=== PATIENT | male | born 1980 | race Hispanic/Latino ===

== ENCOUNTER 2019-07-04 13:36 | Emergency (ER) | payer BC ==
[2019-07-04] MEDS ORDERED: IBUPROFEN 400 MG TAB ONE ×2 (15:18→15:20)
[2019-07-04] MEDS ORDERED: NA CHLORIDE 0.9% 1,000 ML ONE ×2 (15:18→18:07)
[2019-07-04 15:50] LABS: Absolute Lymphocytes (CBC) 1.2 K/uL (0.7-4.9); Basophils % 0.1 % (0-1.3); Hematocrit 41.3 % (39.6-49.0); Lymphocytes % 7.9 % (15.3-44.8); MPV 10.7 fL (7.6-11.3); RBC Red Blood Cell Count 4.49 M/uL (4.33-5.43)
--- NOTE | 2019-07-04 15:51 | RAD REPORT ---
EXAM DESCRIPTION: CT - Head Brain Wo Cont - 07/04/2019 3:27 pm CLINICAL HISTORY: Headache COMPARISON: None. TECHNIQUE: Computed axial tomography of the head was obtained. IV contrast was not requested. All CT scans are performed using dose optimization technique as appropriate and may include automated exposure control or mA/KV adjustment according to patient size. FINDINGS: An intracranial bleed is not seen . The ventricles are normal in caliber. No extra-axial fluid collection is noted. Fluid within the sinuses/ mastoids is not seen. IMPRESSION: No acute intracranial abnormality is seen. If patient's symptoms persist MRI of the bra in would be recommended.
[2019-07-04 15:58] LABS: Albumin 3.8 g/dL (3.4-5.0); Bilirubin Total 0.9 mg/dL (0.2-1.0); Protein, Total 7.8 g/dL (6.4-8.2)
[2019-07-04] MEDS ORDERED: LIDOCAINE 1% MPF 30 ML VIAL ONE (16:54)
[2019-07-04 18:11] LABS: CSF Glucose 58 mg/dL (40-70)
[2019-07-04 18:34] LABS: Appearance CLEAR (CLEAR); Body Fluid Source CSF; Color of fluid Colorless (COLORLESS)
[2019-07-04 18:36] LABS: Body Fluid WBC 1 /mm^3
[2019-07-04 18:37] LABS: Appearance CLEAR (CLEAR); Body Fluid Source CSF; Body Fluid WBC 1 /mm^3; Color of fluid Colorless (COLORLESS); Fluid Total Volume 8.25 ml
--- NOTE | 2019-07-04 20:05 | EDPHYS ---
Physician Documentation [facility] Name: Uzair Sullivan Age: 39 yrs Sex: Male : 1980 Arrival Date: 07/04/2019 Time: 13:38 Bed 23 Private MD: ED Physician Ethan Bhatia HPI: 07/04 14:48 This 39 yrs old Male presents to ER via Ambulatory with complaints of Fever, jmm Headache. 14:48 The patient reports fever, that was measured at 102 degrees Fahrenheit. Onset: The jmm symptoms/episode began/occurred gradually, 2 day(s) ago. Modifying factors: there are no obvious modifying factors. Associated signs and symptoms: Pertinent positives: headache, Pertinent negatives: abdominal pain, cough, diarrhea, sinus congestion, sinus drainage, vomiting. The patient has not experienced similar symptoms in the past. Historical: - Allergies: 14:15 No Known Allergies; aj1 - PMHx: 14:15 None; aj1 - Immunization history:: Adult Immunizations up to date. - Ebola Screening: : Patient denies travel to an Ebola-affected area in the 21 days before illness onset. - Social history:: Smoking status: Patient/guardian denies using tobacco. ROS: 14:48 Cardiovascular: Negative for chest pain, palpitations, and edema, Respiratory: Negative jmm for shortness of breath, cough, wheezing, and pleuritic chest pain. 14:48 Constitutional: Positive for body aches, fever. 14:48 Neuro: Positive for headache. 14:48 All other systems are negative. Exam: 14:48 Constitutional: This is a well developed, well nourished patient who is awake, alert, jmm and in no acute distress. Head/Face: atraumatic. Eyes: EOMI, no conjunctival erythema appreciated ENT: Moist Mucus Membranes Neck: Trachea midline, Supple Chest/axilla: Normal chest wall appearance and motion. Cardiovascular: Regular rate and rhythm. No edema appreciated Respiratory: Normal respirations, no respiratory distress appreciated 14:48 Skin: General appearance color normal MS/ Extremity: Moves all extremities, no obvious deformities appreciated, no edema noted to the lower extremities Neuro: Awake and alert, normal gait Psych: Behavior is normal, Mood is normal, Patient is cooperative and pleasant 14:48 Abdomen/GI: Inspection: abdomen appears normal, Bowel sounds: normal, Palpation: abdomen is soft and non-tender. Vital Signs: 14:15 BP 123 / 83; Pulse 77; Resp 16; Temp 98.5; Pulse Ox 99% on R/A; Weight 90.72 kg (R); aj1 Height 5 ft. 7 in. (170.18 cm) (R); Pain 9/10; 16:48 BP 116 / 84; Pulse 70; Resp 16; Temp 98.6; Pulse Ox 99% ; lt1 17:54 BP 116 / 85; Pulse 68; Resp 17 S; Pulse Ox 99% on R/A; ca1 18:53 BP 128 / 89; Pulse 87; Resp 17 S; Temp 98.1(O); Pulse Ox 98% on R/A; ca1 19:55 BP 114 / 89; Pulse 67; Resp 17 S; Pulse Ox 100% on R/A; ca1 14:15 Body Mass Index 31.32 (90.72 kg, 170.18 cm) [facility] Procedures: 20:00 Lumbar Puncture: Patient placed in left lateral decubitus position. Prepped with tammi Betadine. Draped using sterile technique. clear fluid. Puncture site dressed with band aid, Patient tolerated well. MDM: 14:48 Patient medically screened. celeste 20:01 Data reviewed: vital signs, nurses notes. Counseling: I had a detailed discussion with tammi the patient and/or guardian regarding: the historical points, exam findings, and any diagnostic results supporting the discharge/admit diagnosis, lab results, radiology results, the need for outpatient follow up, to return to the emergency department if symptoms worsen or persist or if there are any questions or concerns that arise at home. ED course: Patient is alert and non toxic in the ED. CSF negative. Most likely due to a viral infection. Patient otherwise given strict return precautions. Patient understood and agrees with the plan of care. . 07/04 15:11 Order name: CBC with Diff; Complete Time: 15:58 [facility] 07/04 15:11 Order name: CMP; Complete Time: 15:59 [facility] 07/04 15:11 Order name: Mccormick Screen Profile; Complete Time: 16:14 [facility] 07/04 15:11 Order name: Strep; Complete Time: 15:58 [facility] 07/04 15:58 Order name: Throat Culture [facility] 07/04 16:44 Order name: CSF Bacterial Antigens (tube 1) [facility] 07/04 15:11 Order name: CT Head Brain wo Cont; Complete Time: 16:14 [facility] 07/04 16:44 Order name: Csf Culture [facility] 07/04 16:44 Order name: Fluid Cell Count,Body; Complete Time: 18:51 [facility] 07/04 16:44 Order name: Spinal Fluid Profile; Complete Time: 18:51 [facility] 07/04 19:52 Order name: Urine Dipstick--Ancillary (enter results) [facility] 07/04 15:11 Order name: Saline Lock; Complete Time: 15:24 [facility] 07/04 16:44 Order name: Lumbar Puncture Setup; Complete Time: 17:00 [facility] 07/04 16:44 Order name: LP Consents; Complete Time: 17:00 [facility] 07/04 19:35 Order name: Misc. Order: run urine please; Complete Time: 19:45 jm Administered Medications: 15:15 Drug: Motrin 800 mg Route: PO; ca1 16:00 Follow up: Response: No adverse reaction; Pain is decreased ca1 16:15 Follow up: Response: No adverse reaction; Pain is decreased ca1 15:20 Drug: NS 0.9% 1000 ml Route: IV; Rate: 1 bolus; Site: right antecubital; ca1 16:30 Follow up: Urine output 230 ml; Response: No adverse reaction; IV Status: Completed ca1 infusion 17:37 Drug: Lidocaine (1 %) 20 ml {Note: Infiltrated by PA. Elisabeth} Volume: 20 ml; ca1 Route: Infiltration; 18:00 Follow up: Response: No adverse reaction ca1 18:18 Drug: NS 0.9% 1000 ml Route: IV; Rate: 1 bolus; Site: right antecubital; ca1 19:30 Follow up: Response: No adverse reaction; IV Status: Completed infusion ca1 Disposition: 07/04/19 20:04 Discharged to Home. Impression: Fever, unspecified, Headache. - Condition is Stable. - Discharge Instructions: Fever, Adult, General Headache Without Cause. - Prescriptions for Fiorinal 50- 325-40 mg Oral Capsule - take 1 capsule by ORAL route every 4 hours As needed - not to exceed 6 capsules per day; 20 capsule. - Medication Reconciliation Form, Thank You Letter, Antibiotic Education, Prescription Opioid Use form. - Follow up: Private Physician; When: 2 - 3 days; Reason: Recheck today's complaints, Continuance of care, Re-evaluation by your physician. Addendum: 07/06/2019 08:13 Co-signature as Attending Physician, Ethan Bhatia MD I agree with the assessment and c mckinney plan of care. Signatures: Dispatcher [employer] EDWhit Friedman RN RN aj1 Ethan Bhatia MD MD cha Mickail, Joel, PA PA Ayana Finney RN RN ca1 Corrections: (The following items were deleted from the chart) 07/04 20:17 20:04 07/04/2019 20:04 Discharged to Home. Impression: Fever, unspecified; Headache. ca1 Condition is Stable. Forms are Medication Reconciliation Form, Thank You Letter, Antibiotic Education, Prescription Opioid Use. Follow up: Private Physician; When: 2 - 3 days; Reason: Recheck today's complaints, Continuance of care, Re-evaluation by your physician. tammi
--- NOTE | 2019-07-04 20:05 | ER ---
Nurse's Notes [facility] Name: Uzair Sullivan Age: 39 yrs Sex: Male : 1980 Arrival Date: 07/04/2019 Time: 13:38 Bed 23 Private MD: Diagnosis: Fever, unspecified;Headache Presentation: 07/04 14:14 Presenting complaint: Patient states: "I've been running a fever for 2 days" Reports aj1 TMax of 102. Reports headache, nausea and sinus pressure. Denies cough, congestion. Denies V/D. Transition of care: patient was not received from another setting of care. Onset of symptoms was July 02, 2019. Risk Assessment: Do you want to hurt yourself or someone else? Patient reports no desire to harm self or others. Initial Sepsis Screen: Does the patient meet any 2 criteria? No. Patient's initial sepsis screen is negative. Does the patient have a suspected source of infection? Yes: Other: fever. Care prior to arrival: None. 14:14 Method Of Arrival: Ambulatory aj1 14:14 Acuity: GLORIA 4 aj1 Triage Assessment: 14:15 Headache History: Denies prior headaches. General: Appears in no apparent distress. aj1 uncomfortable, Behavior is calm, cooperative, appropriate for age. Pain: Complains of pain in face Pain currently is 9 out of 10 on a pain scale. Pain began 1 day ago. Also complains of nausea. Neuro: Level of Consciousness is awake, alert, obeys commands, Oriented to person, place, time, situation, Moves all extremities. Full function Gait is steady, Speech is normal, Reports headache. Cardiovascular: Patient's skin is warm and dry. Respiratory: Airway is patent Respiratory effort is even, unlabored, Respiratory pattern is regular, symmetrical. Historical: - Allergies: 14:15 No Known Allergies; aj1 - PMHx: 14:15 None; aj1 - Immunization history:: Adult Immunizations up to date. - Ebola Screening: : Patient denies travel to an Ebola-affected area in the 21 days before illness onset. - Social history:: Smoking status: Patient/guardian denies using tobacco. Screenin:50 Abuse screen: Denies threats or abuse. Denies injuries from another. Nutritional ca1 screening: No deficits noted. Tuberculosis screening: No symptoms or risk factors identified. Fall Risk IV access (20 points). Assessment: 14:50 General: Appears in no apparent distress. comfortable, Behavior is calm, cooperative, ca1 appropriate for age. Pain: Complains of pain in face and scalp Pain currently is 9 out of 10 on a pain scale. Pain began 1 day ago. Is continuous. Neuro: Level of Consciousness is awake, alert, obeys commands, Oriented to person, place, time, situation, Reports headache. Cardiovascular: Heart tones S1 S2 present Capillary refill < 3 seconds Patient's skin is warm and dry. Respiratory: Airway is patent Respiratory effort is even, unlabored, Respiratory pattern is regular, symmetrical, Breath sounds are clear bilaterally. GI: Abdomen is flat, non-distended, Bowel sounds present X 4 quads. Abd is soft and non tender X 4 quads. : No deficits noted. No signs and/or symptoms were reported regarding the genitourinary system. EENT: No deficits noted. No signs and/or symptoms were reported regarding the EENT system. Derm: Skin is intact, is healthy with good turgor, Skin is pink, warm \\T\\ dry. Musculoskeletal: Circulation, motion, and sensation intact. Capillary refill < 3 seconds, Range of motion: intact in all extremities. 15:50 Reassessment: Patient appears in no apparent distress at this time. Patient and/or ca1 family updated on plan of care and expected duration. Pain level reassessed. Patient is alert, oriented x 3, equal unlabored respirations, skin warm/dry/pink. 16:45 Reassessment: Patient appears in no apparent distress at this time. Patient and/or ca1 family updated on plan of care and expected duration. Pain level reassessed. Patient is alert, oriented x 3, equal unlabored respirations, skin warm/dry/pink. 17:30 Reassessment: Patient appears in no apparent distress at this time. Patient and/or ca1 family updated on plan of care and expected duration. Pain level reassessed. Patient is alert, oriented x 3, equal unlabored respirations, skin warm/dry/pink. 18:50 Reassessment: Patient appears in no apparent distress at this time. Patient and/or ca1 family updated on plan of care and expected duration. Pain level reassessed. Patient is alert, oriented x 3, equal unlabored respirations, skin warm/dry/pink. 19:55 Reassessment: Patient appears in no apparent distress at this time. Patient and/or ca1 family updated on plan of care and expected duration. Pain level reassessed. Patient is alert, oriented x 3, equal unlabored respirations, skin warm/dry/pink. Vital Signs: 14:15 BP 123 / 83; Pulse 77; Resp 16; Temp 98.5; Pulse Ox 99% on R/A; Weight 90.72 kg (R); aj1 Height 5 ft. 7 in. (170.18 cm) (R); Pain 9/10; 16:48 BP 116 / 84; Pulse 70; Resp 16; Temp 98.6; Pulse Ox 99% ; lt1 17:54 BP 116 / 85; Pulse 68; Resp 17 S; Pulse Ox 99% on R/A; ca1 18:53 BP 128 / 89; Pulse 87; Resp 17 S; Temp 98.1(O); Pulse Ox 98% on R/A; ca1 19:55 BP 114 / 89; Pulse 67; Resp 17 S; Pulse Ox 100% on R/A; ca1 14:15 Body Mass Index 31.32 (90.72 kg, 170.18 cm) [facility] ED Course: 13:38 Patient arrived in ED. as 14:[address] [facility] 14:15 Arm band placed on Patient placed in waiting room, Patient notified of wait time. [facility] 14:23 Fly Jules PA is PHCP. [facility] 14:23 Ethan Bhatia MD is Attending Physician. [facility] 14:47 Ayana Borges, AVANI is Primary Nurse. ca1 14:50 Patient has correct armband on for positive identification. Placed in gown. Bed in low ca1 position. Call light in reach. Side rails up X 1. Pulse ox on. NIBP on. Door closed. Noise minimized. Lights dimmed. Warm blanket given. 15:20 Inserted saline lock: 20 gauge in right antecubital area, using aseptic technique. ca1 Blood collected. 15:28 CT Head Brain wo Cont In Process Unspecified. EDMS 17:37 Assist provider with lumbar puncture: Set up LP tray. Performed by Fly SHAVER CSF ca1 is clear. Sample collected. Sample sent to lab. Puncture site dressed with 4X4s, Procedure was successful. Patient tolerated well. 20:16 IV discontinued, intact, bleeding controlled, No redness/swelling at site. Pressure ca1 dressing applied. Administered Medications: 15:15 Drug: Motrin 800 mg Route: PO; ca1 16:00 Follow up: Response: No adverse reaction; Pain is decreased ca1 16:15 Follow up: Response: No adverse reaction; Pain is decreased ca1 15:20 Drug: NS 0.9% 1000 ml Route: IV; Rate: 1 bolus; Site: right antecubital; ca1 16:30 Follow up: Urine output 230 ml; Response: No adverse reaction; IV Status: Completed ca1 infusion 17:37 Drug: Lidocaine (1 %) 20 ml {Note: Infiltrated by CHHAYA Barber.} Volume: 20 ml; ca1 Route: Infiltration; 18:00 Follow up: Response: No adverse reaction ca1 18:18 Drug: NS 0.9% 1000 ml Route: IV; Rate: 1 bolus; Site: right antecubital; ca1 19:30 Follow up: Response: No adverse reaction; IV Status: Completed infusion ca1 Output: 16:30 Urine: 230ml; Total: 230ml. ca1 Outcome: 20:04 Discharge ordered by MD. cadena 20:16 Discharged to home ambulatory, with significant other. ca1 20:16 Condition: stable 20:16 Discharge instructions given to patient, Instructed on discharge instructions, follow up and referral plans. medication usage, Demonstrated understanding of instructions, follow-up care, medications, Prescriptions given X 1. 20:17 Patient left the ED. ca1 Signatures: Dispatcher [employer] EDMS Whit Calvillo RN RN aj1 Fly Jules PA PA jmm Martinez, Amelia as Acob, Cheryl, RN RN ca1 Melida Sherman 1
[2019-07-04 20:42] LABS: Urine Blood TRACE (NEG); Urine Glucose NEGATIVE (NEG); Urine Protein 1+ (NEG)
[2019-07-04 22:22] VITALS: TEMP 98.1
[2019-07-04 22:23] VITALS: BP 114/89; O2SAT 100
== END 2019-07-04 20:17 | disposition home or self-care (01) ==
LOC: ER 13:36
DX: R50.9 Fever, unspecified (principal); R51 Headache
CPT/HCPCS: 96361; 87070 ×2; 85025; 36415; 89050 ×2; 86308; 84157; 82945; 87081; 81003; 80053; 70450; 62270; 96360; 99285; J7030 ×2

== ENCOUNTER 2019-07-25 19:49 | Emergency (ER) | payer BC ==
[2019-07-25] MEDS ORDERED: IBUPROFEN 400 MG TAB ONE (20:25)
[2019-07-25] MEDS ORDERED: NA CHLORIDE 0.9% 1,000 ML ONE (20:26)
[2019-07-25] MEDS ORDERED: IBUPROFEN 200 MG TAB PO ONE (20:26)
--- NOTE | 2019-07-25 20:55 | RAD REPORT ---
EXAM DESCRIPTION: CT - Abdomen Pelvis W Contrast - 07/25/2019 8:36 pm CLINICAL HISTORY: ABD PAIN, fever, history of diverticulitis COMPARISON: June 13 TECHNIQUE: Biphasic, helical CT imaging of the abdomen and pelvis was performed following 100 ml non -ionic IV contrast. No oral contrast. All CT scans are performed using dose optimization technique as appropriate and may include automated exposure control or mA/KV adjustment according to patient size. FINDINGS: No suspicious findings in the lung bases. Fatty infiltration of the liver is present. No focal liver lesion. Spleen and pancreas show no acute findings. Gallbladder and biliary tree are also without suspicious finding. Symmetric renal function is seen with no hydronephrosis or suspicious renal mass. No pyelonephritis o r acute parenchymal process. No bladder abnormalities. No adrenal abnormalities. No gastric dilatation or wall thickening. No small bowel abnormality. No appendicitis. From cecum thr ough the descending colon no acute finding is seen. Patient has sigmoid diverticulosis. No congestion or edema in the fat adjacent to the sigmoid colon. No rectum acute findings. No free air, free fluid or inflammatory stranding. No hernia, mass or bulky lymphadenopathy. No suspicious bony findings. IMPRESSION: No diverticulitis findings confirmed. Mild or early mucosal level inflammatory changes c an be present an occult on CT imaging. Fatty infiltration of the liver.
--- NOTE | 2019-07-25 21:55 | ER ---
Nurse's Notes [facility] Name: Uzair Sullivan Age: 39 yrs Sex: Male : 1980 Arrival Date: 07/25/2019 Time: 19:56 Bed 8 Private MD: Diagnosis: Headache;Fever, unspecified Presentation: 07/25 20:10 Presenting complaint: Patient states: He was seen by his doctor today for a fever, so aj1 he was sent to have blood work, he talked to his doctor this afternoon who recommended that he come to the hospital for evaluation. Patient last took Motrin at 1700, patient has not taken any Tylenol today. Transition of care: patient was not received from another setting of care. Onset of symptoms was July 25, 2019. Risk Assessment: Do you want to hurt yourself or someone else? Patient reports no desire to harm self or others. Initial Sepsis Screen: Does the patient meet any 2 criteria? HR > 90 bpm. No. Patient's initial sepsis screen is negative. Does the patient have a suspected source of infection? Yes: Acute abdominal pain. Care prior to arrival: None. 20:10 Method Of Arrival: Ambulatory aj1 20:10 Acuity: GLORIA 3 aj1 Triage Assessment: 20:13 General: Appears in no apparent distress. uncomfortable, Behavior is calm, cooperative, aj1 appropriate for age. Pain: Pain currently is 8 out of 10 on a pain scale. Neuro: Level of Consciousness is awake, alert, obeys commands. Cardiovascular: Patient's skin is warm and dry. Respiratory: Airway is patent Respiratory effort is even, unlabored, Respiratory pattern is regular, symmetrical. Historical: - Allergies: 20:13 No Known Allergies; aj1 - Home Meds: 20:13 None [Active]; aj1 - PMHx: 20:13 Diverticulitis; aj1 - PSHx: 20:13 None; aj1 - Immunization history:: Flu vaccine is not up to date. - Social history:: Smoking status: Patient/guardian denies using tobacco. - Ebola Screening: : Patient denies travel to an Ebola-affected area in the 21 days before illness onset. Screenin:31 Abuse screen: Denies threats or abuse. Denies injuries from another. Nutritional lp1 screening: No deficits noted. Tuberculosis screening: No symptoms or risk factors identified. Fall Risk None identified. Assessment: 20:30 General: Appears in no apparent distress. Behavior is calm, cooperative, appropriate lp1 for age. Pain: Denies pain. Neuro: Level of Consciousness is awake, alert, obeys commands, Oriented to person, place, time, situation. Cardiovascular: Patient's skin is warm and dry. Respiratory: Respiratory effort is even, unlabored. GI: Patient currently denies abdominal pain, nausea, vomiting. : No signs and/or symptoms were reported regarding the genitourinary system. EENT: No signs and/or symptoms were reported regarding the EENT system. Derm: Skin is pink, warm \T\ dry. Musculoskeletal: No deficits noted. 21:30 Reassessment: Patient appears in no apparent distress at this time. No changes from lp1 previously documented assessment. 22:22 Reassessment: Report given to Sowmya Ortega RN at [facility] for lp1 patient transfer to [address] [place] [address]. 23:00 Reassessment: Patient appears in no apparent distress at this time. Patient is alert, lp1 oriented x 3, equal unlabored respirations, skin warm/dry/pink. aware of pending transfer. 23:23 Reassessment: [facility] at bedside for transfer. lp1 Vital Signs: 20:13 BP 136 / 91; Pulse 125; Resp 20; Temp 100.7; Pulse Ox 96% on R/A; Weight 88.45 kg (R); aj1 Height 5 ft. 9 in. (175.26 cm) (R); 21:15 BP 122 / 80; Pulse 104; Resp 18; Temp 98.5; Pulse Ox 98% on R/A; ea 21:43 BP 116 / 77; Pulse 104; Resp 18; Pulse Ox 99% on R/A; lp1 23:00 BP 122 / 63; Pulse 84; Resp 16; Pulse Ox 98% on R/A; Pain 0/10; lp1 20:13 Body Mass Index 28.80 (88.45 kg, 175.26 cm) aj1 ED Course: 19:56 Patient arrived in ED. ag3 20:05 [facility] kb 20:05 Brooks Portillo MD is Attending Physician. kb 20:12 Triage completed. aj1 20:13 Arm band placed on Patient placed in an exam room. aj1 20:21 Grace Benz, RN is Primary Nurse. lp1 20:29 Inserted saline lock: 20 gauge in right antecubital area, using aseptic technique. mw2 Blood collected. 20:30 Flu and/or RSV swab sent to lab. Strep swab sent to lab. lp1 20:31 Patient has correct armband on for positive identification. lp1 20:39 CT Abd/Pelvis - IV Contrast Only In Process Unspecified. EDMS 22:17 X-ray completed. Patient tolerated procedure well. Patient moved back from radiology. mh1 22:17 No provider procedures requiring assistance completed. lp1 22:19 Chest Pa And Lat (2 Views) XRAY In Process Unspecified. EDMS 23:23 Patient transferred, IV remains in place. lp1 Administered Medications: 20:30 Drug: Ibuprofen 600 mg Route: PO; lp1 22:23 Follow up: Response: Temperature is decreased lp1 20:43 Drug: NS 0.9% 1000 ml Route: IV; Rate: 1000 ml; Site: right antecubital; lp1 22:23 Follow up: IV Status: Completed infusion; IV Intake: 1000ml lp1 Intake: 22:23 IV: 1000ml; Total: 1000ml. lp1 Outcome: 21:54 ER care complete, transfer ordered by . kb 22:23 Condition: stable lp1 22:23 Instructed on the need for transfer. 23:24 Transferred by ground EMS to [facility], Transfer form completed. lp1 X-rays sent w/ patient. 23:24 Patient left the ED. lp1 Signatures: Dispatcher [employer] EDMS Alisson Post, CUT OFF OPERATOR SCORER-C CUT OFF OPERATOR SCORER-CkWhit Mcdaniels, RN RN aj1 Melissa Alfaro 1 Grace Benz, RN RN lp1 Gabriella Cardenas, La Nena Rivas RN, ea 2 Melva Mclean 3
--- NOTE | 2019-07-25 21:55 | EDPHYS ---
Physician Documentation [facility] Name: Uzair Sullivan Age: 39 yrs Sex: Male : 1980 Arrival Date: 07/25/2019 Time: 19:56 Bed 8 Private MD: ED Physician Brooks Portillo HPI: 07/25 20:22 This 39 yrs old Male presents to ER via Ambulatory with complaints of Fever. kb 20:22 The patient reports fever, not measured (subjective), with an emergency department kb temperature of 100.7 degrees Fahrenheit. Onset: The symptoms/episode began/occurred yesterday. Modifying factors: there are no obvious modifying factors. Associated signs and symptoms: Pertinent positives: headache. Severity of symptoms: At their worst the symptoms were mild in the emergency department the symptoms are unchanged. The patient has experienced similar episodes in the past. The patient has been recently seen by a physician: the patient's primary care provider, Dr. Guzmán in the office, earlier today, with similar presenting complaints, lab tests were done, and was sent to the [facility] Emergency Department for further evaluation. Pt reports he went to Dr Guzmán for fever and headache that started yesterday. Ramirez sent him for labs here and called him afterwards saying he probably had diverticulitis again and needed to come to the ER for more testing. . Historical: - Allergies: 20:13 No Known Allergies; aj1 - Home Meds: 20:13 None [Active]; aj1 - PMHx: 20:13 Diverticulitis; aj1 - PSHx: 20:13 None; aj1 - Immunization history:: Flu vaccine is not up to date. - Social history:: Smoking status: Patient/guardian denies using tobacco. - Ebola Screening: : Patient denies travel to an Ebola-affected area in the 21 days before illness onset. ROS: 20:24 ENT: Negative for injury, pain, and discharge, Neck: Negative for injury, pain, and kb swelling, Cardiovascular: Negative for chest pain, palpitations, and edema, Respiratory: Negative for shortness of breath, cough, wheezing, and pleuritic chest pain, Abdomen/GI: Negative for abdominal pain, nausea, vomiting, diarrhea, and constipation, Back: Negative for injury and pain, : Negative for injury, bleeding, discharge, and swelling, MS/Extremity: Negative for injury and deformity, Skin: Negative for injury, rash, and discoloration. 20:24 Constitutional: Positive for fever. 20:24 Neuro: Positive for headache. Exam: 20:24 Constitutional: This is a well developed, well nourished patient who is awake, alert, kb and in no acute distress. Head/Face: Normocephalic, atraumatic. Eyes: Pupils equal round and reactive to light, extra-ocular motions intact. Lids and lashes normal. Conjunctiva and sclera are non-icteric and not injected. Cornea within normal limits. Periorbital areas with no swelling, redness, or edema. ENT: Nares patent. No nasal discharge, no septal abnormalities noted. Tympanic membranes are normal and external auditory canals are clear. Oropharynx with no redness, swelling, or masses, exudates, or evidence of obstruction, uvula midline. Mucous membranes moist. Neck: Trachea midline, no thyromegaly or masses palpated, and no cervical lymphadenopathy. Supple, full range of motion without nuchal rigidity, or vertebral point tenderness. No Meningismus. Chest/axilla: Normal chest wall appearance and motion. Nontender with no deformity. No lesions are appreciated. Cardiovascular: Regular rate and rhythm with a normal S1 and S2. No gallops, murmurs, or rubs. Normal PMI, no JVD. No pulse deficits. Respiratory: Lungs have equal breath sounds bilaterally, clear to auscultation and percussion. No rales, rhonchi or wheezes noted. No increased work of breathing, no retractions or nasal flaring. Abdomen/GI: Soft, non-tender, with normal bowel sounds. No distension or tympany. No guarding or rebound. No evidence of tenderness throughout. Skin: Warm, dry with normal turgor. Normal color with no rashes, no lesions, and no evidence of cellulitis. MS/ Extremity: Pulses equal, no cyanosis. Neurovascular intact. Full, normal range of motion. Neuro: Awake and alert, GCS 15, oriented to person, place, time, and situation. Cranial nerves II-XII grossly intact. Motor strength 5/5 in all extremities. Sensory grossly intact. Cerebellar exam normal. Normal gait. Vital Signs: 20:13 BP 136 / 91; Pulse 125; Resp 20; Temp 100.7; Pulse Ox 96% on R/A; Weight 88.45 kg (R); aj1 Height 5 ft. 9 in. (175.26 cm) (R); 21:15 BP 122 / 80; Pulse 104; Resp 18; Temp 98.5; Pulse Ox 98% on R/A; ea 21:43 BP 116 / 77; Pulse 104; Resp 18; Pulse Ox 99% on R/A; lp1 23:00 BP 122 / 63; Pulse 84; Resp 16; Pulse Ox 98% on R/A; Pain 0/10; lp1 20:13 Body Mass Index 28.80 (88.45 kg, 175.26 cm) aj1 MDM: 20:19 Patient medically screened. kb 20:20 Data reviewed: vital signs, nurses notes. Data interpreted: Pulse oximetry: on room air kb is 96 %. Interpretation: normal. 20:24 Data reviewed: lab test result(s), CBC and BMP were done outpatient earlier today, kb results reviewed. WBC 19. 21:19 Physician consultation: Brandon Guzmán MD was contacted at 21:19, regarding consult, patient's condition, after a discussion of the case, a recommendation for transfer for higher level of care is made, Dr Guzmán requests transfer to [facility] for infectious disease . 21:25 Counseling: I had a detailed discussion with the patient and/or guardian regarding: the kb historical points, exam findings, and any diagnostic results supporting the discharge/admit diagnosis, lab results, radiology results, the need to transfer to another facility, [facility] does not immediately have the required specialist. 21:53 ED course: Dr Sutherland accepts pt for transfer.. 07/25 20:20 Order name: Flu; Complete Time: 21:02 kb 07/25 20:20 Order name: Strep; Complete Time: 21:02 kb 07/25 20:20 Order name: [place] Screen Profile; Complete Time: 21:07 kb 07/25 21:03 Order name: Throat Culture EDMI 07/25 21:24 Order name: Blood Culture Adult (2) 07/25 21:24 Order name: Procalcitonin 07/25 20:20 Order name: CT Abd/Pelvis - IV Contrast Only; Complete Time: 21:01 kb 07/25 20:20 Order name: IV Start; Complete Time: 20:30 kb 07/25 21:24 Order name: Lactate kb 07/25 21:52 Order name: Chest Pa And Lat (2 Views) XRAY kb Administered Medications: 20:30 Drug: Ibuprofen 600 mg Route: PO; lp1 22:23 Follow up: Response: Temperature is decreased lp1 20:43 Drug: NS 0.9% 1000 ml Route: IV; Rate: 1000 ml; Site: right antecubital; lp1 22:23 Follow up: IV Status: Completed infusion; IV Intake: 1000ml lp1 Disposition: 07/25/19 21:[address] [facility]. Diagnosis are Headache, Fever, unspecified. - Reason for transfer: Higher level of care. - Accepting physician is [facility]. - Condition is Stable. - Problem is new. - Symptoms are unchanged. Addendum: 07/29/2019 14:48 Co-signature as Attending Physician, Brooks oPrtillo MD. g s Signatures: Dispatcher [employer] [facility] Alisson Post, RESIDENT ATHLETIC TRAINER-C RESIDENT ATHLETIC TRAINER-Ckb Whit Calvillo RN RN 1 Grace Benz RN RN lp1 Brooks Portillo MD MD gs Corrections: (The following items were deleted from the chart) 07/25 22:05 21:51 Head Brain Wo Cont+CT.RAD.BRZ ordered. [facility] EDMI 23:24 21:54 07/25/2019 21:[address] [facility]. Diagnosis is lp1 Headache; Fever, unspecified. Reason for transfer: Higher level of care. Accept[facility] physician [facility]. Condition is Stable. Problem is new. Symptoms are unchanged. kb
[2019-07-26 01:25] VITALS: BP 122/63; TEMP 98.5; O2SAT 98
--- NOTE | 2019-07-26 09:58 | RAD REPORT ---
EXAM DESCRIPTION: Leo Padilla (2 Views)07/25/2019 10:20 pm CLINICAL HISTORY: fever COMPARISON: None FINDINGS: The lungs appear clear of acute infiltrate. The heart is normal size IMPRESSION: No acute abnormalities displayed
== END 2019-07-25 23:24 | disposition short-term general hospital (02) ==
LOC: ER 19:49
DX: R50.9 Fever, unspecified (principal); R51 Headache
CPT/HCPCS: 96361; 87040 ×2; 87070; 36415; 86308; 87081; 83605; 84145; 87804 ×2; 74177; 71046; 96360; 99285; Q9967; J7030

== ENCOUNTER 2019-09-11 18:01 | Emergency (ER) | payer BC ==
--- OUTSIDE RECORDS SUMMARY | 2019-09-11 18:05 | XMS REPORT ---
:1980 [facility] [address] [place] [address] [address] [place] [address] Care Team Providers Name Role Phone CHAGO AMADOR Unavailable Unavailable Problems This patient has no known problems. Allergies, Adverse Reactions, Alerts This patient has no known allergies or adverse reactions. Medications This patient has no known medications. Results Test Description Test Time Test Comments Text Results Atomic Results Result Comments BLOOD CULTURE 2019-08-01 08:01:00 Test Item Value Reference Range Comments CULTURE (BEAKER) (test nlqd=0541) No growth in 5 days MISCELLANEOUS LAB [id number] 07:37:00 Test Item Value Reference Range Comments SCAN RESULT (test wsmd=[id number]) BLOOD [id number] 08:00:00 Test Item Value Reference Range Comments CULTURE (BEAKER) (test wlem=3204) No growth in 5 days BLOOD [id number] 08:00:00 Test Item Value Reference Range Comments CULTURE (BEAKER) (test iool=5145) No growth in 5 days ANTI-NUCLEAR ANTIBODY (AURA)2019-07-30 09:44:00 Test Item Value Reference Range Comments ANTI-NUCLEAR ANTIBODY (AURA) (BEAKER) (test Positive Negative jatm=567) Test performed by IFA method.AURA TITER AND [id number] 09:44:00 Test Item Value Reference Range Comments AURA TITER (BEAKER) (test taev=0773) >=:2560 AURA PATTERN (BEAKER) (test tclr=9285) Homogeneous (CELLAVISION MANUAL DIFF)2019-07-29 11:53:00 Test Item Value Reference Range Comments NEUTROPHILS - REL (CELLAVISION)(BEAKER) (test 59 % yexm=2903) LYMPHOCYTES - REL (CELLAVISION)(BEAKER) (test 30 % lzhe=7051) MONOCYTES - REL (CELLAVISION)(BEAKER) (test 6 % jobu=3024) EOSINOPHILS - REL (CELLAVISION)(BEAKER) (test 1 % bhge=0258) ATYPICAL LYMPHOCYTES - REL (CELLAVISION)(BEAKER) 4 % 0-0 (test ehsf=3867) NEUTROPHILS - ABS (CELLAVISION)(BEAKER) (test 4.43 K/ul 1.78-5.38 eesu=3353) LYMPHOCYTES - ABS (CELLAVISION)(BEAKER) (test 2.25 K/ul 1.32-3.57 wkal=0672) MONOCYTES - ABS (CELLAVISION)(BEAKER) (test 0.45 K/uL 0.30-0.82 yihx=0363) EOSINOPHILS - ABS (CELLAVISION)(BEAKER) (test 0.08 K/uL 0.04-0.54 uueo=4460) ATYPICAL LYMPHOCYTES - ABS (CELLAVISION)(BEAKER) 0.30 K/uL 0.00-0.00 (test uvgs=8828) TOTAL COUNTED (BEAKER) (test yshn=1575) 100 RBC MORPHOLOGY (BEAKER) (test swft=906) Normal WBC MORPHOLOGY (BEAKER) (test zjlv=287) Normal PLT MORPHOLOGY (BEAKER) (test plck=073) Normal HEPATIC FUNCTION [id number] 09:58:00 Test Item Value Reference Range Comments TOTAL PROTEIN (BEAKER) (test ngee=800) 7.8 gm/dL 6.0-8.3 ALBUMIN (BEAKER) (test ondo=1991) 3.8 g/dL 3.5-5.0 BILIRUBIN TOTAL (BEAKER) (test vcgg=383) 0.3 mg/dL 0.2-1.2 BILIRUBIN DIRECT (BEAKER) (test zidk=879) 0.2 mg/dL 0.1-0.5 ALKALINE PHOSPHATASE (BEAKER) (test potc=577) 42 U/L 40-150 AST (SGOT) (BEAKER) (test fexr=327) 17 U/L 5-34 ALT (SGPT) (BEAKER) (test cvoz=139) 24 U/L 6-55 CBC WITH PLATELET COUNT + MANUAL [id number] 09:29:00 Test Item Value Reference Range Comments WHITE BLOOD CELL COUNT (BEAKER) (test skpa=477) 7.5 K/ L 3.5-10.5 RED BLOOD CELL COUNT (BEAKER) (test jtrv=246) 4.08 M/ L 4.63-6.08 HEMOGLOBIN (BEAKER) (test bsxz=977) 12.8 GM/DL 13.7-17.5 HEMATOCRIT (BEAKER) (test xzbi=585) 36.1 % 40.1-51.0 MEAN CORPUSCULAR VOLUME (BEAKER) (test vsae=537) 88.5 fL 79.0-92.2 MEAN CORPUSCULAR HEMOGLOBIN (BEAKER) (test 31.4 pg 25.7-32.2 gmvj=298) MEAN CORPUSCULAR HEMOGLOBIN CONC (BEAKER) (test 35.5 GM/DL 32.3-36.5 ajen=876) RED CELL DISTRIBUTION WIDTH (BEAKER) (test 11.6 % 11.6-14.4 lrjv=341) PLATELET COUNT (BEAKER) (test rjja=644) 247 K/CU MM 150-450 MEAN PLATELET VOLUME (BEAKER) (test cslf=686) 10.8 fL 9.4-12.4 NUCLEATED RED BLOOD CELLS (BEAKER) (test 0 /100 WBC 0-0 dhwr=714) RESPIRATORY PANEL [id number] 15:15:00 Test Item Value Reference Range Comments HUMAN METAPNEUMOVIRUS (BEAKER) (test Not detected Not detected, Equivocal vgeh=2448) RHINOVIRUS (BEAKER) (test heqf=8114) Not detected Not detected, Equivocal INFLUENZA A (BEAKER) (test zkiv=1424) Not detected Not detected, Equivocal INFLUENZA A (NO SUBTYPE) (test xejy=5341) INFLUENZA A SUBTYPE H1 (BEAKER) (test mggm=0918) INFLUENZA A SUBTYPE H3 (BEAKER) (test bqhj=4849) INFLUENZA A SUBTYPE H1-2009 (BEAKER) (test jblo=5843) INFLUENZA B (BEAKER) (test oxdm=4585) Not detected Not detected, Equivocal RESPIRATORY SYNCYTIAL VIRUS (BEAKER) Not detected Not detected, Equivocal (test uzso=3598) PARAINFLUENZA VIRUS 1 (BEAKER) (test Not detected Not detected, Equivocal wqpf=5484) PARAINFLUENZA VIRUS 2 (BEAKER) (test Not detected Not detected, Equivocal gotp=0918) PARAINFLUENZA VIRUS 3 (BEAKER) (test Not detected Not detected, Equivocal hgit=3239) PARAINFLUENZA VIRUS 4 (BEAKER) (test Not detected Not detected, Equivocal qmta=6491) ADENOVIRUS (BEAKER) (test pbff=6115) Not detected Not detected, Equivocal CORONAVIRUS 229E (BEAKER) (test Not detected Not detected, Equivocal zmhi=4093) CORONAVIRUS HKU1 (BEAKER) (test Not detected Not detected, Equivocal gmld=1571) CORONAVIRUS NL63 (BEAKER) (test Not detected Not detected, Equivocal qxjf=7893) CORONAVIRUS OC43 (BEAKER) (test Not detected Not detected, Equivocal qmuk=7757) BORDETELLA PERTUSSIS (BEAKER) (test Not detected Not detected, Equivocal ybil=4840) CHLAMYDOPHILA PNEUMONIAE (BEAKER) (test Not detected Not detected, Equivocal sbkj=0280) MYCOPLASMA PNEUMONIAE (BEAKER) (test Not detected Not detected, Equivocal iduo=7021) Other viruses and bacteria not targeted by this PCR panel cannot be excluded; therefore clinical correlation and follow up of serology, culture results, and other molecular studies is required. The results are not intended to be used as the sole means for clinical diagnosis or patient management decisions. This sample was tested at the [facility] using the FundersClubArray Respiratory Panel. It is FDA cleared and has been verified and approved by the [facility] for clinical use on nasopharyngeal swab specimens.The performance of the FilmArrayRP has not been established in individuals who received influenza vaccine. Recent administration ofa nasal influenza vaccine may cause false positive results for Influenza A and/orInfluenza B.EBV VIRAL [id number] 13:49:00 Test Item Value Reference Range Comments EBV VIRAL LOAD - NEGATIVE Negative or below the linear (BEAKER) (test hhhb=8605) range of the assay (<500 copies/mL) This assay was performed by real-time PCR for the detection of the Sary-Orourke virus (EBV) gene EBNA-1. The test is composed of (1) DNA extraction from patient specimen, and (2) real-time PCR amplification and detection with EBNA-1- specific primers and probes. A well-conserved region of the EBNA-1 gene is targeted, along with an internal control sequence used to confirm PCR amplification. Asymptomatic carriers and viral genetic variation, among other factors, can affect the accuracy of nucleic acid testing; therefore, results should be interpreted in light of clinical data.This test was developedand its performance characteristics determined by the [facility] Pathology Department, Section of Molecular Pathology. It has not been cleared or approved by the U.S. Food and Drug Administration (FDA), since FDA approval is not required for clinical use of the test. Validation was doneas required by The Clinical Laboratory Improvement Amendments of 1988.This assay was performed by real-time PCR for the detection of the Sary-Orourke virus (EBV) gene EBNA-1. The test is composed of (1) DNA extraction from patient specimen, and (2) real -time PCR amplification and detection with JBAM-3-gdwhstix primers and probes. A well-conserved region of the EBNA-1 gene is targeted, along with an internal control sequence used to confirm PCR amplification. Asymptomatic carriers and viral genetic variation, among other factors, can affect the accuracy of nucleic acid testing; therefore, results should be interpreted in light of clinical data.This test was developed and its performance characteristics determined by the [facility] Pathology Department, Section of Molecular Pathology. It has not been cleared or approved by the U.S. Food and Drug Administration (FDA), since FDA approval is not required for clinical use of the test. Validation was done as required by The Clinical Laboratory Improvement Amendments of 1987.CMV PCR, [id number] 13:43:00 Test Item Value Reference Range Comments CMV VIRAL LOAD - NEGATIVE Negative or below the linear (BEAKER) (test uyhv=5702) range of the assay (<375 copies/mL) Cytomegalovirus (CMV) infection can cause significant disease in immunosuppressed patients. However,it is common for CMV to manifest as a limited infection which is of no clinical significance in immunosuppressed patients or in healthy individuals.Viral load measurements are helpful to identify clinical CMV infection and to guide the pre-emptive management of antiviral therapy. For treatment of CMVinfection due to reactivation in transplant recipients, a threshold between 4,000 and 5,000 copies/mL is suggested. For treatment of primary CMV infection, a lower threshold can be used.CMV infection may also be monitored using weekly serial measurements. Serial measurements of CMV DNA viral load canbe evaluated by identifying a 10- fold change, as well as assessing the CMV DNA viral load and the clinical context for each patient.The plasma CMV DNA viral load was detected using quantitative polymerase chain reaction and fluorescent monitoring of a specific hybridized probe. Genetic variation and other factors can affect the accuracy of nucleic acid testing. Therefore, the results should be interpreted in light of clinical data. A negative result may not exclude the presence of CMV disease.This test was developed and its performance characteristics determined by the [facility] Pathology Department, Section of Molecular Pathology. It has not been cleared or approved by the U.S. Food and Drug Administration (FDA), since FDA approval is not required for clinical use of the test. Validation was done as required by The Clinical Laboratory Improvement Amendments of 1988.RHEUMATOID FACTOR AB, REFLEX TO [id number] 13:10:00 Test Item Value Reference Range Comments RHEUMATOID FACTOR (BEAKER) (test ghmi=614) Negative BASIC METABOLIC [id number] 06:42:00 Test Item Value Reference Range Comments SODIUM (BEAKER) (test 137 meq/L 136-145 jqej=426) POTASSIUM (BEAKER) (test 3.8 meq/L 3.5-5.1 okum=085) CHLORIDE (BEAKER) (test 106 meq/L 98-107 eszm=883) CO2 (BEAKER) (test 23 meq/L 22-29 ains=086) BLOOD UREA NITROGEN 10 mg/dL 7-21 (BEAKER) (test tfhr=038) CREATININE (BEAKER) (test 0.99 mg/dL 0.57-1.25 pbps=322) GLUCOSE RANDOM (BEAKER) 94 mg/dL 70-105 (test vasg=090) CALCIUM (BEAKER) (test 9.0 mg/dL 8.4-10.2 mipx=580) EGFR (BEAKER) (test 83 mL/min/1.73 sq m ESTIMATED GFR IS NOT thoi=3907) ACCURATE CREATININE CLEARANCE IN PREDICTING GLOMERULAR FILTRATION RATE. ESTIMATED GFR IS NOT APPLICABLE FOR DIALYSIS PATIENTS. [id number] 12:15:00 Test Item Value Reference Range Comments RPR SCREEN (BEAKER) (test yzmk=303) Nonreactive Nonreactive HIV-1 ANTIGEN WITH HIV-1/2 [id number] 04:56:00 Test Item Value Reference Range Comments HIV-1 ANTIGEN WITH HIV 1\T\2 ANTIBODY (2) Nonreactive Nonreactive (BEAKER) (test nnhz=9640) BASIC METABOLIC [id number] 04:24:00 Test Item Value Reference Range Comments SODIUM (BEAKER) (test 139 meq/L 136-145 bzxs=915) POTASSIUM (BEAKER) (test 3.8 meq/L 3.5-5.1 zwcu=029) CHLORIDE (BEAKER) (test 106 meq/L 98-107 zsxw=755) CO2 (BEAKER) (test 26 meq/L 22-29 nnsz=426) BLOOD UREA NITROGEN 9 mg/dL 7-21 (BEAKER) (test veyc=310) CREATININE (BEAKER) (test 0.84 mg/dL 0.57-1.25 toux=438) GLUCOSE RANDOM (BEAKER) 94 mg/dL 70-105 (test wdzw=439) CALCIUM (BEAKER) (test 9.2 mg/dL 8.4-10.2 bwzn=996) EGFR (BEAKER) (test 101 mL/min/1.73 sq m ESTIMATED GFR IS NOT btvw=1578) ACCURATE CREATININE CLEARANCE IN PREDICTING GLOMERULAR FILTRATION RATE. ESTIMATED GFR IS NOT APPLICABLE FOR DIALYSIS PATIENTS. URINALYSIS W/ REFLEX URINE [id number] 00:26:00 Test Item Value Reference Range Comments COLOR (BEAKER) (test hxrw=353) Dark Yellow CLARITY (BEAKER) (test gywd=346) Clear SPECIFIC GRAVITY UA (BEAKER) (test pxif=759) 1.007 1.001-1.035 PH UA (BEAKER) (test fkfm=682) 6.5 5.0-8.0 PROTEIN UA (BEAKER) (test ywdd=586) Negative Negative GLUCOSE UA (BEAKER) (test uimp=463) Negative Negative KETONES UA (BEAKER) (test ynca=345) Negative Negative BILIRUBIN UA (BEAKER) (test rngn=065) Negative Negative BLOOD UA (BEAKER) (test erhn=489) Small Negative NITRITE UA (BEAKER) (test azyk=266) Positive Negative LEUKOCYTE ESTERASE UA (BEAKER) (test rczs=747) Large Negative UROBILINOGEN UA (BEAKER) (test rbxj=165) 2.0 mg/dL 0.2-1.0 RBC UA (BEAKER) (test bqdn=133) 6 /HPF WBC UA (BEAKER) (test xexs=906) 34 /HPF BACTERIA (BEAKER) (test hkpw=909) Many SQUAMOUS EPITHELIAL (BEAKER) (test tesn=321) < /HPF SOURCE(BEAKER) (test mguw=5040) RAD, CHEST, 1 VIEW, NON [id number] 10:25:00Reason for exam:->leukocytosis , fever r/o infectionFINAL REPORT History: Leukocytosis , fever Comparison: None Findings: There is mild horizontal linear opacities suggestive of subsegmental atelectasis in the lower left lung. Lungs otherwise clear. No pleural effusions or pneumothorax. The heart shadow is normal in size. The thoracic aorta is mildly tortuous. No skeletal abnormalities are visualized. Impression: Subsegmental atelectasis in the lower left lung. Lungs otherwise clear. Signed: Foster Wattsepjazmín Verified Date/Time: 07/26/2019 10:25:43 Reading Location: [address] Consult Reading Room CBC W/PLT COUNT & AUTO [id number] 10:24:00 Test Item Value Reference Range Comments WHITE BLOOD CELL COUNT (BEAKER) (test gnjx=275) 24.7 K/ L 3.5-10.5 RED BLOOD CELL COUNT (BEAKER) (test bxin=378) 3.89 M/ L 4.63-6.08 HEMOGLOBIN (BEAKER) (test zrfk=664) 12.3 GM/DL 13.7-17.5 HEMATOCRIT (BEAKER) (test kjbr=637) 35.0 % 40.1-51.0 MEAN CORPUSCULAR VOLUME (BEAKER) (test tgjl=739) 90.0 fL 79.0-92.2 MEAN CORPUSCULAR HEMOGLOBIN (BEAKER) (test 31.6 pg 25.7-32.2 pirm=015) MEAN CORPUSCULAR HEMOGLOBIN CONC (BEAKER) (test 35.1 GM/DL 32.3-36.5 favw=886) RED CELL DISTRIBUTION WIDTH (BEAKER) (test 11.7 % 11.6-14.4 cdxk=577) PLATELET COUNT (BEAKER) (test bowa=424) 226 K/CU MM 150-450 MEAN PLATELET VOLUME (BEAKER) (test kqcp=553) 11.5 fL 9.4-12.4 NUCLEATED RED BLOOD CELLS (BEAKER) (test 0 /100 WBC 0-0 ywmf=894) (CELLAVISION MANUAL DIFF)2019-07-26 10:24:00 Test Item Value Reference Range Comments NEUTROPHILS - REL (CELLAVISION)(BEAKER) (test 70 % pdyt=3907) LYMPHOCYTES - REL (CELLAVISION)(BEAKER) (test 19 % vbol=4106) MONOCYTES - REL (CELLAVISION)(BEAKER) (test 5 % vdma=3722) BANDS - REL (CELLAVISION)(BEAKER) (test 2 % 0-10 zznm=4025) ATYPICAL LYMPHOCYTES - REL (CELLAVISION)(BEAKER) 4 % 0-0 (test hjpx=4530) NEUTROPHILS - ABS (CELLAVISION)(BEAKER) (test 17.29 K/ul 1.78-5.38 qtyh=8161) LYMPHOCYTES - ABS (CELLAVISION)(BEAKER) (test 4.69 K/ul 1.32-3.57 qogg=6465) MONOCYTES - ABS (CELLAVISION)(BEAKER) (test 1.24 K/uL 0.30-0.82 qkuo=9575) BANDS - ABS (CELLAVISION)(BEAKER) (test 0.49 K/uL 0.00-0.80 wzut=2996) ATYPICAL LYMPHOCYTES - ABS (CELLAVISION)(BEAKER) 0.99 K/uL 0.00-0.00 (test xekz=3165) TOTAL COUNTED (BEAKER) (test udrt=1840) 100 RBC MORPHOLOGY (BEAKER) (test mzrn=710) Normal WBC MORPHOLOGY (BEAKER) (test yixd=716) Normal PLT MORPHOLOGY (BEAKER) (test mdbb=053) Normal ARTIFACT (CELLAVISION)(BEAKER) (test dvny=5014) Present PLATELET CONCENTRATION (CELLAVISION)(BEAKER) Adequate (test ienp=6226) Received comment: User comments: Slide comments:[id number] 10:11:00 Test Item Value Reference Range Comments PROTIME (BEAKER) (test xcry=043) 14.2 seconds 11.9-14.2 INR (BEAKER) (test diji=950) 1.2 <=5.9 PARTIAL THROMBOPLASTIN TIME (BEAKER) (test 34.6 seconds 22.5-36.0 exah=205) Effective 03/26/2019: PT Reference Range ChangeNew: 11.9-14.2 Previous: 11.7- 14.7RECOMMENDED COUMADIN/WARFARIN INR THERAPY RANGESSTANDARD DOSE: 2.0-3.0 Includes: PROPHYLAXIS for venous thrombosis, systemic embolization; TREATMENT for venous thrombosis and/or pulmonary embolus.HIGH RISK: Target INR is2.5-3.5 for patients wiht mechanical heart valves.B-TYPE NATRIURETIC FACTOR (BNP)2019-06 10:08:00 Test Item Value Reference Range Comments B-TYPE NATRIURETIC PEPTIDE (BEAKER) (test hqai=977) 14 pg/mL 0-100 TROPONIN [id number] 10:00:00 Test Item Value Reference Range Comments TROPONIN I (BEAKER) (test ehwz=306) 0.03 ng/mL 0.00-0.03 Troponin I (TnI) levels must be interpreted in the context of the presenting symptoms and the clinical findings. Elevated TnI levels indicate myocardial damage, but are not specific for ischemic heart disease. Elevated TnI levels are seen in patients with other cardiac conditions (including myocarditis and congestive heart failure), and slight TnI elevations occur in patients with other conditions, including sepsis, renal failure, acidosis, acute neurological disease, and persistent tachyarrhythmia.BASIC METABOLIC [id number] 09:54:00 Test Item Value Reference Range Comments SODIUM (BEAKER) (test 135 meq/L 136-145 uwaa=813) POTASSIUM (BEAKER) (test 3.9 meq/L 3.5-5.1 Specimen slightly nfrd=408) hemolyzed CHLORIDE (BEAKER) (test 105 meq/L 98-107 lyce=911) CO2 (BEAKER) (test 23 meq/L 22-29 nfag=738) BLOOD UREA NITROGEN 12 mg/dL 7-21 (BEAKER) (test cxhu=698) CREATININE (BEAKER) (test 0.81 mg/dL 0.57-1.25 Specimen slightly kvsl=649) hemolyzed GLUCOSE RANDOM (BEAKER) 98 mg/dL 70-105 (test tyhk=286) CALCIUM (BEAKER) (test 8.6 mg/dL 8.4-10.2 waew=778) EGFR (BEAKER) (test 105 mL/min/1.73 sq m ESTIMATED GFR IS NOT eyaq=6146) ACCURATE CREATININE CLEARANCE IN PREDICTING GLOMERULAR FILTRATION RATE. ESTIMATED GFR IS NOT APPLICABLE FOR DIALYSIS PATIENTS. CREATINE KINASE (CK)2019-07-26 09:54:00 Test Item Value Reference Range Comments CREATINE KINASE TOTAL (BEAKER) (test ttvh=641) 30 U/L 29-200 POCT-LACTIC ACID, [id number] 09:50:00 Test Item Value Reference Range Comments POC-LACTIC ACID, ARTERIAL 1.3 mmol/L 0.4-1.3 TESTED AT [address] ([facility]) (test mrri=6064) [place] [address] [id number] 09:50:00 Test Item Value Reference Range Comments POC-HEMOGLOBIN (BEAKER) 11.6 g/dL 13.0-16.8 TESTED AT [address] (test wegi=1815) [place] [address]TESTED AT [place] [address] POCT-BLOOD GASES, [id number] 09:49:00 Test Item Value Reference Range Comments TEMP, CELSIUS-POC (BEAKER) 37.0 (test nelx=5716) FIO2-POC (BEAKER) (test TESTED AT [address] ktit=7803) [place] [address] PH, ARTERIAL-POC (BEAKER) 7.370 7.350-7.450 (test ezrk=7963) PCO2, ARTERIAL-POC (BEAKER) 41.0 mm Hg 35.0-45.0 (test pryj=1264) PO2, ARTERIAL-POC (BEAKER) 86.0 mm Hg 80.0-90.0 (test mbna=8062) SO2, ARTERIAL-POC (BEAKER) 96.0 % 96.0-97.0 (test wtva=1315) HCO3, ARTERIAL-POC (BEAKER) 23.7 meq/L 21.0-29.0 (test qpjb=5419) BASE EXCESS, ARTERIAL-POC -2.0 meq/L -2.0-3.0 (BEAKER) (test zaxj=3711) [id number] 09:49:00 Test Item Value Reference Range Comments POC-SODIUM (BEAKER) (test 137 meq/L 135-148 TESTED AT [place] [address] [address] dfyn=5886) [place] [id number] 09:49:00 Test Item Value Reference Range Comments POC-POTASSIUM (BEAKER) (test 3.3 meq/L 3.6-5.5 TESTED AT [place] [address] [address] iouc=0396) [place] [address] [id number] 09:49:00 Test Item Value Reference Range Comments POC-GLUCOSE (BEAKER) (test 153 mg/dL 70-110 TESTED AT [place] [address] [address] rnye=0005) [place] [address] POCT-CALCIUM [id number] 09:49:00 Test Item Value Reference Range Comments POC-CALCIUM IONIZED (BEAKER) 1.22 mmol/L 1.12-1.27 TESTED AT [address] (test qohn=0117) [place] [address] [id number] 09:49:00 Test Item Value Reference Range Comments POC-HEMATOCRIT (BEAKER) (test 34 % 40-50 TESTED AT [place] [address] [address] pplv=5518) [place] [address] URINALYSIS WITH MICROSCOPIC IF [id number] 07:55:00 Test Item Value Reference Range Comments COLOR (BEAKER) (test qjfs=775) Yellow CLARITY (BEAKER) (test bgll=125) Clear SPECIFIC GRAVITY UA (BEAKER) (test htzp=411) > 1.001-1.035 PH UA (BEAKER) (test ezlr=215) 6.0 5.0-8.0 PROTEIN UA (BEAKER) (test qgyb=596) 30 mg/dL Negative GLUCOSE UA (BEAKER) (test izvt=028) Negative Negative KETONES UA (BEAKER) (test bkjk=392) Negative Negative BILIRUBIN UA (BEAKER) (test twwq=323) Negative Negative BLOOD UA (BEAKER) (test zcqx=804) Trace Negative NITRITE UA (BEAKER) (test quga=198) Negative Negative LEUKOCYTE ESTERASE UA (BEAKER) (test wjor=343) Small Negative UROBILINOGEN UA (BEAKER) (test awwr=864) 0.2 mg/dL 0.2-1.0 SOURCE(BEAKER) (test hgtq=2100) URINALYSIS [id number] 07:55:00 Test Item Value Reference Range Comments RBC UA (BEAKER) (test kanx=007) 1 /HPF WBC UA (BEAKER) (test uzof=761) 9 /HPF MUCUS (BEAKER) (test yoyv=2702) Rare SQUAMOUS EPITHELIAL (BEAKER) (test souy=358) < /HPF C-REACTIVE [id number] 07:27:00 Test Item Value Reference Range Comments C-REACTIVE PROTEIN (BEAKER) (test zkbw=852) 15.31 mg/dL 0.00-0.50 CBC W/PLT COUNT & AUTO [id number] 04:17:00 Test Item Value Reference Range Comments WHITE BLOOD CELL COUNT (BEAKER) (test odqw=343) 20.2 K/ L 3.5-10.5 RED BLOOD CELL COUNT (BEAKER) (test dgqs=325) 4.13 M/ L 4.63-6.08 HEMOGLOBIN (BEAKER) (test tnll=906) 13.1 GM/DL 13.7-17.5 HEMATOCRIT (BEAKER) (test nzwy=300) 37.3 % 40.1-51.0 MEAN CORPUSCULAR VOLUME (BEAKER) (test bork=600) 90.3 fL 79.0-92.2 MEAN CORPUSCULAR HEMOGLOBIN (BEAKER) (test 31.7 pg 25.7-32.2 kyuc=555) MEAN CORPUSCULAR HEMOGLOBIN CONC (BEAKER) (test 35.1 GM/DL 32.3-36.5 kglv=872) RED CELL DISTRIBUTION WIDTH (BEAKER) (test 11.5 % 11.6-14.4 vysh=666) PLATELET COUNT (BEAKER) (test iqen=678) 190 K/CU MM 150-450 MEAN PLATELET VOLUME (BEAKER) (test xehw=486) 11.8 fL 9.4-12.4 NUCLEATED RED BLOOD CELLS (BEAKER) (test 0 /100 WBC 0-0 xrbv=862) NEUTROPHILS RELATIVE PERCENT (BEAKER) (test 76 % rmoo=477) LYMPHOCYTES RELATIVE PERCENT (BEAKER) (test 14 % mogr=922) MONOCYTES RELATIVE PERCENT (BEAKER) (test 9 % enda=866) EOSINOPHILS RELATIVE PERCENT (BEAKER) (test 0 % jvci=554) BASOPHILS RELATIVE PERCENT (BEAKER) (test 0 % iahl=756) NEUTROPHILS ABSOLUTE COUNT (BEAKER) (test 15.32 K/ L 1.78-5.38 ljfu=274) LYMPHOCYTES ABSOLUTE COUNT (BEAKER) (test 2.84 K/ L 1.32-3.57 pejk=502) MONOCYTES ABSOLUTE COUNT (BEAKER) (test 1.83 K/ L 0.30-0.82 rgrn=025) EOSINOPHILS ABSOLUTE COUNT (BEAKER) (test 0.07 K/ L 0.04-0.54 yqhn=735) BASOPHILS ABSOLUTE COUNT (BEAKER) (test 0.06 K/ L 0.01-0.08 cqcg=861) IMMATURE GRANULOCYTES-RELATIVE PERCENT (BEAKER) 1 % 0-1 (test frsx=1894) BASIC METABOLIC [id number] 03:45:00 Test Item Value Reference Range Comments SODIUM (BEAKER) (test 138 meq/L 136-145 tcho=233) POTASSIUM (BEAKER) (test 3.6 meq/L 3.5-5.1 yuvs=864) CHLORIDE (BEAKER) (test 106 meq/L 98-107 dxdl=969) CO2 (BEAKER) (test 23 meq/L 22-29 upuk=698) BLOOD UREA NITROGEN 12 mg/dL 7-21 (BEAKER) (test dmqc=175) CREATININE (BEAKER) (test 0.84 mg/dL 0.57-1.25 ixdm=394) GLUCOSE RANDOM (BEAKER) 97 mg/dL 70-105 (test utnl=288) CALCIUM (BEAKER) (test 9.2 mg/dL 8.4-10.2 izqh=886) EGFR (BEAKER) (test 101 mL/min/1.73 sq m ESTIMATED GFR IS NOT wqnl=6656) ACCURATE CREATININE CLEARANCE IN PREDICTING GLOMERULAR FILTRATION RATE. ESTIMATED GFR IS NOT APPLICABLE FOR DIALYSIS PATIENTS.
[2019-09-11] MEDS ORDERED: ONDANSETRON 4 MG/2 ML VIAL ONE (19:32)
[2019-09-11] MEDS ORDERED: DICYCLOMINE HCL 20 MG/2 ML AMP IM ONE (19:32)
[2019-09-11 19:50] LABS: Absolute Lymphocytes (CBC) 3.2 K/uL (0.7-4.9); Basophils % 0.7 % (0-1.3); Hematocrit 42.7 % (39.6-49.0); Lymphocytes % 29.5 % (15.3-44.8); MPV 10.4 fL (7.6-11.3); RBC Red Blood Cell Count 4.66 M/uL (4.33-5.43)
[2019-09-11 19:53] LABS: Albumin 4.2 g/dL (3.4-5.0); Bilirubin Direct 0.1 mg/dL (0-0.2); Bilirubin Total 0.4 mg/dL (0.2-1.0); Potassium 3.6 mmol/L (3.5-5.1); Protein, Total 8.2 g/dL (6.4-8.2)
--- NOTE | 2019-09-11 20:52 | RAD REPORT ---
EXAM DESCRIPTION: CTAbdomen Pelvis W Contrast - 09/11/2019 8:27 pm CLINICAL HISTORY: Abdominal pain. lower abdominal pain COMPARISON: <Comparisons> TECHNIQUE: Biphasic CT imaging of the abdomen and pelvis was performed with 100 ml non-ionic IV cont rast. All CT scans are performed using dose optimization technique as appropriate and may include automated exposure control or mA/KV adjustment according to patient size. FINDINGS: The lung bases are clear. The liver, spleen, pancreas, adrenal glands and kidneys are within normal limits. 23 mm cyst right ki dney. No bowel obstruction, free air, free fluid or abscess. 17 mm area of epiploic appendagitis is seen in the right lower quadrant. Sigmoid diverticulosis. The appendix is normal. No evidence of significan t lymphadenopathy. No suspicious bony findings. IMPRESSION: Epiploic appendagitis in the right lower quadrant adjacent to the cecum.
--- NOTE | 2019-09-11 21:14 | EDPHYS ---
Physician Documentation [facility] Name: Uzair Sullivan Age: 39 yrs Sex: Male : 1980 Arrival Date: 09/11/2019 Time: 18:03 Bed 16 Private MD: Brandon Guzmán R ED Physician Alejandro Villatoro HPI: 09/11 18:53 This 39 yrs old Male presents to ER via Ambulatory with complaints of jmm Abdominal Pain. 18:53 The patient presents with abdominal pain. Onset: The symptoms/episode began/occurred jmm gradually, 3 day(s) ago. The symptoms do not radiate. Associated signs and symptoms: Pertinent negatives: nausea and vomiting, diarrhea, fever. The symptoms are described as achy. Modifying factors: The symptoms are alleviated by nothing, the symptoms are aggravated by nothing. This is a 39 year old male with no chronic medical conditions that presents to the ED with complaints of lower abdominal pain. Denies vomiting, diarrhea, fever, chills. . Historical: - Allergies: 18:28 No Known Allergies; ss - PMHx: 18:28 Diverticulitis; ss - PSHx: 18:28 None; ss - Immunization history:: Adult Immunizations unknown. - Social history:: Smoking status: unknown. - Ebola Screening: : Patient negative for fever greater than or equal to 101.5 degrees Fahrenheit, and additional compatible Ebola Virus Disease symptoms. ROS: 18:53 Constitutional: Negative for fever, chills, and weight loss, Cardiovascular: Negative jmm for chest pain, palpitations, and edema, Respiratory: Negative for shortness of breath, cough, wheezing, and pleuritic chest pain. 18:53 Abdomen/GI: Positive for abdominal pain. 18:53 All other systems are negative. Exam: 18:53 Constitutional: This is a well developed, well nourished patient who is awake, alert, jmm and in no acute distress. Head/Face: atraumatic. Eyes: EOMI, no conjunctival erythema appreciated ENT: Moist Mucus Membranes Neck: Trachea midline, Supple Chest/axilla: Normal chest wall appearance and motion. Cardiovascular: Regular rate and rhythm. No edema appreciated Respiratory: Normal respirations, no respiratory distress appreciated 18:53 Back: Normal ROM Skin: General appearance color normal MS/ Extremity: Moves all extremities, no obvious deformities appreciated, no edema noted to the lower extremities Neuro: Awake and alert, normal gait Psych: Behavior is normal, Mood is normal, Patient is cooperative and pleasant 18:53 Abdomen/GI: Inspection: abdomen appears normal, Bowel sounds: normal, Palpation: soft, mild abdominal tenderness, in the right lower quadrant and left lower quadrant. Vital Signs: 18:28 BP 124 / 102; Pulse 80; Resp 18; Temp 98.5; Pulse Ox 98% on R/A; Weight 90.72 kg; ss Height 5 ft. 9 in. (175.26 cm); Pain 8/10; 20:32 BP 121 / 92; Pulse 52; Resp 16 S; Pulse Ox 100% on R/A; jd3 18:28 Body Mass Index 29.53 (90.72 kg, 175.26 cm) ss MDM: 18:43 Patient medically screened. [facility] 21:10 Data reviewed: vital signs, nurses notes. Counseling: I had a detailed discussion with tammi the patient and/or guardian regarding: the historical points, exam findings, and any diagnostic results supporting the discharge/admit diagnosis, lab results, radiology results, the need for outpatient follow up, to return to the emergency department if symptoms worsen or persist or if there are any questions or concerns that arise at home. ED course: Patient is alert and non toxic in appearance in the ED. Patient prescribed oral abx and given strict return precautions. patient understood and agrees with the plan of care. . 09/11 18:51 Order name: Basic Metabolic Panel [facility] 09/11 18:51 Order name: CBC with Diff; Complete Time: 20:06 [facility] 09/11 18:51 Order name: Creatinine for Radiology; Complete Time: 20:06 [facility] 09/11 18:51 Order name: Hepatic Function; Complete Time: 20:06 [facility] 09/11 18:51 Order name: Lipase; Complete Time: 20:06 [facility] 09/11 18:52 Order name: Basic Metabolic Panel; Complete Time: 20:06 [facility] 09/11 18:51 Order name: IV Saline Lock; Complete Time: 19:18 [facility] 09/11 18:51 Order name: Labs collected and sent; Complete Time: 19:18 [facility] 09/11 19:10 Order name: CT Abd/Pelvis - IV Contrast Only; Complete Time: 20:59 jmm Administered Medications: 19:38 Drug: Bentyl 20 mg Route: IM; Site: left deltoid; jd3 21:26 Follow up: Response: No adverse reaction jd3 19:39 Drug: Zofran 4 mg Route: IVP; Site: left antecubital; jd3 21:26 Follow up: Response: No adverse reaction jd3 Disposition: 09/12 07:34 Co-signature as Attending Physician, Alejandro Villatoro MD I agree with the assessment and kdr plan of care. Disposition: 09/11/19 21:12 Discharged to Home. Impression: Other specified diseases of intestine. - Condition is Stable. - Discharge Instructions: Abdominal Pain, Adult. - Prescriptions for Flagyl 500 mg Oral Tablet - take 1 tablet by ORAL route every 6 hours for 10 days; 40 tablet. Cipro 500 mg Oral Tablet - take 1 tablet by ORAL route every 12 hours for 7 days; 20 tablet. Bentyl 20 mg Oral Tablet - take 2 tablet by ORAL route every 6 hours As needed; 40 tablet. - Medication Reconciliation Form, Thank You Letter, Antibiotic Education, Prescription Opioid Use form. - Follow up: Brandon Guzmán MD; When: 2 - 3 days; Reason: Recheck today's complaints, Continuance of care, Re-evaluation by your physician. Signatures: Dispatcher [employer] EDMS Alejandro Villatoro MD MD kdr Mickail, Joel, PA PA jm Estefany Razo RN RN Harpreet Wang RN RN jd3 Corrections: (The following items were deleted from the chart) 09/11 21:30 21:12 09/11/2019 21:12 Discharged to Home. Impression: Other specified diseases of jd3 intestine. Condition is Stable. Forms are Medication Reconciliation Form, Thank You Letter, Antibiotic Education, Prescription Opioid Use. Follow up: Brandon Guzmán; When: 2 - 3 days; Reason: Recheck today's complaints, Continuance of care, Re-evaluation by your physician. tammi
--- NOTE | 2019-09-11 21:14 | ER ---
Nurse's Notes [facility] Name: Uzair Sullivan Age: 39 yrs Sex: Male : 1980 Arrival Date: 09/11/2019 Time: 18:03 Bed 16 Private MD: Brandon Guzmán R Diagnosis: Other specified diseases of intestine Presentation: 09/11 18:29 Presenting complaint: Patient states: Epigastric pain x 2-3 days, describes as sharp, ss stabbing, denies N/V/D or fever, also denies chest pain or SOB. Transition of care: patient was not received from another setting of care. Onset of symptoms was September 11, 2019. Risk Assessment: Do you want to hurt yourself or someone else? Patient reports no desire to harm self or others. Initial Sepsis Screen: Does the patient meet any 2 criteria? No. Patient's initial sepsis screen is negative. Does the patient have a suspected source of infection? No. Patient's initial sepsis screen is negative. Care prior to arrival: None. 18:29 Method Of Arrival: Ambulatory ss 18:29 Acuity: GLORIA 3 ss Historical: - Allergies: 18:28 No Known Allergies; ss - PMHx: 18:28 Diverticulitis; ss - PSHx: 18:28 None; ss - Immunization history:: Adult Immunizations unknown. - Social history:: Smoking status: unknown. - Ebola Screening: : Patient negative for fever greater than or equal to 101.5 degrees Fahrenheit, and additional compatible Ebola Virus Disease symptoms. Screenin:15 Abuse screen: Denies threats or abuse. Nutritional screening: No deficits noted. jd3 Tuberculosis screening: No symptoms or risk factors identified. Fall Risk Ambulatory Aid- None/Bed Rest/Nurse Assist (0 pts). Gait- Normal/Bed Rest/Wheelchair (0 pts) Mental Status- Oriented to own ability (0 pts). Total Greer Fall Scale indicates No Risk (0-24 pts). Assessment: 19:07 General: Appears in no apparent distress. uncomfortable, Behavior is calm, cooperative, jd3 appropriate for age. Pain: Complains of pain in right lower quadrant and left lower quadrant Quality of pain is described as aching, tender. Neuro: Level of Consciousness is awake, alert, obeys commands, Oriented to person, place, time, situation. Cardiovascular: Denies chest pain, Capillary refill < 3 seconds Patient's skin is warm and dry. Respiratory: Airway is patent Respiratory effort is even, unlabored, Respiratory pattern is regular, symmetrical, Denies cough, shortness of breath. GI: Abdomen is round non-distended, Bowel sounds present X 4 quads. Abd is soft X 4 quads Abdomen is tender to palpation in right lower quadrant and left lower quadrant Patient currently denies diarrhea, nausea, vomiting. : No signs and/or symptoms were reported regarding the genitourinary system. EENT: No signs and/or symptoms were reported regarding the EENT system. Derm: Skin is intact, Skin is dry, Skin is normal, Skin temperature is warm. Musculoskeletal: Circulation, motion, and sensation intact. Range of motion: intact in all extremities. 20:32 Reassessment: Patient appears in no apparent distress at this time. Patient and/or jd3 family updated on plan of care and expected duration. Pain level reassessed. Patient is alert, oriented x 3, equal unlabored respirations, skin warm/dry/pink. returned from CT, awaiting results. 20:59 Reassessment: Patient appears in no apparent distress at this time. Patient and/or jd3 family updated on plan of care and expected duration. Pain level reassessed. Patient is alert, oriented x 3, equal unlabored respirations, skin warm/dry/pink. Patient states feeling better. 21:25 Reassessment: Patient appears in no apparent distress at this time. Patient and/or jd3 family updated on plan of care and expected duration. Pain level reassessed. Patient is alert, oriented x 3, equal unlabored respirations, skin warm/dry/pink. reported understanding of discharge instructions. even and steady gait upon discharge. Patient states feeling better. Vital Signs: 18:28 BP 124 / 102; Pulse 80; Resp 18; Temp 98.5; Pulse Ox 98% on R/A; Weight 90.72 kg; Height 5 ft. 9 in. (175.26 cm); Pain 8/10; 20:32 BP 121 / 92; Pulse 52; Resp 16 S; Pulse Ox 100% on R/A; jd3 18:28 Body Mass Index 29.53 (90.72 kg, 175.26 cm) ED Course: 18:03 Patient arrived in ED. mr 18:03 Brandon Guzmán MD is Private Physician. mr 18:30 Triage completed. 18:36 [facility] 18:36 Alejandro Villatoro MD is Attending Physician. jmm 19:03 Harpreet Wang RN is Primary Nurse. jd3 19:10 Inserted saline lock: 18 gauge in left antecubital area, using aseptic technique. Blood ds4 collected. 19:14 Patient has correct armband on for positive identification. Bed in low position. Call jd3 light in reach. Side rails up X 1. 19:15 Arm band placed on. jd3 19:18 Basic Metabolic Panel Sent. ds4 19:18 CBC with Diff Sent. ds4 19:18 Creatinine for Radiology Sent. ds4 19:18 Hepatic Function Sent. ds4 19:19 Lipase Sent. ds4 19:43 Radiology exam delayed due to lab results not completed at this time. (BUN/Creatinine). nj 19:50 Radiology exam delayed due to lab results not completed at this time. (BUN/Creatinine). nj 20:28 CT Abd/Pelvis - IV Contrast Only In Process Unspecified. EDMS 21:11 Brandon Guzmán MD is Referral Physician. jmm 21:25 No provider procedures requiring assistance completed. IV discontinued, intact, jd3 bleeding controlled, No redness/swelling at site. Pressure dressing applied. Administered Medications: 19:38 Drug: Bentyl 20 mg Route: IM; Site: left deltoid; jd3 21:26 Follow up: Response: No adverse reaction jd3 19:39 Drug: Zofran 4 mg Route: IVP; Site: left antecubital; jd3 21:26 Follow up: Response: No adverse reaction jd3 Outcome: 21:12 Discharge ordered by . jmm 21:26 Discharged to home ambulatory, with family. jd3 21:26 Condition: stable 21:26 Discharge instructions given to patient, family, Instructed on discharge instructions, follow up and referral plans. medication usage, Demonstrated understanding of instructions, follow-up care, medications, Prescriptions given X 2. 21:30 Patient left the ED. jd3 Signatures: Dispatcher [employer] EDMS Nico Kent RN RN Fly Jules PA PA [facility] Petty Rincon Shelby, RN RN ss Swanson, Donovan ds4 Taco Esteves Jonathon, RN RN jd3 Corrections: (The following items were deleted from the chart) 20:59 20:32 BP 130 / 80; Pulse 82bpm; Resp 17bpm; Spontaneous; Pulse Ox 97% RA; jd3 jd3
[2019-09-11 21:36] VITALS: TEMP 98.5
[2019-09-11 21:37] VITALS: BP 121/92; O2SAT 100
== END 2019-09-11 21:30 | disposition home or self-care (01) ==
LOC: ER 18:01
DX: K63.89 Other specified diseases of intestine (principal)
CPT/HCPCS: 85025; 80048; 36415; 80076; 83690; 74177; 96372; 96374; 99284; Q9967; J0500; J2405

== ENCOUNTER 2019-11-24 07:56 | Emergency (ER) | payer BC ==
--- OUTSIDE RECORDS SUMMARY | 2019-11-24 08:01 | XMS REPORT ---
:1980 [facility] Address [address] [place] [address] [address] [place] [address] Care Team Providers Name Role Phone CHAGO AMADOR Unavailable Unavailable Problems This patient has no known problems. Allergies, Adverse Reactions, Alerts This patient has no known allergies or adverse reactions. Medications This patient has no known medications. Results Test Description Test Time Test Comments Text Results Atomic Results Result Comments BLOOD CULTURE 2019-08-01 08:01:00 Test Item Value Reference Range Comments CULTURE (BEAKER) (test qemj=4331) No growth in 5 days MISCELLANEOUS LAB [id number] 07:37:00 Test Item Value Reference Range Comments SCAN RESULT (test dymj=[id number]) BLOOD [id number] 08:00:00 Test Item Value Reference Range Comments CULTURE (BEAKER) (test dviy=3652) No growth in 5 days BLOOD [id number] 08:00:00 Test Item Value Reference Range Comments CULTURE (BEAKER) (test brtt=3748) No growth in 5 days ANTI-NUCLEAR ANTIBODY (AURA)2019-07-30 09:44:00 Test Item Value Reference Range Comments ANTI-NUCLEAR ANTIBODY (AURA) (BEAKER) (test Positive Negative lqgp=883) Test performed by IFA method.AURA TITER AND [id number] 09:44:00 Test Item Value Reference Range Comments AURA TITER (BEAKER) (test fsxo=8175) >=:2560 AURA PATTERN (BEAKER) (test nxqc=4571) Homogeneous (CELLAVISION MANUAL DIFF)2019-07-29 11:53:00 Test Item Value Reference Range Comments NEUTROPHILS - REL (CELLAVISION)(BEAKER) (test 59 % fqip=1149) LYMPHOCYTES - REL (CELLAVISION)(BEAKER) (test 30 % hgse=9660) MONOCYTES - REL (CELLAVISION)(BEAKER) (test 6 % fkxv=3874) EOSINOPHILS - REL (CELLAVISION)(BEAKER) (test 1 % znmu=5430) ATYPICAL LYMPHOCYTES - REL (CELLAVISION)(BEAKER) 4 % 0-0 (test dnrp=2977) NEUTROPHILS - ABS (CELLAVISION)(BEAKER) (test 4.43 K/ul 1.78-5.38 dhba=2911) LYMPHOCYTES - ABS (CELLAVISION)(BEAKER) (test 2.25 K/ul 1.32-3.57 asgv=3126) MONOCYTES - ABS (CELLAVISION)(BEAKER) (test 0.45 K/uL 0.30-0.82 ksjq=5607) EOSINOPHILS - ABS (CELLAVISION)(BEAKER) (test 0.08 K/uL 0.04-0.54 ybty=1571) ATYPICAL LYMPHOCYTES - ABS (CELLAVISION)(BEAKER) 0.30 K/uL 0.00-0.00 (test sawh=5821) TOTAL COUNTED (BEAKER) (test sfqh=8177) 100 RBC MORPHOLOGY (BEAKER) (test giup=838) Normal WBC MORPHOLOGY (BEAKER) (test klwd=536) Normal PLT MORPHOLOGY (BEAKER) (test zqkn=625) Normal HEPATIC FUNCTION [id number] 09:58:00 Test Item Value Reference Range Comments TOTAL PROTEIN (BEAKER) (test hspr=192) 7.8 gm/dL 6.0-8.3 ALBUMIN (BEAKER) (test kugr=1978) 3.8 g/dL 3.5-5.0 BILIRUBIN TOTAL (BEAKER) (test powz=791) 0.3 mg/dL 0.2-1.2 BILIRUBIN DIRECT (BEAKER) (test qkeh=073) 0.2 mg/dL 0.1-0.5 ALKALINE PHOSPHATASE (BEAKER) (test etio=144) 42 U/L 40-150 AST (SGOT) (BEAKER) (test vefi=361) 17 U/L 5-34 ALT (SGPT) (BEAKER) (test lkin=476) 24 U/L 6-55 CBC WITH PLATELET COUNT + MANUAL [id number] 09:29:00 Test Item Value Reference Range Comments WHITE BLOOD CELL COUNT (BEAKER) (test bgpx=387) 7.5 K/ L 3.5-10.5 RED BLOOD CELL COUNT (BEAKER) (test fjfu=723) 4.08 M/ L 4.63-6.08 HEMOGLOBIN (BEAKER) (test twrn=339) 12.8 GM/DL 13.7-17.5 HEMATOCRIT (BEAKER) (test tgef=535) 36.1 % 40.1-51.0 MEAN CORPUSCULAR VOLUME (BEAKER) (test gnbm=628) 88.5 fL 79.0-92.2 MEAN CORPUSCULAR HEMOGLOBIN (BEAKER) (test 31.4 pg 25.7-32.2 dhfx=600) MEAN CORPUSCULAR HEMOGLOBIN CONC (BEAKER) (test 35.5 GM/DL 32.3-36.5 otfw=277) RED CELL DISTRIBUTION WIDTH (BEAKER) (test 11.6 % 11.6-14.4 tqwk=821) PLATELET COUNT (BEAKER) (test qvbe=219) 247 K/CU MM 150-450 MEAN PLATELET VOLUME (BEAKER) (test sqyt=316) 10.8 fL 9.4-12.4 NUCLEATED RED BLOOD CELLS (BEAKER) (test 0 /100 WBC 0-0 fwjy=396) RESPIRATORY PANEL [id number] 15:15:00 Test Item Value Reference Range Comments HUMAN METAPNEUMOVIRUS (BEAKER) (test Not detected Not detected, Equivocal eajm=9301) RHINOVIRUS (BEAKER) (test stmd=0263) Not detected Not detected, Equivocal INFLUENZA A (BEAKER) (test brmr=1843) Not detected Not detected, Equivocal INFLUENZA A (NO SUBTYPE) (test svsv=7883) INFLUENZA A SUBTYPE H1 (BEAKER) (test fzed=8598) INFLUENZA A SUBTYPE H3 (BEAKER) (test ulkq=0451) INFLUENZA A SUBTYPE H1-2009 (BEAKER) (test tzym=5756) INFLUENZA B (BEAKER) (test qgpl=3097) Not detected Not detected, Equivocal RESPIRATORY SYNCYTIAL VIRUS (BEAKER) Not detected Not detected, Equivocal (test laix=7856) PARAINFLUENZA VIRUS 1 (BEAKER) (test Not detected Not detected, Equivocal ruvg=6098) PARAINFLUENZA VIRUS 2 (BEAKER) (test Not detected Not detected, Equivocal hogt=3020) PARAINFLUENZA VIRUS 3 (BEAKER) (test Not detected Not detected, Equivocal llda=3235) PARAINFLUENZA VIRUS 4 (BEAKER) (test Not detected Not detected, Equivocal fipr=6009) ADENOVIRUS (BEAKER) (test sknf=6782) Not detected Not detected, Equivocal CORONAVIRUS 229E (BEAKER) (test Not detected Not detected, Equivocal knyh=9993) CORONAVIRUS HKU1 (BEAKER) (test Not detected Not detected, Equivocal bajo=5879) CORONAVIRUS NL63 (BEAKER) (test Not detected Not detected, Equivocal bisk=4283) CORONAVIRUS OC43 (BEAKER) (test Not detected Not detected, Equivocal asit=1825) BORDETELLA PERTUSSIS (BEAKER) (test Not detected Not detected, Equivocal ypue=1388) CHLAMYDOPHILA PNEUMONIAE (BEAKER) (test Not detected Not detected, Equivocal ygkn=1510) MYCOPLASMA PNEUMONIAE (BEAKER) (test Not detected Not detected, Equivocal mjhf=1605) Other viruses and bacteria not targeted by this PCR panel cannot be excluded; therefore clinical correlation and follow up of serology, culture results, and other molecular studies is required. The results are not intended to be used as the sole means for clinical diagnosis or patient management decisions. This sample was tested at the [facility] using the [employer] Respiratory Panel. It is FDA cleared and has been verified and approved by the [facility] for clinical use on nasopharyngeal swab specimens.The performance of the [employer] has not been established in individuals who received influenza vaccine. Recent administration ofa nasal influenza vaccine may cause false positive results for Influenza A and/orInfluenza B.EBV VIRAL [id number] 13:49:00 Test Item Value Reference Range Comments EBV VIRAL LOAD - NEGATIVE Negative or below the linear (BEAKER) (test vguq=9056) range of the assay (<500 copies/mL) This [...] developedand its performance characteristics determined by the [facility] Pathology Department, Section of Molecular Pathology. [...] real -time PCR amplification and detection with YKZZ-6-nsrhdhij primers and probes. A well-conserved region of the EBNA-1 gene is targeted, along with an internal control sequence used to confirm PCR amplification. Asymptomatic carriers and viral genetic variation, among other factors, can affect the accuracy of nucleic acid testing; therefore, results should be interpreted in light of clinical data.This test was developed and its performance characteristics determined by the [facility] Pathology Department, Section of Molecular Pathology. It has not been cleared or approved by the U.S. Food and Drug Administration (FDA), since FDA approval is not required for clinical use of the test. Validation was done as required by The Clinical Laboratory Improvement Amendments of 1987.CMV PCR, [id number] 13:43:00 Test Item Value Reference Range Comments CMV VIRAL LOAD - NEGATIVE Negative or below the linear (BEAKER) (test zkpf=7375) range of the assay (<375 copies/mL) Cytomegalovirus [...] and its performance characteristics determined by the [facility] Pathology Department, Section of Molecular Pathology. It has not been cleared or approved by the U.S. Food and Drug Administration (FDA), since FDA approval is not required for clinical use of the test. Validation was done as required by The Clinical Laboratory Improvement Amendments of 1988.RHEUMATOID FACTOR AB, REFLEX TO [id number] 13:10:00 Test Item Value Reference Range Comments RHEUMATOID FACTOR (BEAKER) (test mtva=357) Negative BASIC METABOLIC [id number] 06:42:00 Test Item Value Reference Range Comments SODIUM (BEAKER) (test 137 meq/L 136-145 ezcr=797) POTASSIUM (BEAKER) (test 3.8 meq/L 3.5-5.1 qrjn=566) CHLORIDE (BEAKER) (test 106 meq/L 98-107 unev=365) CO2 (BEAKER) (test 23 meq/L 22-29 cifj=570) BLOOD UREA NITROGEN 10 mg/dL 7-21 (BEAKER) (test hinm=968) CREATININE (BEAKER) (test 0.99 mg/dL 0.57-1.25 ktde=477) GLUCOSE RANDOM (BEAKER) 94 mg/dL 70-105 (test ptqj=807) CALCIUM (BEAKER) (test 9.0 mg/dL 8.4-10.2 pvjt=006) EGFR (BEAKER) (test 83 mL/min/1.73 sq m ESTIMATED GFR IS NOT eece=2387) ACCURATE CREATININE CLEARANCE IN PREDICTING GLOMERULAR FILTRATION RATE. ESTIMATED GFR IS NOT APPLICABLE FOR DIALYSIS PATIENTS. [id number] 12:15:00 Test Item Value Reference Range Comments RPR SCREEN (BEAKER) (test hsqp=426) Nonreactive Nonreactive HIV-1 ANTIGEN WITH HIV-1/2 [id number] 04:56:00 Test Item Value Reference Range Comments HIV-1 ANTIGEN WITH HIV 1\T\2 ANTIBODY (2) Nonreactive Nonreactive (BEAKER) (test njsl=7267) BASIC METABOLIC [id number] 04:24:00 Test Item Value Reference Range Comments SODIUM (BEAKER) (test 139 meq/L 136-145 bazk=029) POTASSIUM (BEAKER) (test 3.8 meq/L 3.5-5.1 pudv=489) CHLORIDE (BEAKER) (test 106 meq/L 98-107 cvpo=621) CO2 (BEAKER) (test 26 meq/L 22-29 bttj=384) BLOOD UREA NITROGEN 9 mg/dL 7-21 (BEAKER) (test xkkl=534) CREATININE (BEAKER) (test 0.84 mg/dL 0.57-1.25 ttez=104) GLUCOSE RANDOM (BEAKER) 94 mg/dL 70-105 (test duht=904) CALCIUM (BEAKER) (test 9.2 mg/dL 8.4-10.2 tixv=439) EGFR (BEAKER) (test 101 mL/min/1.73 sq m ESTIMATED GFR IS NOT oqai=4413) ACCURATE CREATININE CLEARANCE IN PREDICTING GLOMERULAR FILTRATION RATE. ESTIMATED GFR IS NOT APPLICABLE FOR DIALYSIS PATIENTS. URINALYSIS W/ REFLEX URINE [id number] 00:26:00 Test Item Value Reference Range Comments COLOR (BEAKER) (test euvw=379) Dark Yellow CLARITY (BEAKER) (test ixcz=166) Clear SPECIFIC GRAVITY UA (BEAKER) (test qacb=612) 1.007 1.001-1.035 PH UA (BEAKER) (test kjoe=233) 6.5 5.0-8.0 PROTEIN UA (BEAKER) (test tknr=934) Negative Negative GLUCOSE UA (BEAKER) (test rfna=919) Negative Negative KETONES UA (BEAKER) (test rbuv=496) Negative Negative BILIRUBIN UA (BEAKER) (test nvyd=365) Negative Negative BLOOD UA (BEAKER) (test sqnc=266) Small Negative NITRITE UA (BEAKER) (test fpqx=253) Positive Negative LEUKOCYTE ESTERASE UA (BEAKER) (test axgi=048) Large Negative UROBILINOGEN UA (BEAKER) (test qhpu=377) 2.0 mg/dL 0.2-1.0 RBC UA (BEAKER) (test czcm=196) 6 /HPF WBC UA (BEAKER) (test praz=837) 34 /HPF BACTERIA (BEAKER) (test ykwj=837) Many SQUAMOUS EPITHELIAL (BEAKER) (test zxef=528) < /HPF SOURCE(BEAKER) (test uurg=4921) RAD, CHEST, 1 VIEW, NON [id number] 10:25:00Reason for exam:->leukocytosis , fever r/o infectionFINAL [...] Wattsepjazmín Verified Date/Time: 07/26/2019 10:25:43 Reading Location: [address] Consult Reading Room CBC W/PLT COUNT & AUTO [id number] 10:24:00 Test Item Value Reference Range Comments WHITE BLOOD CELL COUNT (BEAKER) (test mxfo=573) 24.7 K/ L 3.5-10.5 RED BLOOD CELL COUNT (BEAKER) (test qzre=617) 3.89 M/ L 4.63-6.08 HEMOGLOBIN (BEAKER) (test imgr=433) 12.3 GM/DL 13.7-17.5 HEMATOCRIT (BEAKER) (test zxio=642) 35.0 % 40.1-51.0 MEAN CORPUSCULAR VOLUME (BEAKER) (test nxdh=718) 90.0 fL 79.0-92.2 MEAN CORPUSCULAR HEMOGLOBIN (BEAKER) (test 31.6 pg 25.7-32.2 gljy=879) MEAN CORPUSCULAR HEMOGLOBIN CONC (BEAKER) (test 35.1 GM/DL 32.3-36.5 iiup=093) RED CELL DISTRIBUTION WIDTH (BEAKER) (test 11.7 % 11.6-14.4 gepu=080) PLATELET COUNT (BEAKER) (test abgs=327) 226 K/CU MM 150-450 MEAN PLATELET VOLUME (BEAKER) (test fyop=979) 11.5 fL 9.4-12.4 NUCLEATED RED BLOOD CELLS (BEAKER) (test 0 /100 WBC 0-0 dsxo=978) (CELLAVISION MANUAL DIFF)2019-07-26 10:24:00 Test Item Value Reference Range Comments NEUTROPHILS - REL (CELLAVISION)(BEAKER) (test 70 % xynt=2687) LYMPHOCYTES - REL (CELLAVISION)(BEAKER) (test 19 % ytor=3558) MONOCYTES - REL (CELLAVISION)(BEAKER) (test 5 % rbzc=1890) BANDS - REL (CELLAVISION)(BEAKER) (test 2 % 0-10 ttyy=7930) ATYPICAL LYMPHOCYTES - REL (CELLAVISION)(BEAKER) 4 % 0-0 (test xfpi=5361) NEUTROPHILS - ABS (CELLAVISION)(BEAKER) (test 17.29 K/ul 1.78-5.38 gymu=0844) LYMPHOCYTES - ABS (CELLAVISION)(BEAKER) (test 4.69 K/ul 1.32-3.57 hsmt=3725) MONOCYTES - ABS (CELLAVISION)(BEAKER) (test 1.24 K/uL 0.30-0.82 yeid=8251) BANDS - ABS (CELLAVISION)(BEAKER) (test 0.49 K/uL 0.00-0.80 hbrf=0517) ATYPICAL LYMPHOCYTES - ABS (CELLAVISION)(BEAKER) 0.99 K/uL 0.00-0.00 (test ouhz=3195) TOTAL COUNTED (BEAKER) (test bhvz=9978) 100 RBC MORPHOLOGY (BEAKER) (test ntpq=259) Normal WBC MORPHOLOGY (BEAKER) (test yrpo=100) Normal PLT MORPHOLOGY (BEAKER) (test nwef=825) Normal ARTIFACT (CELLAVISION)(BEAKER) (test oxtn=0802) Present PLATELET CONCENTRATION (CELLAVISION)(BEAKER) Adequate (test mfma=0001) Received comment: User comments: Slide comments:[id number] 10:11:00 Test Item Value Reference Range Comments PROTIME (BEAKER) (test znsf=431) 14.2 seconds 11.9-14.2 INR (BEAKER) (test ewqm=616) 1.2 <=5.9 PARTIAL THROMBOPLASTIN TIME (BEAKER) (test 34.6 seconds 22.5-36.0 mklg=859) Effective 03/26/2019: PT Reference Range ChangeNew: 11.9-14.2 Previous: 11.7- 14.7RECOMMENDED COUMADIN/WARFARIN INR THERAPY RANGESSTANDARD DOSE: 2.0-3.0 Includes: PROPHYLAXIS for venous thrombosis, systemic embolization; TREATMENT for venous thrombosis and/or pulmonary embolus.HIGH RISK: Target INR is2.5-3.5 for patients wiht mechanical heart valves.B-TYPE NATRIURETIC FACTOR (BNP)2019-06 10:08:00 Test Item Value Reference Range Comments B-TYPE NATRIURETIC PEPTIDE (BEAKER) (test zjqc=961) 14 pg/mL 0-100 TROPONIN [id number] 10:00:00 Test Item Value Reference Range Comments TROPONIN I (BEAKER) (test opgq=676) 0.03 ng/mL 0.00-0.03 Troponin I (TnI) levels [...] acute neurological disease, and persistent tachyarrhythmia.BASIC METABOLIC [id number] 09:54:00 Test Item Value Reference Range Comments SODIUM (BEAKER) (test 135 meq/L 136-145 qdwx=004) POTASSIUM (BEAKER) (test 3.9 meq/L 3.5-5.1 Specimen slightly rjbs=125) hemolyzed CHLORIDE (BEAKER) (test 105 meq/L 98-107 lbrp=773) CO2 (BEAKER) (test 23 meq/L 22-29 dskb=942) BLOOD UREA NITROGEN 12 mg/dL 7-21 (BEAKER) (test jyhd=947) CREATININE (BEAKER) (test 0.81 mg/dL 0.57-1.25 Specimen slightly ilei=452) hemolyzed GLUCOSE RANDOM (BEAKER) 98 mg/dL 70-105 (test eefq=619) CALCIUM (BEAKER) (test 8.6 mg/dL 8.4-10.2 iqqv=513) EGFR (BEAKER) (test 105 mL/min/1.73 sq m ESTIMATED GFR IS NOT xvge=7145) ACCURATE CREATININE CLEARANCE IN PREDICTING GLOMERULAR FILTRATION RATE. ESTIMATED GFR IS NOT APPLICABLE FOR DIALYSIS PATIENTS. CREATINE KINASE (CK)2019-07-26 09:54:00 Test Item Value Reference Range Comments CREATINE KINASE TOTAL (BEAKER) (test hwgx=841) 30 U/L 29-200 POCT-LACTIC ACID, [id number] 09:50:00 Test Item Value Reference Range Comments POC-LACTIC ACID, ARTERIAL 1.3 mmol/L 0.4-1.3 TESTED AT [address] ([facility]) (test logm=1383) [place] [address] [id number] 09:50:00 Test Item Value Reference Range Comments POC-HEMOGLOBIN (BEAKER) 11.6 g/dL 13.0-16.8 TESTED AT [address] (test mqii=6397) [place] [address]TESTED AT [place] [address] POCT-BLOOD GASES, [id number] 09:49:00 Test Item Value Reference Range Comments TEMP, CELSIUS-POC (BEAKER) 37.0 (test xtzd=5588) FIO2-POC (BEAKER) (test TESTED AT [address] qmnc=6061) [place] [address] PH, ARTERIAL-POC (BEAKER) 7.370 7.350-7.450 (test jwtj=8981) PCO2, ARTERIAL-POC (BEAKER) 41.0 mm Hg 35.0-45.0 (test haqs=4515) PO2, ARTERIAL-POC (BEAKER) 86.0 mm Hg 80.0-90.0 (test obxi=1300) SO2, ARTERIAL-POC (BEAKER) 96.0 % 96.0-97.0 (test ravq=8370) HCO3, ARTERIAL-POC (BEAKER) 23.7 meq/L 21.0-29.0 (test wgrn=2514) BASE EXCESS, ARTERIAL-POC -2.0 meq/L -2.0-3.0 (BEAKER) (test tmhn=5381) [id number] 09:49:00 Test Item Value Reference Range Comments POC-SODIUM (BEAKER) (test 137 meq/L 135-148 TESTED AT [place] [address] [address] mnyn=3404) [place] [id number] 09:49:00 Test Item Value Reference Range Comments POC-POTASSIUM (BEAKER) (test 3.3 meq/L 3.6-5.5 TESTED AT [place] [address] [address] vymt=6751) [place] [address] [id number] 09:49:00 Test Item Value Reference Range Comments POC-GLUCOSE (BEAKER) (test 153 mg/dL 70-110 TESTED AT [place] [address] [address] iyjb=5135) [place] [address] POCT-CALCIUM [id number] 09:49:00 Test Item Value Reference Range Comments POC-CALCIUM IONIZED (BEAKER) 1.22 mmol/L 1.12-1.27 TESTED AT [address] (test ukac=2350) [place] [address] [id number] 09:49:00 Test Item Value Reference Range Comments POC-HEMATOCRIT (BEAKER) (test 34 % 40-50 TESTED AT [place] [address] [address] lfva=2862) [place] [address] URINALYSIS WITH MICROSCOPIC IF [id number] 07:55:00 Test Item Value Reference Range Comments COLOR (BEAKER) (test mmss=359) Yellow CLARITY (BEAKER) (test pzuy=016) Clear SPECIFIC GRAVITY UA (BEAKER) (test bnjc=983) > 1.001-1.035 PH UA (BEAKER) (test jtvg=099) 6.0 5.0-8.0 PROTEIN UA (BEAKER) (test odup=827) 30 mg/dL Negative GLUCOSE UA (BEAKER) (test ayav=127) Negative Negative KETONES UA (BEAKER) (test maux=640) Negative Negative BILIRUBIN UA (BEAKER) (test xqnx=560) Negative Negative BLOOD UA (BEAKER) (test epxl=244) Trace Negative NITRITE UA (BEAKER) (test dxee=162) Negative Negative LEUKOCYTE ESTERASE UA (BEAKER) (test liky=049) Small Negative UROBILINOGEN UA (BEAKER) (test uawb=185) 0.2 mg/dL 0.2-1.0 SOURCE(BEAKER) (test jipn=3023) URINALYSIS [id number] 07:55:00 Test Item Value Reference Range Comments RBC UA (BEAKER) (test acjw=043) 1 /HPF WBC UA (BEAKER) (test ismg=928) 9 /HPF MUCUS (BEAKER) (test jefh=4091) Rare SQUAMOUS EPITHELIAL (BEAKER) (test ddpt=646) < /HPF C-REACTIVE [id number] 07:27:00 Test Item Value Reference Range Comments C-REACTIVE PROTEIN (BEAKER) (test jfyz=212) 15.31 mg/dL 0.00-0.50 CBC W/PLT COUNT & AUTO [id number] 04:17:00 Test Item Value Reference Range Comments WHITE BLOOD CELL COUNT (BEAKER) (test twgs=854) 20.2 K/ L 3.5-10.5 RED BLOOD CELL COUNT (BEAKER) (test eldn=070) 4.13 M/ L 4.63-6.08 HEMOGLOBIN (BEAKER) (test qrwm=345) 13.1 GM/DL 13.7-17.5 HEMATOCRIT (BEAKER) (test klps=797) 37.3 % 40.1-51.0 MEAN CORPUSCULAR VOLUME (BEAKER) (test cuii=678) 90.3 fL 79.0-92.2 MEAN CORPUSCULAR HEMOGLOBIN (BEAKER) (test 31.7 pg 25.7-32.2 gtak=181) MEAN CORPUSCULAR HEMOGLOBIN CONC (BEAKER) (test 35.1 GM/DL 32.3-36.5 dmqh=451) RED CELL DISTRIBUTION WIDTH (BEAKER) (test 11.5 % 11.6-14.4 xdjp=147) PLATELET COUNT (BEAKER) (test olau=196) 190 K/CU MM 150-450 MEAN PLATELET VOLUME (BEAKER) (test uuyq=259) 11.8 fL 9.4-12.4 NUCLEATED RED BLOOD CELLS (BEAKER) (test 0 /100 WBC 0-0 vqaw=353) NEUTROPHILS RELATIVE PERCENT (BEAKER) (test 76 % hjfm=357) LYMPHOCYTES RELATIVE PERCENT (BEAKER) (test 14 % iwce=459) MONOCYTES RELATIVE PERCENT (BEAKER) (test 9 % zrir=233) EOSINOPHILS RELATIVE PERCENT (BEAKER) (test 0 % fift=138) BASOPHILS RELATIVE PERCENT (BEAKER) (test 0 % wpzk=445) NEUTROPHILS ABSOLUTE COUNT (BEAKER) (test 15.32 K/ L 1.78-5.38 adhu=689) LYMPHOCYTES ABSOLUTE COUNT (BEAKER) (test 2.84 K/ L 1.32-3.57 teja=447) MONOCYTES ABSOLUTE COUNT (BEAKER) (test 1.83 K/ L 0.30-0.82 nlvc=128) EOSINOPHILS ABSOLUTE COUNT (BEAKER) (test 0.07 K/ L 0.04-0.54 lomw=262) BASOPHILS ABSOLUTE COUNT (BEAKER) (test 0.06 K/ L 0.01-0.08 dzaw=148) IMMATURE GRANULOCYTES-RELATIVE PERCENT (BEAKER) 1 % 0-1 (test xwbo=1850) BASIC METABOLIC [id number] 03:45:00 Test Item Value Reference Range Comments SODIUM (BEAKER) (test 138 meq/L 136-145 bqnx=209) POTASSIUM (BEAKER) (test 3.6 meq/L 3.5-5.1 isac=217) CHLORIDE (BEAKER) (test 106 meq/L 98-107 ujrs=623) CO2 (BEAKER) (test 23 meq/L 22-29 qwoe=762) BLOOD UREA NITROGEN 12 mg/dL 7-21 (BEAKER) (test vjfz=932) CREATININE (BEAKER) (test 0.84 mg/dL 0.57-1.25 fzbq=642) GLUCOSE RANDOM (BEAKER) 97 mg/dL 70-105 (test jskb=897) CALCIUM (BEAKER) (test 9.2 mg/dL 8.4-10.2 deth=664) EGFR (BEAKER) (test 101 mL/min/1.73 sq m ESTIMATED GFR IS NOT aapr=1255) ACCURATE CREATININE CLEARANCE IN PREDICTING GLOMERULAR FILTRATION RATE. ESTIMATED GFR IS NOT APPLICABLE FOR DIALYSIS PATIENTS.
[2019-11-24] MEDS ORDERED: BUPIVACAINE 0.5% PF 10 ML VIAL ONE (08:20)
[2019-11-24] MEDS ORDERED: LIDOCAINE 1% MPF 30 ML VIAL ONE (08:21)
[2019-11-24] MEDS ORDERED: CEPHALEXIN 250 MG CAP ONE (08:27)
--- NOTE | 2019-11-24 09:09 | ER ---
Nurse's Notes [facility] Name: Uzair Sullivan Age: 39 yrs Sex: Male : 1980 Arrival Date: 11/24/2019 Time: 07:59 Bed 14 Private MD: Diagnosis: Cutaneous abscess of right hand-paronychia Presentation: 11/24 08:07 Presenting complaint: Patient states: starting yesterday my RIGHT middle finger started tw2 getting swollen and is red and it feels hot into my hand, no injury. Transition of care: patient was not received from another setting of care. Onset of symptoms was November 24, 2019. Risk Assessment: Do you want to hurt yourself or someone else? Patient reports no desire to harm self or others. Initial Sepsis Screen: Does the patient meet any 2 criteria? No. Patient's initial sepsis screen is negative. Does the patient have a suspected source of infection? No. Patient's initial sepsis screen is negative. Care prior to arrival: None. 08:07 Method Of Arrival: Ambulatory tw2 08:07 Acuity: GLORIA 3 tw2 Triage Assessment: 08:09 General: Appears in no apparent distress. Behavior is calm, cooperative, appropriate tw2 for age. Pain: Complains of pain in dorsal aspect of distal phalanx of right middle finger, dorsal aspect of middle phalanx of right middle finger, dorsal aspect of proximal phalanx of right middle finger, palmar aspect of distal phalanx of right middle finger, palmar aspect of middle phalanx of right middle finger, palmar aspect of proximal phalanx of right middle finger, palm of right hand and right middle fingernail. Historical: - Allergies: 08:11 No Known Allergies; tw2 - Home Meds: 08:11 None [Active]; tw2 - PMHx: 08:11 Diverticulitis; tw2 - PSHx: 08:11 None; tw2 - Immunization history:: Adult Immunizations. - Coronavirus screen:: The patient has NOT traveled to [place], [place], or [place] in the past 14 days. - Social history:: Smoking status: . - Family history:: not pertinent. - Ebola Screening: : Patient denies travel to an Ebola-affected area in the 21 days before illness onset. Screenin:02 Abuse screen: Denies threats or abuse. Nutritional screening: No deficits noted. tw2 Tuberculosis screening: No symptoms or risk factors identified. Fall Risk None identified. Assessment: 08:11 General: Appears in no apparent distress. Behavior is calm, cooperative, appropriate tw2 for age. Pain: Complains of pain in right hand and right middle fingernail and palm of right hand and palmar aspect of proximal phalanx of right middle finger and palmar aspect of middle phalanx of right middle finger and palmar aspect of distal phalanx of right middle finger and dorsal aspect of proximal phalanx of right middle finger and dorsal aspect of middle phalanx of right middle finger and dorsal aspect of distal phalanx of right middle finger. Neuro: Level of Consciousness is awake, alert, obeys commands, Oriented to person, place, time, situation. Cardiovascular: Heart tones S1 S2 Patient's skin is warm and dry. Respiratory: Airway is patent Respiratory effort is even, unlabored, Respiratory pattern is regular, symmetrical, Breath sounds are clear bilaterally. GI: No signs and/or symptoms were reported involving the gastrointestinal system. Abdomen is flat, Bowel sounds present X 4 quads. : No signs and/or symptoms were reported regarding the genitourinary system. EENT: No signs and/or symptoms were reported regarding the EENT system. Derm: Skin temperature is warm. Musculoskeletal: Swelling present in right hand and right middle fingernail and palmar aspect of proximal phalanx of right middle finger and palmar aspect of middle phalanx of right middle finger and palmar aspect of distal phalanx of right middle finger and dorsal aspect of proximal phalanx of right middle finger and dorsal aspect of middle phalanx of right middle finger and dorsal aspect of distal phalanx of right middle finger. Injury Description: no injury reported. 09:11 Reassessment: Patient appears in no apparent distress at this time. No changes from tw2 previously documented assessment. Patient and/or family updated on plan of care and expected duration. Pain level reassessed. Patient is alert, oriented x 3, equal unlabored respirations, skin warm/dry/pink. provider at bedside at this time performing procedure. 09:35 Reassessment: Patient appears in no apparent distress at this time. No changes from tw2 previously documented assessment. Patient and/or family updated on plan of care and expected duration. Pain level reassessed. Patient is alert, oriented x 3, equal unlabored respirations, skin warm/dry/pink. Vital Signs: 08:09 BP 130 / 88; Pulse 69; Resp 17; Temp 97.8(O); Pulse Ox 98% on R/A; Weight 89.36 kg (R); tw2 Height 5 ft. 7 in. (170.18 cm); Pain 10/10; 09:15 BP 124 / 84; Pulse 83; Resp 17; Pulse Ox 97% on R/A; tw2 08:09 Body Mass Index 30.85 (89.36 kg, 170.18 cm) tw2 ED Course: 07:59 Patient arrived in ED. rg4 08:02 Yumi Puente, AVANI is Primary Nurse. tw2 08:03 Arm band placed on. tw2 08:03 Bed in low position. Call light in reach. tw2 08:04 Ethan Bhatia MD is Attending Physician. [facility] 08:09 Triage completed. tw2 09:08 Aurelio Rose MD is Referral Physician. [facility] 09:12 Awaiting: provider at bedside performing procedure at this time. tw2 09:35 No provider procedures requiring assistance completed. Assist provider with I \T\ D: of tw2 an abscess on Set up I\T\D tray. Performed by Ethan Bhatia MD Dressing with 4X4s, xeroform, non adherent dressing and coban Patient tolerated well. Patient did not have IV access during this emergency room visit. Administered Medications: 08:28 Drug: KeFLEX 500 mg Route: PO; tw2 09:17 Follow up: Response: No adverse reaction tw2 09:16 Drug: Bupivacaine (0.5 %) 3 ml {Note: by Dr. Bhatia.} Volume: 10 ml; Route: tw2 Infiltration; 09:17 Drug: Lidocaine-Epinephrine -1%: (1:100,000) 3 ml {Note: by Dr. Bhatia.} Volume: 20 tw2 ml; Route: Infiltration; Outcome: :08 Discharge ordered by . celeste 09:36 Discharged to home ambulatory. tw2 09:36 Condition: stable 09:36 Discharge instructions given to patient, Instructed on discharge instructions, follow up and referral plans. no drinking with medication, no driving heavy equipment, medication usage, wound care, Demonstrated understanding of instructions, follow-up care, medications, wound care, Prescriptions given X 2. 09:37 Patient left the ED. tw2 Signatures: Ethan Bhatia MD MD cha Wise, Tara RN RN tw2 Hiral Stevenson 4
--- NOTE | 2019-11-24 09:09 | EDPHYS ---
Physician Documentation [facility] Name: Uzair Sullivan Age: 39 yrs Sex: Male : 1980 Arrival Date: 11/24/2019 Time: 07:59 Bed 14 Private MD: ED Physician Ethan Bhatia HPI: 11/24 08:17 This 39 yrs old Male presents to ER via Ambulatory with complaints of Finger celeste Swelling. 08:17 The patient or guardian reports decreased range of motion, pain, swelling, tenderness. celeste The complaints affect the right middle fingernail. Context: The problem was sustained at an unknown location. Onset: The symptoms/episode began/occurred 2 day(s) ago. Modifying factors: The symptoms are alleviated by nothing, the symptoms are aggravated by movement, dependent position. Associated signs and symptoms: The patient has no apparent associated signs or symptoms. Severity of symptoms: At their worst the symptoms were moderate, severe, in the emergency department the symptoms are unchanged. The patient has not experienced similar symptoms in the past. Historical: - Allergies: 08:11 No Known Allergies; tw2 - Home Meds: 08:11 None [Active]; tw2 - PMHx: 08:11 Diverticulitis; tw2 - PSHx: 08:11 None; tw2 - Immunization history:: Adult Immunizations. - Coronavirus screen:: The patient has NOT traveled to [place], [place], or [place] in the past 14 days. - Social history:: Smoking status: . - Family history:: not pertinent. - Ebola Screening: : Patient denies travel to an Ebola-affected area in the 21 days before illness onset. ROS: 08:17 Constitutional: Negative for fever, chills, and weight loss, Eyes: Negative for injury, celeste pain, redness, and discharge, ENT: Negative for injury, pain, and discharge, Neck: Negative for injury, pain, and swelling, Cardiovascular: Negative for chest pain, palpitations, and edema, Respiratory: Negative for shortness of breath, cough, wheezing, and pleuritic chest pain, Abdomen/GI: Negative for abdominal pain, nausea, vomiting, diarrhea, and constipation, Back: Negative for injury and pain, : Negative for injury, bleeding, discharge, and swelling, Skin: Negative for injury, rash, and discoloration, Neuro: Negative for headache, weakness, numbness, tingling, and seizure, Psych: Negative for depression, anxiety, suicide ideation, homicidal ideation, and hallucinations, Allergy/Immunology: Negative for hives, rash, and allergies, Endocrine: Negative for neck swelling, polydipsia, polyuria, polyphagia, and marked weight changes, Hematologic/Lymphatic: Negative for swollen nodes, abnormal bleeding, and unusual bruising. 08:17 MS/extremity: Positive for pain, swelling, tenderness, of the dorsal aspect of distal phalanx of right middle finger and palmar aspect of distal phalanx of right middle finger. Exam: 08:17 Constitutional: This is a well developed, well nourished patient who is awake, alert, celeste and in no acute distress. Head/Face: Normocephalic, atraumatic. Eyes: Pupils equal round and reactive to light, extra-ocular motions intact. Lids and lashes normal. Conjunctiva and sclera are non-icteric and not injected. Cornea within normal limits. Periorbital areas with no swelling, redness, or edema. ENT: Nares patent. No nasal discharge, no septal abnormalities noted. Tympanic membranes are normal and external auditory canals are clear. Oropharynx with no redness, swelling, or masses, exudates, or evidence of obstruction, uvula midline. Mucous membranes moist. Neck: Trachea midline, no thyromegaly or masses palpated, and no cervical lymphadenopathy. Supple, full range of motion without nuchal rigidity, or vertebral point tenderness. No Meningismus. Chest/axilla: Normal chest wall appearance and motion. Nontender with no deformity. No lesions are appreciated. Cardiovascular: Regular rate and rhythm with a normal S1 and S2. No gallops, murmurs, or rubs. Normal PMI, no JVD. No pulse deficits. Respiratory: Lungs have equal breath sounds bilaterally, clear to auscultation and percussion. No rales, rhonchi or wheezes noted. No increased work of breathing, no retractions or nasal flaring. Abdomen/GI: Soft, non-tender, with normal bowel sounds. No distension or tympany. No guarding or rebound. No evidence of tenderness throughout. Back: No spinal tenderness. No costovertebral tenderness. Full range of motion. Male : Normal genitalia with no discharge or lesions. Skin: Warm, dry with normal turgor. Normal color with no rashes, no lesions, and no evidence of cellulitis. Neuro: Awake and alert, GCS 15, oriented to person, place, time, and situation. Cranial nerves II-XII grossly intact. Motor strength 5/5 in all extremities. Sensory grossly intact. Cerebellar exam normal. Normal gait. Psych: Awake, alert, with orientation to person, place and time. Behavior, mood, and affect are within normal limits. 08:17 Musculoskeletal/extremity: Extremities: decreased ROM, erythema, pain, swelling, tenderness. Vital Signs: 08:09 BP 130 / 88; Pulse 69; Resp 17; Temp 97.8(O); Pulse Ox 98% on R/A; Weight 89.36 kg (R); tw2 Height 5 ft. 7 in. (170.18 cm); Pain 10/10; 09:15 BP 124 / 84; Pulse 83; Resp 17; Pulse Ox 97% on R/A; tw2 08:09 Body Mass Index 30.85 (89.36 kg, 170.18 cm) tw2 Procedures: 09:28 I \T\ D: Incision and drainage was performed for an abscess of the right right middle celeste fingernail Prepped with Betadine, Anesthetized with 3 ml's 1% Lidocaine. 0.5 % 3 cc. Incised with #11 blade. Drained small amount purulent fluid. Packed with xeroform. Dressing: non-Adherent dressing, petroleum dressing, the patient tolerated the procedure well. MDM: 08:04 Patient medically screened. [facility] 08:21 Data reviewed: vital signs, nurses notes. [facility] 11/24 08:17 Order name: Dressing - Wound; Complete Time: 09:35 [facility] 11/24 08:17 Order name: Gloves, Sterile; Complete Time: 08:19 [facility] 11/24 08:17 Order name: Setup Suture Tray; Complete Time: 08:19 [facility] Administered Medications: 08:28 Drug: KeFLEX 500 mg Route: PO; tw2 09:17 Follow up: Response: No adverse reaction tw2 09:16 Drug: Bupivacaine (0.5 %) 3 ml {Note: by Dr. Bhatia.} Volume: 10 ml; Route: tw2 Infiltration; 09:17 Drug: Lidocaine-Epinephrine -1%: (1:100,000) 3 ml {Note: by Dr. Bhatia.} Volume: 20 tw2 ml; Route: Infiltration; Disposition: 11/24/19 09:08 Discharged to Home. Impression: Cutaneous abscess of right hand - paronychia. - Condition is Stable. - Discharge Instructions: Skin Abscess, Incision and Drainage, Skin Abscess, [id number], Felon, Incision and Drainage, Care After. - Prescriptions for Keflex 500 mg Oral Capsule - take 1 capsule by ORAL route every 6 hours for 10 days; 40 capsule. Tylenol- Codeine #3 300-30 mg Oral Tablet - take 2 tablet by ORAL route every 6 hours As needed; 30 tablet. - Medication Reconciliation Form, Thank You Letter, Antibiotic Education, Prescription Opioid Use, Work release form form. - Follow up: Private Physician; When: 2 - 3 days; Reason: Recheck today's complaints, Continuance of care, Re-evaluation by your physician. Follow up: Aurelio Rose; When: 2 - 3 days; Reason: Recheck today's complaints, Re-evaluation by your physician. - Problem is new. - Symptoms have improved. Signatures: Ethan Bhatia MD MD cha Wise, Tara RN RN tw2 Corrections: (The following items were deleted from the chart) 09:37 09:08 11/24/2019 09:08 Discharged to Home. Impression: Cutaneous abscess of right hand tw2 - paronychia. Condition is Stable. Discharge Instructions: Skin Abscess, Incision and Drainage, Skin Abscess, [id number], Felon, Incision and Drainage, Care After. Prescriptions for Keflex 500 mg Oral Capsule - take 1 capsule by ORAL route every 6 hours for 10 days; 40 capsule, Tylenol-Codeine #3 300-30 mg Oral Tablet - take 2 tablet by ORAL route every 6 hours As needed; 30 tablet. and Forms are Work release form, Medication Reconciliation Form, Thank You Letter, Antibiotic Education, Prescription Opioid Use. Follow up: Private Physician; When: 2 - 3 days; Reason: Recheck today's complaints, Continuance of care, Re-evaluation by your physician. Follow up: Aurelio Rose; When: 2 - 3 days; Reason: Recheck today's complaints, Re-evaluation by your physician. Problem is new. Symptoms have improved. celeste
[2019-11-24 09:42] VITALS: TEMP 97.8
[2019-11-24 09:43] VITALS: BP 124/84; O2SAT 97
== END 2019-11-24 09:37 | disposition home or self-care (01) ==
LOC: ER 07:56
PROC: 0H9FXZZ Drainage of Right Hand Skin, External Approach (ICD-10-PCS; principal; 2019-11-24)
DX: L03.011 Cellulitis of right finger (principal)
CPT/HCPCS: 99283

== ENCOUNTER 2022-05-20 18:42 | Emergency (ER) | payer BC ==
--- OUTSIDE RECORDS SUMMARY | 2022-05-20 18:45 | XMS REPORT | Continuity of Care Document ---
:1980 Author Organization [facility] t Address [address] [place] [address] Care Team Providers Name Role Phone Pcp, Patient Does Not Have A Primary Care Physician [id number] SHAVON Attending Clinician Unavailable LOULOU Attending Clinician Unavailable Loulou MORALES Attending Clinician MD SUDHIR Attending Clinician Unavailable SUDHIR Attending Clinician Unavailable MARJORIE Attending Clinician Unavailable MD SUDHIR Admitting Clinician Unavailable AMOS MOLINA Admitting Clinician Unavailable Payers Payer Name Policy Type Policy Number Effective Date Expiration Date S [facility] - [id number] 2020 00:00:00 OUT OF STATE Problems Condition Condition Condition Status Onset Resolution Last Treating Co mments Source Name Details Category Date Date Treatment Clinician Date No known No known Disease Unive rs active active ity of problems problems [facility] Allergies, Adverse Reactions, Alerts Allergy Allergy Status Severity Reaction(s) Onset Inactive Treating Comm ents Source Name Type Date Date Clinician NO KNOWN Drug Active Univers ALLERGIE Class ity of S [facility] NO KNOWN Allergy Active [facility] Social History Social Habit Start Date Stop Date Quantity Comments Source Exposure to 2022-03-14 2022-03-24 Not sure [facility] SARS-CoV-2 (event) 00:00:00 16:51:00 Medica l Branch Tobacco use and 2022-03-24 2022-03-24 Never used [facility] exposure 00:00:00 00:00:00 Medical Branch Sex Assigned At [birth year] [facility] 00:00:00 00:00:00 Medical Branch Smoking Status Start Date Stop Date Source Smoker, current status 2022-03-24 00:00:00 [facility] Medications Ordered Filled Start Stop Current Ordering Indication Dosage Frequency Signature Comments Components Source Medication Medication Date Date Medication? Clinician (SIG) Name Name amoxicillin 2021- Yes [id number] 1{tbl} Take 1 Univers -clavulanat 03-24 tablet by it y of e 00:00: 04:59 mouth 2 [place] (AUGMENTIN) 00 :00 (two) Medical 875-125 mg times Branch per tablet daily for 10 days. Vital Signs Vital Name Observation Time Observation Value Comments Source Systolic blood 2022-03-24 21:55:00 124 mm[Hg] [facility] pressure [facility] Diastolic blood 2022-03-24 21:55:00 87 mm[Hg] [facility] Heart rate 2022-03-24 21:55:00 86 /min General acute hospital Oxygen saturation 2022-03-24 21:55:00 100 /min [facility] in Arterial blood [facility] by Pulse oximetry Body height 2022-03-24 21:52:00 175.3 cm General acute hospital Body weight 2022-03-24 21:52:00 95.165 kg General acute hospital BMI 2022-03-24 21:52:00 30.98 kg/m2 General acute hospital Procedures This patient has no known procedures. Encounters Start End Encounter Admission Attending Care Care Encounter Source Date/Time Date/Time Type Type Clinicians Facility Department ID 2022-05-13 2022-05-13 Emergency CAROLINA SANDS [facility] [id number] [facility] 00:00:00 00:00:[address] 2022-03-24 2022-03-24 Outpatient R LOULOU NCTOMAS [facility] [id number] [facility] [place] [place] 17:00:00 17:27:59 DOMI alicea [facility] 2022-03-24 2022-03-24 [facility] [id number] Univers 17:00:00 17:27:59 Care [facility] [id number] i ty of EDWIN [id number] Jacob as LOR?BLEA [id number] Co tata [address] MEDICAL OFFICE BUILDING 2020-10-14 2020-10-14 Outpatient NAZERI, [facility] [id number] 00:00:00 00:00:00 BERYL [address] 2020-07-18 2020-07-18 Outpatient NAZERI, [facility] [id number] 00:00:00 00:00:00 BERYL [address] 2020-06-18 2020-06-18 Outpatient NAZERI, [facility] [id number] 00:00:00 00:00:00 BERYL [address] Results Test Description Test Time Test Comments Results Result Comments Source SARS-CoV-2 (COVID-19) RNA [Presence] in Respiratory sp ecimen by 2020-10-14 23:44:02 DENIS with probe detection Test Item Value Reference Range Interpretation Comme nts SARS-CoV-2 (COVID-19) RNA [Presence] in Respiratory Not detected No t-Detected specimen by DENIS with probe detection (test code = 22879-4) BLOOD [id number] 08:01:00 Test Item Value Reference Range Interpretation Comments CULTURE (BEAKER) (test No growth in 5 days code = 1095) MISCELLANEOUS LAB [id number] 07:37:00 Test Item Value Reference Range Interpretation Comments SCAN RESULT (test code = 8647791) BLOOD [id number] 08:00:00 Test Item Value Reference Range Interpretation Comments CULTURE (BEAKER) (test No growth in 5 days code = 1095) BLOOD [id number] 08:00:00 Test Item Value Reference Range Interpretation Comments CULTURE (BEAKER) (test No growth in 5 days code = 1095) ANTI-NUCLEAR ANTIBODY (AURA)2019-07-30 09:44:00 Test Item Value Reference Range Interpretation Comments ANTI-NUCLEAR ANTIBODY (AURA) (BEAKER) Positive Negative A (test code = 418) Test performed by IFA method.AURA TITER AND [id number] 09:44:00 Test Item Value Reference Range Interpretation Comments AURA TITER (BEAKER) (test code = >=:2560 1541) AURA PATTERN (BEAKER) (test code = Homogeneous 1781) (CELLAVISION MANUAL DIFF)2019-07-29 11:53:00 Test Item Value Reference Range Interpretation Comments NEUTROPHILS - REL 59 % (CELLAVISION)(BEAKER) (test code = 2816) LYMPHOCYTES - REL 30 % (CELLAVISION)(BEAKER) (test code = 2817) MONOCYTES - REL 6 % (CELLAVISION)(BEAKER) (test code = 2818) EOSINOPHILS - REL 1 % (CELLAVISION)(BEAKER) (test code = 2819) ATYPICAL LYMPHOCYTES - REL 4 % 0-0 H (CELLAVISION)(BEAKER) (test code = 2829) NEUTROPHILS - ABS 4.43 K/ul 1.78-5.38 (CELLAVISION)(BEAKER) (test code = 2830) LYMPHOCYTES - ABS 2.25 K/ul 1.32-3.57 (CELLAVISION)(BEAKER) (test code = 2831) MONOCYTES - ABS 0.45 K/uL 0.30-0.82 (CELLAVISION)(BEAKER) (test code = 2832) EOSINOPHILS - ABS 0.08 K/uL 0.04-0.54 (CELLAVISION)(BEAKER) (test code = 2834) ATYPICAL LYMPHOCYTES - ABS 0.30 K/uL 0.00-0.00 H (CELLAVISION)(BEAKER) (test code = 2858) TOTAL COUNTED (BEAKER) (test code = 100 1351) RBC MORPHOLOGY (BEAKER) (test code Normal = 762) WBC MORPHOLOGY (BEAKER) (test code Normal = 487) PLT MORPHOLOGY (BEAKER) (test code Normal = 486) HEPATIC FUNCTION [id number] 09:58:00 Test Item Value Reference Range Interpretation Comments TOTAL PROTEIN (BEAKER) (test code = 7.8 gm/dL 6.0-8.3 770) ALBUMIN (BEAKER) (test code = 1145) 3.8 g/dL 3.5-5.0 BILIRUBIN TOTAL (BEAKER) (test code 0.3 mg/dL 0.2-1.2 = 377) BILIRUBIN DIRECT (BEAKER) (test 0.2 mg/dL 0.1-0.5 code = 706) ALKALINE PHOSPHATASE (BEAKER) (test 42 U/L 40-150 code = 346) AST (SGOT) (BEAKER) (test code = 17 U/L 5-34 353) ALT (SGPT) (BEAKER) (test code = 24 U/L 6-55 347) CBC WITH PLATELET COUNT + MANUAL [id number] 09:29:00 Test Item Value Reference Range Interpretation Comments WHITE BLOOD CELL COUNT (BEAKER) 7.5 K/ L 3.5-10.5 (test code = 775) RED BLOOD CELL COUNT (BEAKER) 4.08 M/ L 4.63-6.08 L (test code = 761) HEMOGLOBIN (BEAKER) (test code = 12.8 GM/DL 13.7-17.5 L 410) HEMATOCRIT (BEAKER) (test code = 36.1 % 40.1-51.0 L 411) MEAN CORPUSCULAR VOLUME (BEAKER) 88.5 fL 79.0-92.2 (test code = 753) MEAN CORPUSCULAR HEMOGLOBIN 31.4 pg 25.7-32.2 (BEAKER) (test code = 751) MEAN CORPUSCULAR HEMOGLOBIN CONC 35.5 GM/DL 32.3-36.5 (BEAKER) (test code = 752) RED CELL DISTRIBUTION WIDTH 11.6 % 11.6-14.4 (BEAKER) (test code = 412) PLATELET COUNT (BEAKER) (test 247 K/CU MM 150-450 code = 756) MEAN PLATELET VOLUME (BEAKER) 10.8 fL 9.4-12.4 (test code = 754) NUCLEATED RED BLOOD CELLS 0 /100 WBC 0-0 (BEAKER) (test code = 413) RESPIRATORY PANEL [id number] 15:15:00 Test Item Value Reference Range Interpretation Comments HUMAN METAPNEUMOVIRUS Not detected Not detected, (BEAKER) (test code = 2683) Equivocal RHINOVIRUS (BEAKER) (test Not detected Not detected, code = 2684) Equivocal INFLUENZA A (BEAKER) (test Not detected Not detected, code = 2685) Equivocal INFLUENZA A (NO SUBTYPE) (test code = 3606) INFLUENZA A SUBTYPE H1 (BEAKER) (test code = 2686) INFLUENZA A SUBTYPE H3 (BEAKER) (test code = 2687) INFLUENZA A SUBTYPE H1-2009 (BEAKER) (test code = 3198) INFLUENZA B (BEAKER) (test Not detected Not detected, code = 2688) Equivocal RESPIRATORY SYNCYTIAL VIRUS Not detected Not detected, (BEAKER) (test code = 3199) Equivocal PARAINFLUENZA VIRUS 1 Not detected Not detected, (BEAKER) (test code = 2691) Equivocal PARAINFLUENZA VIRUS 2 Not detected Not detected, (BEAKER) (test code = 2692) Equivocal PARAINFLUENZA VIRUS 3 Not detected Not detected, (BEAKER) (test code = 2693) Equivocal PARAINFLUENZA VIRUS 4 Not detected Not detected, (BEAKER) (test code = 3200) Equivocal ADENOVIRUS (BEAKER) (test Not detected Not detected, code = 2694) Equivocal CORONAVIRUS 229E (BEAKER) Not detected Not detected, (test code = 3201) Equivocal CORONAVIRUS HKU1 (BEAKER) Not detected Not detected, (test code = 3202) Equivocal CORONAVIRUS NL63 (BEAKER) Not detected Not detected, (test code = 3203) Equivocal CORONAVIRUS OC43 (BEAKER) Not detected Not detected, (test code = 3204) Equivocal BORDETELLA PERTUSSIS Not detected Not detected, (BEAKER) (test code = 3205) Equivocal CHLAMYDOPHILA PNEUMONIAE Not detected Not detected, (BEAKER) (test code = 3206) Equivocal MYCOPLASMA PNEUMONIAE Not detected Not detected, (BEAKER) (test code = 3207) Equivocal Other viruses and bacteria not targeted by this PCR panel cannot be excluded; therefore clinical correlation and follow up of serology, culture results, and other molecular studies is required. The results are not intended to be used as the sole means for clinical diagnosis or patient management decisions. This sample was tested at the [facility] Molecular Diagnostics Laboratory using the SquadMail Respiratory Panel. It is FDA cleared and has been verified and approved by the [facility] Molecular Diagnostics Laboratory for clinical use on nasopharyngeal swab specimens.The performance of the FilmArrayRP has not been established in individuals who received influenza vaccine. Recent administration ofa nasal influenza vaccine may cause false positive results for Influenza A and/orInfluenza B.EBV VIRAL [id number] 13:49:00 Test Item Value Reference Range Interpretation Comments EBV VIRAL LOAD - Negative or below the NEGATIVE (BEAKER) (test linear range of the code = 2559) assay (<500 copies/mL) This assay was performed by real-time PCR for the detection of the Sary-Orourke virus (EBV) gene EBNA-1. The test is composed of (1) DNA extraction from patient specimen, and (2) real-time PCR amplification and detection with CTGM-3-aaadykef primers and probes. A well-conserved region of the EBNA-1 gene is targeted, along with an internal control sequence used to confirm PCR amplification. Asymptomatic carriers and viral genetic variation, among other factors, can affect the accuracy of nucleic acid testing; therefore, results should be interpreted in light of clinical data.This test was developedand its performance characteristics determined by the [facility] Pathology Department, Section of Molecular Pathology. It [...] DNA extraction from patient specimen, and (2) real- time PCR amplification and detection with GHQG-7-pdkyznxa primers and probes. A well-conserved region of the EBNA-1 gene is targeted, along with an internal control sequence used to confirm PCR amplification. Asymptomatic carriers and viral genetic variation, among other factors, can affect the accuracy of nucleic acid testing; therefore, results should be interpreted in light of clinical data.This test was developed and its performance characteristics determined by the [facility] Pathology Department, Section of Molecular Pathology. It has not been cleared or approved by the U.S. Food and Drug Administration (FDA), since FDA approval is not required for clinical use of the test. Validation was done as required by The Clinical Laboratory Improvement Amendments of 1987.CMV PCR, [id number] 13:43:00 Test Item Value Reference Range Interpretation Comments CMV VIRAL LOAD - Negative or below the NEGATIVE (BEAKER) (test linear range of the code = 2558) assay (<375 copies/mL) Cytomegalovirus (CMV) infection can [...] viral load canbe evaluated by identifying a 10-fold change, as well as assessing the CMV DNA viral load and the clinical context for each patient.The plasma CMV DNA viral load was detected using quantitative polymerase chain reaction and fluorescent monitoring of a specific hybridized probe. Genetic variation and ot her factors can affect the accuracy of nucleic acid testing. Therefore, the results should be interpreted in light of clinical data. A negative result may not exclude the presence of CMV disease.This test was developed and its performance characteristics determined by the [facility] Path ology Department, Section of Molecular Pathology. It has not been cleared or approved by the U.S. Food and Drug Administration (FDA), since FDA approval is not required for clinical use of the test. Validation was done as required by The Clinical Laboratory Improvement Amendments of 1988.RHEUMATOID FACTOR AB, REFLEX TO [id number] 13:10:00 Test Item Value Reference Range Interpretation Comments RHEUMATOID FACTOR (BEAKER) (test Negative code = 573) BASIC METABOLIC [id number] 06:42:00 Test Item Value Reference Range Interpretation Comments SODIUM (BEAKER) 137 meq/L 136-145 (test code = 381) POTASSIUM (BEAKER) 3.8 meq/L 3.5-5.1 (test code = 379) CHLORIDE (BEAKER) 106 meq/L 98-107 (test code = 382) CO2 (BEAKER) (test 23 meq/L 22-29 code = 355) BLOOD UREA NITROGEN 10 mg/dL 7-21 (BEAKER) (test code = 354) CREATININE (BEAKER) 0.99 mg/dL 0.57-1.25 (test code = 358) GLUCOSE RANDOM 94 mg/dL 70-105 (BEAKER) (test code = 652) CALCIUM (BEAKER) 9.0 mg/dL 8.4-10.2 (test code = 697) EGFR (BEAKER) (test 83 mL/min/1.73 ESTIMA JEFFREY GFR IS code = 1092) sq m NOT ACCURATE CREATININE CLEARANCE IN PREDICTING GLOMERULAR FILTRATION RATE . ESTIMATED GFR I S NOT APPLICABLE FOR DIALYSIS PATIEN TS. [id number] 12:15:00 Test Item Value Reference Range Interpretation Comments RPR SCREEN (BEAKER) (test code = Nonreactive Nonreactive 420) HIV-1 ANTIGEN WITH HIV-1/2 [id number] 04:56:00 Test Item Value Reference Range Interpretation Comments HIV-1 ANTIGEN WITH HIV 1\T\2 Nonreactive Nonreactive ANTIBODY (2) (BEAKER) (test code = 2586) BASIC METABOLIC [id number] 04:24:00 Test Item Value Reference Range Interpretation Comments SODIUM (BEAKER) 139 meq/L 136-145 (test code = 381) POTASSIUM (BEAKER) 3.8 meq/L 3.5-5.1 (test code = 379) CHLORIDE (BEAKER) 106 meq/L 98-107 (test code = 382) CO2 (BEAKER) (test 26 meq/L 22-29 code = 355) BLOOD UREA NITROGEN 9 mg/dL 7-21 (BEAKER) (test code = 354) CREATININE (BEAKER) 0.84 mg/dL 0.57-1.25 (test code = 358) GLUCOSE RANDOM 94 mg/dL 70-105 (BEAKER) (test code = 652) CALCIUM (BEAKER) 9.2 mg/dL 8.4-10.2 (test code = 697) EGFR (BEAKER) (test 101 mL/min/1.73 ESTIM ATED GFR IS code = 1092) sq m NOT ACCURATE CREATININE CLEARANCE IN PREDICTING GLOMERULAR FILTRATION RATE . ESTIMATED GFR I S NOT APPLICABLE FOR DIALYSIS PATIEN TS. URINALYSIS W/ REFLEX URINE [id number] 00:26:00 Test Item Value Reference Range Interpretation Comments COLOR (BEAKER) (test code = 470) Dark Yellow CLARITY (BEAKER) (test code = Clear 469) SPECIFIC GRAVITY UA (BEAKER) 1.007 1.001-1.035 (test code = 468) PH UA (BEAKER) (test code = 467) 6.5 5.0-8.0 PROTEIN UA (BEAKER) (test code = Negative Negative 464) GLUCOSE UA (BEAKER) (test code = Negative Negative 365) KETONES UA (BEAKER) (test code = Negative Negative 371) BILIRUBIN UA (BEAKER) (test code Negative Negative = 462) BLOOD UA (BEAKER) (test code = Small Negative A 461) NITRITE UA (BEAKER) (test code = Positive Negative A 465) LEUKOCYTE ESTERASE UA (BEAKER) Large Negative A (test code = 466) UROBILINOGEN UA (BEAKER) (test 2.0 mg/dL 0.2-1.0 H code = 463) RBC UA (BEAKER) (test code = 519) 6 /HPF WBC UA (BEAKER) (test code = 520) 34 /HPF BACTERIA (BEAKER) (test code = Many 517) SQUAMOUS EPITHELIAL (BEAKER) < /HPF (test code = 516) SOURCE(BEAKER) (test code = 2795) RAD, CHEST, 1 VIEW, NON [id number] 10:25:00Reason for exam:- >leukocytosis, fever r/o infectionFINAL REPORT History: Leukocytosis, fever Comparison: None Findings: There is mild horizontal linear opacities suggestive of subsegmental atelectasis in the lower left lung. Lungs otherwise clear. No pleural effusions or pneumothorax. The heart shadow is normal in size. The thoracic aorta is mildly tortuous. No skeletal abnormalities are visualized. Impression: Subsegmental atelectasis in the lower left lung. Lungs otherwise clear. Signed: Foster Watts MDReport Verified Date/T allegra: 07/26/2019 10:25:43 Reading Location: [facility] C013X Ortho Consult Reading Room CBC W/PLT COUNT & AUTO [id number] 10:24:00 Test Item Value Reference Range Interpretation Comments WHITE BLOOD CELL COUNT (BEAKER) 24.7 K/ L 3.5-10.5 H (test code = 775) RED BLOOD CELL COUNT (BEAKER) 3.89 M/ L 4.63-6.08 L (test code = 761) HEMOGLOBIN (BEAKER) (test code = 12.3 GM/DL 13.7-17.5 L 410) HEMATOCRIT (BEAKER) (test code = 35.0 % 40.1-51.0 L 411) MEAN CORPUSCULAR VOLUME (BEAKER) 90.0 fL 79.0-92.2 (test code = 753) MEAN CORPUSCULAR HEMOGLOBIN 31.6 pg 25.7-32.2 (BEAKER) (test code = 751) MEAN CORPUSCULAR HEMOGLOBIN CONC 35.1 GM/DL 32.3-36.5 (BEAKER) (test code = 752) RED CELL DISTRIBUTION WIDTH 11.7 % 11.6-14.4 (BEAKER) (test code = 412) PLATELET COUNT (BEAKER) (test 226 K/CU MM 150-450 code = 756) MEAN PLATELET VOLUME (BEAKER) 11.5 fL 9.4-12.4 (test code = 754) NUCLEATED RED BLOOD CELLS 0 /100 WBC 0-0 (BEAKER) (test code = 413) (CELLAVISION MANUAL DIFF)2019-07-26 10:24:00 Test Item Value Reference Range Interpretation Comments NEUTROPHILS - REL 70 % (CELLAVISION)(BEAKER) (test code = 2816) LYMPHOCYTES - REL 19 % (CELLAVISION)(BEAKER) (test code = 2817) MONOCYTES - REL 5 % (CELLAVISION)(BEAKER) (test code = 2818) BANDS - REL (CELLAVISION)(BEAKER) 2 % 0-10 (test code = 2826) ATYPICAL LYMPHOCYTES - REL 4 % 0-0 H (CELLAVISION)(BEAKER) (test code = 2829) NEUTROPHILS - ABS 17.29 K/ul 1.78-5.38 H (CELLAVISION)(BEAKER) (test code = 2830) LYMPHOCYTES - ABS 4.69 K/ul 1.32-3.57 H (CELLAVISION)(BEAKER) (test code = 2831) MONOCYTES - ABS 1.24 K/uL 0.30-0.82 H (CELLAVISION)(BEAKER) (test code = 2832) BANDS - ABS (CELLAVISION)(BEAKER) 0.49 K/uL 0.00-0.80 (test code = 2840) ATYPICAL LYMPHOCYTES - ABS 0.99 K/uL 0.00-0.00 H (CELLAVISION)(BEAKER) (test code = 2858) TOTAL COUNTED (BEAKER) (test code 100 = 1351) RBC MORPHOLOGY (BEAKER) (test code Normal = 762) WBC MORPHOLOGY (BEAKER) (test code Normal = 487) PLT MORPHOLOGY (BEAKER) (test code Normal = 486) ARTIFACT (CELLAVISION)(BEAKER) Present (test code = 3432) PLATELET CONCENTRATION Adequate (CELLAVISION)(BEAKER) (test code = 3438) Received comment: User comments: Slide comments:[id number] 10:11:00 Test Item Value Reference Range Interpretation Comments PROTIME (BEAKER) (test code = 14.2 seconds 11.9-14.2 759) INR (BEAKER) (test code = 370) 1.2 <=5.9 PARTIAL THROMBOPLASTIN TIME 34.6 seconds 22.5-36.0 (BEAKER) (test code = 760) Effective 03/26/2019: PT Reference Range ChangeNew: 11.9-14.2 Previous: 11.7- 14.7RECOMMENDED COUMADIN/WARFARIN INR THERAPY RANGESSTANDARD DOSE: 2.0-3.0 Includes: PROPHYLAXIS for venous thrombosis, systemic embolization; TREATMENT for venous thrombosis and/or pulmonary embolus.HIGH RISK: Target INR is2.5-3.5 for patients wiht mechanical heart valves.B-TYPE NATRIURETIC FACTOR (BNP) 2019-07-26 10:08:00 Test Item Value Reference Range Interpretation Comments B-TYPE NATRIURETIC PEPTIDE (BEAKER) 14 pg/mL 0-100 (test code = 700) TROPONIN [id number] 10:00:00 Test Item Value Reference Range Interpretation Comments TROPONIN I (BEAKER) (test code = 0.03 ng/mL 0.00-0.03 397) Troponin I (TnI) levels must be interpreted [...] acute neurological disease, and persistent tachyarrhythmia.BASIC METABOLIC [id number] 09:54:00 Test Item Value Reference Range Interpretation Comments SODIUM (BEAKER) 135 meq/L 136-145 L (test code = 381) POTASSIUM (BEAKER) 3.9 meq/L 3.5-5.1 Specimen slightly (test code = 379) hemolyzed CHLORIDE (BEAKER) 105 meq/L 98-107 (test code = 382) CO2 (BEAKER) (test 23 meq/L 22-29 code = 355) BLOOD UREA NITROGEN 12 mg/dL 7-21 (BEAKER) (test code = 354) CREATININE (BEAKER) 0.81 mg/dL 0.57-1.25 Specimen slightly (test code = 358) hemolyzed GLUCOSE RANDOM 98 mg/dL 70-105 (BEAKER) (test code = 652) CALCIUM (BEAKER) 8.6 mg/dL 8.4-10.2 (test code = 697) EGFR (BEAKER) (test 105 mL/min/1.73 ESTIM ATED GFR IS code = 1092) sq m NOT ACCURATE CREATININE CLEARANCE IN PREDICTING GLOMERULAR FILTRATION RATE . ESTIMATED GFR I S NOT APPLICABLE FOR DIALYSIS PATIEN TS. CREATINE KINASE (CK)2019-07-26 09:54:00 Test Item Value Reference Range Interpretation Comments CREATINE KINASE TOTAL (BEAKER) (test 30 U/L 29-200 code = 380) POCT-LACTIC ACID, [id number] 09:50:00 Test Item Value Reference Range Interpretation Comments POC-LACTIC ACID, 1.3 mmol/L 0.4-1.3 TESTED AT [facility] [address] (BEAKER) [facility] (test code = 2804) [address] [id number] 09:50:00 Test Item Value Reference Range Interpretation Comments POC-HEMOGLOBIN 11.6 g/dL 13.0-16.8 L TESTED AT [facility] 6720 (BEAKER) (test code [facility] [place] = 1856) [id number] AT [place] [id number] [facility] [address] POCT-BLOOD GASES, [id number] 09:49:00 Test Item Value Reference Range Interpretation Comments TEMP, CELSIUS-POC 37.0 (BEAKER) (test code = 1834) FIO2-POC (BEAKER) TESTED AT [place] [address] (test code = 1835) [facility] [address] PH, ARTERIAL-POC 7.370 7.350-7.450 (BEAKER) (test code = 1836) PCO2, ARTERIAL-POC 41.0 mm Hg 35.0-45.0 (BEAKER) (test code = 1837) PO2, ARTERIAL-POC 86.0 mm Hg 80.0-90.0 (BEAKER) (test code = 1838) SO2, ARTERIAL-POC 96.0 % 96.0-97.0 (BEAKER) (test code = 1839) HCO3, ARTERIAL-POC 23.7 meq/L 21.0-29.0 (BEAKER) (test code = 1840) BASE EXCESS, -2.0 meq/L -2.0-3.0 ARTERIAL-POC (BEAKER) (test code = 1841) [id number] 09:49:00 Test Item Value Reference Range Interpretation Comments POC-SODIUM (BEAKER) 137 meq/L 135-148 TESTED [place] [address] (test code = 1542) ALEXJASVIR Zoraida [facility] [address] [id number] 09:49:00 Test Item Value Reference Range Interpretation Comments POC-POTASSIUM 3.3 meq/L 3.6-5.5 L TESTED AT [place] [address] ([facility]) (test code [facility] [address] = 1540) [id number] 09:49:00 Test Item Value Reference Range Interpretation Comments POC-GLUCOSE (BEAKER) 153 mg/dL 70-110 H TESTED AT [place] [address] (test code = 1855) ALEXJASVIR Zoraida [facility] [address] POCT-CALCIUM [id number] 09:49:00 Test Item Value Reference Range Interpretation Comments POC-CALCIUM IONIZED 1.22 mmol/L 1.12-1.27 TESTED [place] [address] [facility] (test code = RICHELLE Coleman [facility] 1536) [address] [id number] 09:49:00 Test Item Value Reference Range Interpretation Comments POC-HEMATOCRIT 34 % 40-50 L TESTED AT [place] [address] [facility] (test code = ALEXSHEMAR [place] [facility] [address] 1859) URINALYSIS WITH MICROSCOPIC IF [id number] 07:55:00 Test Item Value Reference Range Interpretation Comments COLOR (BEAKER) (test code = 470) Yellow CLARITY (BEAKER) (test code = 469) Clear SPECIFIC GRAVITY UA (BEAKER) (test > 1.001-1.035 H code = 468) PH UA (BEAKER) (test code = 467) 6.0 5.0-8.0 PROTEIN UA (BEAKER) (test code = 30 mg/dL Negative A 464) GLUCOSE UA (BEAKER) (test code = Negative Negative 365) KETONES UA (BEAKER) (test code = Negative Negative 371) BILIRUBIN UA (BEAKER) (test code = Negative Negative 462) BLOOD UA (BEAKER) (test code = 461) Trace Negative A NITRITE UA (BEAKER) (test code = Negative Negative 465) LEUKOCYTE ESTERASE UA (BEAKER) Small Negative A (test code = 466) UROBILINOGEN UA (BEAKER) (test code 0.2 mg/dL 0.2-1.0 = 463) SOURCE(BEAKER) (test code = 2795) URINALYSIS [id number] 07:55:00 Test Item Value Reference Range Interpretation Comments RBC UA (BEAKER) (test code = 519) 1 /HPF WBC UA (BEAKER) (test code = 520) 9 /HPF MUCUS (BEAKER) (test code = 1574) Rare SQUAMOUS EPITHELIAL (BEAKER) (test < /HPF code = 516) C-REACTIVE [id number] 07:27:00 Test Item Value Reference Range Interpretation Comments C-REACTIVE PROTEIN (BEAKER) (test 15.31 mg/dL 0.00-0.50 H code = 676) CBC W/PLT COUNT & AUTO [id number] 04:17:00 Test Item Value Reference Range Interpretation Comments WHITE BLOOD CELL COUNT (BEAKER) 20.2 K/ L 3.5-10.5 H (test code = 775) RED BLOOD CELL COUNT (BEAKER) 4.13 M/ L 4.63-6.08 L (test code = 761) HEMOGLOBIN (BEAKER) (test code = 13.1 GM/DL 13.7-17.5 L 410) HEMATOCRIT (BEAKER) (test code = 37.3 % 40.1-51.0 L 411) MEAN CORPUSCULAR VOLUME (BEAKER) 90.3 fL 79.0-92.2 (test code = 753) MEAN CORPUSCULAR HEMOGLOBIN 31.7 pg 25.7-32.2 (BEAKER) (test code = 751) MEAN CORPUSCULAR HEMOGLOBIN CONC 35.1 GM/DL 32.3-36.5 (BEAKER) (test code = 752) RED CELL DISTRIBUTION WIDTH 11.5 % 11.6-14.4 L (BEAKER) (test code = 412) PLATELET COUNT (BEAKER) (test 190 K/CU MM 150-450 code = 756) MEAN PLATELET VOLUME (BEAKER) 11.8 fL 9.4-12.4 (test code = 754) NUCLEATED RED BLOOD CELLS 0 /100 WBC 0-0 (BEAKER) (test code = 413) NEUTROPHILS RELATIVE PERCENT 76 % (BEAKER) (test code = 429) LYMPHOCYTES RELATIVE PERCENT 14 % (BEAKER) (test code = 430) MONOCYTES RELATIVE PERCENT 9 % (BEAKER) (test code = 431) EOSINOPHILS RELATIVE PERCENT 0 % (BEAKER) (test code = 432) BASOPHILS RELATIVE PERCENT 0 % (BEAKER) (test code = 437) NEUTROPHILS ABSOLUTE COUNT 15.32 K/ L 1.78-5.38 H (BEAKER) (test code = 670) LYMPHOCYTES ABSOLUTE COUNT 2.84 K/ L 1.32-3.57 (BEAKER) (test code = 414) MONOCYTES ABSOLUTE COUNT (BEAKER) 1.83 K/ L 0.30-0.82 H (test code = 415) EOSINOPHILS ABSOLUTE COUNT 0.07 K/ L 0.04-0.54 (BEAKER) (test code = 416) BASOPHILS ABSOLUTE COUNT (BEAKER) 0.06 K/ L 0.01-0.08 (test code = 417) IMMATURE GRANULOCYTES-RELATIVE 1 % 0-1 PERCENT (BEAKER) (test code = 2801) BASIC METABOLIC [id number] 03:45:00 Test Item Value Reference Range Interpretation Comments SODIUM (BEAKER) 138 meq/L 136-145 (test code = 381) POTASSIUM (BEAKER) 3.6 meq/L 3.5-5.1 (test code = 379) CHLORIDE (BEAKER) 106 meq/L 98-107 (test code = 382) CO2 (BEAKER) (test 23 meq/L 22-29 code = 355) BLOOD UREA NITROGEN 12 mg/dL 7-21 (BEAKER) (test code = 354) CREATININE (BEAKER) 0.84 mg/dL 0.57-1.25 (test code = 358) GLUCOSE RANDOM 97 mg/dL 70-105 (BEAKER) (test code = 652) CALCIUM (BEAKER) 9.2 mg/dL 8.4-10.2 (test code = 697) EGFR (BEAKER) (test 101 mL/min/1.73 ESTIM ATED GFR IS code = 1092) sq m NOT ACCURATE CREATININE CLEARANCE IN PREDICTING GLOMERULAR FILTRATION RATE . ESTIMATED GFR I S NOT APPLICABLE FOR DIALYSIS PATIEN TS.
[2022-05-20] MEDS ORDERED: ASPIRIN 81 MG CHEWABLE TABLET ONE (19:17)
[2022-05-20 19:35] LABS: Protime INR 1.12
[2022-05-20 19:36] LABS: Absolute Lymphocytes (CBC) 1.6 K/uL (0.7-4.9); Hematocrit 39.7 % (39.6-49.0); Lymphocytes % 17.7 % (15.3-44.8); MCV 88.5 fL (80-100); MPV 10.2 fL (7.6-11.3); RBC Red Blood Cell Count 4.49 M/uL (4.33-5.43)
[2022-05-20] MEDS ORDERED: NA CHLORIDE 0.9% 1,000 ML ONE (19:39)
[2022-05-20 19:55] LABS: Albumin 3.7 g/dL (3.4-5.0); Bilirubin Direct 0.1 mg/dL (0-0.2); Bilirubin Total 0.4 mg/dL (0.2-1.0); Magnesium 2.2 mg/dL (1.8-2.4); Potassium 3.4 mmol/L (3.5-5.1); Protein, Total 7.1 g/dL (6.4-8.2); Troponin High Sensitivity 11.4 pg/mL (<58.9)
--- NOTE | 2022-05-20 20:03 | RAD REPORT ---
EXAM DESCRIPTION: RAD - Chest Single View - 05/20/2022 7:44 pm CLINICAL HISTORY: CHEST PAIN COMPARISON: Chest Pa And Lat (2 Views) dated 07/25/2019 FINDINGS: Lines: None. Lungs: No evidence of edema or pneumonia. Pleural: No significant pleural effusions or pneumothorax. Cardiac: The heart size is within normal limits. Bones: No acute fractures. Other: Loop recorder overlies the chest. IMPRESSION: No acute cardiopulmonary disease.
[2022-05-20 20:39] LABS: Urine Blood Negative (Negative); Urine Glucose Negative (Negative); Urine Protein Negative (Negative)
[2022-05-20 21:12] LABS: Barbiturates NEGATIVE (NEGATIVE); Benzodiazepines NEGATIVE (NEGATIVE); Cocaine NEGATIVE (NEGATIVE); METHAMPHETAM NEGATIVE (NEGATIVE); Methadone NEGATIVE (NEGATIVE); Opiates NEGATIVE (NEGATIVE); Phencyclidine NEGATIVE (NEGATIVE); THC Cannibis NEGATIVE (NEGATIVE)
--- NOTE | 2022-05-20 22:53 | EDPHYS ---
Physician Documentation [facility] Name: Uzair Sullivan Age: 42 yrs Sex: Male : 1980 Arrival Date: 05/20/2022 Time: 18:46 Bed 15 Private MD: ED Physician Afsaneh Vela HPI: 05/20 19:15 This 42 yrs old Male presents to ER via EMS with complaints of Chest Pain > 30 cp y/o. 19:15 The patient presents with a history of heart racing. cp 19:15 Context: The symptoms occur at rest. cp 19:15 Onset: The symptoms/episode began/occurred about 45 minutes prior to arrival. Duration: cp The patient or guardian reports a single episode, that is still ongoing, but improving. Associated signs and symptoms: Pertinent positives: lightheadedness, near-syncope, mild left side, sharp chest pain. 19:15 Severity of symptoms: in the emergency department the symptoms have improved moderately.cp Historical: - Allergies: 19:00 No Known Allergies; tw2 - PMHx: 19:00 Diverticulitis; arrhythmia; tw2 - Immunization history:: Adult Immunizations. - Social history:: Smoking status: . ROS: 19:20 Constitutional: Negative for body aches, chills, fever, poor PO intake. cp 19:20 Eyes: Negative for injury, pain, redness, and discharge. cp 19:20 Cardiovascular: Positive for chest pain, of the anterior aspect of left upper chest, palpitations, Negative for edema. 19:20 Respiratory: Negative for cough, shortness of breath, wheezing. 19:20 Abdomen/GI: Negative for abdominal pain, nausea, vomiting, and diarrhea. 19:20 Back: Negative for pain at rest, pain with movement, radiated pain. cp 19:20 : Negative for urinary symptoms. 19:20 Skin: Negative for cellulitis, rash. 19:20 Neuro: Positive for near syncope, Negative for altered mental status, headache, syncope, weakness. 19:20 All other systems are negative. Exam: 18:50 ECG was reviewed by the Attending Physician. cp 19:25 Constitutional: The patient appears in no acute distress, alert, awake, cp non-diaphoretic, non-toxic, well developed, well nourished. 19:25 Head/Face: Normocephalic, atraumatic. cp 19:25 Eyes: Periorbital structures: appear normal, Conjunctiva: normal, no exudate, no injection, Sclera: no appreciated abnormality, Lids and lashes: appear normal, bilaterally. 19:25 ENT: External ear(s): are unremarkable, Nose: is normal, Mouth: Lips: moist, Oral mucosa: pink and intact, moist, Posterior pharynx: Airway: no evidence of obstruction, patent. 19:25 Neck: ROM/movement: is normal, is supple, without pain, no range of motions limitations. 19:25 Chest/axilla: Inspection: normal, Palpation: is normal, no crepitus, no tenderness. 19:25 Cardiovascular: Rate: normal, Rhythm: regular, Edema: is not appreciated, JVD: is not appreciated. 19:25 Respiratory: the patient does not display signs of respiratory distress, Respirations: normal, no use of accessory muscles, no retractions, labored breathing, is not present, Breath sounds: are clear throughout, no decreased breath sounds, no stridor, no wheezing. 19:25 Abdomen/GI: Inspection: abdomen appears normal, Palpation: abdomen is soft and non-tender, in all quadrants. 19:25 Back: pain, is absent, ROM is normal. 19:25 Neuro: Orientation: to person, place \T\ time. Mentation: is normal, Cerebellar function: is grossly normal, Motor: moves all fours, strength is normal, Sensation: is normal. Vital Signs: 18:41 BP 129 / 107; Pulse 91; Resp 16; Temp 98.1(O); Pulse Ox 100% on R/A; Weight 88.45 kg tw2 (R); Height 5 ft. 9 in. (175.26 cm); Pain 3/10; 19:15 BP 121 / 85; Pulse 82; Resp 19; Pulse Ox 100% on R/A; Pain 0/10; lp1 20:15 BP 122 / 93; Pulse 84; Resp 17; Pulse Ox 100% on R/A; lp1 23:24 BP 112 / 89; Pulse 75; Resp 18 S; Pulse Ox 99% on R/A; vc1 18:41 Body Mass Index 28.80 (88.45 kg, 175.26 cm) tw2 MDM: 18:59 Patient medically screened. cp 22:51 Data reviewed: vital signs, nurses notes. Counseling: I had a detailed discussion with tammi the patient and/or guardian regarding: the historical points, exam findings, and any diagnostic results supporting the discharge/admit diagnosis, lab results, radiology results, the need for outpatient follow up, to return to the emergency department if symptoms worsen or persist or if there are any questions or concerns that arise at home. ED course: Repeat troponin wnl. Patient advised to follow up with pcp and aotherwise given strict return precautions. patient understood and agrees with the plan of care. . 05/20 18:58 Order name: Basic Metabolic Panel; Complete Time: 20:57 cp 05/20 20:57 Interpretation: Normal except: K 3.4; CL 109; GLUC 110; GFR 86. cp 05/20 18:58 Order name: CBC with Diff; Complete Time: 20:57 cp 05/20 20:57 Interpretation: Normal except: MCV 88.5. cp 05/20 18:58 Order name: LFT's; Complete Time: 20:57 cp 05/20 20:57 Interpretation: Normal except: ALK 36. cp 05/20 18:58 Order name: Magnesium; Complete Time: 20:57 cp 05/20 18:58 Order name: NT PRO-BNP; Complete Time: 20:57 cp 05/20 18:58 Order name: PT-INR; Complete Time: 20:57 cp 05/20 18:58 Order name: Troponin HS; Complete Time: 20:57 cp 05/20 20:58 Interpretation: Within normal limits: Troponin HS 11.4. cp 05/20 18:58 Order name: XRAY Chest (1 view); Complete Time: 20:57 cp 05/20 19:17 Order name: UDS; Complete Time: 21:45 cp 05/20 20:40 Order name: Urine Dipstick-Ancillary; Complete Time: 20:57 EDMS 05/20 20:58 Order name: Troponin High Sensitivity: repeat at 2200; Complete Time: 22:51 cp 05/20 18:58 Order name: EKG; Complete Time: 18:59 cp 05/20 18:58 Order name: Cardiac monitoring; Complete Time: 19:29 cp 05/20 18:58 Order name: EKG - Nurse/Tech; Complete Time: 19:10 cp 05/20 18:58 Order name: IV Saline Lock; Complete Time: 19:29 cp 05/20 18:58 Order name: Labs collected and sent; Complete Time: 19:29 cp 05/20 18:58 Order name: O2 Per Protocol; Complete Time: 19:29 cp 05/20 18:58 Order name: O2 Sat Monitoring; Complete Time: 19:29 cp 05/20 19:17 Order name: Urine Dipstick-Ancillary (obtain specimen); Complete Time: 21:04 cp EC:50 Rate is 103 beats/min. Rhythm is regular. IA interval is normal. QRS interval is cp normal. QT interval is normal. T waves are Inverted in lead aVR. Interpreted by me. Reviewed by me. Administered Medications: 19:29 Drug: Aspirin Chewable Tablet 324 mg Route: PO; lp1 20:30 Follow up: Response: No adverse reaction lp1 20:26 Drug: NS 0.9% 1000 ml Route: IV; Rate: 1 bolus; Site: left antecubital; lp1 22:00 Follow up: IV Status: Completed infusion; IV Intake: 1000ml lp1 Disposition: 05/21 07:57 STAFF ATTESTATION STATEMENT I was immediately available on-site in the Emergency sd2 Department for consultation in the care of the patient. Afsaneh Vela MD. Disposition Summary: 05/20/22 22:52 Discharge Ordered Location: Home jm Condition: Stable jmm Diagnosis - Chest pain, unspecified jmm Followup: jmm - With: Private Physician - When: 2 - 3 days - Reason: Recheck today's complaints, Continuance of care, Re-evaluation by your physician Discharge Instructions: - Discharge Summary Sheet jmm - Nonspecific Chest Pain, Adult jmm Forms: - Medication Reconciliation Form jmm - Thank You Letter jmm - Antibiotic Education jmm - Prescription Opioid Use jmm Signatures: Dispatcher [employer] Fly Anders PA PA jmm Pena, Laura RN RN lp1 Ethan Correa PA PA cp Wise, Tara, RN RN 2 Afsaneh Vela tx2
--- NOTE | 2022-05-20 22:53 | ER ---
Nurse's Notes [facility] Name: Uzair Sullivan Age: 42 yrs Sex: Male : 1980 Arrival Date: 05/20/2022 Time: 18:46 Bed 15 Private MD: Diagnosis: Chest pain, unspecified Presentation: 05/20 18:41 Chief complaint: EMS states: pt was at home watching the game, felt like his heart was tw2 racing and like he would pass out. this was about 45 minutes ago. initially hr was 110, we gave 100 ml bolus of LR and hr was in the 90's. he does have a hx of arrythmia's and diverticulitis. he has a Loop monitor in place. he is currently taking abx for diverticulitis. Coronavirus screen: At this time, the client does not indicate any symptoms associated with coronavirus-19. Ebola Screen: Patient denies travel to an Ebola-affected area in the 21 days before illness onset. Initial Sepsis Screen: Does the patient meet any 2 criteria? HR > 90 bpm. No. Patient's initial sepsis screen is negative. Does the patient have a suspected source of infection? No. Patient's initial sepsis screen is negative. Risk Assessment: Do you want to hurt yourself or someone else? Patient reports no desire to harm self or others. Onset of symptoms was May 20, 2022. 18:41 Method Of Arrival: EMS: [facility] tw2 18:41 Acuity: GLORIA 3 tw2 Triage Assessment: 18:41 General: Appears in no apparent distress. well groomed, Behavior is calm, cooperative, tw2 appropriate for age. Pain: Complains of pain in anterior aspect of left upper chest and left breast. Neuro: Level of Consciousness is awake, alert, obeys commands, Oriented to person, place, time, situation. Cardiovascular: Capillary refill < 3 seconds. Respiratory: Airway is patent Respiratory effort is even, unlabored, Respiratory pattern is regular, symmetrical. Musculoskeletal: Range of motion: intact in all extremities. Historical: - Allergies: 19:00 No Known Allergies; tw2 - PMHx: 19:00 Diverticulitis; arrhythmia; tw2 - Immunization history:: Adult Immunizations. - Social history:: Smoking status: . Screenin:30 Abuse screen: Denies threats or abuse. Denies injuries from another. Nutritional lp1 screening: No deficits noted. Tuberculosis screening: No symptoms or risk factors identified. Fall Risk None identified. Assessment: 19:30 Reassessment: Patient appears in no apparent distress at this time. lp1 19:30 Pain: Denies pain. lp1 19:30 General: Appears in no apparent distress. Behavior is calm, cooperative, appropriate lp1 for age. Pain: Complains of pain in chest Pain does not radiate. Pain currently is 0 out of 10 on a pain scale. Pain began suddenly. Neuro: Level of Consciousness is awake, alert, obeys commands, Oriented to person, place, time, situation. Cardiovascular: Patient's skin is warm and dry. Respiratory: Respiratory effort is even, unlabored. GI: Reports Recently treated with abx for diverticulitis. : No signs and/or symptoms were reported regarding the genitourinary system. EENT: No signs and/or symptoms were reported regarding the EENT system. Derm: Skin is pink, warm \\T\\ dry. Musculoskeletal: No deficits noted. 21:00 Reassessment: Patient appears in no apparent distress at this time. Patient is alert, lp1 oriented x 3, equal unlabored respirations, skin warm/dry/pink. 22:00 Reassessment: Patient appears in no apparent distress at this time. Patient is alert, lp1 oriented x 3, equal unlabored respirations, skin warm/dry/pink. Patient reports intermittent feelings of "pins and needles" in chest. Vital Signs: 18:41 BP 129 / 107; Pulse 91; Resp 16; Temp 98.1(O); Pulse Ox 100% on R/A; Weight 88.45 kg tw2 (R); Height 5 ft. 9 in. (175.26 cm); Pain 3/10; 19:15 BP 121 / 85; Pulse 82; Resp 19; Pulse Ox 100% on R/A; Pain 0/10; lp1 20:15 BP 122 / 93; Pulse 84; Resp 17; Pulse Ox 100% on R/A; lp1 23:24 BP 112 / 89; Pulse 75; Resp 18 S; Pulse Ox 99% on R/A; vc1 18:41 Body Mass Index 28.80 (88.45 kg, 175.26 cm) tw2 ED Course: 18:46 Patient arrived in ED. tw2 18:49 EKG done, by ED staff, reviewed by Afsaneh Vela. ds4 18:57 Ethan Correa PA is PHCP. cp 18:57 Afsaneh Vela is Attending Physician. cp 19:00 Triage completed. tw2 19:01 Arm band placed on. tw2 19:06 Grace Benz, RN is Primary Nurse. lp1 19:30 Maintain EMS IV. Dressing intact. Good blood return noted. Site clean \\T\\ dry. Gauge \\T\\ lp 1 site: 20g to L AC. 19:30 Patient maintains SpO2 saturation greater than 95% on room air. lp1 19:30 Patient has correct armband on for positive identification. Bed in low position. Call lp1 light in reach. Client placed on continuous cardiac and pulse oximetry monitoring. NIBP monitoring applied. 19:45 XRAY Chest (1 view) In Process Unspecified. EDMS 21:35 PHCP role handed off by Ethan Correa PA [facility] 21:35 Fly Jules PA is PHCP. [facility] 23:36 No provider procedures requiring assistance completed. IV discontinued, intact, vc1 bleeding controlled, No redness/swelling at site. Pressure dressing applied. Administered Medications: 19:29 Drug: Aspirin Chewable Tablet 324 mg Route: PO; lp1 20:30 Follow up: Response: No adverse reaction lp1 20:26 Drug: NS 0.9% 1000 ml Route: IV; Rate: 1 bolus; Site: left antecubital; lp1 22:00 Follow up: IV Status: Completed infusion; IV Intake: 1000ml lp1 Medication: 19:30 VIS not applicable for this client. lp1 Intake: 22:00 IV: 1000ml; Total: 1000ml. lp1 Outcome: 22:52 Discharge ordered by . jm 23:36 Discharged to home ambulatory. vc1 23:36 Condition: good 23:36 Discharge instructions given to patient, Instructed on discharge instructions, follow up and referral plans. Demonstrated understanding of instructions, follow-up care. 23:36 Patient left the ED. vc1 Signatures: Dispatcher [employer] EDMS Fly Jules PA PA jmm Pena, Laura, AVANI RN lp1 Shakeel Sanchez ds4 Ethan Correa PA PA cp Wise, Tara, RN RN tw2 Iris Davis RN RN vc1 Corrections: (The following items were deleted from the chart) 18:51 18:49 EKG done, by ED staff, ds4 ds4 21:03 19:30 Reassessment: Patient appears in no apparent distress at this time. lp1 lp1 21:03 19:30 Pain: Complains of pain in chest Pain does not radiate. Pain currently is 0 out lp1 of 10 on a pain scale. lp1
[2022-05-21 00:24] VITALS: BP 112/89; O2SAT 99
--- NOTE | 2022-05-22 09:29 | EKG ---
Test Date: 2022-05-20 Test Time: 18:39:39 Shift Production Associate: BENITEZ MEASUREMENT RESULTS: Intervals: Rate: 103 HI: 164 QRSD: 92 QT: 366 QTc: 479 Steele: P: 36 HI: 164 QRS: -18 T: 32 INTERPRETIVE STATEMENTS: Sinus tachycardia Moderate voltage criteria for LVH, may be normal variant Borderline ECG No previous ECG available for comparison Electronically Signed On 05-22-22 09:25:02 CDT by Alexandre Mantilla
== END 2022-05-20 23:36 | disposition home or self-care (01) ==
LOC: ER 18:42
DX: R07.89 Other chest pain (principal); R55 Syncope and collapse; R00.2 Palpitations
CPT/HCPCS: 96361; 93005; 85025; 80048; 36415; 83735; 85610; 80076; 81003; 84484 ×2; 83880; 80307; 71045; 96360; 99284; J7030

== ENCOUNTER 2022-06-28 06:13 | Emergency (ER) | payer BC ==
--- OUTSIDE RECORDS SUMMARY | 2022-06-28 06:17 | XMS REPORT | Continuity of Care Document ---
:1980 Author Organization [facility] t Address [address] [place] [address] Care Team Providers Name Role Phone Pcp, Patient Does Not Have A Primary Care Physician [id number] Wing Anand MD Attending Clinician Nitesh SÁNCHEZ, Koby Michel Attending Clinician Darshana Joaquin Attending Clinician Gaurang SÁNCHEZ, Carolina Le Attending Clinician ORALIA JAMIL Attending Clinician Unavailable Oralia Pina Attending Clinician MD WING ANAND Attending Clinician Unavailable CHAGO AMADOR Attending Clinician Unavailable WING ANAND Admitting Clinician Unavailable MD WING ANAND Admitting Clinician Unavailable SOFIA MOLINA Admitting Clinician Unavailable Payers Payer Name Policy Type Policy Number Effective Date Expiration Date S [facility] - [id number] 2020 00:00:00 OUT OF STATE Problems Condition Condition Condition Status Onset Resolution Last Treating Co mments Source Name Details Category Date Date Treatment Clinician Date 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 8-24 st icular icular 00:00: Hospita tachycardi tachycardi 00 l a a Fever of Fever of Disease Active [facility] Sinus Sinus Disease Active Overview: [facility] 00:[facility]: g of this Medical 00 note Center might be different from the original. 26 seconds w/ syncope No known No known Disease Unive rs active active ity of problems problems [facility] Allergies, Adverse Reactions, Alerts Allergy Allergy Status Severity Reaction(s) Onset Inactive Treating Comm ents Source Name Type Date Date Clinician NO KNOWN Allergy Active [facility] NO KNOWN Drug Active Univers ALLERGIE Class ity of S [facility] Family History Family Member Diagnosis Comments Start Date Stop Date Source Natural mother [facility] Natural father [facility] Social History Social Habit Start Date Stop Date Quantity Comments Source History SDOH [facility] r Drinks History SDOH [facility] Alcohol Binge Medical Aubrey ter History SDOH [facility] Alcohol Comment Medical C enter Alcohol intake 2022-06-23 2022-06-23 Lifetime [facility] 00:00:00 00:00:00 non-drinker (finding) Exposure to 2022-03-14 2022-03-24 Not sure [facility] SARS-CoV-2 00:00:00 16:51:00 [facility] (event) Branch Tobacco use and 2019-07-26 2019-07-[address] Alycia kes exposure 00:00:00 00:00:00 [facility] Center History SDOH 2019-07-26 2019-07-[address] [facility] Alcohol Frequency 00:00:00 00:00:00 [facility] Sex Ass[birth year] At [birth year] [facility] 00:00:00 00:00:00 Smoking Status Start Date Stop Date Source Never smoked tobacco [facility] ospital Smoker, current status 2022-03-24 00:00:00 [facility] rsity of [facility] Branch Medications Ordered Filled Start Stop Current Ordering Indication Dosage Frequency Signature Comments Components Source Medication Medication Date Date Medication? Clinician (SIG) Name Name metoprolol 202- Yes 25mg QD Take 1 Meth ramona succinate 06-22-25 tablet (25 st XL 00:00: 04:59 mg total) Hospita (TOPROL-XL) 00 :00 by mouth l 25 mg 24 hr daily for tablet 30 days. ondansetron No 4mg Q8H Take 1 Met hodi ODT 05-13 tablet (4 st (ZOFRAN-ODT 00:00: 04:59 mg total) Hospita ) 4 MG 00 :00 by mouth l disintegrat every 8 ing tablet (eight) hours as needed for nausea or vomiting for up to 30 days. dicyclomine No 20mg Q.5D Take 1 Met hodi (BENTYL) 20 05-1316 tablet (20 s t mg tablet 00:00: 04:59 mg total) Ho spita 00 :00 by mouth 2 l (two) times a day for 30 days. amoxicillin No [id number] 1{tbl} Take 1 Univers -clavulanat 03-2407 tablet by it y of e 00:00: 04:59 mouth 2 [place] (AUGMENTIN) 00 :00 (two) Medical 875-125 mg times Branch per tablet daily for 10 days. Vital Signs Vital Name Observation Time Observation Value Comments Source Systolic blood 2022-03-24 21:55:00 124 mm[Hg] Univer sity [facility] Diastolic blood 2022-03-24 21:55:00 87 mm[Hg] [facility] rate 2022-03-24 21:55:00 86 /min [facility] Oxygen saturation in 2022-03-24 21:55:00 100 /min [facility] Arterial blood by [facility] Pulse oximetry Branch Body height 2022-03-24 21:52:00 175.3 cm [facility] Body weight 2022-03-24 21:52:00 95.165 kg [facility] BMI 2022-03-24 21:52:00 30.98 kg/m2 [facility] Heart rate 2022-06-22 13:00:00 79 /min [facility] Systolic blood 2022-06-22 12:52:32 130 mm[Hg] Method ist [facility] pressure Diastolic blood 2022-06-22 12:52:32 87 mm[Hg] Metho dist [facility] pressure Body temperature 2022-06-22 12:52:32 36.89 Silvia [facility] Respiratory rate 2022-06-22 12:52:32 20 /min [facility] Oxygen saturation in 2022-06-22 12:52:32 99 /min [facility] Arterial blood by Pulse oximetry Body weight 2022-06-22 01:49:34 87.544 kg [facility] BMI 2022-06-22 01:49:34 28.50 kg/m2 [facility] Body height 2022-06-21 15:19:00 175.3 cm [facility] Procedures Procedure Date / Time Performing Clinician Source Performed HC COMPLETE BLD COUNT 2022-06-22 09:30:00 Wing Anand [facility] W/AUTO DIFF BASIC METABOLIC PANEL 2022-06-22 09:30:00 [facility] 2022-06-22 09:30:00 Wing Anand spital EP COMPLETE EP STUDY W 2022-06-21 19:16:30 Wing Anand [facility] ABLATION SVT TYPE AND SCREEN 2022-06-21 14:56:00 Wing Anand spital ECG 12-LEAD 2022-06-21 13:49:16 Wing Anand spital COVID-19 QUALITATIVE 2022-06-20 14:29:[facility] WITH INR 2022-06-20 14:22:00 Wing Anand [facility] HC COMPLETE BLD COUNT 2022-06-20 14:22:00 Wing Anand [facility] W/AUTO DIFF COMPREHENSIVE METABOLIC 2022-06-20 14:22:00 Wing Anand [facility] PANEL ESTIMATED GFR 2022-06-20 14:22:00 Wing Anand spital ED REFERRAL TO [facility] [place] 2022-05-14 00:33:07 Gaurang Carolinaeboni Santiago [facility] ABDOMEN PELVIS W 2022-05-14 00:17:00 Carolina Sands [facility] HC COMPLETE BLD COUNT 2022-05-13 21:09:00 [facility] W/AUTO DIFF COMPREHENSIVE METABOLIC 2022-05-13 21:09:00 [facility] PANEL LIPASE LEVEL 2022-05-13 21:09:00 [facility] ESTIMATED GFR 2022-05-13 21:09:00 [facility] Plan of Care Planned Activity Planned Date Details Comments Source Future Scheduled 2022-06-[address] [facility] Test 00:00:00 (#1) [code = Medical Center INFLUENZA VACCINE (#1)] Future Scheduled 2022-06-26 HEPATITIS B VACCINES Met [facility] Test 19:57:18 (1 of 3 - 3-dose series) [code = HEPATITIS B VACCINES (1 of 3 - 3-dose series)] Future Scheduled 2022-06-26 Hepatitis C [facility] ospital Test 19:57:18 screening (procedure) [code = 414239908] Future Scheduled 2022-06-26 INFLUENZA VACCINE Method t Hospital Test 19:57:18 [code = INFLUENZA VACCINE] Future Scheduled 2021-10-[address] [facility] Test 00:00:00 (12+) [code = [facility] DEPRESSION SCREENING (12+)] Future Scheduled [address] [facility] Test 00:00:00 (procedure) [code = [facility] 93346694] Future Scheduled 1997 DTAP/TDAP/TD [facility] Test 00:00:00 VACCINES (1 - Tdap) Medical Center [code = DTAP/TDAP/TD VACCINES (1 - Tdap)] Future Scheduled 1996-02-[address] [facility] Test 00:00:00 SCREENING [code = [facility] HEPATITIS C SCREENING] Future Scheduled 1978 COVID-[address] [facility] Test 00:00:00 (#1) [code = [facility] Center COVID-19 VACCINE (#1)] Encounters Start End Encounter Admission Attending Care Care Encounter Source Date/Time Date/Time Type Type Clinicians Facility Department ID 2022-06-21 2022-06-22 [facility] Cheng 1.2.840.1 [id number] Methodi 07:33:00 12:53:00 Encounter Wing [address]25.1.[address] 3.430.2.7 Hospit a .3.783995 l .8 2022-06-21 2022-06-22 Outpatient ROCHELLE, [facility] [id number] [place] 00:00:00 00:00:[address] 2022-06-21 2022-06-21 Anesthesia Nitesh Roberto Carloschucho V. 1.2.840.1 [id number] Methodi 10:40:00 14:35:00 Event Darshana Joaquin 49834.1.[address] 3.430.2.7 Hospit a .3.390762 l .8 2022-06-21 2022-06-21 Surgery Nazeri, 1.2.840.1 [id number] Methodi 10:30:00 13:00:[address] 3.430.2.7 Hospit a .3.511430 l .8 2022-06-20 2022-06-20 Lab Nazeri, 1.2.840.1 [id number] Methodi 08:55:00 09:00:[address] 3.430.2.7 Hospit a .3.935163 l .8 2022-06-20 2022-06-20 Travel 1.2.840.1 1.2.909.535 [id number] Methodi 00:00:00 00:00:[address] 3.430.2.7 0.2.7.3.698 spita .3.375923 084.8 l .8 2022-06-20 2022-06-20 Outpatient CHENG, [facility] [id number] [place] 00:00:00 00:00:00 WING [address] 2022-06-16 2022-06-16 Community Nazeri, 1.2.840.1 [id number] Methodi 00:00:00 00:00:00 Orders Wing [address]37.1.[address] 3.430.2.7 Hospit a .3.627177 l .8 2022-05-13 2022-05-13 Emergency Carolina Sands 1.2.840.1 [id number] Methodi 15:34:00 19:53:00 Pamela Le 88354.1.1 363 s t 3.430.2.7 Hospit a .3.812106 l .8 2022-05-13 2022-05-13 Emergency CAROLINA SANDS [facility] [id number] [place] 00:00:00 00:00:[address] 2022-03-24 2022-03-[address] [facility] [id number] [facility] 17:00:00 17:27:59 [facility] 2022-03-24 2022-03-24 Urgent [facility] 1.2.840.114 [id number] [facility] 17:00:00 17:27:59 Care [facility] 350.1.13.10 i ty of [place] 4.2.7.2.686 Jacob as LOR?BLEA [id number] [address] MEDICAL OFFICE BUILDING 2020-10-14 2020-10-14 Outpatient [facility] [id number] [place] 00:00:00 00:00:00 WING [address] 2020-07-18 2020-07-18 [facility] [id number] [place] 00:00:00 00:00:00 WING [address] 2020-06-18 2020-06-18 [facility]patient [facility] [id number] [place] 00:00:00 00:00:00 WING [address] Results Test Description Test Time Test Comments Results Result Comments Source ECG 12 lead 2022-06-22 12:52:17 Test Item Value Reference Range Interpretation Comme nts Ventricular rate (test code = 253) Atrial rate (test code = 255) TX interval (test code = 266) QRSD interval (test code = 260) QT interval (test code = 264) QTC interval (test code = 265) P axis 1 (test code = 267) QRS axis 1 (test code = 268) T wave axis (test code = 270) EKG impression (test code = 273) Normal sinus rhythm with sinus arrhythmia- [facility] [id number] 18:12:38 Test Item Value Reference Interpretation Comments Range Interpretation (test Negative results do not code = 5961091) preclude COVID-19 infection and should not be used asthe sole basis for treatment or other patient management decisions. Negativeresults must be combined with clinical observations, patient history, andepidemiological information. COVID-19 qualitative Not-Detected Not-Detected RT-PCR result (test code = 95282-1) COVID-19 qualitative See link below for PDF Case Number: RT-PCR (test code = Lab Report [id number]) [facility] MxrhkchzSYOT-WhK-3 (COVID-19) RNA [Presence] in Respiratory specimen by DENIS with probe [id number] 13:12:38 Test Item Value Reference Range Interpretation Comments SARS-CoV-2 (COVID-19) RNA Not detected [Presence] in Respiratory specimen by DENIS with probe detection (test code = 44577-5) Whether patient is employed in a Unknown healthcare setting (test code = 12278-6) Whether the patient has symptoms Unknown related to condition of interest (test code = 50193-8) Whether the patient was Unknown hospitalized for condition of interest (test code = 90281-7) Whether the patient was admitted Unknown to intensive care unit (ICU) for condition of interest (test code = 03694-1) Whether patient resides in a Unknown congregate care setting (test code = 67946-2) status (test code = Unknown 30316-5) Date and time of symptom onset Unknown (test code = 69142-0) SARS-CoV-2 (COVID-19) RNA [Presence] in Respiratory specimen by DENIS with probe [id number] 23:44:02 Test Item Value Reference Range Interpretation Comments SARS-CoV-2 (COVID-19) RNA Not detected Not-Detected [Presence] in Respiratory specimen by DENIS with probe detection (test code = 91173-7) BLOOD [id number] 08:01:00 Test Item Value Reference Range Interpretation Comments CULTURE (BEAKER) (test No growth in 5 days code = 1095) MISCELLANEOUS LAB [id number] 07:37:00 Test Item Value Reference Range Interpretation Comments SCAN RESULT (test code = 3879426) BLOOD [id number] 08:00:00 Test Item Value Reference Range Interpretation Comments CULTURE (BEAKER) (test No growth in 5 days code = 1095) BLOOD [id number] 08:00:00 Test Item Value Reference Range Interpretation Comments CULTURE (BEAKER) (test No growth in 5 days code = 1095) ANTI-NUCLEAR ANTIBODY (AURA)2019-07-30 09:44:00 Test Item Value Reference Range Interpretation Comments ANTI-NUCLEAR ANTIBODY (AURA) (BEAKER) Positive Negative A (test code = 418) Test performed by IFA method.AURA TITER AND [id number] 09:44:00 Test Item Value Reference Range Interpretation [...] (test code Normal = 486) HEPATIC FUNCTION [id number] 09:58:00 Test Item Value Reference Range Interpretation [...] 347) CBC WITH PLATELET COUNT + MANUAL [id number] 09:29:00 Test Item Value Reference Range Interpretation [...] (BEAKER) (test code = 413) RESPIRATORY PANEL [id number] 15:15:00 Test Item Value Reference Range Interpretation [...] decisions. This sample was tested at the [facility] Molecular Diagnostics Laboratory using the FilmLoopArray Respiratory Panel. It is FDA cleared and has been verified and approved by the [facility] Molecular Diagnostics Laboratory for clinical use on nasopharyngeal swab specimens.The performance of the FilmArrayRP has not been established in individuals who received influenza vaccine. Recent administration of a nasal influenza vaccine may cause false positive results for Influenza A and/orInfluenza B.EBV VIRAL [id number] 13:49:00 Test Item Value Reference Range Interpretation [...] (2) real-time PCR amplification and detection with YAKX-7-mlgsafwp primers and probes. A well-conserved region of the EBNA-1 gene is targeted, along with an internal control sequence used to confirm PCR amplification. Asymptomatic carriers and viral genetic variation, among other factors, can affect the accuracy of nucleic acidtesting; therefore, results should be interpreted in light of clinical data.This test was developed and its performance characteristics determined by the [facility] Pathology Department,Section of Molecular Pathology. It has not been [...] gene EBNA-1. The test is composed of (1)DNA extraction from patient specimen, and (2) real- time PCR amplification and detection with EFZV-1-tsthhjvu primers and probes. A well-conserved region of the EBNA-1 gene is targeted, along with an internal control sequence used to confirm PCR amplification. Asymptomatic carriers and viral genetic variation, among other factors, can affect the accuracy of nucleic acid testing; therefore, results should be interpreted in light of clinical data.This test was developed and its performance characteristics determined by the [facility] Pathology Department, Section of Molecular Pathology.It has not been cleared or approved by the U.S. Food and Drug Administration (FDA), since FDA approval is not required for clinical use of the test. Validation was done as required by The Clinical Laboratory Improvement Amendments of 1988.CMV PCR, [id number] 13:43:00 Test Item Value Reference Range Interpretation [...] management of antiviral therapy. For treatment of CMV infection due to reactivation in transplant recipients, a threshold between 4,000 and 5,000 copies/mLis suggested. For treatment of primary CMV infection, a lower threshold can be used.CMV infection may also be monitored using weekly serial measurements. Serial measurements of CMV DNA viral load can be evaluated by identifying a 10-fold change, as [...] and its performance characteristics determined by the [facility] Pathol ogy Department, Section of Molecular Pathology. It has not been cleared or approved by the U.S. Foodand Drug Administration (FDA), since FDA approval is not required for clinical use of the test. Validation was done as required by The Clinical Laboratory Improvement Amendments of 1988.RHEUMATOID FACTOR AB, REFLEX TO [id number] 13:10:00 Test Item Value Reference Range Interpretation Comments RHEUMATOID FACTOR (BEAKER) (test Negative code = 573) BASIC METABOLIC [id number] 06:42:00 Test Item Value Reference Range Interpretation [...] S NOT APPLICABLE FOR DIALYSIS PATIEN TS. [id number] 12:15:00 Test Item Value Reference Range Interpretation Comments RPR SCREEN (BEAKER) (test code = Nonreactive Nonreactive 420) HIV-1 ANTIGEN WITH HIV-1/2 [id number] 04:56:00 Test Item Value Reference Range Interpretation Comments HIV-1 ANTIGEN WITH HIV 1\T\2 Nonreactive Nonreactive ANTIBODY (2) (BEAKER) (test code = 2586) BASIC METABOLIC [id number] 04:24:00 Test Item Value Reference Range Interpretation [...] DIALYSIS PATIEN TS. URINALYSIS W/ REFLEX URINE [id number] 00:26:00 Test Item Value Reference Range Interpretation [...] code = 516) SOURCE(BEAKER) (test code = 2791) RAD, CHEST, 1 VIEW, NON [id number] 10:25:00Reason for exam:- >leukocytosis, fever r/o infectionFINAL REPORT History: Leukocytosis, fever Comparison: None Findings: There is mild horizontal linear opacities suggestive of subsegmental atelectasis in the lower left lung. Lungs o therwise clear. No pleural effusions or pneumothorax. The heart shadow is normal in size. The thoracic aorta is mildly tortuous. No skeletal abnormalities are visualized. Impression: Subsegmental atelectasis in the lower left lung. Lungs otherwise clear. Signed: Foster [place] Verified Date/Time: 07/26/2019 10:25:43 Reading Location: [facility] B1 C013X Ortho Consult Reading Room CBC W/PLT COUNT & AUTO [id number] 10:24:00 Test Item Value Reference Range Interpretation [...] = 3438) Received comment: User comments: Slide comments:[id number] 10:11:00 Test Item Value Reference Range Interpretation [...] thrombosis and/or pulmonary embolus.HIGH RISK: Target INR is 2.5-3.5 for patients wiht mechanical heart valves.B-TYPE NATRIURETIC FACTOR (BNP) 2019-07-26 10:08:00 Test Item Value Reference Range Interpretation Comments B-TYPE NATRIURETIC PEPTIDE (BEAKER) 14 pg/mL 0-100 (test code = 700) TROPONIN [id number] 10:00:00 Test Item Value Reference Range Interpretation [...] acute neurological disease, and persistent tachyarrhythmia.BASIC METABOLIC [id number] 09:54:00 Test Item Value Reference Range Interpretation [...] U/L 29-200 code = 380) POCT-LACTIC ACID, [id number] 09:50:00 Test Item Value Reference Range Interpretation Comments POC-LACTIC ACID, 1.3 mmol/L 0.4-1.3 TESTED AT [facility] [address] (BEAKER) [facility] (test code = 2804) [address] [id number] 09:50:00 Test Item Value Reference Range Interpretation Comments POC-HEMOGLOBIN 11.6 g/dL 13.0-16.8 L TESTED AT [place] [id number] (BEAKER) (test code [facility] = 1856) 340[address]JNIVVP AT [address] [address] POCT-BLOOD GASES, [id number] 09:49:00 Test Item Value Reference Range Interpretation Comments TEMP, CELSIUS-POC 37.0 (BEAKER) (test code = 1834) FIO2-POC (BEAKER) TESTED AT [place] [address] (test code = 1835) [facility] [address] PH, ARTERIAL-POC 7.370 7.350-7.450 (BEAKER) (test code = 1836) PCO2, ARTERIAL-POC 41.0 mm Hg 35.0-45.0 (BEAKER) (test code = 1837) PO2, ARTERIAL-POC 86.0 mm Hg 80.0-90.0 (BEAKER) (test code = 1838) SO2, ARTERIAL-POC 96.0 % 96.0-97.0 (BEAKER) (test code = 1839) HCO3, ARTERIAL-POC 23.7 meq/L 21.0-29.0 (BEAKER) (test code = 1840) BASE EXCESS, -2.0 meq/L -2.0-3.0 ARTERIAL-POC (BEAKER) (test code = 1841) [id number] 09:49:00 Test Item Value Reference Range Interpretation Comments POC-SODIUM (BEAKER) 137 meq/L 135-148 TESTED A T [place] [address] (test code = 1542) [facility] [address] [id number] 09:49:00 Test Item Value Reference Range Interpretation Comments POC-POTASSIUM 3.3 meq/L 3.6-5.5 L TESTED AT [place] [address] (BEAKER) (test code [facility] [address] = 1540) [id number] 09:49:00 Test Item Value Reference Range Interpretation Comments POC-GLUCOSE (BEAKER) 153 mg/dL 70-110 H TESTED AT [facility] 6720 (test code = 1855) [place] [address] POCT-CALCIUM [id number] 09:49:00 Test Item Value Reference Range Interpretation Comments POC-CALCIUM IONIZED 1.22 mmol/L 1.12-1.27 TESTED A T [place] [address] (BEAKER) (test code = RICHELLE Coleman [facility] 1536) [address] [id number] 09:49:00 Test Item Value Reference Range Interpretation Comments POC-HEMATOCRIT 34 % 40-50 L TESTED AT [place] [address] (BEAKER) (test code = RICHELLE Coleman [facility] [address] 1857) URINALYSIS WITH MICROSCOPIC IF [id number] 07:55:00 Test Item Value Reference Range Interpretation [...] 463) SOURCE(BEAKER) (test code = 2795) URINALYSIS [id number] 07:55:00 Test Item Value Reference Range Interpretation Comments RBC UA (BEAKER) (test code = 519) 1 /HPF WBC UA (BEAKER) (test code = 520) 9 /HPF MUCUS (BEAKER) (test code = 1574) Rare SQUAMOUS EPITHELIAL (BEAKER) (test < /HPF code = 516) C-REACTIVE [id number] 07:27:00 Test Item Value Reference Range Interpretation Comments C-REACTIVE PROTEIN (BEAKER) (test 15.31 mg/dL 0.00-0.50 H code = 676) CBC W/PLT COUNT & AUTO [id number] 04:17:00 Test Item Value Reference Range Interpretation [...] (BEAKER) (test code = 2801) BASIC METABOLIC [id number] 03:45:00 Test Item Value Reference Range Interpretation [...]
[2022-06-28 07:23] LABS: Urine Blood Trace-intact (Negative); Urine Glucose Negative (Negative); Urine Protein Negative (Negative); Urine Specific Gravity 1.025 (1.005-1.030)
[2022-06-28] MEDS ORDERED: NA CHLORIDE 0.9% 1,000 ML ONE (07:35)
[2022-06-28] MEDS ORDERED: ONDANSETRON 4 MG/2 ML VIAL ONE (07:35)
[2022-06-28] MEDS ORDERED: MORPHINE 4 MG/ML SYR ONE (07:35)
[2022-06-28 07:53] LABS: Urine Mucus Slight /HPF (None Seen); Urine RBC <5 /HPF (None Seen)
[2022-06-28 08:13] LABS: Absolute Lymphocytes (CBC) 1.7 K/uL (0.7-4.9); Hematocrit 39.7 % (39.6-49.0); Lymphocytes % 11.7 % (15.3-44.8); MPV 9.9 fL (7.6-11.3); RBC Red Blood Cell Count 4.41 M/uL (4.33-5.43)
[2022-06-28 08:24] LABS: Albumin 3.7 g/dL (3.4-5.0); Bilirubin Total 0.8 mg/dL (0.2-1.0); Potassium 4.4 mmol/L (3.5-5.1); Protein, Total 7.7 g/dL (6.4-8.2)
--- NOTE | 2022-06-28 09:06 | RAD REPORT ---
EXAM DESCRIPTION: CTAbdomen Pelvis W Contrast - 06/28/2022 8:52 am CLINICAL HISTORY: Abdominal pain. RLQ abdominal pain COMPARISON: Abdomen Pelvis W Contrast dated 09/11/2019; Abdomen Pelvis W Contrast dated 9; Abdomen Pelvis W Contrast dated 06/13/2019; Abdomen Pelvis W Contrast dated 03/20/2017 TECHNIQUE: Biphasic CT imaging of the abdomen and pelvis was performed with 100 ml non-ionic IV cont rast. All CT scans are performed using dose optimization technique as appropriate and may include automated exposure control or mA/KV adjustment according to patient size. FINDINGS: The lung bases are clear. The liver shows mild fatty infiltration. The spleen, pancreas, adrenal glands and kidneys are within normal limits. 24 mm cyst right kidney, benign appearance. No bowel obstruction, free air, free fluid or abscess. Mild inflammation is seen left lower quadrant around the sigmoid colon where several diverticular present. The appendix is normal. No evidence of significant lymphadenopathy. No suspicious bony findings. IMPRESSION: Mild acute sigmoid diverticulitis suspected in the left lower quadrant. No abscess or ot her complicating feature.
--- NOTE | 2022-06-28 09:26 | ER ---
Nurse's Notes [facility] Name: Uzair Sullivan Age: 42 yrs Sex: Male : 1980 Arrival Date: 06/28/2022 Time: 06:16 Bed 23 Private MD: Diagnosis: Diverticulitis of large intestine without perforation or abscess without bleeding;Other abdominal pain;Elevated blood-pressure reading, without diagnosis of hypertension Presentation: 06/28 06:38 Chief complaint: Patient states: he is having low abdominal pain and low back pain bb since Sunday afternoon pain is constant and won't go away denies vomiting, diarrhea or fever or nausea. Coronavirus screen: At this time, the client does not indicate any symptoms associated with coronavirus-19. Ebola Screen: No symptoms or risks identified at this time. Initial Sepsis Screen: Does the patient meet any 2 criteria? No. Patient's initial sepsis screen is negative. Does the patient have a suspected source of infection? No. Patient's initial sepsis screen is negative. Risk Assessment: Do you want to hurt yourself or someone else? Patient reports no desire to harm self or others. Onset of symptoms was June 26, 2022. 06:38 Method Of Arrival: Ambulatory bb 06:38 Acuity: GLORIA 3 bb Triage Assessment: 06:40 General: Appears in no apparent distress. Behavior is calm, cooperative. Pain: bb Complains of pain in back and abdomen. Neuro: Level of Consciousness is awake, alert, obeys commands, Oriented to person, place, time, situation. Cardiovascular: Capillary refill < 3 seconds Patient's skin is warm and dry. Respiratory: Respiratory effort is even, unlabored. GI: Abdomen is non-distended, Reports lower abdominal pain. : No signs and/or symptoms were reported regarding the genitourinary system. Derm: Skin is pink, warm \T\ dry. Musculoskeletal: Circulation, motion, and sensation intact. Historical: - Allergies: 06:40 No Known Allergies; bb - Home Meds: 06:40 Metoprolol Tartrate Oral [Active]; Propafenone Oral [Active]; bb - PMHx: 06:40 arrhythmia; Diverticulitis; bb - PSHx: 06:40 heart cath; bb - Immunization history:: Client reports receiving the 2nd dose of the Covid vaccine, [employer]. - Social history:: Smoking status: Patient denies any tobacco usage or history of. Screenin:08 Abuse screen: Denies threats or abuse. Denies injuries from another. Nutritional bp screening: No deficits noted. Tuberculosis screening: No symptoms or risk factors identified. Fall Risk None identified. Assessment: 07:08 General: SEE TRIAGE NOTE. bp 08:39 Reassessment: No changes from previously documented assessment. Patient and/or family bp updated on plan of care and expected duration. Pain level reassessed. 09:31 GI: Bowel sounds present X 4 quads. Abd is soft X 4 quads. bp Vital Signs: 06:38 BP 119 / 90; Pulse 85; Resp 16 S; Temp 98.4(O); Pulse Ox 99% on R/A; Weight 86.18 kg bb (R); Height 5 ft. 9 in. (175.26 cm) (R); Pain 8/10; 07:09 BP 118 / 85; Pulse 74; Resp 16; Pulse Ox 99% ; bp 08:39 BP 133 / 94; Pulse 72; Resp 16; Pulse Ox 97% ; bp 06:38 Body Mass Index 28.06 (86.18 kg, 175.26 cm) bb ED Course: 06:16 Patient arrived in ED. ja2 06:40 Triage completed. bb 06:40 Arm band placed on Patient placed in waiting room, Patient notified of wait time. bb 06:54 Deep Campos, RN is Primary Nurse. as6 06:59 Guille Beverly DO is Attending Physician. ms3 07:01 Graeme Sanchez, RN is Primary Nurse. bp 07:08 Patient has correct armband on for positive identification. Bed in low position. Call bp light in reach. Side rails up X2. Adult w/ patient. 07:20 Inserted saline lock: 20 gauge in right antecubital area, using aseptic technique. bp Blood collected. 08:54 CT Abd/Pelvis - IV Contrast Only In Process Unspecified. EDMS 09:24 Andres Washburn MD is Referral Physician. ms3 09:30 No provider procedures requiring assistance completed. IV discontinued, intact, bp bleeding controlled, No redness/swelling at site. Pressure dressing applied. Administered Medications: 07:25 Drug: NS 0.9% 1000 ml Route: IV; Rate: 1 bolus; Site: right antecubital; bp 09:31 Follow up: IV Status: Completed infusion; IV Intake: 1000ml bp 07:25 Drug: Zofran (Ondansetron) 4 mg Route: IVP; Site: right antecubital; bp 09:31 Follow up: Response: No adverse reaction bp 07:25 Drug: morphine 4 mg Route: IVP; Infused Over: 4 mins; Site: right antecubital; bp 09:31 Follow up: Response: Pain is decreased bp Medication: 07:08 VIS not applicable for this client. bp Intake: 09:31 IV: 1000ml; Total: 1000ml. bp Outcome: 09:25 Discharge ordered by . ms3 09:31 Discharged to home ambulatory, with family. bp 09:31 Condition: stable 09:31 Discharge instructions given to patient, Instructed on discharge instructions, follow up and referral plans. medication usage, Demonstrated understanding of instructions, follow-up care, medications, Prescriptions given X 1. 09:40 Patient left the ED. bp Signatures: Dispatcher [employer] EDMS Jazmine Miranda, RN RN bb Graeme Sanchez, RN RN bp Guille Beverly DO DO ms3 Mariela Russo Ashby, RN RN as6
--- NOTE | 2022-06-28 09:26 | EDPHYS ---
Physician Documentation [facility] Name: Uzair Sullivan Age: 42 yrs Sex: Male : 1980 Arrival Date: 06/28/2022 Time: 06:16 Bed 23 Private MD: ED Physician Guille Beverly HPI: 06/28 07:25 This 42 yrs old Male presents to ER via Ambulatory with complaints of ms3 Abdominal Pain, Low Back Pain. 07:25 42-year-old male with past medical history of supraventricular tachycardia and ms3 diverticulitis presents with his for lower abdominal pain for 3 days. Patient states pain is an 8/10 described as pressure. Patient denies alleviating or inciting factors. Patient denies nausea, vomiting, fevers, chills, diarrhea. Of note patient states he had an ablation for supraventricular tachycardia on Sunday.. Historical: - Allergies: 06:40 No Known Allergies; bb - Home Meds: 06:40 Metoprolol Tartrate Oral [Active]; Propafenone Oral [Active]; bb - PMHx: 06:40 arrhythmia; Diverticulitis; bb - PSHx: 06:40 heart cath; bb - Immunization history:: Client reports receiving the 2nd dose of the Covid vaccine, [employer]. - Social history:: Smoking status: Patient denies any tobacco usage or history of. ROS: 07:26 Constitutional: Negative for fever, and chills. Neck: Negative for injury, pain, and ms3 swelling, Cardiovascular: Negative for chest pain, and palpitations. Respiratory: Negative for shortness of breath, cough, wheezing, and pleuritic chest pain. 07:26 Skin: Negative for injury, rash, and discoloration. 07:26 Abdomen/GI: Positive for abdominal pain, Negative for nausea, vomiting, and diarrhea. 07:26 All other systems are negative. Exam: 07:26 Constitutional: This is a well developed, well nourished patient who is awake, alert, ms3 and in no acute distress. Eyes: Pupils equal round and reactive to light, extra-ocular motions intact. Lids and lashes normal. Conjunctiva and sclera are non-icteric and not injected. Periorbital areas with no swelling, redness, or edema. Neck: Trachea midline, no cervical lymphadenopathy. Supple, full range of motion without nuchal rigidity, or vertebral point tenderness. No Meningismus. Chest/axilla: Normal chest wall appearance and motion. Nontender with no deformity. Cardiovascular: Regular rate and rhythm with a normal S1 and S2. No gallops, murmurs, or rubs. Normal PMI, no JVD. No pulse deficits. Respiratory: Lungs have equal breath sounds bilaterally, clear to auscultation and percussion. No rales, rhonchi or wheezes noted. No increased work of breathing, no retractions or nasal flaring. Back: No spinal tenderness. No costovertebral tenderness. Full range of motion. MS/ Extremity: Pulses equal, no cyanosis. Neurovascular intact. Full, normal range of motion. Psych: Awake, alert, with orientation to person, place and time. Behavior, mood, and affect are within normal limits. 07:26 Abdomen/GI: Inspection: abdomen appears normal, Bowel sounds: normal, Palpation: moderate abdominal tenderness, in the right lower quadrant and left lower quadrant. Vital Signs: 06:38 BP 119 / 90; Pulse 85; Resp 16 S; Temp 98.4(O); Pulse Ox 99% on R/A; Weight 86.18 kg bb (R); Height 5 ft. 9 in. (175.26 cm) (R); Pain 8/10; 07:09 BP 118 / 85; Pulse 74; Resp 16; Pulse Ox 99% ; bp 08:39 BP 133 / 94; Pulse 72; Resp 16; Pulse Ox 97% ; bp 06:38 Body Mass Index 28.06 (86.18 kg, 175.26 cm) bb MDM: 07:08 Patient medically screened. ms3 07:26 Differential diagnosis: Diverticulitis vs appendicitis vs abdominal pain vs UTI. ms3 09:26 Data reviewed: vital signs, nurses notes, lab test result(s), radiologic studies, and ms3 as a result, I will discharge patient. Data interpreted: Pulse oximetry: on room air is 97 %. Interpretation: normal. Counseling: I had a detailed discussion with the patient and/or guardian regarding: the historical points, exam findings, and any diagnostic results supporting the discharge/admit diagnosis, lab results, radiology results, the need for outpatient follow up, to return to the emergency department if symptoms worsen or persist or if there are any questions or concerns that arise at home. ED course: Patient with elevated white count; however, patient without additional SIRS criteria. Patient is tolerating p.o., without nausea or vomiting. CT scan showing mild sigmoid diverticulitis without abscess or perforation. Discussed outpatient antibiotics with patient and patient or stands and agrees. Patient to follow-up with Dr. Salas in 2 to 3 days. All questions were answered. Return precautions discussed include worsening symptoms, or any other concerns.. 06/28 07:09 Order name: CBC with Diff; Complete Time: 08:25 ms3 06/28 07:09 Order name: CMP; Complete Time: 08:25 ms3 06/28 07:09 Order name: Lipase; Complete Time: 08:25 ms3 06/28 07:09 Order name: Urine Microscopic Only; Complete Time: 08:25 ms3 06/28 07:09 Order name: CT Abd/Pelvis - IV Contrast Only; Complete Time: 09:22 ms3 06/28 07:23 Order name: Urine Dipstick-Ancillary; Complete Time: 08:25 EDMS 06/28 07:09 Order name: IV Saline Lock; Complete Time: 07: ms3 06/28 07:09 Order name: Labs collected and sent; Complete Time: 07: ms3 06/28 07:09 Order name: Urine Dipstick-Ancillary (obtain specimen); Complete Time: 07: ms3 06/28 07:44 Order name: Labs - recollect needed: recollect green and lavender top; Complete Time: bd 08:39 Administered Medications: 07:25 Drug: NS 0.9% 1000 ml Route: IV; Rate: 1 bolus; Site: right antecubital; bp 09:31 Follow up: IV Status: Completed infusion; IV Intake: 1000ml bp 07:25 Drug: Zofran (Ondansetron) 4 mg Route: IVP; Site: right antecubital; bp 09:31 Follow up: Response: No adverse reaction bp 07:25 Drug: morphine 4 mg Route: IVP; Infused Over: 4 mins; Site: right antecubital; bp 09:31 Follow up: Response: Pain is decreased bp Disposition Summary: 06/28/22 09:25 Discharge Ordered Location: Home ms3 Condition: Stable ms3 Diagnosis - Diverticulitis of large intestine without perforation or abscess without bleeding ms3 - Other abdominal pain ms3 - Elevated blood-pressure reading, without diagnosis of hypertension ms3 Followup: ms3 - With: Andres Washburn MD - When: 2 - 3 days - Reason: Recheck today's complaints Discharge Instructions: - Discharge Summary Sheet ms3 - High-Fiber Diet ms3 - Diverticulitis ms3 Forms: - Medication Reconciliation Form ms3 - Thank You Letter ms3 - Antibiotic Education ms3 - Prescription Opioid Use ms3 Prescriptions: - Augmentin 875-125 mg Oral Tablet - take 1 tablet by ORAL route every 12 hours for 10 days; 20 tablet; Refills: 0, ms3 Product Selection Permitted Signatures: Dispatcher [employer] EDArchana Walker Brenda, RN RN Graeme Rubio RN RN Guille Piña DO DO ms3
[2022-06-28 09:52] VITALS: TEMP 98.4
[2022-06-28 10:10] VITALS: BP 133/94; O2SAT 97
== END 2022-06-28 09:40 | disposition home or self-care (01) ==
LOC: ER 06:13
DX: K57.32 Diverticulitis of large intestine without perforation or abscess without bleeding (principal); R03.0 Elevated blood-pressure reading, without diagnosis of hypertension
CPT/HCPCS: 85025; 36415; 83690; 80053; 74177; Q9967; J7030; J2405; 81003; 81015

== ENCOUNTER 2022-06-29 00:14 | Emergency (ER) | payer BC ==
--- OUTSIDE RECORDS SUMMARY | 2022-06-29 00:19 | XMS REPORT | Continuity of Care Document ---
:1980 Author Organization [facility] t Address [address] [place] [address] Dr. Aguirre. [address] [place] [address] Care Team Providers Name Role Phone Pcp, Patient Does Not Have A Primary Care Physician [id number] Wing Anand MD Attending Clinician Nitesh SÁNCHEZ, Koby Michel Attending Clinician Darshana Joaquin Attending Clinician Gaurang SÁNCHEZ, Katie Le Attending Clinician ORALIA JAMIL Attending Clinician Unavailable Oralia Pina Attending Clinician MD WING ANAND Attending Clinician Unavailable CHAGO AMADOR Attending Clinician Unavailable WING ANAND Admitting Clinician Unavailable MD WING ANAND Admitting Clinician Unavailable SOFIA MOLINA Admitting Clinician Unavailable Payers Payer Name Policy Type Policy Number Effective Date Expiration Date S jazzy [facility] - [id number] 2020 00:00:00 OUT OF STATE Problems Condition [...] rs active active ity of problems problems [facility] Allergies, Adverse Reactions, Alerts Allergy Allergy Status Severity Reaction(s) Onset Inactive Treating Comm ents Source Name Type Date Date Clinician NO KNOWN Allergy Active [facility] NO KNOWN Drug Active [facility] ALLERGIE Class ity of S [facility] Family History Family Member Diagnosis Comments Start Date Stop Date Source Natural mother [facility] Natural father [facility] Social History Social Habit Start Date Stop Date Quantity Comments Source History SDOH [facility] Drinks History SDOH [facility] Alcohol Binge Medical Aubrey ter History SDOH [facility] Alcohol Comment Medical C enter Alcohol intake 2022-06-23 2022-06-23 Lifetime [facility] 00:00:00 00:00:00 non-drinker (finding) Exposure to 2022-03-14 2022-03-24 Not sure [facility] SARS-CoV-2 00:00:00 16:51:00 [facility] (event) Branch Tobacco use and 2019-07-26 2019-07-[address] [facility] [address] [facility] k[facility] exposure 00:00:00 00:00:00 [facility] History SDOH 2019-07-26 2019-07-[address] [facility] Alcohol Frequency 00:00:00 00:00:00 [facility] Sex Assigned At [birth year] [facility] 00:00:00 00:00:00 Smoking Status Start Date Stop Date Source Never smoked tobacco [facility] ospital Smoker, current status 2022-03-24 00:00:00 [facility] Branch Medications Ordered Filled Start Stop Current Ordering Indication Dosage Frequency Signature Comments Components Source Medication Medication Date Date Medication? Clinician (SIG) Name Name metoprolol 2021- Yes 25mg QD Take 1 Meth ramona succinate 06-22 tablet (25 st XL 00:00: 04:59 mg total) Hospita (TOPROL-XL) 00 :00 by mouth l 25 mg 24 hr daily for tablet 30 days. metoprolol 2021- Yes 25mg QD Take 1 Meth ramona succinate 8-25 09-25 tablet (25 st XL 00:00: 04:59 mg total) Hospita (TOPROL-XL) 00 :00 by mouth l 25 mg 24 hr daily for tablet 30 days. ondansetron 2021- No 4mg Q8H Take 1 Met hodi ODT 7-16 08-16 tablet (4 st (ZOFRAN-ODT 00:00: 04:59 mg total) Hospita ) 4 MG 00 :00 by mouth l disintegrat every 8 ing tablet (eight) hours as needed for nausea or vomiting for up to 30 days. dicyclomine 2021- No 20mg Q.5D Take 1 Met hodi (BENTYL) 20 7-16 08-16 tablet (20 s t mg tablet 00:00: 04:59 mg total) Ho spita 00 :00 by mouth 2 l (two) times a day for 30 days. ondansetron 2021- No 4mg Q8H Take 1 Met hodi ODT 7-16 08-16 tablet (4 st (ZOFRAN-ODT 00:00: 04:59 mg total) Hospita ) 4 MG 00 :00 by mouth l disintegrat every 8 ing tablet (eight) hours as needed for nausea or vomiting for up to 30 days. dicyclomine 2021- No 20mg Q.5D Take 1 Met hodi (BENTYL) 20 7-16 08-16 tablet (20 s t mg tablet 00:00: 04:59 mg total) Ho spita 00 :00 by mouth 2 l (two) times a day for 30 days. amoxicillin 2021- No [id number] 1{tbl} Take 1 Univers -clavulanat 5-27 -07 tablet by it y of e 00:00: 04:59 mouth 2 [place] (AUGMENTIN) 00 :00 (two) Medical 875-125 mg times Branch per tablet daily for 10 days. Vital Signs Vital Name Observation Time Observation Value Comments Source Systolic blood 2022-03-24 21:55:00 124 mm[Hg] Univer sity of pressure [facility] Branch Diastolic blood 2022-03-24 21:55:00 87 mm[Hg] Unive rsity of pressure [facility] Heart rate 2022-03-24 21:55:00 86 /min [facility] Oxygen saturation in 2022-03-24 21:55:00 100 /min [facility] Arterial blood by [facility] Pulse oximetry Branch Body height 2022-03-24 21:52:00 175.3 cm [facility] Body weight 2022-03-24 21:52:00 95.165 kg [facility] BMI 2022-03-24 21:52:00 30.98 kg/m2 [facility] Heart rate 2022-06-22 13:00:00 79 /min [facility] Systolic blood 2022-06-22 12:52:32 130 mm[Hg] [facility] pressure Diastolic blood 2022-06-22 12:52:32 87 mm[Hg] [facility] pressure Body temperature 2022-06-22 12:52:32 36.89 Silvia [facility] Respiratory rate 2022-06-22 12:52:32 20 /min [facility] Oxygen saturation in 2022-06-22 12:52:32 99 /min [facility] Arterial blood by Pulse oximetry Body weight 2022-06-22 01:49:34 87.544 kg [facility] BMI 2022-06-22 01:49:34 28.50 kg/m2 [facility] Body height 2022-06-21 15:19:00 175.3 cm [facility] Procedures Procedure Date / Time Performing Clinician Source Performed HC COMPLETE BLD COUNT 2022-06-22 09:30:00 Wing Anand [facility] W/AUTO DIFF BASIC METABOLIC PANEL 2022-06-22 09:30:00 Wing Anand [facility] ESTIMATED GFR 2022-06-22 09:30:00 Wing Anand EP COMPLETE EP STUDY W 2022-06-21 19:16:30 Wing Anand [facility] ABLATION SVT TYPE AND SCREEN 2022-06-21 14:56:00 Wing Anand ECG 12-LEAD 2022-06-21 13:49:16 Wing Anand Ho spital COVID-19 QUALITATIVE 2022-06-20 14:29:00 Wing Anand [facility] RT-PCR PROTHROMBIN TIME WITH INR 2022-06-20 14:22:[address] [facility] HC COMPLETE BLD COUNT 2022-06-20 14:22:00 Wing Anand [facility] W/AUTO DIFF COMPREHENSIVE METABOLIC 2022-06-20 14:22:00 Wing Anand [facility] PANEL ESTIMATED GFR 2022-06-20 14:22:00 Wing Anand spital ED REFERRAL TO [place] 2022-05-14 00:33:07 [facility] [employer] ABDOMEN PELVIS W 2022-05-14 00:17:00 Katie Merlos [facility] CONTRAST HC COMPLETE BLD COUNT 2022-05-13 21:09:00 Gaurang Katieeboni Le [facility] W/AUTO DIFF COMPREHENSIVE METABOLIC 2022-05-13 21:09:00 [place] [facility] PANEL LIPASE LEVEL 2022-05-13 21:09:00 [place] Katie [facility] ESTIMATED GFR 2022-05-13 21:09:00 [facility] Plan of Care Planned Activity Planned Date Details Comments Source Future Scheduled 2022-06-[address] [facility] Test 00:00:00 (#1) [code = Medical Center INFLUENZA VACCINE (#1)] Future Scheduled 2022-06-[address] [facility] Test 00:00:00 (#1) [code = Medical Center INFLUENZA VACCINE (#1)] Future Scheduled 2022-06-28 HEPATITIS B VACCINES Met [facility] Test 13:37:55 (1 of 3 - 3-dose series) [code = HEPATITIS B VACCINES (1 of 3 - 3-dose series)] Future Scheduled 2022-06-28 Hepatitis C [facility] ospital Test 13:37:55 screening (procedure) [code = 104706793] Future Scheduled 2022-06-28 [facility]INE [facility] 13:37:55 [code = INFLUENZA VACCINE] Future Scheduled 2022-06-26 [facility] 19:57:18 (1 of 3 - 3-dose series) [code = HEPATITIS B VACCINES (1 of 3 - 3-dose series)] Future Scheduled 2022-06-26 [facility] Test 19:57:18 screening (procedure) [code = 775775595] Future Scheduled 2022-06-26 [facility]ACCINE [facility] Test 19:57:18 [code = INFLUENZA VACCINE] Future Scheduled 2021-10-[address] [facility] Test 00:00:00 (12+) [code = [facility] DEPRESSION SCREENING (12+)] Future Scheduled 2021-10-[address] [facility] Test 00:00:00 (12+) [code = [facility] DEPRESSION SCREENING (12+)] Future Scheduled [address] [facility] Test 00:00:00 (procedure) [code = [facility] [id number]] Future Scheduled [address] [facility] Test 00:00:00 (procedure) [code = [facility] [id number]] Future Scheduled 1997 DTAP/TDAP/TD [facility] Test 00:00[facility]00 VACCINES (1 - Tdap) Medical Center [code = DTAP/TDAP/TD VACCINES (1 - Tdap)] Future Scheduled 1997 DTAP/TDAP/TD [facility] Test 00:00:00 VACCINES (1 - Tdap) Medical Center [code = DTAP/TDAP/TD VACCINES (1 - Tdap)] Future Scheduled 1996-02-[address] [facility] Test 00:00:00 SCREENING [code = Medical Ce nter HEPATITIS C SCREENING] Future Scheduled 1996-02-[address] [facility] Test 00:00:00 SCREENING [code = Medical Ce nter HEPATITIS C SCREENING] Future Scheduled 1980 COVID-[address] [facility] Test 00:00:00 (#1) [code = Medical Center COVID-19 VACCINE (#1)] Future Scheduled 1980 COVID-[address] [facility] Test 00:00:00 (#1) [code = Medical Center COVID-19 VACCINE (#1)] Encounters Start End Encounter Admission Attending Care Care Encounter Source Date/Time Date/Time Type Type Clinicians Facility Department ID 2022-06-21 2022-06-22 [facility], 1.2.840.1 [id number] Methodi 07:33:00 12:53:00 Encounter Wing [address]29.1.[address] 3.430.2.7 Hospit a .3.875776 l .8 2022-06-21 2022-06-22 [facility], 1.2.840.1 [id number] Methodi 07:33:00 12:53:00 Encounter Wing 77536.1.[address] 3.430.2.7 Hospit a .3.536766 l .8 2022-06-21 2022-06-21 Anesthesia Koby Dowling V. 1.2.840.1 [id number] Methodi 10:40:00 14:35:00 Event JoaquinDarshana reveles 81078.1.[address] 3.430.2.7 Hospit a .3.349746 l .8 2022-06-21 2022-06-21 Anesthesia Koby Dowling V. 1.2.840.1 [id number] Methodi 10:40:00 14:35:00 Event JoaquinDarshana reveles 16806.1.[address] 3.430.2.7 Hospit a .3.494427 l .8 2022-06-21 2022-06-21 Surgery Gabriel, 1.2.840.1 [id number] Methodi 10:30:00 13:00:[address] 3.430.2.7 Hospit a .3.480813 l .8 2022-06-21 2022-06-21 Surgery [facility], 1.2.840.1 [id number] Methodi 10:30:00 13:00:[address] 3.430.2.7 Hospit a .3.910563 l .8 2022-06-20 2022-06-20 Lab Nazeri, 1.2.840.1 [id number] Methodi 08:55:00 09:00:[address] 3.430.2.7 Hospit a .3.421206 l .8 2022-06-20 2022-06-20 Lab Nazeri, 1.2.840.1 [id number] Methodi 08:55:00 09:00:[address] 3.430.2.7 Hospit a .3.508798 l .8 2022-06-20 2022-06-20 Travel 1.2.840.1 1.2.567.314 [id number] Methodi 00:00:00 00:00:[address] 3.430.2.7 0.2.7.3.698 Ho spita .3.437747 084.8 l .8 2022-06-20 2022-06-20 Travel 1.2.840.1 1.2.678.772 [id number] Methodi 00:00:00 00:00:[address] 3.430.2.7 0.2.7.3.698 Ho spita .3.962466 084.8 l .8 2022-06-16 2022-06-16 Community Nazeri, 1.2.840.1 [id number] Methodi 00:00:00 00:00:00 Orders Wing [address]18.1.[address] 3.430.2.7 Hospit a .3.523904 l .8 2022-06-16 2022-06-16 Community Nazeri, 1.2.840.1 [id number] Methodi 00:00:00 00:00:00 Orders Wing [address]73.1.[address] 3.430.2.7 Hospit a .3.791932 l .8 2022-05-13 2022-05-13 [facility] 1.2.840.1 [id number] Methodi 15:34:00 19:53:00 Pamela Le 33789.1.1 363 s t 3.430.2.7 Hospit a .3.744556 l .8 2022-05-13 2022-05-13 Emergency Katie Merlos 1.2.840.1 [id number] Methodi 15:34:00 19:53:00 Pamela Le 84197.1.1 363 s t 3.430.2.7 Hospit a .3.324441 l .8 2022-03-24 2022-03-24 Outpatient [facility] [id number] [facility] 17:00:00 17:27:59 [facility] 2022-03-24 2022-03-24 Urgent [facility] 1.2.840.114 [id number] [facility] 17:00:00 17:27:59 Care [facility] 350.1.13.10 i ty of [place] 4.2.7.2.686 Jacob as LOR?BLEA [id number] [address] MEDICAL OFFICE BUILDING 2020-10-14 2020-10-14 Outpatient [facility] [id number] Almo 00:00:00 00:00:00 WING [address] 2020-07-18 2020-07-18 Outpatient [facility] [id number] Almo 00:00:00 00:00:00 WING [address] 2020-06-18 2020-06-18 Outpatient [facility] [id number] Almo 00:00:00 00:00:00 WING [address] Results Test Description Test Time Test Comments Results Result Comments Source ECG 12 lead 2022-06-22 12:52:17 Test Item Value Reference Range Interpretation Comme nts Ventricular rate (test code = 253) Atrial rate (test code = 255) NM interval (test code = 266) QRSD interval (test code = 260) QT interval (test code = 264) QTC interval (test code = 265) P axis 1 (test code = 267) QRS axis 1 (test code = 268) T wave axis (test code = 270) EKG impression (test code = 273) Normal sinus rhythm with sinus [facility]ia- [facility] [id number] 12:52:17 Test Item Value Reference Range Interpretation Comments Ventricular rate (test code = 253) Atrial rate (test code = 255) NM interval (test code = 266) QRSD interval (test code = 260) QT interval (test code = 264) QTC interval (test code = 265) P axis 1 (test code = 267) QRS axis 1 (test code = 268) T wave axis (test code = 270) EKG impression (test code Normal sinus rhythm = 273) with sinus arrhythmia-Electroni chana Signed By Minor Kinsey MD ([id number]) on 06/22/2022 7:52:15 AM [facility] [id number] 18:12:38 Test Item Value Reference Interpretation Comments Range Interpretation (test Negative results do not code = 6676184) preclude COVID-19 infection and should not be used asthe sole basis for treatment or other patient management decisions. Negativeresults must be combined with clinical observations, patient history, andepidemiological information. COVID-19 qualitative Not-Detected Not-Detected RT-PCR result (test code = 75660-2) COVID-19 qualitative See link below for PDF Case Number: RT-PCR (test code = Lab Report [id number]) [facility] [id number] 18:12:38 Test Item Value Reference Interpretation Comments Range Interpretation (test Negative results do not code = 5460747) preclude COVID-19 infection and should not be used asthe sole basis for treatment or other patient management decisions. Negativeresults must be combined with clinical observations, patient history, andepidemiological information. COVID-19 qualitative Not-Detected Not-Detected RT-PCR result (test code = 18130-5) COVID-19 qualitative See link below for PDF Case Number: RT-PCR (test code = Lab Report [id number]) [facility] [Presence] in Respiratory specimen by DENIS with probe [id number] 13:12:38 Test Item Value Reference Range Interpretation Comments SARS-CoV-2 (COVID-19) RNA Not detected [Presence] in Respiratory specimen by DENIS with probe detection (test code = 91471-1) Whether patient is employed in a Unknown healthcare setting (test code = 81521-0) Whether the patient has symptoms Unknown related to condition of interest (test code = 81892-6) Whether the patient was Unknown hospitalized for condition of interest (test code = 84043-7) Whether the patient was admitted Unknown to intensive care unit (ICU) for condition of interest (test code = 42507-2) Whether patient resides in a Unknown congregate care setting (test code = 32030-8) status (test code = Unknown 88464-8) Date and time of symptom onset Unknown (test code = 10622-2) SARS-CoV-2 (COVID-19) RNA [Presence] in Respiratory specimen by DENIS with probe [id number] 23:44:02 Test Item Value Reference Range Interpretation Comments SARS-CoV-2 (COVID-19) RNA Not detected Not-Detected [Presence] in Respiratory specimen by DENIS with probe detection (test code = 80675-9) BLOOD [id number] 08:01:00 Test Item Value Reference Range Interpretation Comments CULTURE (BEAKER) (test No growth in 5 days code = 1095) MISCELLANEOUS LAB [id number] 07:37:00 Test Item Value Reference Range Interpretation Comments SCAN RESULT (test code = 5627806) BLOOD [id number] 08:00:00 Test Item Value Reference Range Interpretation Comments CULTURE (BEAKER) (test No growth in 5 days code = 1095) BLOOD [id number] 08:00:00 Test Item Value Reference Range Interpretation Comments CULTURE (BEAKER) (test No growth in 5 days code = 1095) ANTI-NUCLEAR ANTIBODY (AURA)2019-07-30 09:44:00 Test Item Value Reference Range Interpretation Comments ANTI-NUCLEAR ANTIBODY (AURA) (BEAKER) Positive Negative A (test code = 418) Test performed by IFA method.AURA TITER AND [id number] 09:44:00 Test Item Value Reference Range Interpretation [...] (test code Normal = 486) HEPATIC FUNCTION [id number] 09:58:00 Test Item Value Reference Range Interpretation [...] 347) CBC WITH PLATELET COUNT + MANUAL [id number] 09:29:00 Test Item Value Reference Range Interpretation [...] (BEAKER) (test code = 413) RESPIRATORY PANEL [id number] 15:15:00 Test Item Value Reference Range Interpretation [...] decisions. This sample was tested at the [facility] Molecular Diagnostics Laboratory using the Accept SoftwareArray Respiratory Panel. It is FDA cleared and has been verified and approved by the [facility] Molecular Diagnostics Laboratory for clinical use on nasopharyngeal swab specimens.The performance of the FilmArrayRP has not been established in individuals who received influenza vaccine. Recent administration of a nasal influenza vaccine may cause false positive results for Influenza A and/orInfluenza B.EBV VIRAL [id number] 13:49:00 Test Item Value Reference Range Interpretation [...] (2) real-time PCR amplification and detection with CKQE-0-gqlaabua primers and probes. A well-conserved region of the EBNA-1 gene is targeted, along with an internal control sequence used to confirm PCR amplification. Asymptomatic carriers and viral genetic variation, among other factors, can affect the accuracy of nucleic acidtesting; therefore, results should be interpreted in light of clinical data.This test was developed and its performance characteristics determined by the [facility] Pathology Department,Section of Molecular Pathology. It has [...] real- time PCR amplification and detection with UQTV-5-smnlmhob primers and probes. A well-conserved region of the EBNA-1 gene is targeted, along with an internal control sequence used to confirm PCR amplification. Asymptomatic carriers and viral genetic variation, among other factors, can affect the accuracy of nucleic acid testing; therefore, results should be interpreted in light of clinical data.This test was developed and its performance characteristics determined by the [facility] Pathology Department, Section of Molecular Pathology.It has not been cleared or approved by the U.S. Food and Drug Administration (FDA), since FDA approval is not required for clinical use of the test. Validation was done as required by The Clinical Laboratory Improvement Amendments of 1988.CMV PCR, [id number] 13:43:00 Test Item Value Reference Range Interpretation [...] and its performance characteristics determined by the [facility] Pathol ogy Department, Section of Molecular Pathology. It has not been cleared or approved by the U.S. Foodand Drug Administration (FDA), since FDA approval is not required for clinical use of the test. Validation was done as required by The Clinical Laboratory Improvement Amendments of 1988.RHEUMATOID FACTOR AB, REFLEX TO [id number] 13:10:00 Test Item Value Reference Range Interpretation Comments RHEUMATOID FACTOR (BEAKER) (test Negative code = 573) BASIC METABOLIC [id number] 06:42:00 Test Item Value Reference Range Interpretation [...] S NOT APPLICABLE FOR DIALYSIS PATIEN TS. [id number] 12:15:00 Test Item Value Reference Range Interpretation Comments RPR SCREEN (BEAKER) (test code = Nonreactive Nonreactive 420) HIV-1 ANTIGEN WITH HIV-1/2 [id number] 04:56:00 Test Item Value Reference Range Interpretation Comments HIV-1 ANTIGEN WITH HIV 1\T\2 Nonreactive Nonreactive ANTIBODY (2) (BEAKER) (test code = 2586) BASIC METABOLIC [id number] 04:24:00 Test Item Value Reference Range Interpretation [...] DIALYSIS PATIEN TS. URINALYSIS W/ REFLEX URINE [id number] 00:26:00 Test Item Value Reference Range Interpretation [...] = 2795) RAD, CHEST, 1 VIEW, NON [id number] 10:25:00Reason for exam:- >leukocytosis, fever r/o infectionFINAL [...] lung. Lungs otherwise clear. Signed: Foster Watts Verified Date/Time: 07/26/2019 10:25:43 Reading Location: [address] Ortho Consult Reading Room CBC W/PLT COUNT & AUTO [id number] 10:24:00 Test Item Value Reference Range Interpretation [...] = 3438) Received comment: User comments: Slide comments:[id number] 10:11:00 Test Item Value Reference Range Interpretation [...] pg/mL 0-100 (test code = 700) TROPONIN [id number] 10:00:00 Test Item Value Reference Range Interpretation [...] acute neurological disease, and persistent tachyarrhythmia.BASIC METABOLIC [id number] 09:54:00 Test Item Value Reference Range Interpretation [...] U/L 29-200 code = 380) POCT-LACTIC ACID, [id number] 09:50:00 Test Item Value Reference Range Interpretation Comments POC-LACTIC ACID, 1.3 mmol/L 0.4-1.3 TESTED AT [facility] [address] (BEAKER) [facility] (test code = 2804) [address] [id number] 09:50:00 Test Item Value Reference Range Interpretation Comments POC-HEMOGLOBIN 11.6 g/dL 13.0-16.8 L TESTED AT [facility] 6720 (BEAKER) (test code [facility] [place] = 1856) 85378ONAVCX AT [facility] [address] [facility] [address] POCT-BLOOD GASES, [id number] 09:49:00 Test Item Value Reference Range Interpretation Comments TEMP, CELSIUS-POC 37.0 (BEAKER) (test code = 1834) FIO2-POC (BEAKER) TESTED AT [facility] 67 (test code = 1835) [facility] [address] PH, ARTERIAL-POC 7.370 7.350-7.450 (BEAKER) (test code = 1836) PCO2, ARTERIAL-POC 41.0 mm Hg 35.0-45.0 (BEAKER) (test code = 1837) PO2, ARTERIAL-POC 86.0 mm Hg 80.0-90.0 (BEAKER) (test code = 1838) SO2, ARTERIAL-POC 96.0 % 96.0-97.0 (BEAKER) (test code = 1839) HCO3, ARTERIAL-POC 23.7 meq/L 21.0-29.0 (BEAKER) (test code = 1840) BASE EXCESS, -2.0 meq/L -2.0-3.0 ARTERIAL-POC (BEAKER) (test code = 1841) [id number] 09:49:00 Test Item Value Reference Range Interpretation Comments POC-SODIUM (BEAKER) 137 meq/L 135-148 TESTED A [place] [address] (test code = 1542) [facility] [address] [id number] 09:49:00 Test Item Value Reference Range Interpretation Comments POC-POTASSIUM 3.3 meq/L 3.6-5.5 L TESTED AT [place] [address] ([facility]) (test code [facility] [address] = 1540) [id number] 09:49:00 Test Item Value Reference Range Interpretation Comments POC-GLUCOSE (BEAKER) 153 mg/dL 70-110 H TESTED AT [place] [address] (test code = 1855) [facility] [address] POCT-CALCIUM [id number] 09:49:00 Test Item Value Reference Range Interpretation Comments POC-CALCIUM IONIZED 1.22 mmol/L 1.12-1.27 TESTED A [place] [address] (BEAKER) (test code = [place] [facility] [id number]) [id number] 09:49:00 Test Item Value Reference Range Interpretation Comments POC-HEMATOCRIT 34 % 40-50 L TESTED AT [place] [address] (BEAKER) (test code = [facility] [address] 1858) URINALYSIS WITH MICROSCOPIC IF [id number] 07:55:00 Test Item Value Reference Range Interpretation [...] 463) SOURCE(BEAKER) (test code = 2795) URINALYSIS [id number] 07:55:00 Test Item Value Reference Range Interpretation Comments RBC UA (BEAKER) (test code = 519) 1 /HPF WBC UA (BEAKER) (test code = 520) 9 /HPF MUCUS (BEAKER) (test code = 1574) Rare SQUAMOUS EPITHELIAL (BEAKER) (test < /HPF code = 516) C-REACTIVE [id number] 07:27:00 Test Item Value Reference Range Interpretation Comments C-REACTIVE PROTEIN (BEAKER) (test 15.31 mg/dL 0.00-0.50 H code = 676) CBC W/PLT COUNT & AUTO [id number] 04:17:00 Test Item Value Reference Range Interpretation [...] (BEAKER) (test code = 2801) BASIC METABOLIC [id number] 03:45:00 Test Item Value Reference Range Interpretation [...]
[2022-06-29] MEDS ORDERED: NA CHLORIDE 0.9% 500 ML ONE (00:45)
[2022-06-29 00:59] LABS: Absolute Lymphocytes (CBC) 1.7 K/uL (0.7-4.9); Hematocrit 41.9 % (39.6-49.0); Lymphocytes % 18.1 % (15.3-44.8); MCV 89.5 fL (80-100); MPV 10.1 fL (7.6-11.3); RBC Red Blood Cell Count 4.68 M/uL (4.33-5.43)
[2022-06-29 01:12] LABS: Potassium 3.7 mmol/L (3.5-5.1); Troponin High Sensitivity 16.9 pg/mL (<58.9)
--- NOTE | 2022-06-29 02:09 | EDPHYS ---
Physician Documentation [facility] Name: Uzair Sullivan Age: 42 yrs Sex: Male : 1980 Arrival Date: 06/29/2022 Time: 00:15 Bed 4 Private MD: ED Physician Sergio Hung HPI: 06/29 00:31 This 42 yrs old Male presents to ER via Unassigned with complaints of rn Shortness Of Breath, Fast Heart Rate. 00:32 The patient presents with a history of heart racing. Context: The symptoms occur at rn rest. Onset: The symptoms/episode began/occurred today. Duration: The patient or guardian reports a single episode, that is still ongoing. Modifying factors: The symptoms are aggravated by nothing. The symptoms are alleviated by nothing. Associated signs and symptoms: Pertinent positives: SOB, Pertinent negatives: chest pain, fever, syncope. Severity of symptoms: At their worst the symptoms were moderate in the emergency department the symptoms have improved. The patient has experienced similar episodes in the past. The patient has been recently seen by a physician:. Pt reports just seen here yesterday, diagnosed with diverticulitis, was at home and at rest, when felt palpitations and sob. Feeling a little better but states still feels heart racing and sob. No fever. No chest pain. States recently had ablation, but no tract found to perform ablation. Taking propafenone and metoprolol. . Historical: - Allergies: 00:37 No Known Allergies; vc1 - Home Meds: 00:37 metoprolol succinate 25 mg oral Tb24 1 tab once daily [Active]; propafenone 225 mg oral vc1 tab 1 tab twice a day [Active]; amoxicillin-pot clavulanate 875-125 mg Oral tab 1 tab every 12 hours [Active]; - PMHx: 00:37 arrhythmia; Diverticulitis; Lupus erythematosus; vc1 - PSHx: 00:37 heart cath; Heart ablation; vc1 - Immunization history:: Adult Immunizations up to date, Client reports receiving the 2nd dose of the Covid vaccine. - Social history:: Smoking status: Patient denies any tobacco usage or history of. Patient/guardian denies using alcohol. - Family history:: not pertinent. - Hospitalizations: : No recent hospitalization is reported. ROS: 00:32 Constitutional: Negative for fever, chills, and weight loss, Cardiovascular: Negative rn for chest pain, and edema, Respiratory: Negative for cough, wheezing, and pleuritic chest pain, Abdomen/GI: Negative for abdominal pain, nausea, vomiting, diarrhea, and constipation, Back: Negative for injury and pain, MS/Extremity: Negative for injury and deformity, Skin: Negative for injury, rash, and discoloration, Neuro: Negative for headache, numbness, tingling, and seizure. Exam: 00:32 Constitutional: This is a well developed, well nourished patient who is awake, alert, director e learning to room without difficulty. Seems anxious. Head/Face: Normocephalic, atraumatic. Cardiovascular: Regular rate and rhythm. No pulse deficits. Respiratory: Mild tachypnea, no retractions, clear bilateral breath sounds. Abdomen/GI: Soft, non-tender Skin: Warm, dry MS/ Extremity: Pulses equal, no cyanosis. Neuro: Awake and alert, GCS 15 00:38 ECG was reviewed by the Attending Physician. rn Vital Signs: 00:32 BP 124 / 91; Pulse 75; Resp 26; Temp 97.5(O); Pulse Ox 100% ; Weight 86.18 kg; Height 5 vc1 ft. 9 in. (175.26 cm); 00:43 Resp 20; vc1 00:49 BP 117 / 86; Pulse 72; Resp 23 S; Pulse Ox 100% on R/A; Pain 0/10; aa9 02:26 BP 112 / 84; Pulse 70; Resp 16 S; Pulse Ox 100% on R/A; Pain 0/10; aa9 00:32 Body Mass Index 28.06 (86.18 kg, 175.26 cm) vc1 MDM: 00:18 Patient medically screened. rn 02:07 Differential diagnosis: arrythmia, dehydration, stress disorder. Data reviewed: vital rn signs, nurses notes, old medical records, lab test result(s), EKG, and as a result, I will discharge patient. Counseling: I had a detailed discussion with the patient and/or guardian regarding: the historical points, exam findings, and any diagnostic results supporting the discharge/admit diagnosis, lab results, radiology results, the need for outpatient follow up, to return to the emergency department if symptoms worsen or persist or if there are any questions or concerns that arise at home. Response to treatment: the patient's symptoms have resolved after treatment, the patient's condition has returned to base line, the patient is now symptom free, patient is well hydrated. and as a result, I will discharge patient. Special discussion: I discussed with the patient/guardian in detail that at this point there is no indication for admission to the hospital. It is understood, however, that if the symptoms persist or worsen the patient needs to return immediately for re-evaluation. ED course: No episodes of tachycardia here in ER, WBC improved, will dc home with pcp f/u and cardiology f/u. . 06/29 00:28 Order name: CBC with Diff; Complete Time: : rn 06/29 00:28 Order name: Basic Metabolic Panel; Complete Time: : rn 06/29 00:28 Order name: EKG; Complete Time: 00:29 rn 06/29 00:28 Order name: Troponin High Sensitivity; Complete Time: : rn 06/29 00:28 Order name: BNP; Complete Time: : rn 06/29 00:28 Order name: IV Start; Complete Time: 00:47 rn 06/29 00:28 Order name: EKG - Nurse/Tech; Complete Time: 00:33 rn EC:38 Rate is 75 beats/min. Rhythm is regular. QRS [place] is Normal. [place] interval is normal. QRS rn interval is normal. QT interval is normal. No Q waves. T waves are Normal. No ST changes noted. Clinical impression: NSR w/ Non-specific ST/T Changes. Interpreted by me. Reviewed by me. Administered Medications: 00:47 Drug: NS 0.9% 500 ml Route: IV; Rate: bolus; Site: left antecubital; aa9 Disposition Summary: 06/29/22 02:08 Discharge Ordered Location: Home rn Problem: new rn Symptoms: have improved rn Condition: Stable rn Diagnosis - Palpitations rn Followup: rn - With: Private Physician - When: As needed - Reason: Recheck today's complaints, Re-evaluation by your physician Discharge Instructions: - Discharge Summary Sheet rn - Palpitations rn Forms: - Medication Reconciliation Form rn - Thank You Letter rn - Antibiotic rn urology - Prescription Opioid Use rn Signatures: Dispatcher [employer] EDND Sergio Hung MD MD rn Calcote, Vanessa, RN RN vc1 Liyah Najera RN RN aa9 Corrections: (The following items were deleted from the chart) 00:41 00:37 Home Meds: Metoprolol Tartrate Oral; vc1 vc1
--- NOTE | 2022-06-29 02:09 | ER ---
Nurse's Notes [facility] Name: Uzair Sullivan Age: 42 yrs Sex: Male : 1980 Arrival Date: 06/29/2022 Time: 00:15 Bed 4 Private MD: Diagnosis: Palpitations Presentation: 06/29 00:32 Chief complaint: Patient states: "I have been feeling short of breath and palpitations vc1 for the last 2 days. Tonight it got worse and I started sweating, feeling anxious, and like I was going to pass out". Coronavirus screen: Vaccine status: Patient reports receiving the 2nd dose of the covid vaccine. Plus booster; [employer] Client presents with at least one sign or symptom that may indicate coronavirus-19. Ebola Screen: No symptoms or risks identified at this time. Initial Sepsis Screen: Does the patient meet any 2 criteria? RR > 20 per min. No. Patient's initial sepsis screen is negative. Does the patient have a suspected source of infection? No. Patient's initial sepsis screen is negative. Risk Assessment: Do you want to hurt yourself or someone else? Patient reports no desire to harm self or others. Onset of symptoms is unknown. 00:32 Method Of Arrival: Ambulatory vc1 00:32 Acuity: GLORIA 3 vc1 Triage Assessment: 00:41 General: Appears uncomfortable, Behavior is anxious. Pain: Denies pain. EENT: No vc1 deficits noted. Neuro: Level of Consciousness is awake, alert, obeys commands, Oriented to person, place, time, situation, Appropriate for age. Cardiovascular: Reports diaphoresis, lightheadedness, palpitations, shortness of breath, "Heavy in my chest" Patient's skin is warm and dry. Rhythm is sinus rhythm. Respiratory: Reports shortness of breath at rest Airway is patent Respiratory effort is even, unlabored, Respiratory pattern is regular, symmetrical, Onset: The symptoms/episode began/occurred last 3 days, the patient has mild shortness of breath. GI: No deficits noted. : No deficits noted. Derm: No deficits noted. Musculoskeletal: No deficits noted. Historical: - Allergies: 00:37 No Known Allergies; vc1 - Home Meds: 00:37 metoprolol succinate 25 mg oral Tb24 1 tab once daily [Active]; propafenone 225 mg oral vc1 tab 1 tab twice a day [Active]; amoxicillin-pot clavulanate 875-125 mg Oral tab 1 tab every 12 hours [Active]; - PMHx: 00:37 arrhythmia; Diverticulitis; Lupus erythematosus; vc1 - PSHx: 00:37 heart cath; Heart ablation; vc1 - Immunization history:: Adult Immunizations up to date, Client reports receiving the 2nd dose of the Covid vaccine. - Social history:: Smoking status: Patient denies any tobacco usage or history of. Patient/guardian denies using alcohol. - Family history:: not pertinent. - Hospitalizations: : No recent hospitalization is reported. Screenin:43 Abuse screen: Denies threats or abuse. Nutritional screening: No deficits noted. vc1 Tuberculosis screening: No symptoms or risk factors identified. Fall Risk None identified. Assessment: 00:47 General: Appears uncomfortable, Behavior is cooperative, anxious. Cardiovascular: aa9 Reports lightheadedness, shortness of breath, Denies chest pain, Patient's skin is warm and dry. Respiratory: Airway is patent Trachea midline Respiratory effort is even, Respiratory pattern is regular, symmetrical. 02:26 Respiratory: Breath sounds are clear bilaterally. aa9 Vital Signs: 00:32 BP 124 / 91; Pulse 75; Resp 26; Temp 97.5(O); Pulse Ox 100% ; Weight 86.18 kg; Height 5 vc1 ft. 9 in. (175.26 cm); 00:43 Resp 20; vc1 00:49 BP 117 / 86; Pulse 72; Resp 23 S; Pulse Ox 100% on R/A; Pain 0/10; aa9 02:26 BP 112 / 84; Pulse 70; Resp 16 S; Pulse Ox 100% on R/A; Pain 0/10; aa9 00:32 Body Mass Index 28.06 (86.18 kg, 175.26 cm) vc1 ED Course: 00:15 Patient arrived in ED. ja2 00:18 Sergio Hung MD is Attending Physician. rn 00:33 Liyah Najera, AVANI is Primary Nurse. aa9 00:36 Triage completed. vc1 00:43 Arm band placed on right wrist. vc1 00:43 Patient has correct armband on for positive identification. Bed in low position. Call vc1 light in reach. Client placed on continuous cardiac and pulse oximetry monitoring. NIBP monitoring applied. 00:46 Inserted saline lock: 20 gauge in left antecubital area, using aseptic technique. Blood aa9 collected. 00:47 Basic Metabolic Panel Sent. aa9 00:47 CBC with Diff Sent. aa9 00:47 Troponin High Sensitivity Sent. aa9 00:47 BNP Sent. aa9 00:51 Warm blanket given. aa9 02:26 No provider procedures requiring assistance completed. IV discontinued, intact, aa9 bleeding controlled, No redness/swelling at site. Pressure dressing applied. Administered Medications: 00:47 Drug: NS 0.9% 500 ml Route: IV; Rate: bolus; Site: left antecubital; aa9 Medication: 00:44 VIS not applicable for this client. vc1 Outcome: 02:08 Discharge ordered by . rn 02:26 Discharged to home ambulatory, with significant other. aa9 02:26 Condition: stable 02:26 Discharge instructions given to patient, significant other, Instructed on discharge instructions, follow up and referral plans. Demonstrated understanding of instructions, follow-up care. 02:27 Patient left the ED. aa9 Signatures: Sergio Hnug MD MD rn Alexander, Jessica ja2 Calcote, Vanessa, RN RN vc1 Liyah Najera RN RN aa9 Corrections: (The following items were deleted from the chart) 00:41 00:37 Home Meds: Metoprolol Tartrate Oral; vc1 vc1
[2022-06-29 05:09] VITALS: TEMP 97.5; O2SAT 100
[2022-06-29 05:22] VITALS: BP 112/84
--- NOTE | 2022-06-29 13:56 | EKG ---
Test Date: 2022-06-29 Test Time: 00:24:39 Flamer Sealer: KATIE MEASUREMENT RESULTS: Intervals: Rate: 75 SD: 162 QRSD: 86 QT: 396 QTc: 442 [place]: P: 27 SD: 162 QRS: -13 T: 23 INTERPRETIVE STATEMENTS: Normal sinus rhythm Moderate voltage criteria for LVH, may be normal variant Borderline ECG Compared to ECG 05/20/2022 18:39:39 Sinus tachycardia no longer present Electronically Signed On 06-29-22 13:55:01 CDT by Reji Schawrtz
== END 2022-06-29 02:27 | disposition home or self-care (01) ==
LOC: ER 00:14
DX: R00.2 Palpitations (principal); I49.9 Cardiac arrhythmia, unspecified
CPT/HCPCS: 93005; 85025; 80048; 36415; 84484; 83880; 99284; J7040

== ENCOUNTER 2022-07-06 20:40 | Emergency (ER) | payer BC ==
--- OUTSIDE RECORDS SUMMARY | 2022-07-06 20:43 | XMS REPORT | Continuity of Care Document ---
:1980 Author Organization [facility] t Address [address] [place] [address] [address]. [address] [place] [address] Care Team Providers Name Role Phone Pcp, Patient Does Not Have A Primary Care Physician [id number] GC_TPP_Pour-Jafari_B Attending Clinician Unavailable Wing Anand MD Attending Clinician Nitesh SÁNCHEZ, Koby Michel Attending Clinician Darshana Joaquin Attending Clinician Gaurang SÁNCHEZ, Katie Le Attending Clinician ORALIA JAMIL Attending Clinician Unavailable Oralia Pina Attending Clinician MD WING ANAND Attending Clinician Unavailable CHAGO AMADOR Attending Clinician Unavailable GC_TPP_Pour-Jafari_B Admitting Clinician Unavailable WING ANAND Admitting Clinician Unavailable MD WING ANAND Admitting Clinician Unavailable SOFIA MOLINA Admitting Clinician Unavailable Payers Payer Name Policy Type Policy Number Effective Date Expiration Date S ource [place] [id number] 2020 00:00:00 [place] [id number] 2020 00:00:00 OUT OF STATE Problems Condition [...] [facility] g of this Medical note Center might be different from the original. 26 seconds w/ syncope No known No known Disease Unive rs active active ity of problems problems [facility] Allergies, Adverse Reactions, Alerts Allergy Allergy Status Severity Reaction(s) Onset Inactive Treating Comm ents Source Name Type Date Date Clinician NO KNOWN Allergy Active [facility] NO KNOWN Drug Active Univers ALLERGIE Class ity of S [facility] Family History Family Member Diagnosis Comments Start Date Stop Date Source Natural mother [facility] Natural father [facility] Social History Social Habit Start Date Stop Date Quantity Comments Source History SDOH [facility] Dr[facility] History SDOH [facility] Alcohol Binge Medical Aubrey ter History SDOH [facility] Alcohol Comment Medical C enter Alcohol intake 2022-06-23 2022-06-23 Lifetime [facility] 00:00:00 00:00:00 non-drinker (finding) Exposure to 2022-03-14 2022-03-24 Not sure University SARS-CoV-2 00:00:00 16:51:00 [facility] (event) Branch Tobacco use and 2019-07-26 2019-07-[address] [facility] exposure 00:00:00 00:00:00 Medical Center History SDOH 2019-07-26 2019-07-[address] [facility] Alcohol Frequency 00:00:00 00:00:00 [facility] Center Sex Assigned At [birth year] [facility] 00:00:00 00:00:00 Smoking Status Start Date Stop Date Source Never smoked tobacco [facility] ospital Smoker, current status 2022-03-24 00:00:00 Unive rsity of [facility] Branch Medications Ordered Filled Start Stop Current Ordering Indication Dosage Frequency Signature Comments Components Source Medication Medication Date Date Medication? Clinician (SIG) Name Name metoprolol 2021- Yes 25mg QD Take 1 Meth ramona succinate -25 09-25 tablet (25 st XL 00:00: 04:59 [...] QD Take 1 Meth ramona succinate 8-25 -25 tablet (25 st XL 00:00: 04:59 mg [...] times a day for 30 days. ondansetron No 4mg Q8H Take [...] a day for 30 days. amoxicillin No [id number] 1{tbl} Take 1 Univers -clavulanat 03-24 tablet by it y of e 00:00: 04:59 mouth 2 [place] (AUGMENTIN) 00 :00 (two) Medical 875-125 mg times Branch per tablet daily for 10 days. Vital Signs Vital Name Observation Time Observation Value Comments Source Systolic blood 2022-03-24 21:55:00 124 mm[Hg] Univer sity [facility] Diastolic blood 2022-03-24 21:55:00 87 mm[facility]Hg[facility] rate 2022-03-24 21:55:00 86 /min [facility] Oxygen saturation in 2022-03-24 21:55:00 100 /min [facility] Arterial blood by [facility] Pulse oximetry Branch Body height 2022-03-24 21:52:[address] [facility] Body weight 2022-03-24 21:52:[address] [facility] BMI 2022-03-24 21:52:00 30.98 kg/m2 [facility] Heart rate 2022-06-22 13:00:00 79 /min [facility] Systolic blood 2022-06-22 12:52:32 130 mm[Hg] Method ist [facility] pressure Diastolic blood 2022-06-22 12:52:32 87 mm[Hg] [facility] pressure Body temperature 2022-06-22 12:52:32 36.89 Silvia [facility] Respiratory rate 2022-06-22 12:52:32 20 /min [facility] Oxygen saturation in 2022-06-22 12:52:32 99 /min [facility] Arterial blood by Pulse oximetry Body weight 2022-06-22 01:49:34 87.544 kg [facility] BMI 2022-06-22 01:49:34 28.50 kg/m2 [facility] Body height 2022-06-21 15:19:00 175.3 cm [facility] Procedures Procedure Date / Time Performing Clinician Source Performed HC COMPLETE BLD COUNT 2022-06-22 09:30:00 [facility] DIFF BASIC METABOLIC PANEL 2022-06-22 09:30:00 Cheng [facility] ESTIMATED GFR 2022-06-22 09:30:00 Wing Anand spital EP COMPLETE EP STUDY W 2022-06-21 19:16:30 Wing Anand [facility] ABLATION SVT TYPE AND SCREEN 2022-06-21 14:56:00 Wing Anand spital ECG 12-LEAD 2022-06-21 13:49:16 Wing Anand spital COVID-19 QUALITATIVE 2022-06-20 14:29:00 Wing Anand [facility] RT-PCR PROTHROMBIN TIME WITH INR 2022-06-20 14:22:00 Wing Anand [facility] HC COMPLETE BLD COUNT 2022-06-20 14:22:00 Wing Anand [facility] W/AUTO DIFF COMPREHENSIVE METABOLIC 2022-06-20 14:22:00 Wing Anand [facility] PANEL ESTIMATED GFR 2022-06-20 14:22:00 Wing Anand spital ED REFERRAL TO [place] 2022-05-14 00:33:07 Katie Merlos [facility]IC[employer]GAN[employer]ATION CT ABDOMEN PELVIS W 2022-05-14 00:17:00 [facility] HC COMPLETE BLD COUNT 2022-05-13 21:09:00 Gaurang [facility] W/AUTO DIFF COMPREHENSIVE METABOLIC 2022-05-13 21:09:00 [facility] PANEL LIPASE LEVEL 2022-05-13 21:09:00 [facility] ESTIMATED GFR 2022-05-13 21:09:00 [facility] Plan of Care Planned Activity Planned Date Details Comments Source Future Scheduled 2022-07-05 HEPATITIS B VACCINES [facility] Test 17:47:18 (1 of 3 - 3-dose series) [code = HEPATITIS B VACCINES (1 of 3 - 3-dose series)] Future Scheduled 2022-07-05 [facility] 17:47:18 screening (procedure) [code = 295002475] Future Scheduled 2022-07-05 INFLUENZA VACCINE Method is Hospital Test 17:47:18 [code = INFLUENZA VACCINE] Future Scheduled 2022-06-[address] [facility] Test 00:00:00 (#1) [code = Medical Center INFLUENZA VACCINE (#1)] Future Scheduled 2022-06-[address] [facility] Test 00:00:00 (#1) [code = Medical Center INFLUENZA VACCINE (#1)] Future Scheduled 2022-06-[address] [facility] Test 00:00:00 (#1) [code = Medical Center INFLUENZA VACCINE (#1)] Future Scheduled 2022-06-28 HEPATITIS B VACCINES Met [facility] Test 13:37:55 (1 of 3 - 3-dose series) [code = HEPATITIS B VACCINES (1 of 3 - 3-dose series)] Future Scheduled 2022-06-28 [facility] 13:37:55 screening (procedure) [code = 063185620] Future Scheduled 2022-06-28 INFLUENZA VACCINE Method [facility] Hospital Test 13:37:55 [code = INFLUENZA VACCINE] Future Scheduled 2022-06-26 HEPATITIS B VACCINES Met [facility] Test 19:57:18 (1 of 3 - 3-dose series) [code = HEPATITIS B VACCINES (1 of 3 - 3-dose series)] Future Scheduled 2022-06-26 [facility] 19:57:18 screening (procedure) [code = 719945930] Future Scheduled 2022-06-26 INFLUENZA VACCINE Method ist Hospital Test 19:57:18 [code = INFLUENZA VACCINE] Future Scheduled 2021-10-[address] [facility] Test 00:00:00 (12+) [code = Medical Center DEPRESSION SCREENING (12+)] Future Scheduled 2021-10-[address] [facility] Test 00:00:00 (12+) [code = Medical Center DEPRESSION SCREENING (12+)] Future Scheduled 2021-10-[address] [facility] Test 00:00:00 (12+) [code = Medical Center DEPRESSION SCREENING (12+)] Future Scheduled [address] [facility] Test 00:00:00 (procedure) [code [facility] 73577559] Future Scheduled [address] [facility] Test 00:00:00 (procedure) [code = [facility] 59688934] Future Scheduled [address] [facility] Test 00:00:00 (procedure) [code = [facility] 33343878] Future Scheduled 1997 DTAP/TDAP/TD [facility] [...] Date/Time Type Type Clinicians Facility Department ID 2022-07-06 2022-07-06 Outpatient GC_TPP_Pour PRIV PRIV [id number] [facility] 00:00:00 00:00:00 -Enochfargallito_B [id number] [facility] 2022-06-29 2022-06-29 Outpatient GC_TPP_Pour PRIV PRIV [id number] [facility] 00:00:00 00:00:00 -Enochfari_B [id number] [facility] 2022-06-21 2022-06-22 [place] [address].2.840.1 [id number] Methodi 07:33:00 12:53:00 Encounter Wing 49176.1.[address] 3.430.2.7 Hospit a .3.085534 l .8 2022-06-21 2022-06-22 [facility] 1.2.840.1 [id number] Methodi 07:33:00 12:53:00 Encounter Wing [address]2718.1.[address] 3.430.2.7 Hospit a .3.350600 l .8 2022-06-21 2022-06-21 Anesthesia Koby Dowling V. 1.2.840.1 [id number] Methodi 10:40:00 14:35:00 Event Darshana Joaquin 20344.1.[address] 3.430.2.7 Hospit a .3.271326 l .8 2022-06-21 2022-06-21 Anesthesia Koby Dowling V. 1.2.840.1 [id number] [facility]i 10:40:00 14:35:00 Event Darshana Joaquin 12689.1.[address] 3.430.2.7 Hospit a .3.886423 l .8 2022-06-21 2022-06-21 Surgery Nazeri, 1.2.840.1 [id number] [facility] 10:30:00 13:00:[address] 3.430.2.7 Hospit a .3.226849 l .8 2022-06-21 2022-06-21 Surgery Nazeri, 1.2.840.1 [id number] [facility] 10:30:00 13:00:[address] 3.430.2.7 Hospit a .3.087249 l .8 2022-06-20 2022-06-20 Lab Nazeri, 1.2.840.1 [id number] [facility]i 08:55:00 09:00:[address] 3.430.2.7 Hospit a .3.151212 l .8 2022-06-20 2022-06-20 Lab Nazeri, 1.2.840.1 [id number] [facility]i 08:55:00 09:00:[address] 3.430.2.7 Hospit a .3.291411 l .8 2022-06-20 2022-06-20 Travel 1.2.840.1 1.2.182.252 [id number] [id number] [facility]i 00:00:00 00:00:[address] 3.430.2.7 0.2.7.3.698 Ho spita .3.592617 084.8 l .8 2022-06-20 2022-06-20 Travel 1.2.840.1 1.2.563.010 [id number] [id number] [facility] 00:00:00 00:00:[address] 3.430.2.7 0.2.7.3.698 Ho spita .3.040589 084.8 l .8 2022-06-16 2022-06-16 [facility] Cheng, 1.2.840.1 [id number] Methodi 00:00:00 00:00:00 Orders Wing [address]78.1.[address] 3.430.2.7 Hospit a .3.165073 l .8 2022-06-16 2022-06-16 [facility] Cheng, 1.2.840.1 [id number] Methodi 00:00:00 00:00:00 Orders Wing [address]2425.1.[address] 3.430.2.7 Hospit a .3.437321 l .8 2022-05-13 2022-05-13 Emergency Katie Merlos 1.2.840.1 [id number] Methodi 15:34:00 19:53:00 Pamela Le 67190.1.1 363 s t 3.430.2.7 Hospit a .3.893005 l .8 2022-05-13 2022-05-13 Emergency Katie Merlos 1.2.840.1 [id number] Methodi 15:34:00 19:53:00 Pamela Le 77264.1.1 363 s t 3.430.2.7 Hospit a .3.850486 l .8 2022-03-24 2022-03-24 Outpatient R [facility] [id number] Univers 17:00:00 17:27:59 [facility] gloria alicea [facility] 2022-03-24 2022-03-24 Urgent [facility] 1.2.840.114 [id number] Univers 17:00:00 17:27:59 Care [facility] 350.1.13.10 i ty of KEITHMARIA 4.2.7.2.686 Jacob as LOR?BLEA [id number] [address] MEDICAL OFFICE BUILDING 2020-10-14 2020-10-14 Outpatient NAZERI, [facility] [id number] [place] 00:00:00 00:00:[address] 2020-07-18 2020-07-18 Outpatient CHENG, [facility] [id number] [place] 00:00:00 00:00:00 WING [address] 2020-06-18 2020-06-18 Outpatient CHENG, [facility] [id number] [place] 00:00:00 00:00:00 WING [address] Results Test Description Test Time Test Comments Results Result Comments Source ECG 12 lead 2022-06-22 12:52:17 Test Item Value Reference Range Interpretation Comme nts Ventricular rate (test code = 253) Atrial rate (test code = 255) AL interval (test code = 266) QRSD interval (test code = 260) QT interval (test code = 264) QTC interval (test code = 265) P axis 1 (test code = 267) QRS axis 1 (test code = 268) T wave axis (test code = 270) EKG impression (test code = 273) Normal sinus rhythm with sinus arrhythmia- [address]2022-08-25 12:52:17 Test Item Value Reference Range Interpretation Comments Ventricular rate (test code = 253) Atrial rate (test code = 255) AL interval (test code = 266) QRSD interval [...] Kinsey MD ([id number]) on 06/22/2022 7:52:15 AM [address]2022-08-25 12:52:17 Test Item Value Reference Range Interpretation Comments Ventricular rate (test code = 253) Atrial rate (test code = 255) AL interval (test code = 266) QRSD interval [...] Kinsey MD ([id number]) on 06/22/2022 7:52:15 AM [facility] [id number] 18:12:38 Test Item Value Reference Interpretation Comments Range Interpretation (test Negative results do not code = 5094707) preclude COVID-19 infection and should not be used asthe sole basis for treatment or other patient management decisions. Negativeresults must be combined with clinical observations, patient history, andepidemiological information. COVID-19 qualitative Not-Detected Not-Detected RT-PCR result (test code = 32802-8) COVID-19 qualitative See link below for PDF Case Number: RT-PCR (test code = Lab Report [id number] 7070) [facility] qualitative [id number] 18:12:38 Test Item Value Reference Interpretation Comments Range Interpretation (test Negative results do not code = 1262496) preclude COVID-19 infection and should not be used asthe sole basis for treatment or other patient management decisions. Negativeresults must be combined with clinical observations, patient history, andepidemiological information. COVID-19 qualitative Not-Detected Not-Detected RT-PCR result (test code = 22879-8) COVID-19 qualitative See link below for PDF Case Number: RT-PCR (test code = Lab Report [id number] 7070) [facility] qualitative [id number] 18:12:38 Test Item Value Reference Interpretation Comments Range Interpretation (test Negative results do not code = 7706181) preclude COVID-19 infection and should not be used asthe sole basis for treatment or other patient management decisions. Negativeresults must be combined with clinical observations, patient history, andepidemiological information. COVID-19 qualitative Not-Detected Not-Detected RT-PCR result (test code = 16365-7) COVID-19 qualitative See link below for PDF Case Number: RT-PCR (test code = Lab Report [id number] 7070) [facility]-CoV-2 (COVID-19) RNA [Presence] in Respiratory specimen by DENIS with probe [id number] 13:12:38 Test Item Value Reference Range Interpretation Comments SARS-CoV-2 (COVID-19) RNA Not detected [Presence] in Respiratory specimen by DENIS with probe detection (test code = 77467-1) Whether patient is employed in a Unknown healthcare setting (test code = 08580-0) Whether the patient has symptoms Unknown related to condition of interest (test code = 01937-6) Whether the patient was Unknown hospitalized for condition of interest (test code = 97638-8) Whether the patient was admitted Unknown to intensive care unit (ICU) for condition of interest (test code = 27555-6) Whether patient resides in a Unknown congregate care setting (test code = 92108-9) status (test code = Unknown 65071-0) Date and time of symptom onset Unknown (test code = 65394-3) SARS-CoV-2 (COVID-19) RNA [Presence] in Respiratory specimen by DENIS with probe [id number] 23:44:02 Test Item Value Reference Range Interpretation Comments SARS-CoV-2 (COVID-19) RNA Not detected Not-Detected [Presence] in Respiratory specimen by DENIS with probe detection (test code = 83085-6) BLOOD [id number] 08:01:00 Test Item Value Reference Range Interpretation Comments CULTURE (BEAKER) (test No growth in 5 days code = 1095) MISCELLANEOUS LAB [id number] 07:37:00 Test Item Value Reference Range Interpretation Comments SCAN RESULT (test code = 8786616) BLOOD [id number] 08:00:00 Test Item Value Reference Range Interpretation Comments CULTURE (BEAKER) (test No growth in 5 days code = 1095) BLOOD [id number] 08:00:00 Test Item Value Reference Range Interpretation Comments CULTURE (BEAKER) (test No growth in 5 days code = 1095) ANTI-NUCLEAR ANTIBODY (AURA)2019-07-30 09:44:00 Test Item Value Reference Range Interpretation Comments ANTI-NUCLEAR ANTIBODY (AURA) (BEAKER) Positive Negative A (test code = 418) Test performed by IFA method.AURA TITER AND [id number] 09:44:00 Test Item Value Reference Range Interpretation [...] (test code Normal = 486) HEPATIC FUNCTION [id number] 09:58:00 Test Item Value Reference Range Interpretation [...] 347) CBC WITH PLATELET COUNT + MANUAL [id number] 09:29:00 Test Item Value Reference Range Interpretation [...] (BEAKER) (test code = 413) RESPIRATORY PANEL [id number] 15:15:00 Test Item Value Reference Range Interpretation [...] decisions. This sample was tested at the [facility] using the MetaPackArray Respiratory Panel. It is FDA cleared and has been verified and approved by the [facility] for clinical use on nasopharyngeal swab specimens.The performance of the FilmArrayRP has not been established in individuals who received influenza vaccine. Recent administration of a nasal influenza vaccine may cause false positive results for Influenza A and/orInfluenza B.EBV VIRAL [id number] 13:49:00 Test Item Value Reference Range Interpretation [...] (2) real-time PCR amplification and detection with WMFH-1-tsrnilyh primers and probes. A well-conserved region of the EBNA-1 gene is targeted, along with an internal control sequence used to confirm PCR amplification. Asymptomatic carriers and viral genetic variation, among other factors, can affect the accuracy of nucleic acidtesting; therefore, results should be interpreted in light of clinical data.This test was developed and its performance characteristics determined by the [facility] Pathology Department,Section of Molecular Pathology. It [...] real- time PCR amplification and detection with FHMC-9-bpdmtzad primers and probes. A well-conserved region of the EBNA-1 gene is targeted, along with an internal control sequence used to confirm PCR amplification. Asymptomatic carriers and viral genetic variation, among other factors, can affect the accuracy of nucleic acid testing; therefore, results should be interpreted in light of clinical data.This test was developed and its performance characteristics determined by the [facility] Pathology Department, Section of Molecular Pathology.It has not been cleared or approved by the U.S. Food and Drug Administration (FDA), since FDA approval is not required for clinical use of the test. Validation was done as required by The Clinical Laboratory Improvement Amendments of 1988.CMV PCR, [id number] 13:43:00 Test Item Value Reference Range Interpretation [...] and its performance characteristics determined by the [facility] Pathol ogy Department, Section of Molecular Pathology. It has not been cleared or approved by the U.S. Foodand Drug Administration (FDA), since FDA approval is not required for clinical use of the test. Validation was done as required by The Clinical Laboratory Improvement Amendments of 1988.RHEUMATOID FACTOR AB, REFLEX TO [id number] 13:10:00 Test Item Value Reference Range Interpretation Comments RHEUMATOID FACTOR (BEAKER) (test Negative code = 573) BASIC METABOLIC [id number] 06:42:00 Test Item Value Reference Range Interpretation [...] S NOT APPLICABLE FOR DIALYSIS PATIEN TS. [id number] 12:15:00 Test Item Value Reference Range Interpretation Comments RPR SCREEN (BEAKER) (test code = Nonreactive Nonreactive 420) HIV-1 ANTIGEN WITH HIV-1/2 [id number] 04:56:00 Test Item Value Reference Range Interpretation Comments HIV-1 ANTIGEN WITH HIV 1\T\2 Nonreactive Nonreactive ANTIBODY (2) (BEAKER) (test code = 2586) BASIC METABOLIC [id number] 04:24:00 Test Item Value Reference Range Interpretation [...] DIALYSIS PATIEN TS. URINALYSIS W/ REFLEX URINE [id number] 00:26:00 Test Item Value Reference Range Interpretation [...] = 2795) RAD, CHEST, 1 VIEW, NON [id number] 10:25:00Reason for exam:- >leukocytosis, fever r/o infectionFINAL [...] Watts Verified Date/Time: 07/26/2019 10:25:43 Reading Location: [address] Ortho Consult Reading Room CBC W/PLT COUNT & AUTO [id number] 10:24:00 Test Item Value Reference Range Interpretation [...] = 3438) Received comment: User comments: Slide comments:[id number] 10:11:00 Test Item Value Reference Range Interpretation [...] pg/mL 0-100 (test code = 700) TROPONIN [id number] 10:00:00 Test Item Value Reference Range Interpretation [...] acute neurological disease, and persistent tachyarrhythmia.BASIC METABOLIC [id number] 09:54:00 Test Item Value Reference Range Interpretation [...] U/L 29-200 code = 380) POCT-LACTIC ACID, [id number] 09:50:00 Test Item Value Reference Range Interpretation Comments POC-LACTIC ACID, 1.3 mmol/L 0.4-1.3 TESTED AT [facility] [address] (BEAKER) [facility] (test code = 2804) [address] [id number] 09:50:00 Test Item Value Reference Range Interpretation Comments POC-HEMOGLOBIN 11.6 g/dL 13.0-16.[address] [facility] 67[address] (BEAKER) (test code [facility] [place] = 1856) [id number] AT [facility] [address] [facility] [address] POCT-BLOOD GASES, [id number] 09:49:00 Test Item Value Reference Range Interpretation Comments TEMP, CELSIUS-POC 37.0 (BEAKER) (test code = 1834) FIO2-POC (BEAKER) TESTED AT [facility] 67 (test code = 1835) [facility] [address] PH, ARTERIAL-POC 7.370 7.350-7.450 (BEAKER) (test code = 1836) PCO2, ARTERIAL-POC 41.0 mm Hg 35.0-45.0 (BEAKER) (test code = 1837) PO2, ARTERIAL-POC 86.0 mm Hg 80.0-90.0 (BEAKER) (test code = 1838) SO2, ARTERIAL-POC 96.0 % 96.0-97.0 (BEAKER) (test code = 1839) HCO3, ARTERIAL-POC 23.7 meq/L 21.0-29.0 (BEAKER) (test code = 1840) BASE EXCESS, -2.0 meq/L -2.0-3.0 ARTERIAL-POC (BEAKER) (test code = 1841) [id number] 09:49:00 Test Item Value Reference Range Interpretation Comments POC-SODIUM (BEAKER) 137 meq/L 135-148 TESTED A [place] [address] (test code = 1542) [facility] [address] [id number] 09:49:00 Test Item Value Reference Range Interpretation Comments POC-POTASSIUM 3.3 meq/L 3.6-5.5 L TESTED AT [place] [address] ([facility]) (test code [facility] [address] = 1540) [id number] 09:49:00 Test Item Value Reference Range Interpretation Comments POC-GLUCOSE (BEAKER) 153 mg/dL 70-110 H TESTED AT [place] [address] (test code = 1855) [facility] [address] POCT-CALCIUM [id number] 09:49:00 Test Item Value Reference Range Interpretation Comments POC-CALCIUM IONIZED 1.22 mmol/L 1.12-1.27 TESTED A [place] [address] (BEAKER) (test code = [facility] 1536) [address] [id number] 09:49:00 Test Item Value Reference Range Interpretation Comments POC-HEMATOCRIT 34 % 40-50 L TESTED AT [place] [place] [address] (BEAKER) (test code = [facility] [id number]) URINALYSIS WITH MICROSCOPIC IF [id number] 07:55:00 Test Item Value Reference Range Interpretation [...] 463) SOURCE(BEAKER) (test code = 2795) URINALYSIS [id number] 07:55:00 Test Item Value Reference Range Interpretation Comments RBC UA (BEAKER) (test code = 519) 1 /HPF WBC UA (BEAKER) (test code = 520) 9 /HPF MUCUS (BEAKER) (test code = 1574) Rare SQUAMOUS EPITHELIAL (BEAKER) (test < /HPF code = 516) C-REACTIVE [id number] 07:27:00 Test Item Value Reference Range Interpretation Comments C-REACTIVE PROTEIN (BEAKER) (test 15.31 mg/dL 0.00-0.50 H code = 676) CBC W/PLT COUNT & AUTO [id number] 04:17:00 Test Item Value Reference Range Interpretation [...] (BEAKER) (test code = 2801) BASIC METABOLIC [id number] 03:45:00 Test Item Value Reference Range Interpretation [...]
[2022-07-06 21:43] LABS: Absolute Lymphocytes (CBC) 2.2 K/uL (0.7-4.9); Hematocrit 39.5 % (39.6-49.0); Lymphocytes % 19.7 % (15.3-44.8); MCV 87.9 fL (80-100); MPV 10.1 fL (7.6-11.3)
--- NOTE | 2022-07-06 21:45 | RAD REPORT ---
EXAM DESCRIPTION: RAD - Chest Single View - 07/06/2022 9:38 pm CLINICAL HISTORY: CHEST PAIN COMPARISON: Portable 05/20/2022 TECHNIQUE: AP portable chest image was obtained 07/06/2022 9:38 pm . FINDINGS: No focal lung parenchymal process seen. Interstitial pattern matches comparison. Loop ciro rder overlies the upper chest on the left. Heart and vasculature are normal. No measurable pleural ef fusion and no pneumothorax. No acute bony abnormality seen. No acute aortic findings suspected. IMPRESSION: No acute cardiopulmonary process. No significant change from comparison study.
[2022-07-06 22:08] LABS: Albumin 3.8 g/dL (3.4-5.0); Bilirubin Direct 0.2 mg/dL (0-0.2); Bilirubin Total 0.5 mg/dL (0.2-1.0); Potassium 3.5 mmol/L (3.5-5.1); Troponin High Sensitivity 8.5 pg/mL (<58.9)
--- NOTE | 2022-07-06 22:10 | EDPHYS ---
Physician Documentation [facility] Name: Uzair Sullivan Age: 42 yrs Sex: Male : 1980 Arrival Date: 07/06/2022 Time: 20:42 Bed 16 Private MD: ED Physician Sergio Hung HPI: 07/06 21:07 This 42 yrs old Male presents to ER via Ambulatory with complaints of Chest rn Pain > 30 y/o. 21:07 The patient or guardian reports chest pain that is located primarily in the substernal rn area, anterior chest wall. Onset: 5 hour(s) ago. The pain does not radiate. Associated signs and symptoms: Pertinent negatives: abdominal pain, cough, diaphoresis, palpitations, shortness of breath, syncope, vomiting. The chest pain is described as sharp, stabbing. Duration: The patient or guardian reports multiple episodes, that are intermittent. Modifying factors: The symptoms are alleviated by nothing. the symptoms are aggravated by nothing. Severity of pain: At its worst the pain was mild in the emergency department the pain has improved. The patient has not experienced similar symptoms in the past. The patient has been recently seen by a physician:. Pt reports driving home from doctor appointment around 4PM today, began to feel left sided sharp stabbing chest pain, intermittent, nothing makes it worse or better. NO trauma. Does not feel palpitations. No current chest pain. Reports being treated for diverticulitis at this time with abx. . Historical: - Allergies: 20:48 No Known Allergies; as6 - Home Meds: 20:48 metoprolol succinate 25 mg Oral Tb24 1 tab once daily [Active]; propafenone 225 mg Oral as6 tab 1 tab twice a day [Active]; - PMHx: 20:48 arrhythmia; Diverticulitis; Lupus erythematosus; as6 - PSHx: 20:48 Heart ablation; heart cath; as6 - Immunization history:: Client reports receiving the 2nd dose of the Covid vaccine, [employer] Client reports receiving the Rajinder \T\ Rajinder single-dose vaccine. - Social history:: Smoking status: Patient denies any tobacco usage or history of. - Family history:: not pertinent. - Hospitalizations: : No recent hospitalization is reported. ROS: 21:24 Constitutional: Negative for fever, chills, and weight loss, Eyes: Negative for injury, rn pain, redness, and discharge, Neck: Negative for injury, pain, and swelling, Cardiovascular: Negative for palpitations, and edema, Respiratory: Negative for shortness of breath, cough, wheezing, and pleuritic chest pain, Abdomen/GI: Negative for abdominal pain, nausea, vomiting, diarrhea, and constipation, Back: Negative for injury and pain, MS/Extremity: Negative for injury and deformity, Skin: Negative for injury, rash, and discoloration, Neuro: Negative for headache, weakness, numbness, tingling, and seizure. Exam: 21:05 ECG was reviewed by the Attending Physician. rn 21:24 Constitutional: This is a well developed, well nourished patient who is awake, alert, rn and in no acute distress. Head/Face: Normocephalic, atraumatic. Cardiovascular: Regular rate and rhythm. No pulse deficits. Respiratory: Clear bilateral breath sounds. No increased work of breathing, no retractions or nasal flaring. Skin: Warm, dry MS/ Extremity: Pulses equal, no cyanosis. Neuro: Awake and alert, GCS 15 Vital Signs: 20:45 BP 115 / 93; Pulse 67; Resp 16 S; Temp 97.6(O); Pulse Ox 98% on R/A; Weight 86.18 kg as6 (R); Height 5 ft. 9 in. (175.26 cm) (R); Pain 0/10; 21:33 BP 123 / 91; Pulse 73; Resp 16; Pulse Ox 100% ; ja4 20:45 Body Mass Index 28.06 (86.18 kg, 175.26 cm) as6 MDM: 20:42 Patient medically screened. rn 22:09 Differential diagnosis: acute pericarditis, anxiety, chest wall pain, costochondritis, rn esophagitis, gastritis, gastroesophageal reflux disease (GERD), pericarditis, pneumonia, pneumothorax, pulmonary embolus. Data reviewed: vital signs, nurses notes, lab test result(s), EKG, radiologic studies, plain films, and as a result, I will discharge patient. Counseling: I had a detailed discussion with the patient and/or guardian regarding: the historical points, exam findings, and any diagnostic results supporting the discharge/admit diagnosis, lab results, radiology results, the need for outpatient follow up, to return to the emergency department if symptoms worsen or persist or if there are any questions or concerns that arise at home. Special discussion: Based on the patient's history, exam, and Dx evaluation, there is no indication for emergent intervention or inpatient Tx. It is understood by the patient/guardian that if the Sx's persist or worsen they need to return immediately for re-evaluation. I discussed with the patient/guardian in detail that at this point there is no indication for admission to the hospital. It is understood, however, that if the symptoms persist or worsen the patient needs to return immediately for re-evaluation. 07/06 20:56 Order name: Basic Metabolic Panel; Complete Time: 22:09 rn 07/06 20:56 Order name: CBC with Diff; Complete Time: 21:48 rn 07/06 20:56 Order name: D-Dimer; Complete Time: 22: rn 07/06 20:56 Order name: LFT's; Complete Time: 22: rn 07/06 20:56 Order name: Troponin HS; Complete Time: 22: rn 07/06 20:56 Order name: Lipase; Complete Time: 22: rn 07/06 20:56 Order name: XRAY Chest (1 view); Complete Time: 21:48 rn 07/06 20:56 Order name: EKG; Complete Time: 20:57 rn 07/06 20:56 Order name: Cardiac monitoring; Complete Time: 21:41 rn 07/06 20:56 Order name: EKG - Nurse/Tech; Complete Time: 21:00 rn 07/06 20:56 Order name: IV Saline Lock; Complete Time: 21:41 rn 07/06 20:56 Order name: Labs collected and sent; Complete Time: 21:41 rn 07/06 22:32 Order name: Troponin High Sensitivity rn 07/06 20:56 Order name: O2 Per Protocol; Complete Time: 21:01 rn 07/06 20:56 Order name: O2 Sat Monitoring; Complete Time: 21:01 rn EC:05 Rate is 59 beats/min. Rhythm is regular. QRS [place] is Normal. RI interval is normal. QRS rn interval is normal. QT interval is normal. No Q waves. T waves are Normal. No ST changes noted. Clinical impression: Sinus bradycardia. Interpreted by me. Reviewed by me. Administered Medications: 22:43 Drug: Valium (diazepam) 5 mg Route: PO; ja4 Disposition Summary: 07/06/22 22:09 Discharge Ordered Location: Home rn Problem: new rn Symptoms: have improved rn Condition: Stable rn Diagnosis - Chest pain, unspecified rn Followup: rn - With: Private Physician - When: As needed - Reason: Recheck today's complaints, Re-evaluation by your physician Discharge Instructions: - Discharge Summary Sheet rn - Nonspecific Chest Pain, Adult rn - Pain Without a Known Cause rn Forms: - Medication Reconciliation Form rn - Thank You Letter rn - Antibiotic shift supervisor rn - Prescription Opioid Use rn Signatures: Dispatcher [employer] EDSergio Swanson MD MD rn Slawson, Ashby RN RN as6 Khadar Hidalgo RN RN ja4 Corrections: (The following items were deleted from the chart) 21:10 21:07 Pt reports driving home from doctor appointment around 4PM today, began to feel rn left sided sharp stabbing chest pain, intermittent, nothing makes it worse or better. NO trauma. Does not feel palpitations. No current chest pain. . rn
--- NOTE | 2022-07-06 22:10 | ER ---
Nurse's Notes [facility] Name: Uzair Sullivan Age: 42 yrs Sex: Male : 1980 Arrival Date: 07/06/2022 Time: 20:42 Bed 16 Private MD: Diagnosis: Chest pain, unspecified Presentation: 07/06 20:45 Chief complaint: Patient states: "I've been having stabbing chest pains since about 4 as6 o'clock off and on". Coronavirus screen: At this time, the client does not indicate any symptoms associated with coronavirus-19. Ebola Screen: No symptoms or risks identified at this time. Initial Sepsis Screen: Does the patient meet any 2 criteria? No. Patient's initial sepsis screen is negative. Does the patient have a suspected source of infection? No. Patient's initial sepsis screen is negative. Risk Assessment: Do you want to hurt yourself or someone else? Patient reports no desire to harm self or others. Onset of symptoms was July 06, 2022 at 16:00. 20:45 Method Of Arrival: Ambulatory as6 20:45 Acuity: GLORIA 3 as6 Triage Assessment: 20:50 General: Appears in no apparent distress. Behavior is cooperative, anxious. Pain: as6 Complains of pain in anterior aspect of left upper chest and mid-sternal area. Cardiovascular: Reports chest pain. Historical: - Allergies: 20:48 No Known Allergies; as6 - Home Meds: 20:48 metoprolol succinate 25 mg Oral Tb24 1 tab once daily [Active]; propafenone 225 mg Oral as6 tab 1 tab twice a day [Active]; - PMHx: 20:48 arrhythmia; Diverticulitis; Lupus erythematosus; as6 - PSHx: 20:48 Heart ablation; heart cath; as6 - Immunization history:: Client reports receiving the 2nd dose of the Covid vaccine, [employer] Client reports receiving the Rajinder \\T\\ Rajinder single-dose vaccine. - Social history:: Smoking status: Patient denies any tobacco usage or history of. - Family history:: not pertinent. - Hospitalizations: : No recent hospitalization is reported. Screenin:33 Abuse screen: Denies threats or abuse. Nutritional screening: No deficits noted. ja4 Tuberculosis screening: No symptoms or risk factors identified. Assessment: 21:33 General: Appears in no apparent distress. uncomfortable, Behavior is calm, cooperative, ja4 appropriate for age. Pain: Complains of pain in chest Pain began 4 hours ago. Is intermittent. Cardiovascular: Reports chest pain. Vital Signs: 20:45 BP 115 / 93; Pulse 67; Resp 16 S; Temp 97.6(O); Pulse Ox 98% on R/A; Weight 86.18 kg as6 (R); Height 5 ft. 9 in. (175.26 cm) (R); Pain 0/10; 21:33 BP 123 / 91; Pulse 73; Resp 16; Pulse Ox 100% ; ja4 20:45 Body Mass Index 28.06 (86.18 kg, 175.26 cm) as6 ED Course: 20:42 Patient arrived in ED. bp1 20:42 Sergio Hung MD is Attending Physician. rn 20:48 Triage completed. as6 20:50 Arm band placed on. as6 20:51 Patient maintains SpO2 saturation greater than 95% on room air. as6 21:05 EKG completed in triage. Results shown to MD. as6 21:17 Khadar Hidalgo, RN is Primary Nurse. ja4 21:33 Client placed on continuous cardiac and pulse oximetry monitoring. NIBP monitoring ja4 applied. 21:33 Inserted saline lock: 20 gauge in left hand, using aseptic technique. Blood collected. ja4 21:40 XRAY Chest (1 view) In Process Unspecified. EDMS 21:44 Basic Metabolic Panel Sent. ja4 21:44 CBC with Diff Sent. ja4 21:44 D-Dimer Sent. ja4 21:44 LFT's Sent. ja4 21:44 Troponin HS Sent. ja4 22:42 Troponin High Sensitivity Sent. ja4 23:19 IV discontinued, intact, bleeding controlled, No redness/swelling at site. Pressure ja4 dressing applied. Administered Medications: 22:43 Drug: Valium (diazepam) 5 mg Route: PO; ja4 Outcome: 22:09 Discharge ordered by . rn 23:20 Discharged to home ja4 23:20 Condition: good 23:20 Discharge instructions given to patient, Instructed on discharge instructions, follow up and referral plans. medication usage, Demonstrated understanding of instructions, follow-up care, medications. 23:20 Patient left the ED. ja4 Signatures: Dispatcher [employer] EDMS Hung, Sergio, MD MD rn Oralia Hinson Ashby RN RN as6 Khadar Hidalgo RN RN ja4
[2022-07-06] MEDS ORDERED: LORAZEPAM 0.5 MG TABLET ONE (22:44)
[2022-07-06] MEDS ORDERED: DIAZEPAM 5 MG TABLET ONE (22:46)
[2022-07-07 02:00] VITALS: TEMP 97.6
[2022-07-07 02:12] VITALS: BP 123/91; O2SAT 100
--- NOTE | 2022-07-07 13:56 | EKG ---
Test Date: 2022-07-06 Test Time: 20:53:56 Ecological Risk Assessor: MEASUREMENT RESULTS: Intervals: Rate: 59 MI: 156 QRSD: 90 QT: 410 QTc: 405 Roulette: P: 28 MI: 156 QRS: -8 T: 29 INTERPRETIVE STATEMENTS: Sinus bradycardia Minimal voltage criteria for LVH, may be normal variant Borderline ECG Compared to ECG 06/29/2022 00:24:39 Sinus rhythm no longer present Electronically Signed On 07-07-22 13:55:14 CDT by Reji Shcwartz
== END 2022-07-06 23:20 | disposition home or self-care (01) ==
LOC: ER 20:40
DX: R07.89 Other chest pain (principal); I49.9 Cardiac arrhythmia, unspecified
CPT/HCPCS: 36415; 71045; 80048; 80076; 83690; 84484; 85025; 85379; 93005; 99284

== ENCOUNTER 2022-08-17 14:12 | Emergency (ER) | payer BC ==
--- OUTSIDE RECORDS SUMMARY | 2022-08-17 14:17 | XMS REPORT | Continuity of Care Document ---
:1980 Author Organization [facility] t Address [address] [place] [address] Dr. Aguirre. [address] [place] [address] Care Team Providers Name Role Phone Pcp, Patient Does Not Have A Primary Care Physician [id number] GC_TPP_Pour-Jafari_B Attending Clinician Unavailable Ashanti Burrell Attending Clinician [phone] Wing Anand MD Attending Clinician Nitesh SÁNCHEZ, Koby Michel Attending Clinician Darshaan Joaquin Attending Clinician Gaurang SÁNCHEZ, Katie Le [...] Expiration Date S ource [place] [id number] 2020 00:00:00 [place] [facility] [place] [id number] 2020 00:00:00 OUT OF STATE Problems Condition Condition Condition Status Onset Resolution Last Treating Co mments Source Name Details Category Date Date Treatment Clinician Date Anxiety Anxiety Problem Active [facility] attack Attack 07-20 Medical 00:00: 00 Generalize Generalize Problem Active [facility] d anxiety d Anxiety 07-07 Medi leon disorder Disorder 00:00: 00 Panic Panic Problem Active [facility] disorder Disorder 07-07 Medica l 00:00: 00 Cardiac Cardiac Problem Active [facility] arrhythmia Arrhythmia 07-06 Me dical 00:00: 00 Diverticul Diverticul Problem Active [facility] itis of itis of 07-06 Medical colon Colon 00:00: 00 Painless Painless Problem Active [facility] a rectal Rectal 07-06 Medical bleeding Bleeding 00:00: 00 Chronic Chronic Problem Active [facility] urticaria Urticaria 07-06 Medi leon 00:00: 00 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 00:00: 00 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 06-21 st icular icular 00:00: Hospita tachycardi tachycardi [...] rs active active ity of problems problems [facility] Allergies, Adverse Reactions, Alerts Allergy Allergy Status Severity Reaction(s) Onset Inactive Treating Comm ents Source Name Type Date Date Clinician NO KNOWN [facility] Drug Active [facility] ALLERGIE Class ity of S [facility] Family History Family Member Diagnosis Comments Start Date Stop Date Source Natural father [facility] Social History Social Habit Start Date Stop Date Quantity Comments Source History SDOH [facility] r Drinks History SDOH [facility] Alcohol Binge Medical Aubrey ter History SDOH [facility] Alcohol Comment Medical C enter Alcohol intake 2022-06-23 2022-06-23 Lifetime [facility] 00:00:00 00:00:00 non-drinker (finding) Exposure to 2022-03-14 2022-03-24 Not sure [facility]-CoV-2 00:00:00 16:51:00 [place] [facility] (event) [facility] Tobacco use and 2019-07-26 2019-07-[address] [facility] [facility] kes exposure 00:00:00 00:00:00 Medical Center History SDOH 2019-07-26 2019-07-[address] [facility] Alcohol Frequency 00:00:00 00:00:00 Medical Center Sex Assigned At [birth year] [facility] 00:00:00 00:00:00 Smoking Status Start Date Stop Date Source Never Smoker [facility] Medical Smoker, current status 2022-03-24 00:00:00 [facility] unknown Branch Medications Ordered Filled Start Stop Current [...] daily for tablet 30 days. metoprolol 2021- No 25mg QD Take 1 Meth ramona succinate 8-25 09-25 tablet (25 st XL 00:00: 04:59 mg total) Hospita (TOPROL-XL) 00 :00 by mouth l 25 mg 24 hr daily for tablet 30 days. ondansetron 2022-0 2022- No 4mg Q8H Take 1 Met [facility] ODT 7-16 08-16 tablet (4 st (ZOFRAN-ODT 00:00: 04:59 mg total) Hospita ) 4 MG 00 :00 by mouth l disintegrat every 8 ing tablet (eight) hours as needed for nausea or vomiting for up to 30 days. dicyclomine 2022-0 2022- No 20mg Q.5D Take 1 Met [facility] (BENTYL) 20 7-16 08-16 tablet (20 s t mg tablet 00:00: 04:59 mg total) Ho spita 00 :00 by mouth 2 l (two) times a day for 30 days. ondansetron 2022-0 2022- No 4mg Q8H Take 1 Met hodi ODT 7-16 08-16 tablet (4 st (ZOFRAN-ODT 00:00: 04:59 mg total) Hospita ) 4 MG 00 :00 by mouth l disintegrat every 8 ing tablet (eight) hours as needed for nausea or vomiting for up to 30 days. dicyclomine 2022-0 2022- No 20mg Q.5D Take 1 Met hodi (BENTYL) 20 7-16 08-16 tablet (20 s t mg tablet 00:00: 04:59 mg total) Ho spita 00 :00 by mouth 2 l (two) times a day for 30 days. ondansetron 2022-0 2022- No 4mg Q8H Take 1 Met hodi ODT 7-16 08-16 tablet (4 st (ZOFRAN-ODT 00:00: 04:59 mg total) Hospita ) 4 MG 00 :00 by mouth l disintegrat every 8 ing tablet (eight) hours as needed for nausea or vomiting for up to 30 days. dicyclomine 2022-0 2022- No 20mg Q.5D Take 1 Met hodi (BENTYL) 20 7-16 08-16 tablet (20 s t mg tablet 00:00: 04:59 mg total) Ho spita 00 :00 by mouth 2 l (two) times a day for 30 days. ondansetron 2022-0 2022- No 4mg Q8H Take 1 Met hodi [...] day for 30 days. amoxicillin 2021- No [id number] 1{tbl} Take 1 Univers -clavulanat 5-27 06-07 tablet by it y of e 00:00: 04:59 mouth 2 [place] (AUGMENTIN) 00 :00 (two) Medical 875-125 mg times Branch per tablet daily for 10 days. alprazolam alprazolam No alprazolam [facility] 0.5 mg 0.5 mg 0.5 mg Medical tablet one tablet one tablet one po once a po once a po once a day as day as day as needed needed needed metoprolol metoprolol No metoprolol [facility] succinate succinate succinate Medical ER 25 mg ER 25 mg ER 25 mg tablet,exte tablet,exte tablet,ext nded nded ended release 24 release 24 release 24 hr hr hr propafenone propafenone No 1capsul Q12H propafenon [facility] ER 225 mg ER 225 mg e(s) e ER 225 M edical capsule,ext capsule,ext mg ended ended capsule,ex release 12 release 12 tended hr Take 1 hr Take 1 release 12 capsule capsule hr Take 1 every 12 every 12 capsule hours by hours by every 12 oral route oral route hours by as as oral route directed. directed. as directed. Immunizations Ordered Immunization Filled Immunization Date Status Commen ts Source Name Name iWatt COVID-19 MRNA 2021-10-27 Completed Meth odist VACCINATION 00:00:00 [facility] COVID-19, mRNA, COVID-19, mRNA, 2021-10-27 Completed [facility] LNP-S, PF, 30 LNP-S, PF, 30 00:00:00 mcg/0.3 mL dose mcg/0.3 mL dose (Blaze DFM) (Blaze DFM) VANNESSA COVID-19 2021-02-04 Completed Methodis t AD26 VACCINATION 00:00:00 [facility] COVID-19 vaccine, COVID-19 vaccine, 2021-02-04 Completed [facility] vector-nr, rS-Ad26, vector-nr, rS-Ad26, 00:00:00 PF, 0.5 mL (Vannessa) PF, 0.5 mL (Vannessa) Vital Signs Vital Name Observation Time Observation Value Comments Source BP Diastolic 2022-07-20 00:00:00 87 [facility] 00:00:00 69 [in_i] [facility] BMI (Body Mass 2022-07-20 00:00:00 28.1 kg/m2 [facility] Index) BP Systolic 2022-07-20 00:00:00 131 mm[Hg] [facility] Body Weight 2022-07-20 00:00:00 3040 [oz_av] [facility] Systolic blood 2022-03-24 21:55:00 124 mm[Hg] [facility] Diastolic blood 2022-03-24 21:55:00 87 mm[Hg] [facility] Heart rate 2022-03-24 21:55:00 86 /min [facility] Oxygen saturation in 2022-03-24 21:55:00 100 /min [facility] blood by [facility] Pulse oximetry [place] Body height 2022-03-24 21:52:00 175.3 cm [facility] Body weight 2022-03-24 21:52:00 95.165 kg [facility] BMI 2022-03-24 21:52:00 30.98 kg/m2 [facility] Heart rate 2022-06-22 13:00:00 79 /min [facility] Systolic blood 2022-06-22 12:52:32 130 mm[Hg] [facility] Di[facility] blood 2022-06-22 12:52:32 87 mm[Hg] [facility] pressure Body temperature 2022-06-22 12:52:32 36.89 Silvia [facility] Respiratory rate 2022-06-22 12:52:32 20 /min [facility] Oxygen saturation in 2022-06-22 12:52:32 99 /min [facility] Arterial blood by Pulse oximetry Body weight 2022-06-22 01:49:34 87.544 kg [facility] BMI 2022-06-22 01:49:34 28.50 kg/m2 [facility] Body height 2022-06-21 15:19:00 175.3 cm [facility] Procedures Procedure Date / Time Performing Clinician Source Performed HC COMPLETE BLD COUNT 2022-06-22 09:30:00 Wing [facility] W/AUTO DIFF BASIC METABOLIC PANEL 2022-06-22 09:30:00 [facility] 2022-06-22 09:30:00 Wing Anand spiisrael EP COMPLETE EP STUDY W 2022-06-21 19:16:30 Wing Anand [facility] ABLATION SVT TYPE AND SCREEN 2022-06-21 14:56:00 Wing Anand spital ECG 12-LEAD 2022-06-21 13:49:16 Wing Anand spital COVID-19 QUALITATIVE 2022-06-20 14:29:00 [facility] PROTHROMBIN [facility] WITH INR 2022-06-20 14:22:00 Wing Anand [facility] HC COMPLETE BLD COUNT 2022-06-20 14:22:00 Wing Anand [facility] W/AUTO DIFF COMPREHENSIVE METABOLIC 2022-06-20 14:22:00 Wing Anand [facility] PANEL ESTIMATED GFR 2022-06-20 14:22:00 Wing Anand spital ED REFERRAL TO [place] 2022-05-14 00:33:07 [facility] SABIANISM PHYSICIAN ORGANIZATION CT ABDOMEN PELVIS W 2022-05-14 00:17:00 [facility] CONTRAST HC COMPLETE BLD COUNT 2022-05-13 21:09:00 Gaurang Katieeboni Le [facility] W/AUTO DIFF COMPREHENSIVE METABOLIC 2022-05-13 21:09:00 Gaurang [facility] PANEL LIPASE LEVEL 2022-05-13 21:09:00 [facility] ESTIMATED GFR 2022-05-13 21:09:00 [facility] Plan of Care Planned Activity Planned Date Details Comments Source Future Scheduled 2022-08-17 HEPATITIS B VACCINES Met [facility] Test 14:15:01 (1 of 3 - 3-dose series) [code = HEPATITIS B VACCINES (1 of 3 - 3-dose series)] Future Scheduled 2022-08-17 [facility] 14:15:01 screening (procedure) [code = 103885032] Future Scheduled 2022-08-17 COVID-19 VACCINE (3 [facility] 14:15:01 - Booster for Vannessa series) [code = COVID-19 VACCINE (3 - Booster for Vannessa series)] Future Scheduled 2022-08-17 INFLUENZA VACCINE Method [facility] Test 14:15:01 [code = INFLUENZA VACCINE] Future Scheduled 2022-07-05 HEPATITIS B VACCINES Met [facility] Test 17:47:18 (1 of 3 - 3-dose series) [code = HEPATITIS B VACCINES (1 of 3 - 3-dose series)] Future Scheduled 2022-07-05 [facility] Test 17:47:18 screening (procedure) [code = 279426974] Future Scheduled 2022-07-05 INFLUENZA VACCINE Method [facility] Test 17:47:18 [code = INFLUENZA VACCINE] [...] Future Scheduled 2022-06-28 HEPATITIS B VACCINES Met [facility] Test 13:37:55 (1 of 3 - 3-dose series) [code = HEPATITIS B VACCINES (1 of 3 - 3-dose series)] Future Scheduled 2022-06-28 [facility] Test 13:37:55 screening (procedure) [code = 726227434] Future Scheduled 2022-06-28 INFLUENZA VACCINE Method [facility] Hospital Test 13:37:55 [code = INFLUENZA VACCINE] Future Scheduled 2022-06-26 HEPATITIS B VACCINES Met [facility] Test 19:57:18 (1 of 3 - 3-dose series) [code = HEPATITIS B VACCINES (1 of 3 - 3-dose series)] Future Scheduled 2022-06-26 [facility] Test 19:57:18 screening (procedure) [code = 381244767] Future Scheduled 2022-06-26 INFLUENZA VACCINE Method [facility] Test 19:57:18 [code = INFLUENZA VACCINE] Future Scheduled 2021-10-[address] [facility] Test 00:00:00 (12+) [code = [facility] DEPRESSION SCREENING (12+)] Future Scheduled 2021-10-[address] [facility] Test 00:00:00 (12+) [code = [facility] DEPRESSION SCREENING (12+)] Future Scheduled 2021-10-[address] [facility] Test 00:00:00 (12+) [code = [facility] DEPRESSION SCREENING (12+)] Future Scheduled 2021-10-[address] [facility] Test 00:00:00 (12+) [code = [facility] DEPRESSION SCREENING (12+)] Future Scheduled [address] [facility] Test 00:00:00 (procedure) [code = [facility] [id number]] Future Scheduled [address] [facility] Test 00:00:00 (procedure) [code = [facility] [id number]] Future Scheduled [address] [facility] Test 00:00:00 (procedure) [code = [facility] [id number]] Future Scheduled [address] [facility] Test 00:00:00 (procedure) [code = [facility] 33744909] Future Scheduled 1997 DTAP/TDAP/TD [facility] [...] Date/Time Type Type Clinicians Facility Department ID 2022-08-16 2022-08-16 Travel 1.2.840.1 [id number] [facility] 00:00:00 00:00:[address] 3.430.2.7 0.2.7.3.698 Ho spita .3.010817 084.8 l .8 2022-07-20 2022-07-20 Outpatient GC_TPP_Pour PRIV PRIV [id number] [facility] 00:00:00 00:00:00 -Jafari_B [id number] [facility] 2022-07-20 2022-07-20 Ashanti PRIV [facility] 00:00:00 00:00:00 [facility] tata conti MD: 427 GC_TPP_Hous W. 20th [facility], [address] [address] , Ph. [phone] 2022-07-06 2022-07-06 Outpatient GC_TPP_Pour PRIV PRIV [id number] [facility] 00:00:00 00:00:00 -Jafari_B [id number] [facility] 2022-07-06 2022-07-06 Ashanti PRIV SD - [facility] 00:00:00 00:00:00 [facility] tata conti MD: 427 GC_TPP_Hous W. 20th [facility], [address] [address] , Ph. [phone] 2022-07-06 2022-07-06 Outpatient Pour-Iris PRIV PRIV 56f [id number] 00:00:00 00:00:00 , [facility] [id number] 2022-06-29 2022-06-29 Outpatient GC_TPP_Pour PRIV PRIV [id number] [facility] 00:00:00 00:00:00 -Jafari_B [id number] [facility] 2022-06-21 2022-06-22 [facility], 1.2.840.1 [id number] [facility]i 07:33:00 12:53:00 Encounter Wing 56030.1.[address] 3.430.2.7 Hospit a .3.751008 l .8 2022-06-21 2022-06-22 [id number] [place] 00:00:00 00:00:00 Encounter WING [address] 2022-06-21 2022-06-21 Anesthesia Koby Dowling V. 1.2.840.1 [id number] [facility] 10:40:00 14:35:00 Event Darshana Joaquin 73742.1.[address] 3.430.2.7 Hospit a .3.006049 l .8 2022-06-21 2022-06-21 Anesthesia NiteshKoby V. 1.2.840.1 [id number] [facility] 10:40:00 14:35:00 Event Darshana Joaquin 29068.1.[address] 3.430.2.7 Hospit a .3.359406 l .8 2022-06-21 2022-06-21 Surgery Nazeri, 1.2.840.1 [id number] [facility] 10:30:00 13:00:[address] 3.430.2.7 Hospit a .3.507390 l .8 2022-06-21 2022-06-21 Surgery Nazeri, 1.2.840.1 [id number] [facility] 10:30:00 13:00:[address] 3.430.2.7 Hospit a .3.232473 l .8 2022-06-20 2022-06-20 Lab Nazeri, 1.2.840.1 [id number] [facility] 08:55:00 09:00:[address] 3.430.2.7 Hospit a .3.097476 l .8 2022-06-20 2022-06-20 Lab Nazeri, 1.2.840.1 [id number] [facility] 08:55:00 09:00:[address] 3.430.2.7 Hospit a .3.808563 l .8 2022-06-20 2022-06-20 Travel 1.2.840.1 [id number] [id number] [facility] 00:00:00 00:00:[address] 3.430.2.7 0.2.7.3.698 Ho spita .3.280767 084.8 l .8 2022-06-20 2022-06-20 Travel 1.2.840.1 1.2.798.266 [id number] [facility] 00:00:00 00:00:[address] 3.430.2.7 0.2.7.3.698 Ho spita .3.212282 084.8 l .8 2022-06-16 2022-06-16 [facility], 1.2.840.1 [id number] [facility] 00:00:00 00:00:00 Orders Wing [address]33.1.[address] 3.430.2.7 Hospit a .3.477586 l .8 2022-06-16 2022-06-16 [facility], 1.2.840.1 [id number] [id number] [facility] 00:00:00 00:00:00 Orders Wing 13984.1.[address] 3.430.2.7 Hospit a .3.350134 l .8 2022-05-13 2022-05-13 Emergency Katie Merlos 1.2.840.1 [id number] [facility] 15:34:00 19:53:00 Chul Rey 89569.1.1 363 s t 3.430.2.7 Hospit a .3.948009 l .8 2022-05-13 2022-05-13 Emergency Gaurang Katie 1.2.840.1 [id number] [facility] 15:34:00 19:53:00 Chul Rey 65239.1.1 363 s t 3.430.2.7 Hospit a .3.305709 l .8 2022-03-24 2022-03-24 Outpatient R LOULOU [facility] [id number] [facility] 17:00:00 17:27:59 ORALIA castro o f [facility] 2022-03-24 2022-03-[address] [facility] 1.2.840.114 [id number] [facility] 17:00:00 17:27:59 Care [facility] 350.1.13.10 i ty of EDWIN 4.2.7.2.686 Jacob as LOR?BLEA [id number] [address] MEDICAL OFFICE BUILDING 2020-10-14 2020-10-14 Outpatient [facility]AKE [facility] [id number] [place] 00:00:00 00:00:00 WING [address] 2020-07-18 2020-07-18 [facility]patient [facility] [id number] [place] 00:00:00 00:00:00 WING [address] 2020-06-18 2020-06-18 Outpatient NAT[facility]ALAKE [facility] [id number] [place] 00:00:00 00:00:00 WING [address] Results Test Description Test Time Test Comments Results Result Comments Source ECG 12 lead 2022-06-22 12:52:17 Test Item Value Reference Range Interpretation Comme nts Ventricular rate (test code = 253) Atrial rate (test code = 255) RI interval (test code = 266) QRSD interval (test code = 260) QT interval (test code = 264) QTC interval (test code = 265) P axis 1 (test code = 267) QRS axis 1 (test code = 268) T wave axis (test code = 270) EKG impression (test code = 273) Normal sinus [facility] [id number] 12:52:17 Test Item Value Reference Range Interpretation Comments Ventricular rate (test code = 253) Atrial rate (test code = 255) RI interval (test code = 266) QRSD interval [...] Kinsey MD ([id number]) on 06/22/2022 7:52:15 AM [address]2022-08-25 12:52:17 Test Item Value Reference Range Interpretation Comments Ventricular rate (test code = 253) Atrial rate (test code = 255) RI interval (test code = 266) QRSD interval [...] Kinsey MD ([id number]) on 06/22/2022 7:52:15 AM [address]2022-08-25 12:52:17 Test Item Value Reference Range Interpretation Comments Ventricular rate (test code = 253) Atrial rate (test code = 255) RI interval (test code = 266) QRSD interval [...] Kinsey MD ([id number]) on 06/22/2022 7:52:15 AM [facility] [id number] 18:12:38 Test Item Value Reference Interpretation Comments Range Interpretation (test Negative results do not code = 1840411) preclude COVID-19 infection and should not be used asthe sole basis for treatment or other patient management decisions. Negativeresults must be combined with clinical observations, patient history, andepidemiological information. COVID-19 qualitative Not-Detected Not-Detected RT-PCR result (test code = 12704-7) COVID-19 qualitative See link below for PDF Case Number: RT-PCR (test code = Lab Report [id number] 7070) [facility] [id number] 18:12:38 Test Item Value Reference Interpretation Comments Range Interpretation (test Negative results do not code = 3283436) preclude COVID-19 infection and should not be used asthe sole basis for treatment or other patient management decisions. Negativeresults must be combined with clinical observations, patient history, andepidemiological information. COVID-19 qualitative Not-Detected Not-Detected RT-PCR result (test code = 39179-9) COVID-19 qualitative See link below for PDF Case Number: RT-PCR (test code = Lab Report [id number] 7070) [facility] [id number] 18:12:38 Test Item Value Reference Interpretation Comments Range Interpretation (test Negative results do not code = 6229155) preclude COVID-19 infection and should not be used asthe sole basis for treatment or other patient management decisions. Negativeresults must be combined with clinical observations, patient history, andepidemiological information. COVID-19 qualitative Not-Detected Not-Detected RT-PCR result (test code = 71249-6) COVID-19 qualitative See link below for PDF Case Number: RT-PCR (test code = Lab Report [id number] 5028 7070) [facility] qualitative [id number] 18:12:38 Test Item Value Reference Interpretation Comments Range Interpretation (test Negative results do not code = 1251011) preclude COVID-19 infection and should not be used asthe sole basis for treatment or other patient management decisions. Negativeresults must be combined with clinical observations, patient history, andepidemiological information. COVID-19 qualitative Not-Detected Not-Detected RT-PCR result (test code = 95046-1) COVID-19 qualitative See link below for PDF Case Number: RT-PCR (test code = Lab Report [id number] 5028 7070[facility] [Presence] in Respiratory specimen by DENIS with probe [id number] 13:12:38 Test Item Value Reference Range Interpretation Comments SARS-CoV-2 (COVID-19) RNA Not detected [Presence] in Respiratory specimen by DENIS with probe detection (test code = 66550-3) Whether patient is employed in a Unknown healthcare setting (test code = 36885-2) Whether the patient has symptoms Unknown related to condition of interest (test code = 12957-0) Whether the patient was Unknown hospitalized for condition of interest (test code = 22821-9) Whether the patient was admitted Unknown to intensive care unit (ICU) for condition of interest (test code = 95530-7) Whether patient resides in a Unknown congregate care setting (test code = 61420-2) status (test code = Unknown 71440-1) Date and time of symptom onset Unknown (test code = 83363-2) JOAQUIN TORRESSARS-CoV-2 (COVID-19) RNA [Presence] in Respiratory specimen by DENIS with probe [id number] 23:44:02 Test Item Value Reference Range Interpretation Comments SARS-CoV-2 (COVID-19) RNA Not detected Not-Detected [Presence] in Respiratory specimen by DENIS with probe detection (test code = 55936-1) JOAQUIN CRUMP MELISSABLOOD [id number] 08:01:00 Test Item Value Reference Range Interpretation Comments CULTURE (BEAKER) (test No growth in 5 days code = 1095) MISCELLANEOUS LAB [id number] 07:37:00 Test Item Value Reference Range Interpretation Comments SCAN RESULT (test code = 3645684) BLOOD [id number] 08:00:00 Test Item Value Reference Range Interpretation Comments CULTURE (BEAKER) (test No growth in 5 days code = 1095) BLOOD [id number] 08:00:00 Test Item Value Reference Range Interpretation Comments CULTURE (BEAKER) (test No growth in 5 days code = 1095) ANTI-NUCLEAR ANTIBODY (AURA)2019-07-30 09:44:00 Test Item Value Reference Range Interpretation Comments ANTI-NUCLEAR ANTIBODY (AURA) (BEAKER) Positive Negative A (test code = 418) Test performed by IFA method.AURA TITER AND [id number] 09:44:00 Test Item Value Reference Range Interpretation [...] (test code Normal = 486) HEPATIC FUNCTION [id number] 09:58:00 Test Item Value Reference Range Interpretation [...] 347) CBC WITH PLATELET COUNT + MANUAL [id number] 09:29:00 Test Item Value Reference Range Interpretation [...] (BEAKER) (test code = 413) RESPIRATORY PANEL [id number] 15:15:00 Test Item Value Reference Range Interpretation [...] decisions. This sample was tested at the [facility] using the DataXuArray Respiratory Panel. It is FDA cleared and has been verified and approved by the [facility] Molecular Diagnostics Laboratory for clinical use on nasopharyngeal swab specimens.The performance of the FilmArrayRP has not been established in individuals who received influenza vaccine. Recent administration of a nasal influenza vaccine may cause false positive results for Influenza A and/orInfluenza B.EBV VIRAL [id number] 13:49:00 Test Item Value Reference Range Interpretation [...] (2) real-time PCR amplification and detection with TZHI-7-oseuacdb primers and probes. A well-conserved region of the EBNA-1 gene is targeted, along with an internal control sequence used to confirm PCR amplification. Asymptomatic carriers and viral genetic variation, among other factors, can affect the accuracy of nucleic acidtesting; therefore, results should be interpreted in light of clinical data.This test was developed and its performance characteristics determined by the [facility] Pathology Department,Section of Molecular Pathology. It [...] real- time PCR amplification and detection with SELC-8-xtbcugsh primers and probes. A well-conserved region of the EBNA-1 gene is targeted, along with an internal control sequence used to confirm PCR amplification. Asymptomatic carriers and viral genetic variation, among other factors, can affect the accuracy of nucleic acid testing; therefore, results should be interpreted in light of clinical data.This test was developed and its performance characteristics determined by the [facility] Pathology Department, Section of Molecular Pathology.It has not been cleared or approved by the U.S. Food and Drug Administration (FDA), since FDA approval is not required for clinical use of the test. Validation was done as required by The Clinical Laboratory Improvement Amendments of 1988.CMV PCR, [id number] 13:43:00 Test Item Value Reference Range Interpretation [...] and its performance characteristics determined by the [facility] Pathol ogy Department, Section of Molecular Pathology. It has not been cleared or approved by the U.S. Foodand Drug Administration (FDA), since FDA approval is not required for clinical use of the test. Validation was done as required by The Clinical Laboratory Improvement Amendments of 1988.RHEUMATOID FACTOR AB, REFLEX TO [id number] 13:10:00 Test Item Value Reference Range Interpretation Comments RHEUMATOID FACTOR (BEAKER) (test Negative code = 573) BASIC METABOLIC [id number] 06:42:00 Test Item Value Reference Range Interpretation [...] S NOT APPLICABLE FOR DIALYSIS PATIEN TS. [id number] 12:15:00 Test Item Value Reference Range Interpretation Comments RPR SCREEN (BEAKER) (test code = Nonreactive Nonreactive 420) HIV-1 ANTIGEN WITH HIV-1/2 [id number] 04:56:00 Test Item Value Reference Range Interpretation Comments HIV-1 ANTIGEN WITH HIV 1\T\2 Nonreactive Nonreactive ANTIBODY (2) (BEAKER) (test code = 2586) BASIC METABOLIC [id number] 04:24:00 Test Item Value Reference Range Interpretation [...] DIALYSIS PATIEN TS. URINALYSIS W/ REFLEX URINE [id number] 00:26:00 Test Item Value Reference Range Interpretation [...] = 2795) RAD, CHEST, 1 VIEW, NON [id number] 10:25:00Reason for exam:- >leukocytosis, fever r/o infectionFINAL [...] Watts Verified Date/Time: 07/26/2019 10:25:43 Reading Location: [facility] C013X Ortho Consult Reading Room CBC W/PLT COUNT & AUTO [id number] 10:24:00 Test Item Value Reference Range Interpretation [...] = 3438) Received comment: User comments: Slide comments:PT/[id number] 10:11:00 Test Item Value Reference Range Interpretation [...] pg/mL 0-100 (test code = 700) TROPONIN [id number] 10:00:00 Test Item Value Reference Range Interpretation [...] acute neurological disease, and persistent tachyarrhythmia.BASIC METABOLIC [id number] 09:54:00 Test Item Value Reference Range Interpretation [...] U/L 29-200 code = 380) POCT-LACTIC ACID, [id number] 09:50:00 Test Item Value Reference Range Interpretation Comments POC-LACTIC ACID, 1.3 mmol/L 0.4-1.3 TESTED AT [place] [id number] ARTERIAL (BEAKER) [facility] (test code = 2804) [id number] 09:50:00 Test Item Value Reference Range Interpretation Comments POC-HEMOGLOBIN 11.6 g/dL 13.0-16.8 L TESTED AT [place] [id number] (BEAKER) (test code [facility] = 1856) [id number] AT [address] [address] POCT-BLOOD GASES, [id number] 09:49:00 Test Item Value Reference Range Interpretation Comments TEMP, CELSIUS-POC 37.0 (BEAKER) (test code = 1834) FIO2-POC (BEAKER) TESTED AT [place] [address] (test code = 1835) [facility] [address] PH, ARTERIAL-POC 7.370 7.350-7.450 (BEAKER) (test code = 1836) PCO2, ARTERIAL-POC 41.0 mm Hg 35.0-45.0 (BEAKER) (test code = 1837) PO2, ARTERIAL-POC 86.0 mm Hg 80.0-90.0 (BEAKER) (test code = 1838) SO2, ARTERIAL-POC 96.0 % 96.0-97.0 (BEAKER) (test code = 1839) HCO3, ARTERIAL-POC 23.7 meq/L 21.0-29.0 (BEAKER) (test code = 1840) BASE EXCESS, -2.0 meq/L -2.0-3.0 ARTERIAL-POC (BEAKER) (test code = 1841) [id number] 09:49:00 Test Item Value Reference Range Interpretation Comments POC-SODIUM (BEAKER) 137 meq/L 135-148 TESTED [place] [address] (test code = 1542) [facility] [address] [id number] 09:49:00 Test Item Value Reference Range Interpretation Comments POC-POTASSIUM 3.3 meq/L 3.6-5.5 L TESTED AT [place] [address] ([facility]) (test code [place] [id number] = 1540) [id number] 09:49:00 Test Item Value Reference Range Interpretation Comments POC-GLUCOSE (BEAKER) 153 mg/dL 70-110 H TESTED AT [place] [address] (test code = 1855) [facility] [address] POCT-CALCIUM [id number] 09:49:00 Test Item Value Reference Range Interpretation Comments POC-CALCIUM IONIZED 1.22 mmol/L 1.12-1.27 TESTED [place] [address] (BEAKER) (test code = [facility] 1536 [address] [id number] 09:49:00 Test Item Value Reference Range Interpretation Comments POC-HEMATOCRIT 34 % 40-50 L TESTED AT [place] [address] (BEAKER) (test code = [facility] [address] 1855) URINALYSIS WITH MICROSCOPIC IF [id number] 07:55:00 Test Item Value Reference Range Interpretation [...] 463) SOURCE(BEAKER) (test code = 2795) URINALYSIS [id number] 07:55:00 Test Item Value Reference Range Interpretation Comments RBC UA (BEAKER) (test code = 519) 1 /HPF WBC UA (BEAKER) (test code = 520) 9 /HPF MUCUS (BEAKER) (test code = 1574) Rare SQUAMOUS EPITHELIAL (BEAKER) (test < /HPF code = 516) C-REACTIVE [id number] 07:27:00 Test Item Value Reference Range Interpretation Comments C-REACTIVE PROTEIN (BEAKER) (test 15.31 mg/dL 0.00-0.50 H code = 676) CBC W/PLT COUNT & AUTO [id number] 04:17:00 Test Item Value Reference Range Interpretation [...] (BEAKER) (test code = 2801) BASIC METABOLIC [id number] 03:45:00 Test Item Value Reference Range Interpretation [...]
[2022-08-17] MEDS ORDERED: NA CHLORIDE 0.9% 1,000 ML ONE (14:34)
[2022-08-17 14:51] LABS: Absolute Lymphocytes (CBC) 1.4 K/uL (0.7-4.9); Hematocrit 41.2 % (39.6-49.0); Lymphocytes % 15.3 % (15.3-44.8); MCV 88.7 fL (80-100); MPV 9.8 fL (7.6-11.3); RBC Red Blood Cell Count 4.64 M/uL (4.33-5.43)
[2022-08-17 15:15] LABS: Magnesium 2.3 mg/dL (1.8-2.4); Potassium 3.8 mmol/L (3.5-5.1); Troponin High Sensitivity 11.2 pg/mL (<58.9)
--- NOTE | 2022-08-17 15:25 | RAD REPORT ---
EXAM DESCRIPTION: Leo Single View08/17/2022 3:13 pm CLINICAL HISTORY: Chest pain COMPARISON: June 2022 FINDINGS: The lungs appear clear of acute infiltrate. The heart is normal size. telemetry monitor in place IMPRESSION: No acute abnormalities displayed
--- NOTE | 2022-08-17 15:26 | EDPHYS ---
Physician Documentation [facility] Name: Uzair Sullivan Age: 42 yrs Sex: Male : 1980 Arrival Date: 08/17/2022 Time: 14:13 Bed 13 Private MD: Brandon Guzmán R ED Physician Ethan Bhatia HPI: 08/17 14:33 This 42 yrs old Male presents to ER via Ambulatory with complaints of Chest jh7 Pain, Abdominal Pain, Constipation, Palpitations. 14:33 Onset: The symptoms/episode began/occurred acutely. The patient reports constipation jh7 for the past 3 to 4 days. Reports that he took 2 Metamucil yesterday and 2 today. States that he finally had a bowel movement at 1030 this morning, but became dizzy while producing the bowel movement. States that he is felt dizzy and had some palpitations since then. Reports that he takes metoprolol due to a history of SVT.. Historical: - Allergies: 14:43 No Known Allergies; hb - Home Meds: 14:19 metoprolol succinate 25 mg Oral Tb24 1 tab once daily [Active]; propafenone 225 mg Oral hb tab 1 tab twice a day [Active]; - PMHx: 14:19 arrhythmia; Diverticulitis; Lupus erythematosus; hb - PSHx: 14:19 Heart ablation; heart cath; hb - Immunization history:: Adult Immunizations up to date. - Social history:: Smoking status: Patient denies any tobacco usage or history of. ROS: 14:33 Constitutional: Negative for fever, chills, and weight loss, Eyes: Negative for injury, jh7 pain, redness, and discharge, ENT: Negative for injury, pain, and discharge, Respiratory: Negative for shortness of breath, cough, wheezing, and pleuritic chest pain, Back: Negative for injury and pain, MS/Extremity: Negative for injury and deformity, Skin: Negative for injury, rash, and discoloration. 14:33 Cardiovascular: Positive for chest pain, palpitations, Negative for edema, orthopnea. 14:33 Abdomen/GI: Positive for constipation, Negative for nausea and vomiting, diarrhea, rectal pain, rectal bleeding. 14:33 Neuro: Positive for dizziness, Negative for altered mental status, gait disturbance, headache, loss of consciousness, syncope, visual changes. 14:33 All other systems are negative. Exam: 14:33 Constitutional: This is a well developed, well nourished patient who is awake, alert, jh7 and in no acute distress. Head/Face: Normocephalic, atraumatic. Eyes: Pupils equal round and reactive to light, extra-ocular motions intact. Lids and lashes normal. Conjunctiva and sclera are non-icteric and not injected. Cornea within normal limits. Periorbital areas with no swelling, redness, or edema. Cardiovascular: Regular rate and rhythm with a normal S1 and S2. No gallops, murmurs, or rubs. Normal PMI, no JVD. No pulse deficits. Respiratory: Lungs have equal breath sounds bilaterally, clear to auscultation and percussion. No rales, rhonchi or wheezes noted. No increased work of breathing, no retractions or nasal flaring. Abdomen/GI: Soft, non-tender, with normal bowel sounds. No distension or tympany. No guarding or rebound. No evidence of tenderness throughout. Back: No spinal tenderness. No costovertebral tenderness. Full range of motion. Skin: Warm, dry with normal turgor. Normal color with no rashes, no lesions, and no evidence of cellulitis. MS/ Extremity: Pulses equal, no cyanosis. Neurovascular intact. Full, normal range of motion. Neuro: Awake and alert, GCS 15, oriented to person, place, time, and situation. Cranial nerves II-XII grossly intact. Motor strength 5/5 in all extremities. Sensory grossly intact. Cerebellar exam normal. Normal gait. 14:33 ECG was reviewed by the Attending Physician. Vital Signs: 14:17 BP 129 / 90; Pulse 85; Resp 18; Temp 98.1(TE); Pulse Ox 100% ; Weight 81.65 kg; Height hb 5 ft. 9 in. (175.26 cm); 16:32 BP 125 / 85; Pulse 81; Resp 16; Pulse Ox 100% on R/A; jd3 14:17 Body Mass Index 26.58 (81.65 kg, 175.26 cm) hb MDM: 14:28 Patient medically screened. [facility] 15:30 Differential diagnosis: Vasovagal episode, SVT, dehydration, constipation. Data [facility] reviewed: vital signs, nurses notes, lab test result(s), EKG, radiologic studies, plain films. Data interpreted: manager monitoring: rate is 85 beats/min, rhythm is regular, Interpretation: normal rate, normal rhythm, Pulse oximetry: is 100 %. Interpretation: normal. Counseling: I had a detailed discussion with the patient and/or guardian regarding: the historical points, exam findings, and any diagnostic results supporting the discharge/admit diagnosis, to return to the emergency department if symptoms worsen or persist or if there are any questions or concerns that arise at home. Medication response: IV fluids. Response to treatment: the patient's symptoms have markedly improved after treatment. ED course: Informed the patient that he likely had a vasovagal episode while straining to have a bowel movement. Advised for him to continue the Metamucil and take stool softeners as prescribed. Increase p.o. fluid intake and fiber. If he develops any new concerning symptoms, he may return to the ER for further eval.. 08/17 14:32 Order name: Basic Metabolic Panel; Complete Time: 15:16 [facility] 08/17 14:32 Order name: CBC with Diff; Complete Time: 14:55 [facility] 08/17 14:32 Order name: Magnesium; Complete Time: 15:16 7 08/17 14:32 Order name: Troponin HS; Complete Time: 15:16 [facility] 08/17 14:32 Order name: XRAY Chest (1 view) [facility] 08/17 14:32 Order name: EKG; Complete Time: 14:33 7 08/17 14:32 Order name: Cardiac monitoring; Complete Time: 16:34 [facility] 08/17 14:32 Order name: EKG - Nurse/Tech; Complete Time: 14:33 [facility] 08/17 14:32 Order name: IV Saline Lock; Complete Time: 14:47 [facility] 08/17 14:32 Order name: Labs collected and sent; Complete Time: 14:47 [facility] 08/17 14:32 Order name: O2 Per Protocol; Complete Time: 14:34 [facility] 08/17 14:32 Order name: O2 Sat Monitoring; Complete Time: 14:34 7 EC:33 Rate is 71 beats/min. Rhythm is regular. QRS [place] is Normal. DE interval is normal at 7 140 msec. QRS interval is normal at 80 msec. QT interval is normal at 398 msec. No Q waves. T waves are Normal. No ST changes noted. Clinical impression: Normal ECG. Administered Medications: 14:47 Drug: NS 0.9% 1000 ml Route: IV; Rate: 1 bolus; Site: left antecubital; 16:33 Follow up: Response: No adverse reaction; IV Status: Completed infusion jd3 Disposition Summary: 08/17/22 15:25 Discharge Ordered Location: Home [facility] Problem: new [facility] Symptoms: have improved [facility] Condition: Stable [facility] Diagnosis - Palpitations [facility] - Dizziness and giddiness [facility] Followup: [facility] - With: Brandon Guzmán MD - When: 2 - 3 days - Reason: Recheck today's complaints Discharge Instructions: - Discharge Summary Sheet [facility] - Dizziness [facility] - Near-Syncope [facility] - Palpitations [facility] Forms: - Medication Reconciliation Form [facility] - Thank You Letter [facility] Prescriptions: - Colace 100 mg Oral Tablet - take 1 tablet by ORAL route every 12 hours; 14 tablet; Refills: 0, Product [facility] Selection Permitted Addendum: 08/22/2022 04:00 Co-signature as Attending Physician, Ethan Bhatia MD I agree with the assessment and c mckinney plan of care. Signatures: Dispatcher [employer] EDEthan Freitas MD MD cha Baxter, Heather, RN RN Laquita Baker FNP [place] [address] Harpreet Wang RN jd3 Corrections: (The following items were deleted from the chart) 08/17 15:28 14:33 Constitutional: Negative for fever, chills, and weight loss, Eyes: Negative for [facility] injury, pain, redness, and discharge, ENT: Negative for injury, pain, and discharge, Cardiovascular: Negative for chest pain, palpitations, and edema, Respiratory: Negative for shortness of breath, cough, wheezing, and pleuritic chest pain, Back: Negative for injury and pain, MS/Extremity: Negative for injury and deformity, Skin: Negative for injury, rash, and discoloration, [facility]
--- NOTE | 2022-08-17 15:26 | ER ---
Nurse's Notes [facility] Name: Uzair Sullivan Age: 42 yrs Sex: Male : 1980 Arrival Date: 08/17/2022 Time: 14:13 Bed 13 Private MD: Brandon Guzmán R Diagnosis: Palpitations;Dizziness and giddiness Presentation: 08/17 14:17 Chief complaint: Patient states: in may i had an SVT ablation, and have been having hb a lot of arrythmia's since so was put on metoprolol and propanfenone for the arrythmias. I have been constipated x2 days so I took some medicine for that and have been feeling my heart going crazy up and down and im getting like i wanna pass out. Coronavirus screen: Vaccine status: Patient reports receiving the 2nd dose of the covid vaccine. Client denies travel out of the [place] in the last 14 days. At this time, the client does not indicate any symptoms associated with coronavirus-19. Ebola Screen: Patient negative for fever greater than or equal to 101.5 degrees Fahrenheit, and additional compatible Ebola Virus Disease symptoms Patient denies exposure to infectious person. Patient denies travel to an Ebola-affected area in the 21 days before illness onset. Initial Sepsis Screen: Does the patient meet any 2 criteria? No. Patient's initial sepsis screen is negative. Does the patient have a suspected source of infection? No. Patient's initial sepsis screen is negative. Risk Assessment: Do you want to hurt yourself or someone else? Patient reports no desire to harm self or others. Onset of symptoms was August 15, 2022. 14:17 Method Of Arrival: Ambulatory hb 14:17 Acuity: GLORIA 3 hb Triage Assessment: 14:19 General: Appears in no apparent distress. uncomfortable, slender, well groomed, well hb developed, well nourished, Behavior is calm, cooperative, appropriate for age. Pain: Complains of pain in chest and abdomen. Cardiovascular: Reports chest pain, fatigue. Historical: - Allergies: 14:43 No Known Allergies; hb - Home Meds: 14:19 metoprolol succinate 25 mg Oral Tb24 1 tab once daily [Active]; propafenone 225 mg Oral hb tab 1 tab twice a day [Active]; - PMHx: 14:19 arrhythmia; Diverticulitis; Lupus erythematosus; hb - PSHx: 14:19 Heart ablation; heart cath; hb - Immunization history:: Adult Immunizations up to date. - Social history:: Smoking status: Patient denies any tobacco usage or history of. Screenin:43 Abuse screen: Denies threats or abuse. Denies injuries from another. Nutritional hb screening: No deficits noted. Tuberculosis screening: No symptoms or risk factors identified. Fall Risk None identified. Assessment: 14:43 General: Appears in no apparent distress. uncomfortable, Behavior is calm, cooperative. hb Pain: Pain currently is 6 out of 10 on a pain scale. Neuro: Level of Consciousness is awake, alert, obeys commands, Oriented to person, place, time, situation. Cardiovascular: Patient's skin is warm and dry. Respiratory: Respiratory effort is even, unlabored. GI: Reports upper abdominal pain. : No signs and/or symptoms were reported regarding the genitourinary system. EENT: No signs and/or symptoms were reported regarding the EENT system. Derm: Skin is pink, warm \T\ dry. Musculoskeletal: No signs and/or symptoms reported regarding the musculoskeletal system. 16:32 Reassessment: Patient appears in no apparent distress at this time. Patient and/or jd3 family updated on plan of care and expected duration. Pain level reassessed. Patient is alert, oriented x 3, equal unlabored respirations, skin warm/dry/pink. Patient states feeling better. Vital Signs: 14:17 BP 129 / 90; Pulse 85; Resp 18; Temp 98.1(TE); Pulse Ox 100% ; Weight 81.65 kg; Height hb 5 ft. 9 in. (175.26 cm); 16:32 BP 125 / 85; Pulse 81; Resp 16; Pulse Ox 100% on R/A; jd3 14:17 Body Mass Index 26.58 (81.65 kg, 175.26 cm) ED Course: 14:13 Patient arrived in ED. am2 14:13 Brandon Guzmán MD is Private Physician. am2 14:19 Triage completed. hb 14:19 Arm band placed on right wrist. hb 14:28 [facility] 14:28 Ethan Bhatia MD is Attending Physician. jh7 14:43 Dawna Maya, RN is Primary Nurse. hb 14:43 Patient has correct armband on for positive identification. hb 14:43 Inserted saline lock: 20 gauge in left antecubital area, using aseptic technique. Blood hb collected. 14:43 Patient maintains SpO2 saturation greater than 95% on room air. hb 15:00 Client placed on continuous cardiac and pulse oximetry monitoring. NIBP monitoring jd3 applied. security monitor on. Pulse ox on. NIBP on. 15:15 XRAY Chest (1 view) In Process Unspecified. EDMS 15:25 Brandon Guzmán MD is Referral Physician. jh7 16:33 No provider procedures requiring assistance completed. IV discontinued, intact, jd3 bleeding controlled, No redness/swelling at site. Pressure dressing applied. Administered Medications: 14:47 Drug: NS 0.9% 1000 ml Route: IV; Rate: 1 bolus; Site: left antecubital; hb 16:33 Follow up: Response: No adverse reaction; IV Status: Completed infusion jd3 Medication: 14:43 VIS not applicable for this client. hb Outcome: 15:25 Discharge ordered by . jh7 16:33 Discharged to home ambulatory, with family. jd3 16:33 Condition: stable 16:33 Discharge instructions given to patient, family, Instructed on discharge instructions, follow up and referral plans. medication usage, Demonstrated understanding of instructions, follow-up care, medications, Prescriptions given X 1. 16:34 Patient left the ED. jd3 Signatures: Dispatcher [employer] EDCA Dawna Maya, RN RN Edwina Lam am2 Harpreet Wang RN RN jd3 Laquita Baker FNP FNP [facility]
[2022-08-17 16:41] VITALS: TEMP 98.1; O2SAT 100
[2022-08-17 16:42] VITALS: BP 125/85
--- NOTE | 2022-08-19 16:58 | EKG ---
Test Date: 2022-08-17 Test Time: 14:28:12 Meat Cutting Teacher: MEASUREMENT RESULTS: Intervals: Rate: 65 MI: 138 QRSD: 82 QT: 400 QTc: 416 [place]: P: 48 MI: 138 QRS: 21 T: 42 INTERPRETIVE STATEMENTS: Normal sinus rhythm Normal ECG Compared to ECG 07/06/2022 20:53:56 Sinus bradycardia no longer present Left ventricular hypertrophy no longer present Electronically Signed On 08-19-22 16:54:26 CDT by Reji Schwartz
--- NOTE | 2022-08-19 16:58 | EKG ---
Test Date: 2022-08-17 Test Time: 14:28:44 Button Maker: MEASUREMENT RESULTS: Intervals: Rate: 71 UT: 140 QRSD: 80 QT: 398 QTc: 432 [place]: P: 55 UT: 140 QRS: 22 T: 45 INTERPRETIVE STATEMENTS: Normal sinus rhythm Normal ECG Compared to ECG 08/17/2022 14:28:12 No significant changes Electronically Signed On 08-19-22 16:54:25 CDT by Reji Schwartz
== END 2022-08-17 16:34 | disposition home or self-care (01) ==
LOC: ER 14:12
DX: R00.2 Palpitations (principal); R42 Dizziness and giddiness
CPT/HCPCS: 96361; 93005 ×2; 85025; 80048; 36415; 83735; 84484; 71045; 96360; 99285; J7030

== ENCOUNTER 2022-08-24 11:22 | Emergency (ER) | payer BC ==
--- OUTSIDE RECORDS SUMMARY | 2022-08-24 11:29 | XMS REPORT | Continuity of Care Document ---
:1980 Author Organization [facility] t Address [address] [place] [address] [address]. [address] [place] [address] Care Team Providers Name Role Phone Pcp, Patient Does Not Have A Primary Care Physician [id number] GC_TPP_Pour-Jafari_B Attending Clinician Unavailable Ashanti Burrell Attending Clinician [phone] Wing Anand MD Attending Clinician Nitesh SÁNCHEZ, [...] Expiration Date S ource [id number] 2020 00:00:00 [place] [facility] [id number] 2020 00:00:00 OUT OF STATE Problems Condition [...] rs active active ity of problems problems [facility] Allergies, Adverse Reactions, Alerts Allergy Allergy Status Severity Reaction(s) Onset Inactive Treating Comm ents Source Name Type Date Date Clinician NO KNOWN Allergy Active [facility] NO KNOWN Drug Active [facility] ALLERGIE Class ity of S [facility] Family History Family Member Diagnosis Comments Start Date Stop Date Source Natural father [facility] Social History Social Habit Start Date Stop Date Quantity Comments Source History SDOH [facility]d [facility] r Drinks History SDOH [facility] Alcohol Binge Medical Aubrey ter History SDOH [facility] Alcohol Comment Medical C enter Alcohol intake 2022-06-23 2022-06-23 Lifetime [facility] 00:00:00 00:00:00 non-drinker (finding) Exposure to 2022-03-14 2022-03-24 Not sure [facility]-CoV-2 00:00:00 16:51:00 [facility] (event) [facility] Tobacco use and 2019-07-26 2019-07-[address] [facility] [address] [facility] kes exposure 00:00:00 00:00:00 Medical Center History SDOH 2019-07-26 2019-07-[address] [facility] Alcohol Frequency 00:00:00 00:00:00 Medical Center Sex Assigned At [birth year] [facility] 00:00:00 00:00:00 Smoking Status Start Date Stop Date Source Never Smoker [facility] Medical Smoker, current status 2022-03-24 00:00:00 [facility] Medical unknown Branch Medications Ordered Filled Start Stop [...] hr daily for tablet 30 days. ondansetron 202-0 2022- No 4mg Q8H Take 1 Met [facility]odi ODT 7-16 08-16 tablet (4 st (ZOFRAN-ODT 00:00: 04:59 mg total) Hospita ) 4 MG 00 :00 by mouth l disintegrat every 8 ing tablet (eight) hours as needed for nausea or vomiting for up to 30 days. dicyclomine 2-0 2022- No 20mg Q.5D Take 1 Met hodi (BENTYL) 20 7-16 08-16 tablet (20 s t mg tablet 00:00: 04:59 mg total) Ho spita 00 :00 by mouth 2 l (two) times a day for 30 days. ondansetron 2021-0 2022- No 4mg Q8H Take 1 Met hodi ODT 7-16 08-16 tablet (4 st (ZOFRAN-ODT 00:00: 04:59 mg total) Hospita ) 4 MG 00 :00 by mouth l disintegrat every 8 ing tablet (eight) hours as needed for nausea or vomiting for up to 30 days. dicyclomine 2-0 2022- No 20mg Q.5D Take 1 Met hodi (BENTYL) 20 7-16 08-16 tablet (20 s t mg tablet 00:00: 04:59 mg total) Ho spita 00 :00 by mouth 2 l (two) times a day for 30 days. ondansetron 2-0 2022- No 4mg Q8H Take 1 Met [...] a day for 30 days. ondansetron 2021- 202- No 4mg Q8H Take 1 Met hodi [...] times a day for 30 days. ondansetron 2021-2021- No 4mg Q8H Take 1 Met hodi ODT 7-16 08-16 tablet (4 st (ZOFRAN-ODT 00:00: 04:59 mg total) Hospita ) 4 MG 00 :00 by mouth l disintegrat every 8 ing tablet (eight) hours as needed for nausea or vomiting for up to 30 days. dicyclomine 2021-2021- No 20mg Q.5D Take 1 Met hodi (BENTYL) 20 7-16 08-16 tablet (20 s t mg tablet 00:00: 04:59 mg total) Ho spita 00 :00 by mouth 2 l (two) times a day for 30 days. amoxicillin 2021- No [id number] 1{tbl} Take 1 Univers -clavulanat 5-27 06-07 [...] Date Status Commen ts Source Name Name [employer] COVID-19 MRNA 2021-10-27 Completed Meth odist VACCINATION 00:00:00 [facility] PFIZER COVID-19 MRNA 2021-10-27 Completed Meth odist VACCINATION 00:00:00 [facility] COVID-19, mRNA, COVID-19, mRNA, 2021-10-27 Completed [facility] Medical LNP-S, PF, 30 LNP-S, PF, 30 00:00:00 mcg/0.3 mL dose mcg/0.3 mL dose ([employer]) ([employer]) [facility] COVID-19 2021-02-04 Completed Methodis t AD26 VACCINATION 00:00:00 [facility] COVID-19 2021-02-04 Completed Methodis t AD26 VACCINATION 00:00:00 [facility] COVID-19 vaccine, COVID-19 vaccine, 2021-02-04 Completed [facility] vector-nr, rS-Ad26, vector-nr, rS-Ad26, 00:00:00 PF, 0.5 mL (Perez) PF, 0.5 mL ([facility]) Vital Signs Vital Name Observation Time Observation Value Comments Source BP Diastolic 2022-07-20 00:00:00 87 mm[Hg] Mike devi Height 2022-07-20 00:00:00 69 [in_i] Mike devi BMI (Body Mass 2022-07-20 00:00:00 28.1 kg/m2 [facility] Index) BP Systolic 2022-07-20 00:00:00 131 mm[Hg] Mike devi Body Weight 2022-07-20 00:00:00 3040 [oz_av] Mike devi Systolic blood 2022-03-24 21:55:00 124 mm[Hg] Riccardo ellis of [facility] Diastolic blood 2022-03-24 21:55:00 87 mm[Hg] Unive rsity of pressure [facility] Heart rate 2022-03-24 21:55:00 86 /min [facility] Oxygen saturation in 2022-03-24 21:55:00 100 /min [facility] Arterial blood by [facility] Pulse oximetry [place] Body height 2022-03-24 21:52:00 175.3 cm [facility] Body weight 2022-03-24 21:52:00 95.165 kg [facility] BMI 2022-03-24 21:52:00 30.98 kg/m2 [facility] Heart rate 2022-06-22 13:00:00 79 /min [facility] Systolic blood 2022-06-22 12:52:32 130 mm[Hg] [facility] pressure Diastolic blood 2022-06-22 12:52:32 87 mm[Hg] [facility] pressure Body temperature 2022-06-22 12:52:32 36.89 Silvia [facility] Respiratory rate 2022-06-22 12:52:32 20 /min [facility] Oxygen saturation in 2022-06-22 12:52:32 99 /min [facility] Arterial blood by Pulse oximetry Body weight 2022-06-22 01:49:34 87.544 kg [facility] BMI 2022-06-22 01:49:34 28.50 kg/m2 [facility] Body height 2022-06-21 15:19:00 175.3 cm [facility] Procedures Procedure Date / Time Performing Clinician Source Performed HC COMPLETE BLD COUNT 2022-06-22 09:30:00 Wing Anand [facility] W/AUTO DIFF BASIC METABOLIC PANEL 2022-06-22 09:30:00 Wing Anand [facility] ESTIMATED GFR 2022-06-22 09:30:00 Wing Anand EP COMPLETE EP STUDY W 2022-06-21 19:16:30 Wing Anand [facility] ABLATION SVT TYPE AND SCREEN 2022-06-21 14:56:00 Wing Anand ECG 12-LEAD 2022-06-21 13:49:16 Wing Anand spital COVID-19 QUALITATIVE 2022-06-20 14:29:00 [facility] RT-PCR PROTHROMBIN TIME WITH INR 2022-06-20 14:22:00 Wing Anand [facility] HC COMPLETE BLD COUNT 2022-06-20 14:22:00 Wing Anand [facility] W/AUTO DIFF COMPREHENSIVE METABOLIC 2022-06-20 14:22:00 Wing Anand [facility] PANEL ESTIMATED GFR 2022-06-20 14:22:00 Wing Anand spital ED REFERRAL TO [facility] 2022-05-14 00:33:07 [facility] [facility] ABDOMEN PELVIS W 2022-05-14 00:17:[address] [facility] CONTRAST HC COMPLETE BLD COUNT 2022-05-13 21:09:00 Gaurang Katieeboni [facility] W/AUTO DIFF COMPREHENSIVE METABOLIC 2022-05-13 21:09:00 [facility] PANEL LIPASE LEVEL 2022-05-13 21:09:00 [facility] ESTIMATED GFR 2022-05-13 21:09:00 [facility] Plan of Care Planned Activity Planned Date Details Comments Source Future Scheduled 2022-08-24 HEPATITIS B VACCINES Met [facility] Test 06:18:01 (1 of 3 - 3-dose series) [code = HEPATITIS B VACCINES (1 of 3 - 3-dose series)] Future Scheduled 2022-08-24 Hepatitis C [facility] ospital Test 06:18:01 screening (procedure) [code = 583271100] Future Scheduled 2022-08-24 COVID-19 VACCINE (3 [facility] Test 06:18:01 - Booster for Perez series) [code = COVID-19 VACCINE (3 - Booster for Perez series)] Future Scheduled 2022-08-24 INFLUENZA VACCINE Method [facility] Test 06:18:01 [code = INFLUENZA VACCINE] Future Scheduled 2022-08-17 HEPATITIS B VACCINES [facility] Test 14:15:01 (1 of 3 - 3-dose series) [code = HEPATITIS B VACCINES (1 of 3 - 3-dose series)] Future Scheduled 2022-08-17 [facility] Test 14:15:01 screening (procedure) [code = 043665148] Future Scheduled 2022-08-17 COVID-19 VACCINE (3 [facility] Test 14:15:01 - Booster for Perez series) [code = COVID-19 VACCINE (3 - Booster for Perez series)] Future Scheduled 2022-08-17 INFLUENZA VACCINE Method [facility] Hospital Test 14:15:01 [code = INFLUENZA VACCINE] Future Scheduled 2022-07-05 HEPATITIS B VACCINES Met [facility] Test 17:47:18 (1 of 3 - 3-dose series) [code = HEPATITIS B VACCINES (1 of 3 - 3-dose series)] Future Scheduled 2022-07-05 [facility] Test 17:47:18 screening (procedure) [code = 425839751] Future Scheduled 2022-07-05 INFLUENZA VACCINE Method [facility] Test 17:47:18 [code = INFLUENZA VACCINE] [...] Future Scheduled 2022-06-28 HEPATITIS B VACCINES Met [facility] Test 13:37:55 (1 of 3 - 3-dose series) [code = HEPATITIS B VACCINES (1 of 3 - 3-dose series)] Future Scheduled 2022-06-28 [facility] Test 13:37:55 screening (procedure) [code = 307416952] Future Scheduled 2022-06-28 INFLUENZA VACCINE Method [facility] Test 13:37:55 [code = INFLUENZA VACCINE] Future Scheduled 2022-06-26 [facility]ES [facility] 19:57:18 (1 of 3 - 3-dose series) [code = HEPATITIS B VACCINES (1 of 3 - 3-dose series)] Future Scheduled 2022-06-26 [facility] Test 19:57:18 screening (procedure) [code = 223775605] Future Scheduled 2022-06-26 INFLUENZA VACCINE Method ist [...] Luke s Test 00:00:00 (procedure) [code = [facility] 37159850] Future Scheduled [address] [facility] Test 00:00:00 (procedure) [code = [facility] 40629751] Future Scheduled [address] [facility] Test 00:00:00 (procedure) [code = [facility] 36973982] Future Scheduled [address] [facility] Test 00:00:00 (procedure) [code = [facility] 54061386] Future Scheduled 1997 DTAP/TDAP/TD [facility] 00:[facility]00 (#1) [code = [facility] COVID-19 VACCINE (#1)] Future Scheduled 1980 COVID-[address] [facility] Test 00:00:00 (#1) [code = [facility] COVID-19 VACCINE (#1)] Future Scheduled 1980 COVID-[address] [facility] Test 00:00:00 (#1) [code = [facility] COVID-19 VACCINE (#1)] Future Scheduled 1980 COVID-[address] [facility] Test 00:00:00 (#1) [code = [facility] COVID-19 VACCINE (#1)] Encounters Start End Encounter Admission Attending Care Care Encounter Source Date/Time Date/Time Type Type Clinicians Facility Department ID 2022-08-16 2022-08-16 Travel 1.2.840.1 [id number] Methodi 00:00:00 00:00:[address] 3.430.2.7 0.2.7.3.698 Ho spita .3.010963 084.8 l .8 2022-08-16 2022-08-16 Travel 1.2.840.1 1.2.230.409 [id number] Methodi 00:00:00 00:00:[address] 3.430.2.7 0.2.7.3.698 Ho spita .3.403920 084.8 l .8 2022-07-20 2022-07-20 Outpatient GC_TPP_Pour PRIV PRIV [id number] [facility] 00:00:00 00:00:00 -Jafari_B [id number] [facility] 2022-07-20 2022-07-20 Ashanti [facility] 00:00:00 00:00:00 [facility] tata conti MD: 427 GC_TPP_Hous [facility]* [address] [address] , Ph. [phone] 2022-07-06 2022-07-06 Outpatient GC_TPP_Pour PRIV PRIV [id number] [facility] 00:00:00 00:00:00 -Jafari_B [id number] [facility] 2022-07-06 2022-07-06 Ashanti [facility] 00:00:00 00:00:00 [facility] tata conti MD: 427 GC_TPP_Hous [facility] [facility] [facility]* [address] [address] , Ph. 2022-07-06 2022-07-06 Outpatient Pour-Iris PRIV PRIV [id number] 00:00:00 00:00:00 , [facility] [id number] 2022-06-29 2022-06-29 Outpatient GC_TPP_Pour PRIV PRIV [id number] [facility] 00:00:00 00:00:00 -Jafari_B [id number] [facility] 2022-06-21 2022-06-22 [facility] Gabriel, 1.2.840.1 [id number] Methodi 07:33:00 12:53:00 Encounter Wing 88826.1.[address] 3.430.2.7 Hospit a .3.789027 l .8 2022-06-21 2022[facility]06-22 [facility].840[facility]1 [id number] Methodi 07:33:00 12:53:00 Encounter Wing 65369.1.[address] 3.430.2.7 Hospit a .3.444082 l .8 2022-06-21 2022-06-21 Anesthesia Koby Dowling V. 1.2.840.1 [id number] Methodi 10:40:00 14:35:00 Event Sherman Joaquinne 36366.1.[address] 3.430.2.7 Hospit a .3.529225 l .8 2022-06-21 2022-06-21 Anesthesia Koby Dowling V. 1.2.840.1 [id number] Methodi 10:40:00 14:35:00 Event Darshana Joaquin 20591.1.[address] 3.430.2.7 Hospit a .3.551326 l .8 2022-06-21 2022-06-21 Surgery [facility], 1.2.840.1 [id number] Methodi 10:30:00 13:00:[address] 3.430.2.7 Hospit a .3.948828 l .8 2022-06-21 2022-06-21 Surgery zer, 1.2.840.1 [id number] [facility]i 10:30:00 13:00:[address] 3.430.2.7 Hospit a .3.746374 l .8 2022-06-20 2022-06-20 Lab zer, 1.2.840.1 [id number] Methodi 08:55:00 09:00:[address] 3.430.2.7 Hospit a .3.247704 l .8 2022-06-20 2022-06-20 Lab Nazeri, 1.2.840.1 [id number] Methodi 08:55:00 09:00:[address] 3.430.2.7 Hospit a .3.816963 l .8 2022-06-20 2022-06-20 Travel 1.2.840.1 1.2.091.302 [id number] Methodi 00:00:00 00:00:[address] 3.430.2.7 0.2.7.3.698 Ho spita .3.637495 084.8 l .8 2022-06-20 2022-06-20 Travel 1.2.840.1 1.2.264.642 [id number] Methodi 00:00:00 00:00:[address] 3.430.2.7 0.2.7.3.698 Ho spita .3.272361 084.8 l .8 2022-06-16 2022-06-16 Community Nazeri, 1.2.840.1 [id number] Methodi 00:00:00 00:00:00 Orders Wing [address]708.1.[address] 3.430.2.7 Hospit a .3.862892 l .8 2022-06-16 2022-06-16 Community Nazeri, 1.2.840.1 [id number] Methodi 00:00:00 00:00:00 Orders Wing [address]455.1.[address] 3.430.2.7 Hospit a .3.608788 l .8 2022-05-13 2022-05-13 Emergency Katie Merlos 1.2.840.1 [id number] Methodi 15:34:00 19:53:00 Pamela Le 37871.1.1 363 s t 3.430.2.7 Hospit a .3.649187 l .8 2022-05-132022-05-13 Emergency Katie Merlos 1.2.840.1 [id number] Methodi 15:34:00 19:53:00 Pamela Le 38658.1.1 363 s t 3.430.2.7 Hospit a .3.388994 l .8 2022-03-24 2022-03-24 Outpatient R [facility] [id number] Univers 17:00:00 17:27:59 [facility] o f [facility] 2022-03-24 2022-03-24 Urgent [facility] 1.2.840.114 [id number] Univers 17:00:00 17:27:59 Care [facility] 350.1.13.10 i ty of EDWIN 4.2.7.2.686 Jacob as LOR?BLEA [id number] [address] MEDICAL OFFICE [facility] 2020-10-14 2020-10-14 [facility] [id number] [place] 00:00:00 00:00:[address] WING [address] 2020-07-18 2020-07-18 Outpatient [facility] [id number] [place] 00:00:00 00:00:00 WING [address] 2020-06-18 2020-06-18 [facility] [id number] [place] 00:00:00 00:00:[address] WING [address] Results Test Description Test Time Test Comments Results Result Comments Source ECG 12 lead 2022-06-22 12:52:17 Test Item Value Reference Range Interpretation Comme nts Ventricular rate (test code = 253) Atrial rate (test code = 255) NC interval (test code = 266) QRSD interval (test code = 260) QT interval (test code = 264) QTC interval (test code = 265) P axis 1 (test code = 267) QRS axis 1 (test code = 268) T wave axis (test code = 270) EKG impression (test code = 273) Normal sinus rhythm with sinus arrhythmia- [facility] 12 [id number] 12:52:17 Test Item Value Reference Range Interpretation Comments Ventricular rate (test code = 253) Atrial rate (test code = 255) NC interval (test code = 266) QRSD interval [...] Kinsey MD ([id number]) on 06/22/2022 7:52:15 AM [address]2022-08-25 12:52:17 Test Item Value Reference Range Interpretation Comments Ventricular rate (test code = 253) Atrial rate (test code = 255) NC interval (test code = 266) QRSD interval [...] Kinsey MD ([id number]) on 06/22/2022 7:52:15 AM [address]2022-08-25 12:52:17 Test Item Value Reference Range Interpretation Comments Ventricular rate (test code = 253) Atrial rate (test code = 255) NC interval (test code = 266) QRSD interval [...] Kinsey MD ([id number]) on 06/22/2022 7:52:15 AM [address]2022-08-25 12:52:17 Test Item Value Reference Range Interpretation Comments Ventricular rate (test code = 253) Atrial rate (test code = 255) NC interval (test code = 266) QRSD interval [...] Kinsey MD ([id number]) on 06/22/2022 7:52:15 AM [facility] [id number] 18:12:38 Test Item Value Reference Interpretation Comments Range Interpretation (test Negative results do not code = 9583645) preclude COVID-19 infection and should not be used asthe sole basis for treatment or other patient management decisions. Negativeresults must be combined with clinical observations, patient history, andepidemiological information. COVID-19 qualitative Not-Detected Not-Detected RT-PCR result (test code = 28871-7) COVID-19 qualitative See link below for PDF Case Number: RT-PCR (test code = Lab Report [id number] 5028 7070) [facility] [id number] 18:12:38 Test Item Value Reference Interpretation Comments Range Interpretation (test Negative results do not code = 2236520) preclude COVID-19 infection and should not be used asthe sole basis for treatment or other patient management decisions. Negativeresults must be combined with clinical observations, patient history, andepidemiological information. COVID-19 qualitative Not-Detected Not-Detected RT-PCR result (test code = 36714-9) COVID-19 qualitative See link below for PDF Case Number: RT-PCR (test code = Lab Report [id number] 5028 7070) [facility] qualitative [id number] 18:12:38 Test Item Value Reference Interpretation Comments Range Interpretation (test Negative results do not code = 8350612) preclude COVID-19 infection and should not be used asthe sole basis for treatment or other patient management decisions. Negativeresults must be combined with clinical observations, patient history, andepidemiological information. COVID-19 qualitative Not-Detected Not-Detected RT-PCR result (test code = 89902-6) COVID-19 qualitative See link below for PDF Case Number: RT-PCR (test code = Lab Report [id number] 5028 7070) [facility] [id number] 18:12:38 Test Item Value Reference Interpretation Comments Range Interpretation (test Negative results do not code = 2699775) preclude COVID-19 infection and should not be used asthe sole basis for treatment or other patient management decisions. Negativeresults must be combined with clinical observations, patient history, andepidemiological information. COVID-19 qualitative Not-Detected Not-Detected RT-PCR result (test code = 60203-4) COVID-19 qualitative See link below for PDF Case Number: RT-PCR (test code = Lab Report [id number] 5028 7070) [facility] [id number] 18:12:38 Test Item Value Reference Interpretation Comments Range Interpretation (test Negative results do not code = 8364392) preclude COVID-19 infection and should not be used asthe sole basis for treatment or other patient management decisions. Negativeresults must be combined with clinical observations, patient history, andepidemiological information. COVID-19 qualitative Not-Detected Not-Detected RT-PCR result (test code = 52654-7) COVID-19 qualitative See link below for PDF Case Number: RT-PCR (test code = Lab Report [id number] 5028 7070) [facility] [id number]-VuI-1 (COVID-19) RNA [Presence] in Respiratory specimen by DENIS with probe [id number] 13:12:38 Test Item Value Reference Range Interpretation Comments SARS-CoV-2 (COVID-19) RNA Not detected [Presence] in Respiratory specimen by DENIS with probe detection (test code = 84203-0) Whether patient is employed in a Unknown healthcare setting (test code = 58138-3) Whether the patient has symptoms Unknown related to condition of interest (test code = 07913-8) Whether the patient was Unknown hospitalized for condition of interest (test code = 91799-3) Whether the patient was admitted Unknown to intensive care unit (ICU) for condition of interest (test code = 18824-5) Whether patient resides in a Unknown congregate care setting (test code = 69969-7) status (test code = Unknown 80580-5) Date and time of symptom onset Unknown (test code = 14303-4) JOAQUIN LIRIANORS-CoV-2 (COVID-19) RNA [Presence] in Respiratory specimen by DENIS with probe [id number] 23:44:02 Test Item Value Reference Range Interpretation Comments SARS-CoV-2 (COVID-19) RNA Not detected Not-Detected [Presence] in Respiratory specimen by DENIS with probe detection (test code = 12630-0) JOAQUIN [facility] [id number] 08:01:00 Test Item Value Reference Range Interpretation Comments CULTURE (BEAKER) (test No growth in 5 days code = 1095) MISCELLANEOUS LAB [id number] 07:37:00 Test Item Value Reference Range Interpretation Comments SCAN RESULT (test code = 0876104) BLOOD [id number] 08:00:00 Test Item Value Reference Range Interpretation Comments CULTURE (BEAKER) (test No growth in 5 days code = 1095) BLOOD [id number] 08:00:00 Test Item Value Reference Range Interpretation Comments CULTURE (BEAKER) (test No growth in 5 days code = 1095) ANTI-NUCLEAR ANTIBODY (AURA)2019-07-30 09:44:00 Test Item Value Reference Range Interpretation Comments ANTI-NUCLEAR ANTIBODY (AURA) (BEAKER) Positive Negative A (test code = 418) Test performed by IFA method.AURA TITER AND [id number] 09:44:00 Test Item Value Reference Range Interpretation [...] (test code Normal = 486) HEPATIC FUNCTION [id number] 09:58:00 Test Item Value Reference Range Interpretation [...] 347) CBC WITH PLATELET COUNT + MANUAL [id number] 09:29:00 Test Item Value Reference Range Interpretation [...] (BEAKER) (test code = 413) RESPIRATORY PANEL [id number] 15:15:00 Test Item Value Reference Range Interpretation [...] [facility] using the [employer] Respiratory Panel. It is FDA cleared and has been verified and approved by the [facility] for clinical use on nasopharyngeal swab specimens.The performance of the FilmArrayRP has not been established in individuals who received influenza vaccine. Recent administration of a nasal influenza vaccine may cause false positive results for Influenza A and/orInfluenza B.EBV VIRAL [id number] 13:49:00 Test Item Value Reference Range Interpretation [...] (2) real-time PCR amplification and detection with SSOK-5-kpcltgvj primers and probes. A well-conserved region of the EBNA-1 gene is targeted, along with an internal control sequence used to confirm PCR amplification. Asymptomatic carriers and viral genetic variation, among other factors, can affect the accuracy of nucleic acidtesting; therefore, results should be interpreted in light of clinical data.This test was developed and its performance characteristics determined by the [facility] Pathology Department,Section of Molecular Pathology. It has [...] real- time PCR amplification and detection with CGKM-9-hvseokcv primers and probes. A well-conserved region of the EBNA-1 gene is targeted, along with an internal control sequence used to confirm PCR amplification. Asymptomatic carriers and viral genetic variation, among other factors, can affect the accuracy of nucleic acid testing; therefore, results should be interpreted in light of clinical data.This test was developed and its performance characteristics determined by the [facility]ology Department, Section of Molecular Pathology.It has not been cleared or approved by the U.S. Food and Drug Administration (FDA), since FDA approval is not required for clinical use of the test. Validation was done as required by The Clinical Laboratory Improvement Amendments of 1988.CMV PCR, [id number] 13:43:00 Test Item Value Reference Range Interpretation [...] and its performance characteristics determined by the [facility]gy Department, Section of Molecular Pathology. It has not been cleared or approved by the U.S. Foodand Drug Administration (FDA), since FDA approval is not required for clinical use of the test. Validation was done as required by The Clinical Laboratory Improvement Amendments of 1988.RHEUMATOID FACTOR AB, REFLEX TO [id number] 13:10:00 Test Item Value Reference Range Interpretation Comments RHEUMATOID FACTOR (BEAKER) (test Negative code = 573) BASIC METABOLIC [id number] 06:42:00 Test Item Value Reference Range Interpretation [...] S NOT APPLICABLE FOR DIALYSIS PATIEN TS. [id number] 12:15:00 Test Item Value Reference Range Interpretation Comments RPR SCREEN (BEAKER) (test code = Nonreactive Nonreactive 420) HIV-1 ANTIGEN WITH HIV-1/2 [id number] 04:56:00 Test Item Value Reference Range Interpretation Comments HIV-1 ANTIGEN WITH HIV 1\T\2 Nonreactive Nonreactive ANTIBODY (2) (BEAKER) (test code = 2586) BASIC METABOLIC [id number] 04:24:00 Test Item Value Reference Range Interpretation [...] DIALYSIS PATIEN TS. URINALYSIS W/ REFLEX URINE [id number] 00:26:00 Test Item Value Reference Range Interpretation [...] = 2795) RAD, CHEST, 1 VIEW, NON [id number] 10:25:00Reason for exam:- >leukocytosis, fever r/o infectionFINAL [...] [place] Verified Date/Time: 07/26/2019 10:25:43 Reading Location: [facility] C013X Ortho Consult Reading Room CBC W/PLT COUNT & AUTO [id number] 10:24:00 Test Item Value Reference Range Interpretation [...] = 3438) Received comment: User comments: Slide comments:[id number] 10:11:00 Test Item Value Reference Range Interpretation [...] pg/mL 0-100 (test code = 700) TROPONIN [id number] 10:00:00 Test Item Value Reference Range Interpretation [...] acute neurological disease, and persistent tachyarrhythmia.BASIC METABOLIC [id number] 09:54:00 Test Item Value Reference Range Interpretation [...] U/L 29-200 code = 380) POCT-LACTIC ACID, [id number] 09:50:00 Test Item Value Reference Range Interpretation Comments POC-LACTIC ACID, 1.3 mmol/L 0.4-1.3 TESTED AT [facility] 67[address] ARTERIAL (BEAKER) [facility] (test code = 2804) [address] [id number] 09:50:00 Test Item Value Reference Range Interpretation Comments POC-HEMOGLOBIN 11.6 g/dL 13.0-16.8 L TESTED AT [place] [address] (BEAKER) (test code [facility] = 1856) 650[address]PQIQDZ AT [address] [address] POCT-BLOOD GASES, [id number] 09:49:00 Test Item Value Reference Range Interpretation Comments TEMP, CELSIUS-POC 37.0 (BEAKER) (test code = 1834) FIO2-POC (BEAKER) TESTED AT [place] [address] (test code = 1835) [facility] [address] PH, ARTERIAL-POC 7.370 7.350-7.450 (BEAKER) (test code = 1836) PCO2, ARTERIAL-POC 41.0 mm Hg 35.0-45.0 (BEAKER) (test code = 1837) PO2, ARTERIAL-POC 86.0 mm Hg 80.0-90.0 (BEAKER) (test code = 1838) SO2, ARTERIAL-POC 96.0 % 96.0-97.0 (BEAKER) (test code = 1839) HCO3, ARTERIAL-POC 23.7 meq/L 21.0-29.0 (BEAKER) (test code = 1840) BASE EXCESS, -2.0 meq/L -2.0-3.0 ARTERIAL-POC (BEAKER) (test code = 1841) [id number] 09:49:00 Test Item Value Reference Range Interpretation Comments POC-SODIUM (BEAKER) 137 meq/L 135-148 TESTED A T [place] [address] (test code = 1542) [facility] [address] [id number] 09:49:00 Test Item Value Reference Range Interpretation Comments POC-POTASSIUM 3.3 meq/L 3.6-5.5 L TESTED AT [place] [address] (BEAKER) (test code [facility] [address] = 1540) [id number] 09:49:00 Test Item Value Reference Range Interpretation Comments POC-GLUCOSE (BEAKER) 153 mg/dL 70-110 H TESTED AT [place] [address] (test code = 1855) [facility] [address] POCT-CALCIUM [id number] 09:49:00 Test Item Value Reference Range Interpretation Comments POC-CALCIUM IONIZED 1.22 mmol/L 1.12-1.27 TESTED A T [place] [address] (BEAKER) (test code = [facility] 1536) [address] [id number] 09:49:00 Test Item Value Reference Range Interpretation Comments POC-HEMATOCRIT 34 % 40-50 L TESTED AT [place] [address] (BEAKER) (test code = [facility] [address] 1857) URINALYSIS WITH MICROSCOPIC IF [id number] 07:55:00 Test Item Value Reference Range Interpretation [...] 463) SOURCE(BEAKER) (test code = 2795) URINALYSIS [id number] 07:55:00 Test Item Value Reference Range Interpretation Comments RBC UA (BEAKER) (test code = 519) 1 /HPF WBC UA (BEAKER) (test code = 520) 9 /HPF MUCUS (BEAKER) (test code = 1574) Rare SQUAMOUS EPITHELIAL (BEAKER) (test < /HPF code = 516) C-REACTIVE [id number] 07:27:00 Test Item Value Reference Range Interpretation Comments C-REACTIVE PROTEIN (BEAKER) (test 15.31 mg/dL 0.00-0.50 H code = 676) CBC W/PLT COUNT & AUTO [id number] 04:17:00 Test Item Value Reference Range Interpretation [...] (BEAKER) (test code = 2801) BASIC METABOLIC [id number] 03:45:00 Test Item Value Reference Range Interpretation [...]
--- NOTE | 2022-08-24 11:59 | RAD REPORT ---
EXAM DESCRIPTION: CT - Ct Stroke Brain Wo Cont - 08/24/2022 11:49 am CLINICAL HISTORY: left arm numbnes COMPARISON: <Comparisons> TECHNIQUE: All CT scans are performed using dose optimization technique as appropriate and may inclu de automated exposure control or mA/KV adjustment according to patient size. FINDINGS: No intracranial hemorrhage, hydrocephalus or extra-axial fluid collection.No areas of brai n edema or evidence of midline shift. The paranasal sinuses and mastoids are clear. The calvarium is intact. IMPRESSION: No acute intracranial abnormality. Discussed with Rodrigo Jules in the ED by Dr. Dhillon at 1154 on 08/24/22
[2022-08-24 12:21] LABS: Absolute Lymphocytes (CBC) 1.6 K/uL (0.7-4.9); Hematocrit 44.7 % (39.6-49.0); Lymphocytes % 19.8 % (15.3-44.8); MCV 90.1 fL (80-100); MPV 10.5 fL (7.6-11.3); Protime INR 1.12; RBC Red Blood Cell Count 4.96 M/uL (4.33-5.43)
--- NOTE | 2022-08-24 12:27 | RAD REPORT ---
EXAM DESCRIPTION: RAD - Chest Single View - 08/24/2022 12:22 pm CLINICAL HISTORY: chest COMPARISON: Chest Single View dated 08/17/2022; Chest Single View dated 07/06/2022; Chest Single View dated 05/20/2022; Chest Pa And Lat (2 Views) dated 07/25/2019 FINDINGS: Lines: None. Lungs: No evidence of edema or pneumonia. Pleural: No significant pleural effusions or pneumothorax. Cardiac: The heart size is within normal limits. Loop recorder overlies the chest. Mediastinum: Within normal limits. Bones: No acute fractures. Other: None IMPRESSION: No acute cardiopulmonary disease.
[2022-08-24 12:44] LABS: Albumin 4.2 g/dL (3.4-5.0); Bilirubin Direct 0.2 mg/dL (0-0.2); Bilirubin Total 0.9 mg/dL (0.2-1.0); Magnesium 2.3 mg/dL (1.8-2.4); Potassium 4.2 mmol/L (3.5-5.1); Protein, Total 8.6 g/dL (6.4-8.2)
--- NOTE | 2022-08-24 12:52 | RAD REPORT ---
EXAM DESCRIPTION: CT - Head angio - 08/24/2022 12:42 pm CLINICAL HISTORY: left arm numbness Headache, drowsiness, CVA symptomology COMPARISON: Ct Stroke Brain Wo Cont dated 08/24/2022; Head Brain Wo Cont dated 07/04/2019 TECHNIQUE: CT angiography of the head was performed with MIPs. All CT scans are performed using dose optimization technique as appropriate and may include automated exposure control or mA/KV adjustment according to patient size. FINDINGS: No evidence of aneurysm is detected. No flow-limiting stenosis or vascular malformation id entified. Antegrade flow is seen in the vertebral arteries. The vertebral arteries are codominant. The visualized dural venous sinuses are patent. IMPRESSION: No significant flow abnormality is detected.
--- NOTE | 2022-08-24 12:54 | RAD REPORT ---
EXAM DESCRIPTION: CT - Neck Angio - 08/24/2022 12:46 pm CLINICAL HISTORY: left sided arm numbness Headache, drowsiness, CVA symptomology COMPARISON: No comparisons TECHNIQUE: CT angiography of the neck vessels was performed with MIPs. All CT scans are performed using dose optimization technique as appropriate and may include automated exposure control or mA/KV adjustment according to patient size. FINDINGS: A left aortic arch is identified with normal three vessel configuration of the great vesse ls. No significant flow abnormality is seen of the common carotid bilaterally. No significant stenosis is identified involving the cervical segments of both internal carotid arteri es. Normal flow is seen within both vertebral arteries. IMPRESSION: No significant flow abnormality of the neck vessels is identified.
--- NOTE | 2022-08-24 13:42 | RAD REPORT ---
EXAM DESCRIPTION: MRI - Brain Wo Cont - 08/24/2022 1:33 pm CLINICAL HISTORY: left arm numbness Headache, drowsiness COMPARISON: Head angio dated 08/24/2022; Ct Stroke Brain Wo Cont dated 08/24/2022 TECHNIQUE: Multi-sequence, multiplanar MR imaging of the brain was performed without contrast. FINDINGS: No intracranial hemorrhage, hydrocephalus or extra-axial fluid collections. No edema or sh ift of midline structures. No findings to suspect brain mass. DWI is negative for acute CVA. Midline structures are normally formed. Mastoid air cells and paranasal sinuses are essentially clear. IMPRESSION: Negative for acute CVA or other acute intracranial process.
[2022-08-24] MEDS ORDERED: ASPIRIN 81 MG CHEWABLE TABLET ONE (13:58)
[2022-08-24 14:16] LABS: SARS-CoV-2 Antigen Rapid Res Negative (Negative)
--- NOTE | 2022-08-24 15:37 | EDPHYS ---
Physician Documentation [facility] Name: Uzair Sullivan Age: 42 yrs Sex: Male : 1980 Arrival Date: 08/24/2022 Time: 11:24 Bed 6 Private MD: Brandon Guzmán R ED Physician Ethan Bhatia HPI: 08/24 11:33 This 42 yrs old Male presents to ER via Ambulatory with complaints of Chest jmm Pain, Numbness Of Arm. 11:33 The patient or guardian reports chest pain that is located primarily in the substernal jmm area. Onset: gradually. The pain radiates to the left arm. This is a 42 year old male with a history of lupus, tachyarrhythmia that presents to the ED with complaints of chest pain beginning this morning around 1045 with complaints of numbness from his upper back and radiating into his left forearm. Denies injury. Denies pain, denies weakness. . Historical: - Allergies: 11:28 No Known Allergies; ld1 - PMHx: 11:28 arrhythmia; Diverticulitis; Lupus erythematosus; ld1 - PSHx: 11:28 Heart ablation; heart cath; ld1 - Immunization history:: Adult Immunizations up to date, Client reports receiving the 2nd dose of the Covid vaccine. - Social history:: Smoking status: Patient denies any tobacco usage or history of. Patient/guardian denies using alcohol. ROS: 11:33 Constitutional: Negative for fever, chills, and weight loss, Respiratory: Negative for jmm shortness of breath, cough, wheezing, and pleuritic chest pain. 11:33 Cardiovascular: Positive for chest pain. 11:33 Neuro: Positive for numbness. 11:33 All other systems are negative. Exam: 11:33 Constitutional: This is a well developed, well nourished patient who is awake, alert, jmm and in no acute distress. Head/Face: atraumatic. Eyes: EOMI, no conjunctival erythema appreciated ENT: Moist Mucus Membranes Neck: Trachea midline, Supple Chest/axilla: Normal chest wall appearance and motion. Cardiovascular: Regular rate and rhythm. No edema appreciated Respiratory: Normal respirations, no respiratory distress appreciated Abdomen/GI: Non distended Back: Normal ROM Skin: General appearance color normal MS/ Extremity: Moves all extremities, no obvious deformities appreciated, no edema noted to the lower extremities Neuro: Awake and alert Psych: Behavior is normal, Mood is normal, Patient is cooperative and pleasant Vital Signs: 11:26 BP 136 / 101; Pulse 58; Resp 18; Temp 98.6(TE); Pulse Ox 100% ; Weight 77.11 kg; Height ld1 5 ft. 9 in. (175.26 cm); Pain 4/10; 11:56 BP 114 / 84; Pulse 69; Resp 18 S; Pulse Ox 100% on R/A; aa5 13:16 BP 109 / 85; Pulse 72; Resp 16 S; Pulse Ox 97% on R/A; aa5 14:40 BP 105 / 82; Pulse 65; Resp 17 S; Pulse Ox 98% on R/A; Pain 0/10; aa5 16:00 BP 117 / 80; Pulse 59; Resp 20; Pulse Ox 98% ; kb3 11:26 Body Mass Index 25.10 (77.11 kg, 175.26 cm) ld1 NIH Stroke Scale Scores: 11:33 NIHSS Score: 1 [facility] 11:52 NIHSS Score: 1 aa5 12:15 NIHSS Score: 0 aa5 16:15 NIHSS Score: 0 aa5 MDM: 11:33 Patient medically screened. [facility] 15:34 Data reviewed: vital signs, nurses notes. ED course: I discussed the patient with [facility] neurology who recommended TN K due to sensory deficit. I did discuss this with the patient who refused after discussion of pros and cons of the medication along with the risks associated with administration. I did this on 2 different occasions. Patient ultimately declined but does agree for further evaluation. MRI CTA were both negative for any acute process. Patient states his numbness has decreased but does not fully resolve.. 08/24 11:37 Order name: Basic Metabolic Panel; Complete Time: 12:54 [facility] 08/24 11:37 Order name: CBC with Diff; Complete Time: 12:54 [facility] 08/24 11:37 Order name: LFT's; Complete Time: 12:54 [facility] 08/24 11:37 Order name: Magnesium; Complete Time: 12:54 [facility] 08/24 11:37 Order name: NT PRO-BNP; Complete Time: 12:54 [facility] 08/24 11:37 Order name: PT-INR; Complete Time: 12:54 [facility] 08/24 11:37 Order name: Troponin HS; Complete Time: 12:54 [facility] 08/24 11:37 Order name: XRAY Chest (1 view); Complete Time: 12:54 [facility] 08/24 11:41 Order name: CT Stroke Brain w/o Contrast; Complete Time: 12:04 [facility] 08/24 11:54 Order name: Ptt, Activated; Complete Time: 12:54 [facility] 08/24 12:05 Order name: Glucose, Ancillary Testing; Complete Time: 12:05 [facility] 08/24 12:07 Order name: CT Head Angio; Complete Time: 12:54 [facility] 08/24 12:08 Order name: CT Neck Angio; Complete Time: 13:13 [facility] 08/24 13:46 Order name: SARS RAPID; Complete Time: 14:19 [facility] 08/24 11:37 Order name: EKG; Complete Time: 11:37 [facility] 08/24 11:37 Order name: Cardiac monitoring; Complete Time: 12:05 [facility] 08/24 11:37 Order name: EKG - Nurse/Tech; Complete Time: 12:05 [facility] 08/24 11:37 Order name: IV Saline Lock; Complete Time: 12:05 [facility] 08/24 11:37 Order name: Labs collected and sent; Complete Time: 12:05 [facility] 08/24 11:37 Order name: O2 Per Protocol; Complete Time: 12:05 [facility] 08/24 11:37 Order name: O2 Sat Monitoring; Complete Time: 12:05 [facility] 08/24 11:54 Order name: Accucheck; Complete Time: 12:05 [facility] 08/24 11:54 Order name: NPO; Complete Time: 12:05 [facility] 08/24 11:54 Order name: Stroke Swallow Screen; Complete Time: 12:05 [facility] 08/24 12:48 Order name: Brain Wo Cont MRI; Complete Time: 13:45 [facility] Administered Medications: 14:00 Drug: Aspirin Chewable Tablet 324 mg Route: PO; bp 15:00 Follow up: Response: No adverse reaction aa5 16:15 Drug: foLIC Acid 1 mg Route: IVPB; Site: right antecubital; aa5 16:42 Follow up: Response: No adverse reaction; IV Status: Completed infusion; IV Intake: kb3 100ml Point of Care Testing: Blood Glucose: 11:56 Blood Glucose: 74 mg/dL; aa5 Ranges: Critical Glucose Levels:Adult <50 mg/dl or >400 mg/dl <40 mg/dl or >180 mg/dl Disposition Summary: 08/24/22 16:05 Discharge Ordered Location: Home(08/24/22 16:05) [place] Problem: new(08/24/22 16:05) [place] Symptoms: have improved(08/24/22 16:05) [place] Condition: Stable(08/24/22 16:05) [place] Diagnosis - Palpitations [place] - Paresthesia of skin [place] Followup: [place] - With: Private Physician - When: 2 - 3 days - Reason: Recheck today's complaints, Continuance of care, Re-evaluation by your physician Followup: [place] - With: Lester Vicente MD - When: 2 - 3 days - Reason: Recheck today's complaints, Continuance of care, Re-evaluation by your physician Followup: [place] - With: Alexandre Mantilla MD - When: 2 - 3 days - Reason: Recheck today's complaints, Re-evaluation by your physician Discharge Instructions: - Discharge Summary Sheet [place] - Palpitations [place] - Paresthesia [place] - Aspirin and Your Heart [place] - Palpitations, [id number] [place] - Paresthesia, [id number] [place] Forms: - Medication Reconciliation Form [place] - Thank You Letter [place] - Antibiotic Education [place] - Prescription Opioid Use [facility] Prescriptions: - Folic Acid 1 mg Oral Tablet - take 1 tablet by ORAL route once daily; 30 tablet; Refills: 0, Product [place] Selection Permitted NIH Stroke Scale - NIH Stroke Score Date: 08/24/2022 Time: 11:33 Total Score = 1 1a. Level of Consciousness (LOC) - 0(Alert) 1b. Level of Consciousness (LOC) (Month \T\ Age) - 0(Both) 1c. LOC Commands (Open \T\ Closes Eyes/Senior Planning Manager) - 0(Both) 2. Best Gaze (Lateral Gaze Paresis) - 0(Normal) 3. Visual Field Loss - 0(No visual loss) 4. Facial Palsy - 0(Normal) 5a. Left Arm: Motor (10-second hold) - 0(No drift) 5b. Right Arm: Motor (10-second hold) - 0(No drift) 6a. Left Leg: Motor (5-second hold - always test supine) - 0(No drift) 6b. Right Leg: Motor (5-second hold - always test supine) - 0(No drift) 7. Limb Ataxia (finger/nose \T\ heel/saldivar - test with eyes open) - 0(Absent) 8. Sensory Loss (pinprick arms/legs/face) - 1(Mild to moderate loss) 9. Best Language: Aphasia (description/naming/reading) - 0(No aphasia) 10. Dysarthria (speech clarity - read or repeat words) - 0(Normal) 11. Extinction and Inattention (visual/tactile/auditory/spatial/personal) - 0(No abnormality) Initials: [facility] NIH Stroke Scale - NIH Stroke Score Date: 08/24/2022 Time: 11:52 Total Score = 1 1a. Level of Consciousness (LOC) - 0(Alert) 1b. Level of Consciousness (LOC) (Month \T\ Age) - 0(Both) 1c. LOC Commands (Open \T\ Closes Eyes/Senior Planning Manager) - 0(Both) 2. Best Gaze (Lateral Gaze Paresis) - 0(Normal) 3. Visual Field Loss - 0(No visual loss) 4. Facial Palsy - 0(Normal) 5a. Left Arm: Motor (10-second hold) - 0(No drift) 5b. Right Arm: Motor (10-second hold) - 0(No drift) 6a. Left Leg: Motor (5-second hold - always test supine) - 0(No drift) 6b. Right Leg: Motor (5-second hold - always test supine) - 0(No drift) 7. Limb Ataxia (finger/nose \T\ heel/saldivar - test with eyes open) - 0(Absent) 8. Sensory Loss (pinprick arms/legs/face) - 1(Mild to moderate loss) 9. Best Language: Aphasia (description/naming/reading) - 0(No aphasia) 10. Dysarthria (speech clarity - read or repeat words) - 0(Normal) 11. Extinction and Inattention (visual/tactile/auditory/spatial/personal) - 0(No abnormality) Initials: aa5 NIH Stroke Scale - NIH Stroke Score Date: 08/24/2022 Time: 12:15 Total Score = 0 1a. Level of Consciousness (LOC) - 0(Alert) 1b. Level of Consciousness (LOC) (Month \T\ Age) - 0(Both) 1c. LOC Commands (Open \T\ Closes Eyes/Senior Planning Manager) - 0(Both) 2. Best Gaze (Lateral Gaze Paresis) - 0(Normal) 3. Visual Field Loss - 0(No visual loss) 4. Facial Palsy - 0(Normal) 5a. Left Arm: Motor (10-second hold) - 0(No drift) 5b. Right Arm: Motor (10-second hold) - 0(No drift) 6a. Left Leg: Motor (5-second hold - always test supine) - 0(No drift) 6b. Right Leg: Motor (5-second hold - always test supine) - 0(No drift) 7. Limb Ataxia (finger/nose \T\ heel/saldivar - test with eyes open) - 0(Absent) 8. Sensory Loss (pinprick arms/legs/face) - 0(Normal) 9. Best Language: Aphasia (description/naming/reading) - 0(No aphasia) 10. Dysarthria (speech clarity - read or repeat words) - 0(Normal) 11. Extinction and Inattention (visual/tactile/auditory/spatial/personal) - 0(No abnormality) Initials: aa5 NIH Stroke Scale - NIH Stroke Score Date: 08/24/2022 Time: 16:15 Total Score = 0 1a. Level of Consciousness (LOC) - 0(Alert) 1b. Level of Consciousness (LOC) (Month \T\ Age) - 0(Both) 1c. LOC Commands (Open \T\ Closes Eyes/Senior Planning Manager) - 0(Both) 2. Best Gaze (Lateral Gaze Paresis) - 0(Normal) 3. Visual Field Loss - 0(No visual loss) 4. Facial Palsy - 0(Normal) 5a. Left Arm: Motor (10-second hold) - 0(No drift) 5b. Right Arm: Motor (10-second hold) - 0(No drift) 6a. Left Leg: Motor (5-second hold - always test supine) - 0(No drift) 6b. Right Leg: Motor (5-second hold - always test supine) - 0(No drift) 7. Limb Ataxia (finger/nose \T\ heel/saldivar - test with eyes open) - 0(Absent) 8. Sensory Loss (pinprick arms/legs/face) - 0(Normal) 9. Best Language: Aphasia (description/naming/reading) - 0(No aphasia) 10. Dysarthria (speech clarity - read or repeat words) - 0(Normal) 11. Extinction and Inattention (visual/tactile/auditory/spatial/personal) - 0(No abnormality) Initials: aa5 Signatures: Dispatcher [employer] EDMS Ethan Bhatia MD MD cha Mickail, Joel, PA PA jmm Calderon, Audri, RN RN aa5 Graeme Sanchez RN RN bp Brandi Mackenzie RN RN ld1 Latisha Shabazz RN kb3 Corrections: (The following items were deleted from the chart) 12:52 12:49 Brain W/Wo Cont+MRI.RAD.BRZ ordered. EDMS EDMS 16:04 15:36 Observation jmm [facility] 16:04 15:36 Ralf Hung m [facility] 16:04 15:36 Telemetry/MedSurg (observation) jmm [place] 16:04 15:36 Stable jmm [place] 16:04 15:36 new jmm [place] 16:04 15:36 are unchanged jmm [place] 16:04 15:36 Standard jmm [place] 16:04 15:36 jmm [place] 16:04 15:36 Chest pain, unspecified jmm [place] 16:04 15:36 Paresthesias - Left Upper Extremity jmm [facility]
--- NOTE | 2022-08-24 15:37 | ER ---
Nurse's Notes [facility] Name: Uzair Sullivan Age: 42 yrs Sex: Male : 1980 Arrival Date: 08/24/2022 Time: 11:24 Bed 6 Private MD: Brandon Guzmán R Diagnosis: Palpitations;Paresthesia of skin Presentation: 08/24 11:26 Chief complaint: Patient states: pt c/o numbness to left arm since 1045 this morning \T\ ld1 small amount of chest pain. Coronavirus screen: At this time, the client does not indicate any symptoms associated with coronavirus-19. Ebola Screen: No symptoms or risks identified at this time. Initial Sepsis Screen: Does the patient meet any 2 criteria? No. Patient's initial sepsis screen is negative. Does the patient have a suspected source of infection? No. Patient's initial sepsis screen is negative. Risk Assessment: Do you want to hurt yourself or someone else? Patient reports no desire to harm self or others. Onset of symptoms was August 24, 2022. 11:26 Method Of Arrival: Ambulatory ld1 11:26 Acuity: GLORIA 3 ld1 11:50 An acute neurological deficit is present. Pre-hospital glucose is not applicable to aa5 this patient. Triage Assessment: 11:28 General: Appears in no apparent distress. comfortable, Behavior is calm, cooperative, ld1 appropriate for age. Pain: Complains of pain in chest and left arm Pain does not radiate. Pain currently is 3 out of 10 on a pain scale. Quality of pain is described as tingling, throbbing, numb. EENT: No signs and/or symptoms were reported regarding the EENT system. Neuro: Level of Consciousness is awake, alert, obeys commands, Oriented to person, place, time, situation. Cardiovascular: Capillary refill < 3 seconds Patient's skin is warm and dry. Respiratory: Airway is patent Respiratory effort is even, unlabored. GI: Abdomen is flat, non-distended. : No signs and/or symptoms were reported regarding the genitourinary system. Derm: Reports tingling. 11:50 The onset of the patients symptoms was August 24, 2022 at 10:45. aa5 Stroke Activation: Symptom onset < 3 hours Physician: Stroke Attending; Name: ; Notified At: ; Arrived At: Physician: Chief Stroke Resident; Name: ; Notified At: ; Arrived At: Physician: Stroke Resident; Name: ; Notified At: ; Arrived At: Physician: ED Attending; Name: ; Notified At: ; Arrived At: Physician: ED Resident; Name: ; Notified At: ; Arrived At: Historical: - Allergies: 11:28 No Known Allergies; ld1 - PMHx: 11:28 arrhythmia; Diverticulitis; Lupus erythematosus; ld1 - PSHx: 11:28 Heart ablation; heart cath; ld1 - Immunization history:: Adult Immunizations up to date, Client reports receiving the 2nd dose of the Covid vaccine. - Social history:: Smoking status: Patient denies any tobacco usage or history of. Patient/guardian denies using alcohol. Screenin:31 Abuse screen: Denies threats or abuse. Nutritional screening: No deficits noted. aa5 Tuberculosis screening: No symptoms or risk factors identified. Fall Risk None identified. Assessment: 11:50 Reassessment: Pt back from CT scan via wheelchair . aa5 11:52 General: Appears comfortable, Behavior is calm, cooperative. Pain: Complains of pain in aa5 anterior aspect of left upper chest Pain does not radiate. Pain currently is 4 out of 10 on a pain scale. Quality of pain is described as sharp, Pain began 1045 today Is continuous. Neuro: Level of Consciousness is awake, alert, obeys commands, Oriented to person, place, time, situation, Entertainment Manager are equal bilaterally Moves all extremities. Gait is steady, Speech is normal, Facial symmetry appears normal, Pupils are PERRLA, Reports tingling to left arm since 1045 today . Cardiovascular: Heart tones S1 S2 present Rhythm is regular. Respiratory: Airway is patent Respiratory effort is even, unlabored, Respiratory pattern is regular, symmetrical, Breath sounds are clear bilaterally. Denies cough, shortness of breath labored breathing. GI: Abdomen is round non-distended, Bowel sounds present X 4 quads. Abd is soft and non tender X 4 quads. Patient currently denies diarrhea, nausea, vomiting. : No signs and/or symptoms were reported regarding the genitourinary system. EENT: No signs and/or symptoms were reported regarding the EENT system. Derm: Skin is pink, warm \T\ dry. Musculoskeletal: Range of motion: intact in all extremities. 11:55 TNKase (Tenecteplase) Screening: Indications: No evidence of intracranial hemorrhage or aa5 CT of head and no evidence of peripheral hemorrhage or recent CVA: Yes. 11:55 VAN Scoring: Arm Drift: Patients demonstrates NO arm weakness. Patient is VAN Negative. aa5 Visual Disturbance: No visual disturbance noted. Aphasia: No aphasia noted. Neglect: No neglect noted. 12:15 Patient has been NPO before screening. The patient is alert, and able to follow aa5 commands. The patient does not exhibit slurred or garbled speech. The patient is not exhibiting difficulty speaking. The patient does not exhibit difficulty understanding words. The patient is able to swallow own secretions with no drooling or need for suction. Patient tolerated one teaspoon of water. No drooling, immediate coughing, gurgling, or clearing of the throat was noted. The patient tolerated 90mL of water. No drooling, immediate coughing, gurgling, or clearing of the throat was noted. The patient passed the bedside swallow screening. Oral medications may be given as ordered. Contact Physician for further diet orders. Provider notified of bedside swallow screening results: Fly SHAVER. 12:15 Reassessment: Pt sitting up in bed, pt reports tingling to left arm is improving, pt aa5 also denies chest pain at this time. . 12:15 Reassessment: Patient is alert, oriented x 3, equal unlabored respirations, skin aa5 warm/dry/pink. 12:32 Reassessment: Pt to CT for CTA via wheelchair . aa5 13:16 Reassessment: Patient is alert, oriented x 3, equal unlabored respirations, skin aa5 warm/dry/pink. Patient denies pain at this time. Patient states feeling better. Patient states symptoms have improved. Denies tingling to left arm . 13:16 Reassessment: Pt back from CT and MRI. Pt's at bedside. aa5 14:38 Reassessment: Patient is alert, oriented x 3, equal unlabored respirations, skin aa5 warm/dry/pink. Pt sitting up in bed, states no complaints at this time. Awaiting disposition. . 16:00 Reassessment: Dr. Hung (hospitalist) at bedside . aa5 16:15 Reassessment: Patient is alert, oriented x 3, equal unlabored respirations, skin aa5 warm/dry/pink. Pt denies any symptoms. . Vital Signs: 11:26 BP 136 / 101; Pulse 58; Resp 18; Temp 98.6(TE); Pulse Ox 100% ; Weight 77.11 kg; Height ld1 5 ft. 9 in. (175.26 cm); Pain 4/10; 11:56 BP 114 / 84; Pulse 69; Resp 18 S; Pulse Ox 100% on R/A; aa5 13:16 BP 109 / 85; Pulse 72; Resp 16 S; Pulse Ox 97% on R/A; aa5 14:40 BP 105 / 82; Pulse 65; Resp 17 S; Pulse Ox 98% on R/A; Pain 0/10; aa5 16:00 BP 117 / 80; Pulse 59; Resp 20; Pulse Ox 98% ; kb3 11:26 Body Mass Index 25.10 (77.11 kg, 175.26 cm) ld1 NIH Stroke Scale Scores: 11:33 NIHSS Score: 1 jm 11:52 NIHSS Score: 1 aa5 12:15 NIHSS Score: 0 aa5 16:15 NIHSS Score: 0 aa5 ED Course: 11:24 Patient arrived in ED. rg4 11:24 Brandon Guzmán MD is Private Physician. rg4 11:28 Triage completed. ld1 11:28 Arm band placed on right wrist. ld1 11:33 [facility]. jmm 11:33 Ehtan Bhatia MD is Attending Physician. [facility] 11:50 Patient has correct armband on for positive identification. Placed in gown. Bed in low aa5 position. Call light in reach. Side rails up X2. Client placed on continuous cardiac and pulse oximetry monitoring. NIBP monitoring applied. 11:51 CT Stroke Brain w/o Contrast In Process Unspecified. EDMS 12:00 Initial lab(s) drawn, by me, sent to lab. Inserted saline lock: 20 gauge in right aa5 antecubital area, using aseptic technique. Blood collected. 12:05 EKG done, by ED staff, reviewed by Fly SHAVER. aa5 12:20 Gisselle Ace, RN is Primary Nurse. aa5 12:24 XRAY Chest (1 view) In Process Unspecified. EDMS 12:30 No provider procedures requiring assistance completed. Patient maintains SpO2 aa5 saturation greater than 95% on room air. 12:44 CT Head Angio In Process Unspecified. EDMS 12:47 CT Neck Angio In Process Unspecified. EDMS 13:35 Brain Wo Cont MRI In Process Unspecified. EDMS 15:35 Ralf Hung MD is Hospitalizing Provider. jmm 16:05 Lester Vicente MD is Referral Physician. celeste 16:05 Alexandre Mantilla MD is Referral Physician. celeste 16:40 IV discontinued, intact, bleeding controlled, No redness/swelling at site. kb3 Administered Medications: 14:00 Drug: Aspirin Chewable Tablet 324 mg Route: PO; bp 15:00 Follow up: Response: No adverse reaction aa5 16:15 Drug: foLIC Acid 1 mg Route: IVPB; Site: right antecubital; aa5 16:42 Follow up: Response: No adverse reaction; IV Status: Completed infusion; IV Intake: kb3 100ml Medication: 16:40 VIS not applicable for this client. kb3 Point of Care Testing: Blood Glucose: 11:56 Blood Glucose: 74 mg/dL; aa5 Ranges: Intake: 16:42 IV: 100ml; Total: 100ml. kb3 Outcome: 15:36 Decision to Hospitalize by Provider. [facility] 16:05 Discharge ordered by . celeste 16:40 Discharged to home ambulatory. kb3 16:40 Condition: stable 16:40 Discharge instructions given to patient, family, Instructed on discharge instructions, follow up and referral plans. medication usage, Demonstrated understanding of instructions, follow-up care, medications, Prescriptions given X 1. 16:41 Patient left the ED. kb3 NIH Stroke Scale - NIH Stroke Score Date: 08/24/2022 Time: 11:33 Total Score = 1 1a. Level of Consciousness (LOC) - 0(Alert) 1b. Level of Consciousness (LOC) (Month \T\ Age) - 0(Both) 1c. LOC Commands (Open \T\ Closes Eyes/Bryologist) - 0(Both) 2. Best Gaze (Lateral Gaze Paresis) - 0(Normal) 3. Visual Field Loss - 0(No visual loss) 4. Facial Palsy - 0(Normal) 5a. Left Arm: Motor (10-second hold) - 0(No drift) 5b. Right Arm: Motor (10-second hold) - 0(No drift) 6a. Left Leg: Motor (5-second hold - always test supine) - 0(No drift) 6b. Right Leg: Motor (5-second hold - always test supine) - 0(No drift) 7. Limb Ataxia (finger/nose \T\ heel/saldivar - test with eyes open) - 0(Absent) 8. Sensory Loss (pinprick arms/legs/face) - 1(Mild to moderate loss) 9. Best Language: Aphasia (description/naming/reading) - 0(No aphasia) 10. Dysarthria (speech clarity - read or repeat words) - 0(Normal) 11. Extinction and Inattention (visual/tactile/auditory/spatial/personal) - 0(No abnormality) Initials: [facility] NIH Stroke Scale - NIH Stroke Score Date: 08/24/2022 Time: 11:52 Total Score = 1 1a. Level of Consciousness (LOC) - 0(Alert) 1b. Level of Consciousness (LOC) (Month \T\ Age) - 0(Both) 1c. LOC Commands (Open \T\ Closes Eyes/Bryologist) - 0(Both) 2. Best Gaze (Lateral Gaze Paresis) - 0(Normal) 3. Visual Field Loss - 0(No visual loss) 4. Facial Palsy - 0(Normal) 5a. Left Arm: Motor (10-second hold) - 0(No drift) 5b. Right Arm: Motor (10-second hold) - 0(No drift) 6a. Left Leg: Motor (5-second hold - always test supine) - 0(No drift) 6b. Right Leg: Motor (5-second hold - always test supine) - 0(No drift) 7. Limb Ataxia (finger/nose \T\ heel/saldivar - test with eyes open) - 0(Absent) 8. Sensory Loss (pinprick arms/legs/face) - 1(Mild to moderate loss) 9. Best Language: Aphasia (description/naming/reading) - 0(No aphasia) 10. Dysarthria (speech clarity - read or repeat words) - 0(Normal) 11. Extinction and Inattention (visual/tactile/auditory/spatial/personal) - 0(No abnormality) Initials: aa5 NIH Stroke Scale - NIH Stroke Score Date: 08/24/2022 Time: 12:15 Total Score = 0 1a. Level of Consciousness (LOC) - 0(Alert) 1b. Level of Consciousness (LOC) (Month \T\ Age) - 0(Both) 1c. LOC Commands (Open \T\ Closes Eyes/Bryologist) - 0(Both) 2. Best Gaze (Lateral Gaze Paresis) - 0(Normal) 3. Visual Field Loss - 0(No visual loss) 4. Facial Palsy - 0(Normal) 5a. Left Arm: Motor (10-second hold) - 0(No drift) 5b. Right Arm: Motor (10-second hold) - 0(No drift) 6a. Left Leg: Motor (5-second hold - always test supine) - 0(No drift) 6b. Right Leg: Motor (5-second hold - always test supine) - 0(No drift) 7. Limb Ataxia (finger/nose \T\ heel/saldivar - test with eyes open) - 0(Absent) 8. Sensory Loss (pinprick arms/legs/face) - 0(Normal) 9. Best Language: Aphasia (description/naming/reading) - 0(No aphasia) 10. Dysarthria (speech clarity - read or repeat words) - 0(Normal) 11. Extinction and Inattention (visual/tactile/auditory/spatial/personal) - 0(No abnormality) Initials: aa5 NIH Stroke Scale - NIH Stroke Score Date: 08/24/2022 Time: 16:15 Total Score = 0 1a. Level of Consciousness (LOC) - 0(Alert) 1b. Level of Consciousness (LOC) (Month \T\ Age) - 0(Both) 1c. LOC Commands (Open \T\ Closes Eyes/Bryologist) - 0(Both) 2. Best Gaze (Lateral Gaze Paresis) - 0(Normal) 3. Visual Field Loss - 0(No visual loss) 4. Facial Palsy - 0(Normal) 5a. Left Arm: Motor (10-second hold) - 0(No drift) 5b. Right Arm: Motor (10-second hold) - 0(No drift) 6a. Left Leg: Motor (5-second hold - always test supine) - 0(No drift) 6b. Right Leg: Motor (5-second hold - always test supine) - 0(No drift) 7. Limb Ataxia (finger/nose \T\ heel/saldivar - test with eyes open) - 0(Absent) 8. Sensory Loss (pinprick arms/legs/face) - 0(Normal) 9. Best Language: Aphasia (description/naming/reading) - 0(No aphasia) 10. Dysarthria (speech clarity - read or repeat words) - 0(Normal) 11. Extinction and Inattention (visual/tactile/auditory/spatial/personal) - 0(No abnormality) Initials: aa5 Signatures: Dispatcher [employer] EDMS Ethan Bhatia MD MD cha Mickail, Joel, PA PA jmm Calderon, Audri, RN RN aa5 Hiral Stevenson rg4 Graeme Sanchez RN RN bp Brandi Mackenzie RN RN ld1 Latisha Shabazz, RN RN kb3 Petty Newman, RN RN mb9 Corrections: (The following items were deleted from the chart) 11:28 11:26 Chief complaint: Patient states: pt c/o numbness to left arm \T\ small ld1 amount of chest pain. ld1 12:22 12:20 EKG done, by ED staff, reviewed by Fly SHAVER mb9 aa5 12:28 12:15 NIHSS Score: 0 aa5 aa5
[2022-08-24] MEDS ORDERED: FOLIC ACID 5 MG/ML VIAL ONE (16:06)
[2022-08-24 17:20] VITALS: TEMP 98.6
[2022-08-24 17:33] VITALS: O2SAT 98
[2022-08-24 17:34] VITALS: BP 117/80
--- NOTE | 2022-08-24 20:24 | P.CNS ---
Date of Consult: 08/24/22 Reason for Consult: Left arm paresthesias Chief Complaint: L arm paresthesias, palpitations History of Present Illness: 42yo M, PMH: SVT, diverticulitis, recurrent palpitations, anxiety Presented to ED due to L arm numbness/paresthesias, with palpitations. Patient has history of SVT / tachyarrhythmia which he has undergone extensive evaluation in [place], and most recently underwent cardiac cath / evaluation for ablation in May of this year. He has been compliant with his medications. Denies any recent illness/infection. He has episodes of palpitations ~1-2 times/week. Palpitations at times may lead to anxiety/panic attack sensation. Underwent eval uation for ablation by marketing data specialist, however was told no particular area to ablate, so patient has been treated with medications. He reports palpitations felt today are similar to prior episodes. He also endorses ~1-2 weeks of an area along his shoulderblades that feels like a "cooling sensation", which he describes is somewhat similar to how his left arm felt today. CT head, CTA head/neck, MRI are all negative for acute findings. Labwork WNL, troponin negative, CXR clear, EKG without ischemic findings. Consulted by Fly Mann for possible admission for TIA Allergies No Known Allergies Allergy (Unverified 03/27/12 09:14) - Past Medical/Surgical History -: SVT / Tachyarrhythmia -: Diverticulitis Past Surgical History: Patient denies surgical history - Social History Smoking Status: Unknown if ever smoked CD- Drugs: No Place of Residence: Home Review of Systems 10-point ROS is otherwise unremarkable Physical Examination Temp Pulse Resp BP Pulse Ox 98.6 F 59 20 117/80 08/24/22 11:26 08/24/22 16:00 08/24/22 16:00 08/24/22 16:00 General: Alert, In no apparent distress, Oriented x3 HEENT: EOMI, Sclerae nonicteric Neck: Supple, No LAD Respiratory: Clear to auscultation bilaterally, Normal air movement Cardiovascular: No edema, Regular rate/rhythm, No murmurs Gastrointestinal: Soft and benign, Non-distended, No tenderness Musculoskeletal: No contractures, No tenderness Integumentary: No rashes, No significant lesion Neurological: Normal speech, Normal strength at 5/5 x4 extr, Sensation intact, Cranial nerves 3-12 intact, Normal affect Laboratory Data (last 24 hrs) 08/24/22 12:04: APTT 34.1 08/24/22 12:00: PT 12.3, INR 1.12 08/24/22 12:00: WBC 8.20, Hgb 15.7, Hct 44.7, Plt Count 235 08/24/22 12:00: Sodium 134 L, Potassium 4.2, BUN 15, Creatinine 1.01, Glucose 9 1, Magnesium 2.3, Total Bilirubin 0.9, AST 12 L, ALT 35, Alkaline Phosphatase 44 L Physician Review Additional Text: Problem List L arm paresthesias, resolved Palpitations, recurrent/chronic SVT / tachycarrhythmia, paroxysmal Patient's symptoms resolved. CT and CTA negative. ED discussed initial findings /exam with neurology, who recommended TNK. Patient refused, and symptoms did resolve on their own. MRI was then obtained and negative for acute findings. After long discussion with the patient and SO, it seems he gets similar episodes of palpitations on a weekly basis, with varying degrees of severity. These episodes can lead to significant anxiety for the patient. This episode involved his left with paresthesias. Possible TIE, discussed with Neurology - recommends treating as if patient had TIA, risk management / medical optimization. Recommend aspirin 81mg daily and folic acid 1mg. Consider atorvastatin if LDL >70 Patient has had palpitations for ~2yrs, but did go trhough a year with minimal episodes, until this past April. He has undergone extensive workup / evaluation and sees a fire inspector in [place]. No arrhythmia noted on heart monitoring in the ED today. He reports these palpitations / chest "twinge" is similar to what he feels with prior palpitations. Do not suspect ACS at this time. Consider obtaining 2nd troponin, however patient states he is not concerned for ACS. He recently spoke to his Aircraft Tool Maker who wants to evaluate him again for ablation. He also has a loop recorder in place for >1 year. Discussed workup findings, and that workup is without any significant / emergent findings. Symptoms resolved. Episode likely related to tachyarrhythmia and possibly with anxiety component - which patient has been prescribed medications, but not taking them. Patient stable for discharge home. Plans to follow up with his Aircraft Tool Maker Follow up with Neurology in ~1 month. Time Spent Managing Pts care (In Minutes): 65
== END 2022-08-24 16:41 | disposition home or self-care (01) ==
LOC: ER 11:22
DX: R20.2 Paresthesia of skin (principal); R00.2 Palpitations; I47.1 Supraventricular tachycardia; F41.9 Anxiety disorder, unspecified; Z20.822 Contact with and (suspected) exposure to COVID-19
CPT/HCPCS: 96365; 93005; 85025; 80048; 36415; 83735; 85610; 82947; 80076; 85730; 84484; 83880; 70496; 70498; 70450; 71045; 70551; 99284; 87811; Q9967

== ENCOUNTER 2022-09-06 17:35 | Emergency (ER) | payer BC ==
--- OUTSIDE RECORDS SUMMARY | 2022-09-06 17:39 | XMS REPORT | Continuity of Care Document ---
:1980 Author Organization [facility] t Address [address] [place] [address] [address]. [address] [place] [address] Care Team Providers Name Role Phone Pcp, Patient Does Not Have A Primary Care Physician [id number] GC_TPP_Pour-Jafari_B Attending Clinician Unavailable Ashanti Burrell Attending Clinician [phone] Wing Anand MD Attending Clinician Nitesh SÁNCHEZ, [...] Expiration Date S ource [place] [id number] 2020 00:00:00 [place] [facility] [id number] 2020 00:00:00 OUT OF STATE Problems Condition [...] [facility] Allergies, Adverse Reactions, Alerts Allergy Allergy Status Severity Reaction(s) Onset Inactive Treating Comm ents Source Name Type Date Date Clinician NO KNOWN [facility] Drug Active [facility] ALLERGIE Class ity of S [facility] Family History Family Member Diagnosis Comments Start Date Stop Date Source Natural father [facility] Social History Social Habit Start Date Stop Date Quantity Comments Source History SDOH [facility] r Drinks History SDOH [facility] Alcohol Binge Medical Aubrey ter History SDOH [facility] Alcohol Comment Medical C enter Alcohol intake 2022-06-23 2022-06-[address] [facility] 00:00:00 00:00:00 non-drinker (finding) Exposure to 2022-03-14 2022-03-24 Not sure [facility]-CoV-2 00:00:00 16:51:00 [facility] (event) [facility] Tobacco use and 2019-07-26 2019-07-[address] [facility] [address] [facility] kes exposure 00:00:00 00:00:00 Medical Center History SDOH 2019-07-26 2019-07-[address] [facility] Alcohol Frequency 00:00:00 00:00:00 Medical Center Sex Assigned At [address] [facility] 00:00:00 00:00:00 Smoking Status Start Date Stop Date Source Never Smoker [facility] Smoker, current status 2022-03-24 00:00:00 [facility] Medical unknown Branch Medications Ordered [...] hr daily for tablet 30 days. metoprolol 202- Yes 25mg QD Take 1 Meth ramona succinate 8-25 09-25 tablet (25 st XL 00:00: 04:59 mg total) Hospita (TOPROL-XL) 00 :00 by mouth l 25 mg 24 hr daily for tablet 30 days. metoprolol 0 2021- No 25mg QD Take 1 Meth [...] Q.5D Take 1 Met hodi (BENTYL) 20 16 08-16 tablet (20 s t mg tablet 00:00: 04:59 mg total) Ho spita 00 :00 by mouth 2 l (two) times a day for 30 days. amoxicillin 2021- No [id number] 1{tbl} Take 1 Univers -clavulanat 5-27 06-07 [...] Date Status Commen ts Source Name Name ESTHER COVID-19 MRNA 2021-10-27 Completed Meth odist VACCINATION 00:00:00 [facility] PFIZER COVID-19 MRNA 2021-10-27 Completed Meth odist VACCINATION 00:00:00 [facility] PFIZER COVID-19 MRNA 2021-10-27 Completed Meth odist VACCINATION 00:00:00 [facility] PFIZER COVID-19 MRNA 2021-10-27 Completed Meth odist VACCINATION 00:00:00 [facility] COVID-19, mRNA, COVID-19, mRNA, 2021-10-27 Completed [facility] LNP-S, PF, 30 LNP-S, PF, 30 00:00:00 mcg/0.3 mL dose mcg/0.3 mL dose ([employer]) ([employer]) VANNESSA COVID-19 2021-02-04 Completed Methodis t AD26 VACCINATION 00:00:00 [facility] VANNESSA COVID-19 2021-02-04 Completed Methodis t AD26 VACCINATION 00:00:00 [facility] COVID-19 2021-02-04 Completed Methodis t AD26 VACCINATION 00:00:00 [facility] COVID-19 2021-02-04 Completed Methodis t AD26 VACCINATION 00:00:00 [facility] COVID-19 vaccine, COVID-19 vaccine, 2021-02-04 Completed [facility] vector-nr, rS-Ad26, vector-nr, rS-Ad26, 00:00:00 PF, 0.5 mL ([facility]) PF, 0.5 mL (Vannessa) Vital Signs Vital Name Observation Time Observation Value Comments Source BP Diastolic 2022-07-20 00:00:00 87 mm[Hg] [facility] 2022-07-20 00:00:00 69 [in_i] Mike [facility] BMI (Body Mass 2022-07-20 00:00:00 28.1 kg/m2 [facility] Index) BP Systolic 2022-07-20 00:00:00 131 mm[Hg] Mike [facility] Body Weight 2022-07-20 00:00:00 3040 [oz_av] Mike [facility] Systolic blood 2022-03-24 21:55:00 124 mm[Hg] Univer sity of pressure [facility] Diastolic blood 2022-03-24 21:55:00 87 mm[Hg] Unive rsity of pressure [facility] Heart rate 2022-03-24 21:55:00 86 /min [facility] Oxygen saturation in 2022-03-24 21:55:00 100 /min University Arterial blood by [facility] Pulse oximetry Branch Body height 2022-03-24 21:52:00 175.3 cm [facility] Body weight 2022-03-24 21:52:00 95.165 kg [facility] BMI 2022-03-24 21:52:00 30.98 kg/m2 [facility] Heart rate 2022-06-22 13:00:00 79 /min [facility] Systolic blood 2022-06-22 12:52:32 130 mm[Hg] [facility] pressure Diastolic blood 2022-06-22 12:52:32 87 mm[Hg] [facility] pressure Body temperature 2022-06-22 12:52:32 36.89 Silvia [facility] Respiratory rate 2022-06-22 12:52:32 20 /min [facility] Oxygen saturation in 2022-06-22 12:52:32 99 /min [facility] Arterial blood by Pulse oximetry Body weight 2022-06-22 01:49:34 87.544 kg [facility] BMI 2022-06-22 01:49:34 28.50 kg/m2 [facility] Body height 2022-06-21 15:19:00 175.3 cm [facility] Procedures Procedure Date / Time Performing Clinician Source Performed HC COMPLETE BLD COUNT 2022-06-22 09:30:00 Wing Anand [facility] W/AUTO DIFF BASIC METABOLIC PANEL 2022-06-22 09:30:00 Wing Anand [facility] ESTIMATED GFR 2022-06-22 09:30:00 Wing Anand Ho spital EP COMPLETE EP STUDY W 2022-06-21 19:16:30 Wing Anand [facility] ABLATION SVT TYPE AND SCREEN 2022-06-21 14:56:00 Wing Anand spital ECG 12-LEAD 2022-06-21 13:49:16 Wing Anand spital COVID-19 QUALITATIVE 2022-06-20 14:29:00 Wing Anand [facility] RT-PCR PROTHROMBIN TIME WITH INR 2022-06-20 14:22:00 Wing Anand [facility] HC COMPLETE BLD COUNT 2022-06-20 14:22:00 Wing Anand [facility] W/AUTO DIFF COMPREHENSIVE METABOLIC 2022-06-20 14:22:00 [facility] PANEL ESTIMATED GFR 2022-06-20 14:22:00 Wing Anand [facility] ED REFERRAL TO [place] 2022-05-14 00:33:07 Gaurang [facility] RESTORATION PHYSICIAN ORGANIZATION (PCP) CT ABDOMEN PELVIS W 2022-05-14 00:17:00 [facility] CONTRAST HC COMPLETE BLD COUNT 2022-05-13 21:09:00 [facility] W/AUTO DIFF COMPREHENSIVE METABOLIC 2022-05-13 21:09:00 [facility] PANEL LIPASE LEVEL 2022-05-13 21:09:00 [facility] ESTIMATED GFR 2022-05-13 21:09:00 [facility] Plan of Care Planned Activity Planned Date Details Comments Source Future Scheduled 2022-09-04 HEPATITIS B VACCINES [facility] Test 08:40:39 (1 of 3 - 3-dose series) [code = HEPATITIS B VACCINES (1 of 3 - 3-dose series)] Future Scheduled 2022-09-04 [facility] Test 08:40:39 screening (procedure) [code = 916366004] Future Scheduled 2022-09-04 COVID-19 VACCINE (3 [facility] Test 08:40:39 - Booster for Vannessa series) [code = COVID-19 VACCINE (3 - Booster for Vannessa series)] Future Scheduled 2022-09-04 INFLUENZA VACCINE Method [facility] Hospital Test 08:40:39 [code = INFLUENZA VACCINE] Future Scheduled 2022-08-25 HEPATITIS B VACCINES Met [facility] Test 08:18:50 (1 of 3 - 3-dose series) [code = HEPATITIS B VACCINES (1 of 3 - 3-dose series)] Future Scheduled 2022-08-25 [facility] Test 08:18:50 screening (procedure) [code = 966100438] Future Scheduled 2022-08-25 COVID-19 VACCINE (3 [facility] Test 08:18:50 - Booster for Vannessa series) [code = COVID-19 VACCINE (3 - Booster for Vannessa series)] Future Scheduled 2022-08-25 INFLUENZA VACCINE Method [facility] Hospital Test 08:18:50 [code = INFLUENZA VACCINE] Future Scheduled 2022-08-24 HEPATITIS B VACCINES Met [facility] Test 06:18:01 (1 of 3 - 3-dose series) [code = HEPATITIS B VACCINES (1 of 3 - 3-dose series)] Future Scheduled 2022-08-24 [facility] Test 06:18:01 screening (procedure) [code = 165520746] Future Scheduled 2022-08-24 COVID-19 VACCINE (3 Meth [facility] Hospital Test 06:18:01 - Booster for Vannessa series) [code = COVID-19 VACCINE (3 - Booster for Vannessa series)] Future Scheduled 2022-08-24 INFLUENZA VACCINE Method [facility] Hospital Test 06:18:01 [code = INFLUENZA VACCINE] Future Scheduled 2022-08-17 HEPATITIS B VACCINES Met [facility] Test 14:15:01 (1 of 3 - 3-dose series) [code = HEPATITIS B VACCINES (1 of 3 - 3-dose series)] Future Scheduled 2022-08-17 [facility] Test 14:15:01 screening (procedure) [code = 261955094] Future Scheduled 2022-08-17 COVID-19 VACCINE (3 [facility] Hospital Test 14:15:01 - Booster for Vannessa series) [code = COVID-19 VACCINE (3 - Booster for Vannessa series)] Future Scheduled 2022-08-17 INFLUENZA VACCINE Method [facility] Hospital Test 14:15:01 [code = INFLUENZA VACCINE] Future Scheduled 2022-07-05 HEPATITIS B VACCINES [facility] Test 17:47:18 (1 of 3 - 3-dose series) [code = HEPATITIS B VACCINES (1 of 3 - 3-dose series)] Future Scheduled 2022-07-05 [facility] Test 17:47:18 screening (procedure) [code = 675687002] Future Scheduled 2022-07-05 INFLUENZA VACCINE Method ist Hospital Test 17:47:18 [code = INFLUENZA VACCINE] [...] Future Scheduled 2022-06-28 HEPATITIS B VACCINES Met [facility] Hospital Test 13:37:55 (1 of 3 - 3-dose series) [code = HEPATITIS B VACCINES (1 of 3 - 3-dose series)] Future Scheduled 2022-06-28 [facility] Test 13:37:55 screening (procedure) [code = 641265508] Future Scheduled 2022-06-28 INFLUENZA VACCINE Method [facility] Test 13:37:55 [code = INFLUENZA VACCINE] Future Scheduled 2022-06-26 HEPATITIS B VACCINES Met [facility] Hospital Test 19:57:18 (1 of 3 - 3-dose series) [code = HEPATITIS B VACCINES (1 of 3 - 3-dose series)] Future Scheduled 2022-06-26 [facility] Test 19:57:18 screening (procedure) [code = 912255885] Future Scheduled 2022-06-26 INFLUENZA VACCINE Method ist [facility] Test 00:[facility]:00 (12+) [code = [facility] DEPRESSION SCREENING (12+)] Future Scheduled [address] [facility] Test 00:00:00 (procedure) [code = [facility] 10574654] Future Scheduled [address] [facility] Test 00:00:00 (procedure) [code = [facility] 69099020] Future Scheduled [address] [facility] Test 00:00:00 (procedure) [code = [facility] 71848927] Future Scheduled [address] [facility] Test 00:00:00 (procedure) [code = [facility] 19278056] Future Scheduled 1997 DTAP/TDAP/TD [facility] [...] Facility Department ID 2022-08-16 2022-08-16 Travel 1.2.840.1 [id number] [id number] Methodi 00:00:00 00:00:[address] 3.430.2.7 0.2.7.3.698 Ho spita .3.462955 084.8 l .8 2022-08-16 2022-08-16 Travel 1.2.840.1 1.2.415.851 [id number] Methodi 00:00:00 00:00:[address] 3.430.2.7 0.2.7.3.698 Ho spita .3.691729 084.8 l .8 2022-07-20 2022-07-20 Outpatient GC_TPP_Pour PRIV PRIV [id number] [facility] 00:00:00 00:00:00 -Enochfari_B [id number] [facility] leon 2022-07-20 2022-07-20 Ashanti [facility]: 427 GC_TPP_Hous [address]. 20[address] ton Office* [place], [address] [address] , Ph. 2022-07-06 2022-07-06 Outpatient GC_TPP_Pour PRIV PRIV [id number] [facility] 00:00:00 00:00:00 -Jafari_B [id number] [facility] 2022-07-06 2022-07-06 Ashanti [facility]IV [facility] 08 [facility] 00:00:00 [facility]00[facility] MD: 427 GC_TPP_Hous W. 20th ykf Office* [address] [address] , Ph. 2022-07-06 2022-07-06 Outpatient Pour-Iris PRIV PRIV 56f [id number] 00:00:00 00:00:00 , Ashanti [id number] 2022-06-29 2022-06-29 Outpatient GC_TPP_Pour PRIV PRIV [id number] [facility] 00:00:00 00:00:00 -Jafari_B [id number] [facility] 2022-06-21 2022-06-22 [facility] 1.2.840.1 [id number] Methodi 07:33:00 12:53:00 Encounter Wing 51324.1.[address] 3.430.2.7 Hospit a .3.004168 l .8 2022-06-21 2022-06-22 [facility] 1.2.840.1 [id number] Methodi 07:33:00 12:53:00 Encounter Wing 62014.1.[address] 3.430.2.7 Hospit a .3.735929 l .8 2022-06-21 2022-06-21 Anesthesia Koby Dowling V. 1.2.840.1 [id number] Methodi 10:40:00 14:35:00 Event Darshana Joaquin 35684.1.[address] 3.430.2.7 Hospit a .3.852194 l .8 2022-06-21 2022-06-21 Anesthesia Koby Dowling V. 1.2.840.1 [id number] Methodi 10:40:00 14:35:00 Event Darshana Joaquin 31364.1.[address] 3.430.2.7 Hospit a .3.030685 l .8 2022-06-21 2022-06-21 Surgery Nazeri, 1.2.840.1 [id number] Methodi 10:30:00 13:00:[address] 3.430.2.7 Hospit a .3.004915 l .8 2022-06-21 2022-06-21 Surgery Nazeri, 1.2.840.1 [id number] Methodi 10:30:00 13:00:[address] 3.430.2.7 Hospit a .3.058064 l .8 2022-06-20 2022-06-20 Lab Nazeri, 1.2.840.1 [id number] Methodi 08:55:00 09:00:[address] 3.430.2.7 Hospit a .3.467879 l .8 2022-06-20 2022-06-20 Lab Nazeri, 1.2.840.1 [id number] Methodi 08:55:00 09:00:[address] 3.430.2.7 Hospit a .3.720326 l .8 2022-06-20 2022-06-20 Travel 1.2.840.1 1.2.235.393 [id number] Methodi 00:00:00 00:00:[address] 3.430.2.7 0.2.7.3.698 Ho spita .3.645453 084.8 l .8 2022-06-20 2022-06-20 Travel 1.2.840.1 1.2.133.160 [id number] Methodi 00:00:00 00:00:[address] 3.430.2.7 0.2.7.3.698 Ho spita .3.930737 084.8 l .8 2022-06-16 2022-06-16 Community Nazeri, 1.2.840.1 [id number] Methodi 00:00:00 00:00:00 Orders Wing 31087.1.[address] 3.430.2.7 Hospit a .3.631875 l .8 2022-06-16 2022-06-16 Community Nazeri, 1.2.840.1 [id number] Methodi 00:00:00 00:00:00 Orders Wing [address]91.1.[address] 3.430.2.7 Hospit a .3.668629 l .8 2022-05-13 2022-05-13 Emergency Katie Merlos 1.2.840.1 [id number] Methodi 15:34:00 19:53:00 Bangdriss Le 83910.1.1 363 s t 3.430.2.7 Hospit a .3.329685 l .8 2022-05-13 2022-05-13 Emergency Katie Merlos 1.2.840.1 [id number] 21 [id number] Methodi 15:34:00 19:53:00 Chudriss Rey 82300.1.1 363 s t 3.430.2.7 Hospit a .3.284556 l .8 2022-03-24 2022-03-24 Outpatient R LOULOU [facility] [id number] Univers 17:00:00 17:27:59 ORALIA alicea [facility] 2022-03-24 2022-03-24 Urgent Loulou [facility] 1.2.840.114 [id number] Univers 17:00:00 17:27:59 Care [facility] 350.1.13.10 i ty of [place] 4.2.7.2.686 Jacob as LOR?BLEA [id number] [address] MEDICAL OFFICE BUILDING 2020-10-14 2020-10-14 Outpatient SUDHIR, [facility] [id number] [place] 00:00:00 00:00:[address] 2020-07-18 2020-07-18 Outpatient SUDHIR, [facility] [id number] [address] [place] 00:00:00 00:00:00 WING [address] 2020-06-18 2020-06-18 Outpatient CLAYTON, [facility] [id number] [address] [place] 00:00:00 00:00:[address] W[address] Results Test Description Test Time Test Comments Results Result Comments Source ECG 12 lead 2022-06-22 12:52:17 Test Item Value Reference Range Interpretation Comme nts Ventricular rate (test code = 253) Atrial rate (test code = 255) VA interval (test code = 266) QRSD interval (test code = 260) QT interval (test code = 264) QTC interval (test code = 265) P axis 1 (test code = 267) QRS axis 1 (test code = 268) T wave axis (test code = 270) EKG impression (test code = 273) Normal sinus rhythm with sinus arrhythmia- [address]2022-08-25 12:52:17 Test Item Value Reference Range Interpretation Comments Ventricular rate (test code = 253) Atrial rate (test code = 255) VA interval (test code = 266) QRSD interval [...] Kinsey MD ([id number]) on 06/22/2022 7:52:15 AM [address]2022-08-25 12:52:17 Test Item Value Reference Range Interpretation Comments Ventricular rate (test code = 253) Atrial rate (test code = 255) VA interval (test code = 266) QRSD interval [...] Kinsey MD ([id number]) on 06/22/2022 7:52:15 AM [address]2022-08-25 12:52:17 Test Item Value Reference Range Interpretation Comments Ventricular rate (test code = 253) Atrial rate (test code = 255) VA interval (test code = 266) QRSD interval [...] Kinsey MD ([id number]) on 06/22/2022 7:52:15 AM [address]2022-08-25 12:52:17 Test Item Value Reference Range Interpretation Comments Ventricular rate (test code = 253) Atrial rate (test code = 255) VA interval (test code = 266) QRSD interval [...] Kinsey MD ([id number]) on 06/22/2022 7:52:[address] AM [address]2022-08-25 12:52:17 Test Item Value Reference Range Interpretation Comments Ventricular rate (test code = 253) Atrial rate (test code = 255) VA interval (test code = 266) QRSD interval [...] Kinsey MD ([id number]) on 06/22/2022 7:52:15 AM [facility] 12 [id number] 12:52:17 Test Item Value Reference Range Interpretation Comments Ventricular rate (test code = 253) Atrial rate (test code = 255) VA interval (test code = 266) QRSD interval [...] Kinsey MD ([id number]) on 06/22/2022 7:52:[address] [id number] 18:12:38 Test Item Value Reference Interpretation Comments Range Interpretation (test Negative results do not code = 5632685) preclude COVID-19 infection and should not be used asthe sole basis for treatment or other patient management decisions. Negativeresults must be combined with clinical observations, patient history, andepidemiological information. COVID-19 qualitative Not-Detected Not-Detected RT-PCR result (test code = 71692-9) COVID-19 qualitative See link below for PDF Case Number: RT-PCR (test code = Lab Report [id number] 5028 7070) [facility] [id number] 18:12:38 Test Item Value Reference Interpretation Comments Range Interpretation (test Negative results do not code = 9716458) preclude COVID-19 infection and should not be used asthe sole basis for treatment or other patient management decisions. Negativeresults must be combined with clinical observations, patient history, andepidemiological information. COVID-19 qualitative Not-Detected Not-Detected RT-PCR result (test code = 09396-4) COVID-19 qualitative See link below for PDF Case Number: RT-PCR (test code = Lab Report [id number] 5028 7070) [facility] [id number] 18:12:38 Test Item Value Reference Interpretation Comments Range Interpretation (test Negative results do not code = 7884554) preclude COVID-19 infection and should not be used asthe sole basis for treatment or other patient management decisions. Negativeresults must be combined with clinical observations, patient history, andepidemiological information. COVID-19 qualitative Not-Detected Not-Detected RT-PCR result (test code = 84704-4) COVID-19 qualitative See link below for PDF Case Number: RT-PCR (test code = Lab Report [id number] 5028 7070) [facility] [id number] 18:12:38 Test Item Value Reference Interpretation Comments Range Interpretation (test Negative results do not code = 6979048) preclude COVID-19 infection and should not be used asthe sole basis for treatment or other patient management decisions. Negativeresults must be combined with clinical observations, patient history, andepidemiological information. COVID-19 qualitative Not-Detected Not-Detected RT-PCR result (test code = 70476-5) COVID-19 qualitative See link below for PDF Case Number: RT-PCR (test code = Lab Report [id number] 5028 7070) [facility] qualitative [id number] 18:12:38 Test Item Value Reference Interpretation Comments Range Interpretation (test Negative results do not code = 0330954) preclude COVID-19 infection and should not be used asthe sole basis for treatment or other patient management decisions. Negativeresults must be combined with clinical observations, patient history, andepidemiological information. COVID-19 qualitative Not-Detected Not-Detected RT-PCR result (test code = 95625-6) COVID-19 qualitative See link below for PDF Case Number: RT-PCR (test code = Lab Report [id number] 5028 7070) [facility] qualitative [id number] 18:12:38 Test Item Value Reference Interpretation Comments Range Interpretation (test Negative results do not code = 1081091) preclude COVID-19 infection and should not be used asthe sole basis for treatment or other patient management decisions. Negativeresults must be combined with clinical observations, patient history, andepidemiological information. COVID-19 qualitative Not-Detected Not-Detected RT-PCR result (test code = 77025-4) COVID-19 qualitative See link below for PDF Case Number: RT-PCR (test code = Lab Report [id number] 5028 7070) [facility] [id number] 18:12:38 Test Item Value Reference Interpretation Comments Range Interpretation (test Negative results do not code = 2131463) preclude COVID-19 infection and should not be used asthe sole basis for treatment or other patient management decisions. Negativeresults must be combined with clinical observations, patient history, andepidemiological information. COVID-19 qualitative Not-Detected Not-Detected RT-PCR result (test code = 44782-2) COVID-19 qualitative See link below for PDF Case Number: RT-PCR (test code = Lab Report [id number] 5028 7070) [facility] [id number]-DvU-3 (COVID-19) RNA [Presence] in Respiratory specimen by DENIS with probe [id number] 13:12:38 Test Item Value Reference Range Interpretation Comments SARS-CoV-2 (COVID-19) RNA Not detected [Presence] in Respiratory specimen by DENIS with probe detection (test code = 96405-8) Whether patient is employed in a Unknown healthcare setting (test code = 71681-2) Whether the patient has symptoms Unknown related to condition of interest (test code = 51126-3) Whether the patient was Unknown hospitalized for condition of interest (test code = 97877-7) Whether the patient was admitted Unknown to intensive care unit (ICU) for condition of interest (test code = 44239-5) Whether patient resides in a Unknown congregate care setting (test code = 51122-9) status (test code = Unknown 02603-0) Date and time of symptom onset Unknown (test code = 73470-8) JOAQUIN BARNES-CoV-2 (COVID-19) RNA [Presence] in Respiratory specimen by DENIS with probe [id number] 23:44:02 Test Item Value Reference Range Interpretation Comments SARS-CoV-2 (COVID-19) RNA Not detected Not-Detected [Presence] in Respiratory specimen by DENIS with probe detection (test code = 41361-4) JOAQUIN DYER [id number] 08:01:00 Test Item Value Reference Range Interpretation Comments CULTURE (BEAKER) (test No growth in 5 days code = 1095) MISCELLANEOUS LAB [id number] 07:37:00 Test Item Value Reference Range Interpretation Comments SCAN RESULT (test code = 9176926) BLOOD [id number] 08:00:00 Test Item Value Reference Range Interpretation Comments CULTURE (BEAKER) (test No growth in 5 days code = 1095) BLOOD [id number] 08:00:00 Test Item Value Reference Range Interpretation Comments CULTURE (BEAKER) (test No growth in 5 days code = 1095) ANTI-NUCLEAR ANTIBODY (AURA)2019-07-30 09:44:00 Test Item Value Reference Range Interpretation Comments ANTI-NUCLEAR ANTIBODY (AURA) (BEAKER) Positive Negative A (test code = 418) Test performed by IFA method.AURA TITER AND [id number] 09:44:00 Test Item Value Reference Range Interpretation [...] (test code Normal = 486) HEPATIC FUNCTION [id number] 09:58:00 Test Item Value Reference Range Interpretation [...] 347) CBC WITH PLATELET COUNT + MANUAL [id number] 09:29:00 Test Item Value Reference Range Interpretation [...] (BEAKER) (test code = 413) RESPIRATORY PANEL [id number] 15:15:00 Test Item Value Reference Range Interpretation [...] decisions. This sample was tested at the [facility] Molecular [facility]ostics Laboratory using the QeexoArray Respiratory Panel. It is FDA cleared and has been verified and approved by the [facility] for clinical use on nasopharyngeal swab specimens.The performance of the FilmArrayRP has not been established in individuals who received influenza vaccine. Recent administration of a nasal influenza vaccine may cause false positive results for Influenza A and/orInfluenza B.EBV VIRAL [id number] 13:49:00 Test Item Value Reference Range Interpretation Comments EBV VIRAL LOAD - Negative or below the NEGATIVE (BEAKER) (test linear range of the code = 2559) assay (<500 copies/mL) This assay was performed by real-time PCR for the detection of the Sary-Oruorke virus (EBV) gene EBNA-1. The test is composed of (1) DNA extraction from patient specimen, and (2) real-time PCR amplification and detection with WDGO-8-zwgncbyh primers and probes. A well-conserved region of the EBNA-1 gene is targeted, along with an internal control sequence used to confirm PCR amplification. Asymptomatic carriers and viral genetic variation, among other factors, can affect the accuracy of nucleic acidtesting; therefore, results should be interpreted in light of clinical data.This test was developed and its performance characteristics determined by the [facility] Pathology Department,Section of Molecular Pathology. It has [...] real- time PCR amplification and detection with RJQJ-8-dvtebqbb primers and probes. A well-conserved region of the EBNA-1 gene is targeted, along with an internal control sequence used to confirm PCR amplification. Asymptomatic carriers and viral genetic variation, among other factors, can affect the accuracy of nucleic acid testing; therefore, results should be interpreted in light of clinical data.This test was developed and its performance characteristics determined by the [facility] Pathology Department, Section of Molecular Pathology.It has not been cleared or approved by the U.S. Food and Drug Administration (FDA), since FDA approval is not required for clinical use of the test. Validation was done as required by The Clinical Laboratory Improvement Amendments of 1988.CMV PCR, [id number] 13:43:00 Test Item Value Reference Range Interpretation [...] and its performance characteristics determined by the [facility] Pathol ogy Department, Section of Molecular Pathology. It has not been cleared or approved by the U.S. Foodand Drug Administration (FDA), since FDA approval is not required for clinical use of the test. Validation was done as required by The Clinical Laboratory Improvement Amendments of 1988.RHEUMATOID FACTOR AB, REFLEX TO [id number] 13:10:00 Test Item Value Reference Range Interpretation Comments RHEUMATOID FACTOR (BEAKER) (test Negative code = 573) BASIC METABOLIC [id number] 06:42:00 Test Item Value Reference Range Interpretation [...] S NOT APPLICABLE FOR DIALYSIS PATIEN TS. [id number] 12:15:00 Test Item Value Reference Range Interpretation Comments RPR SCREEN (BEAKER) (test code = Nonreactive Nonreactive 420) HIV-1 ANTIGEN WITH HIV-1/2 [id number] 04:56:00 Test Item Value Reference Range Interpretation Comments HIV-1 ANTIGEN WITH HIV 1\T\2 Nonreactive Nonreactive ANTIBODY (2) (BEAKER) (test code = 2586) BASIC METABOLIC [id number] 04:24:00 Test Item Value Reference Range Interpretation [...] DIALYSIS PATIEN TS. URINALYSIS W/ REFLEX URINE [id number] 00:26:00 Test Item Value Reference Range Interpretation [...] = 2791) RAD, CHEST, 1 VIEW, NON [id number] 10:25:00Reason for exam:- >leukocytosis, fever r/o infectionFINAL [...] otherwise clear. Signed: Foster Watts MDReport Verified Date/Time: 07/26/2019 10:25:43 Reading Location: [facility] B1 C013X Ortho Consult Reading Room CBC W/PLT COUNT & AUTO [id number] 10:24:00 Test Item Value Reference Range Interpretation [...] = 3438) Received comment: User comments: Slide comments:[id number] 10:11:00 Test Item Value Reference Range Interpretation [...] pg/mL 0-100 (test code = 700) TROPONIN [id number] 10:00:00 Test Item Value Reference Range Interpretation [...] acute neurological disease, and persistent tachyarrhythmia.BASIC METABOLIC [id number] 09:54:00 Test Item Value Reference Range Interpretation [...] U/L 29-200 code = 380) POCT-LACTIC ACID, [id number] 09:50:00 Test Item Value Reference Range Interpretation Comments POC-LACTIC ACID, 1.3 mmol/L 0.4-1.3 TESTED AT [facility] [address] ARTERIAL (BEAKER) [place] [facility] [place] (test code = 2804) [address] [id number] 09:50:00 Test Item Value Reference Range Interpretation Comments POC-HEMOGLOBIN 11.6 g/dL 13.0-16.8 L TESTED AT [facility] [address] (BEAKER) ([facility] [place] = 1856) [id number] AT [address] [address] POCT-BLOOD GASES, [id number] 09:49:00 Test Item Value Reference Range Interpretation Comments TEMP, CELSIUS-POC 37.0 (BEAKER) (test code = 1834) FIO2-POC (BEAKER) TESTED AT [place] [address] (test code = 1835) [facility] [address] PH, ARTERIAL-POC 7.370 7.350-7.450 (BEAKER) (test code = 1836) PCO2, ARTERIAL-POC 41.0 mm Hg 35.0-45.0 (BEAKER) (test code = 1837) PO2, ARTERIAL-POC 86.0 mm Hg 80.0-90.0 (BEAKER) (test code = 1838) SO2, ARTERIAL-POC 96.0 % 96.0-97.0 (BEAKER) (test code = 1839) HCO3, ARTERIAL-POC 23.7 meq/L 21.0-29.0 (BEAKER) (test code = 1840) BASE EXCESS, -2.0 meq/L -2.0-3.0 ARTERIAL-POC (BEAKER) (test code = 1841) [id number] 09:49:00 Test Item Value Reference Range Interpretation Comments POC-SODIUM (BEAKER) 137 meq/L 135-148 TESTED A T [place] [address] (test code = 1542) [facility] [address] [id number] 09:49:00 Test Item Value Reference Range Interpretation Comments POC-POTASSIUM 3.3 meq/L 3.6-5.5 L TESTED AT [place] [address] (BEAKER) (test code [facility] [address] = 1540) [id number] 09:49:00 Test Item Value Reference Range Interpretation Comments POC-GLUCOSE (BEAKER) 153 mg/dL 70-110 H TESTED AT [facility] 67[address] (test code = 1855) [place] [address] POCT-CALCIUM [id number] 09:49:00 Test Item Value Reference Range Interpretation Comments POC-CALCIUM IONIZED 1.22 mmol/L 1.12-1.27 TESTED A T [facility] 67 (BEAKER) (test code = RICHELLE Coleman [facility] 1536) [address] [id number] 09:49:00 Test Item Value Reference Range Interpretation Comments POC-HEMATOCRIT 34 % 40-50 L TESTED AT [place] [id number] (BEAKER) (test code = RICHELLE Coleman [facility] [address] 1857) URINALYSIS WITH MICROSCOPIC IF [id number] 07:55:00 Test Item Value Reference Range Interpretation [...] 0.2-1.0 = 463) SOURCE(BEAKER) (test code = 2798) URINALYSIS [id number] 07:55:00 Test Item Value Reference Range Interpretation Comments RBC UA (BEAKER) (test code = 519) 1 /HPF WBC UA (BEAKER) (test code = 520) 9 /HPF MUCUS (BEAKER) (test code = 1574) Rare SQUAMOUS EPITHELIAL (BEAKER) (test < /HPF code = 516) C-REACTIVE [id number] 07:27:00 Test Item Value Reference Range Interpretation Comments C-REACTIVE PROTEIN (BEAKER) (test 15.31 mg/dL 0.00-0.50 H code = 676) CBC W/PLT COUNT & AUTO [id number] 04:17:00 Test Item Value Reference Range Interpretation [...] (BEAKER) (test code = 2801) BASIC METABOLIC [id number] 03:45:00 Test Item Value Reference Range Interpretation [...]
[2022-09-06] MEDS ORDERED: NA CHLORIDE 0.9% 1,000 ML ONE (18:32)
[2022-09-06] MEDS ORDERED: FAMOTIDINE 20 MG/2 ML VIAL IV ONE (18:32)
[2022-09-06 18:47] LABS: Absolute Lymphocytes (CBC) 2.3 K/uL (0.7-4.9); Hematocrit 38.7 % (39.6-49.0); Lymphocytes % 24.5 % (15.3-44.8); MCV 90.7 fL (80-100); MPV 9.9 fL (7.6-11.3); RBC Red Blood Cell Count 4.27 M/uL (4.33-5.43)
[2022-09-06 19:03] LABS: Albumin 3.8 g/dL (3.4-5.0); Bilirubin Total 0.5 mg/dL (0.2-1.0); Potassium 3.8 mmol/L (3.5-5.1); Protein, Total 7.6 g/dL (6.4-8.2)
--- NOTE | 2022-09-06 20:10 | RAD REPORT ---
EXAM DESCRIPTION: CT - Abdomen Pelvis W Contrast - 09/06/2022 7:52 pm CLINICAL HISTORY: Abdominal pain, acute, nonlocalized COMPARISON: <Comparisons>CT imaging 06/28/2022 TECHNIQUE: Biphasic, helical CT imaging of the abdomen and pelvis was performed following 100 ml non -ionic IV contrast. Oral contrast: No. All CT scans are performed using dose optimization technique as appropriate and may include automated exposure control or mA/KV adjustment according to patient size. FINDINGS: No suspicious findings in the lung bases. The liver, spleen, and pancreas show no suspicious findings. Gallbladder and biliary tree are also wi thout suspicious finding. Symmetric renal function is seen with no hydronephrosis or suspicious renal mass. Benign right renal cyst has not changed. No pyelonephritis or acute parenchymal process. No bladder abnormalities. No ad renal abnormalities. No gastric dilatation or gastric wall thickening. No small bowel abnormality. The appendix is normal. Patient has prominent diverticulosis but no acute diverticulitis. Mild or minimal mucosal level infl ammatory/infectious change could still be present an occult on CT imaging. No free air, free fluid or inflammatory stranding. No hernia, mass or bulky lymphadenopathy. No suspicious bony findings. IMPRESSION: Contrast enhanced CT abdomen and pelvis showing no acute or emergent finding. Prominent sigmoid diverticulosis without identifiable diverticulitis. Mild mucosal level infectious/i nflammatory changes can be occult on CT imaging.
--- NOTE | 2022-09-06 20:44 | EDPHYS ---
Physician Documentation [facility] Name: Uzair Sullivan Age: 42 yrs Sex: Male : 1980 Arrival Date: 09/06/2022 Time: 17:36 Bed 20 Private MD: ED Physician Marietta Centeno HPI: 09/06 20:38 This 42 yrs old Male presents to ER via Ambulatory with complaints of sp3 Abdominal Pain. 20:38 42-year-old male signed out to me by daytime physician with history of diverticulitis, sp3 lupus presents to the ED for diffuse abdominal pain and mild constipation. Is described as mild and diffuse and comes and goes. Denies any back pain, diarrhea, vomiting, fever, chest pain, shortness of breath, URI symptoms or any other critical findings at this time.. Historical: - Allergies: 17:44 No Known Allergies; ll1 - PMHx: 17:44 Diverticulitis; Lupus erythematosus; arrhythmia; ll1 - PSHx: 17:44 Heart ablation; heart cath; ll1 - Immunization history:: Client reports receiving the 2nd dose of the Covid vaccine. - Social history:: Smoking status: Patient denies any tobacco usage or history of. ROS: 20:39 Constitutional: Negative for fever, chills, and weight loss, Eyes: Negative for injury, sp3 pain, redness, and discharge, ENT: Negative for injury, pain, and discharge, Neck: Negative for injury, pain, and swelling, Cardiovascular: Negative for chest pain, palpitations, and edema, Respiratory: Negative for shortness of breath, cough, wheezing, and pleuritic chest pain, Abdomen/GI: Negative for abdominal pain, nausea, vomiting, diarrhea, and constipation, Back: Negative for injury and pain, MS/Extremity: Negative for injury and deformity, Skin: Negative for injury, rash, and discoloration, Neuro: Negative for headache, weakness, numbness, tingling, and seizure, Psych: Negative for depression, anxiety, suicide ideation, homicidal ideation, and hallucinations, Allergy/Immunology: Negative for hives, rash, and allergies. 20:39 All other systems are negative. Exam: 20:40 Constitutional: This is a well developed, well nourished patient who is awake, alert, sp3 and in no acute distress. Head/Face: Normocephalic, atraumatic. Eyes: Pupils equal round and reactive to light, extra-ocular motions intact. Lids and lashes normal. Conjunctiva and sclera are non-icteric and not injected. Cornea within normal limits. Periorbital areas with no swelling, redness, or edema. Neck: Trachea midline, no thyromegaly or masses palpated, and no cervical lymphadenopathy. Supple, full range of motion without nuchal rigidity, or vertebral point tenderness. No Meningismus. Chest/axilla: Normal chest wall appearance and motion. Nontender with no deformity. No lesions are appreciated. Cardiovascular: Regular rate and rhythm with a normal S1 and S2. No gallops, murmurs, or rubs. Normal PMI, no JVD. No pulse deficits. Respiratory: Lungs have equal breath sounds bilaterally, clear to auscultation and percussion. No rales, rhonchi or wheezes noted. No increased work of breathing, no retractions or nasal flaring. Skin: Warm, dry with normal turgor. Normal color with no rashes, no lesions, and no evidence of cellulitis. 20:40 Abdomen/GI: Benign exam for me without any peritoneal signs or significant tenderness.. Vital Signs: 17:44 BP 115 / 83; Pulse 71; Resp 16; Temp 97.8; Pulse Ox 100% ; Weight 75.75 kg; Height 5 ll1 ft. 9 in. (175.26 cm); Pain 9/10; 20:29 BP 103 / 82; Pulse 49; Resp 18; Pulse Ox 100% ; ld1 17:44 Body Mass Index 24.66 (75.75 kg, 175.26 cm) ll1 MDM: 20:41 Data reviewed: vital signs, nurses notes, lab test result(s), radiologic studies. ED sp3 course: Laboratory values reviewed as well as CT scan of the abdomen/pelvis. All work-up is negative. Differential diagnosis includes diverticulitis, colitis, enteritis, functional abdominal pain, vascular pathology, kidney stone, among others. Despite all of these have been ruled out and patient will be discharged home with general precautions and OTC meds with PCP follow-up.. 20:44 Patient medically screened. sp3 09/06 18:21 Order name: CBC with Diff; Complete Time: 19:52 kdr 09/06 18:21 Order name: CMP; Complete Time: 19:52 kdr 09/06 18:21 Order name: Lipase; Complete Time: 19:52 kdr 09/06 18:21 Order name: CT Abd/Pelvis - IV Contrast Only; Complete Time: 20:37 kdr 09/06 18:21 Order name: IV Saline Lock; Complete Time: 18:36 kdr 09/06 18:21 Order name: Labs collected and sent; Complete Time: 18:36 kdr Administered Medications: 18:35 Drug: NS 0.9% 1000 ml Route: IV; Rate: 1 bolus; Site: right antecubital; kb3 18:35 Drug: Pepcid (famotidine) 20 mg Route: IVP; Site: right antecubital; kb3 Disposition Summary: 09/06/22 20:44 Discharge Ordered Location: Home sp3 Condition: Stable sp3 Diagnosis - Abdominal pain, Generalized sp3 Followup: sp3 - With: Private Physician - When: Upon discharge from the Emergency Department - Reason: Continuance of care Discharge Instructions: - Discharge Summary Sheet sp3 - Abdominal Pain, Adult sp3 Forms: - Medication Reconciliation Form sp3 - Thank You Letter sp3 - Antibiotic Education sp3 - Prescription Opioid Use sp3 Signatures: Dispatcher [employer] EDMS Alejandro Villatoro MD MD kdr Calos Mascorro, RN RN ll1 Marietta Centeno MD MD sp3 Latisha Shabazz, RN RN kb3
--- NOTE | 2022-09-06 20:44 | ER ---
Nurse's Notes [facility] Name: Uzair Sullivan Age: 42 yrs Sex: Male : 1980 Arrival Date: 09/06/2022 Time: 17:36 Bed 20 Private MD: Diagnosis: Abdominal pain, Generalized Presentation: 09/06 17:44 Coronavirus screen: Vaccine status: Patient reports receiving the 2nd dose of the covid ll1 vaccine. Client denies travel out of the [place] in the last 14 days. At this time, the client does not indicate any symptoms associated with coronavirus-19. Ebola Screen: Patient denies travel to an Ebola-affected area in the 21 days before illness onset. Initial Sepsis Screen: Does the patient meet any 2 criteria? No. Patient's initial sepsis screen is negative. Does the patient have a suspected source of infection? No. Patient's initial sepsis screen is negative. Risk Assessment: Do you want to hurt yourself or someone else? Patient reports no desire to harm self or others. Onset of symptoms was September 24, 2022. 17:44 Method Of Arrival: Ambulatory 1 17:44 Acuity: GLORIA 3 ll1 17:46 Chief complaint: Patient states: Upper abd pain for 2+ weeks, worse today. No fever or ll1 N/V/D. Triage Assessment: 17:46 General: Appears in no apparent distress. Behavior is calm, cooperative, appropriate ll1 for age. Pain: Complains of pain in abdomen. GI: Abdomen is flat, Reports upper abdominal pain, cramping. Historical: - Allergies: 17:44 No Known Allergies; ll1 - PMHx: 17:44 Diverticulitis; Lupus erythematosus; arrhythmia; ll1 - PSHx: 17:44 Heart ablation; heart cath; ll1 - Immunization history:: Client reports receiving the 2nd dose of the Covid vaccine. - Social history:: Smoking status: Patient denies any tobacco usage or history of. Screenin:00 Abuse screen: Denies threats or abuse. Denies injuries from another. Nutritional kb3 screening: No deficits noted. Tuberculosis screening: No symptoms or risk factors identified. Fall Risk None identified. Assessment: 18:00 General: Appears in no apparent distress. Behavior is calm, cooperative, Received care kb3 of pt from triage. Pt reports upper abdominal pressure/bloating for 2 weeks. States he is waiting on tx civil drafting technician to clear him for an endoscopy procedure. Denies N/V/D. Reports mild constipation. 18:00 Pain: Complains of pain in epigastric area, right upper quadrant and left upper kb3 quadrant Pain does not radiate. Pain currently is 5 out of 10 on a pain scale. Quality of pain is described as pressure, Pain began 2 weeks Is continuous. GI: Abdomen is flat, Bowel sounds present X 4 quads. Abd is soft and non tender X 4 quads. Reports upper abdominal pain, bloating, constipation, Patient currently denies nausea, vomiting. Vital Signs: 17:44 BP 115 / 83; Pulse 71; Resp 16; Temp 97.8; Pulse Ox 100% ; Weight 75.75 kg; Height 5 ll1 ft. 9 in. (175.26 cm); Pain 9/10; 20:29 BP 103 / 82; Pulse 49; Resp 18; Pulse Ox 100% ; ld1 17:44 Body Mass Index 24.66 (75.75 kg, 175.26 cm) ll1 ED Course: 17:36 Patient arrived in ED. as 17:45 Triage completed. ll1 17:46 Arm band placed on Patient placed in an exam room, on a stretcher. ll1 17:48 Latisha Shabazz, RN is Primary Nurse. kb3 18:00 Patient has correct armband on for positive identification. Placed in gown. Bed in low kb3 position. Call light in reach. Side rails up X 1. Warm blanket given. 18:09 Alejandro Villatoro MD is Attending Physician. kdr 18:20 No provider procedures requiring assistance completed. Inserted saline lock: 20 gauge kb3 in right antecubital area, using aseptic technique. Blood collected. 18:56 Attending Physician role handed off by Alejandro Villatoro MD sp3 18:56 Marietta Centeon MD is Attending Physician. sp3 19:54 CT Abd/Pelvis - IV Contrast Only In Process Unspecified. EDMS 20:49 IV discontinued, intact, bleeding controlled, No redness/swelling at site. ld1 Administered Medications: 18:35 Drug: NS 0.9% 1000 ml Route: IV; Rate: 1 bolus; Site: right antecubital; kb3 18:35 Drug: Pepcid (famotidine) 20 mg Route: IVP; Site: right antecubital; kb3 Medication: 18:00 VIS not applicable for this client. kb3 Outcome: 20:44 Discharge ordered by . sp3 20:49 Discharged to home ambulatory. ld1 20:49 Condition: stable 20:49 Discharge instructions given to patient, Instructed on discharge instructions, follow up and referral plans. Demonstrated understanding of instructions, follow-up care. 20:50 Patient left the ED. ld1 Signatures: Dispatcher [employer] EDMS Alejandro Villatoro MD MD kdr Martinez, Amelia as Lewis, Lynsay, RN RN ll1 Brandi Mackenzie RN RN ld1 Marietta Centeno MD MD sp3 Latisha Shabazz RN RN kb3
[2022-09-06 21:31] VITALS: TEMP 97.8; O2SAT 100
[2022-09-06 21:41] VITALS: BP 103/82
== END 2022-09-06 20:50 | disposition home or self-care (01) ==
LOC: ER 17:35
DX: R10.84 Generalized abdominal pain (principal)
CPT/HCPCS: 85025; 36415; 83690; 80053; 74177; 96374; 99284; Q9967; J7030

== ENCOUNTER 2022-11-14 17:24 | Emergency (ER) | payer BC ==
--- NOTE | 2022-11-14 17:59 | EDPHYS ---
Physician Documentation [facility] Name: Uzair Sullivan Age: 42 yrs Sex: Male : 1980 Arrival Date: 11/14/2022 Time: 17:27 Bed Waiting [facility] MD: KENYON Physician Richi Milligan MDM: 11/14 17:58 Medical screening is not applicable. rt 17:58 ED course: Attempted to see patient at triage, however, he eloped before was able to rt pull him back.. Administered Medications: No medications were administered Disposition Summary: 11/14/22 17:58 Eloped Disposition: Before Triage rt Reason: other rt Signatures: Richi Milligan MD MD rt
--- NOTE | 2022-11-14 18:03 | ER ---
Nurse's Notes [facility] [place] [place] Name: Uzair Sullivan Age: 42 yrs Sex: Male : 1980 Arrival Date: 11/14/2022 Time: 17:27 Bed Waiting Private MD: Diagnosis: ED Course: 11/14 17:27 Patient arrived in ED. am2 17:42 Richi Milligan MD is Attending Physician. rt Administered Medications: No medications were administered Outcome: 18:03 Patient left the ED. aa5 Signatures: Gisselle Ace RN RN aa5 Edwina Lam am2 Richi Milligan MD MD rt
--- OUTSIDE RECORDS SUMMARY | 2022-11-14 18:17 | XMS REPORT | Continuity of Care Document ---
:1980 Author Organization [facility] t Address [facility] [place] [address] Care Team Providers Name Role Phone JOSH EDILSON Primary Care Physician Unavailable LAYTON PAZ Attending Clinician Unavail able SHANTI GONZALEZ Attending Clinician Unavailable Shanti Gonzlaez MD Attending Clinician MANOJ FINN Attending Clinician Unavailable Manoj Finn MD Attending Clinician [email or web address] Attending Clinician Unavailable Ashanti Burrell Attending Clinician [phone] Wing Anand MD Attending Clinician Koby Dowling MD, V. Attending Clinician Darshana Joaquin Attending Clinician Katie Merlos MD Attending Clinician ORALIA JAMIL Attending Clinician Unavailable Oralia Pina Attending Clinician MD WING ANAND Attending Clinician Unavailable CHAGO AMADOR Attending Clinician Unavailable SHANTI GONZALEZ Admitting Clinician Unavailable MANOJ FINN Admitting Clinician Unavailable [email or web address] Admitting Clinician Unavailable WING ANAND Admitting Clinician Unavailable MD WING ANAND Admitting Clinician Unavailable SOFIA MOLINA Admitting Clinician Unavailable Payers Payer Name Policy Type Policy Number Effective Date Expiration Date S jazzy OUT OF STATE [id number] 2017 00:00:00 BCBS - PPO - BCBS CVCP-BCBS [id number] BCBS OF [facility] [id number] 2020 00:00:00 [id number] 2020 00:00:00 [place] Problems Condition Condition Condition Status Onset Resolution [...] Paroxysmal Disease Active M ethodi supraventr supraventr 8[address] st icular icular 00:00: Hospita tachycardi tachycardi [...] rs active active ity of problems problems [facility] Allergies, Adverse Reactions, Alerts Allergy Allergy Status Severity Reaction(s) Onset Inactive Treating Comm ents Source Name Type Date Date Clinician NO KNOWN [facility] Drug Active Univers ALLERGIE Class ity of S [facility] Family History Family Member Diagnosis Comments Start Date Stop Date Source Natural father [facility] Natural mother [facility] Social History Social Habit Start Date Stop Date Quantity Comments Source History of Smoker University of tobacco use [facility] History SDOH [facility] Std Medical Cent[facility] r Drinks History SDOH [facility] Alcohol Binge Medical [facility] [facility] History SDOH [facility] Alcohol Comment Medical C enter Exposure to 2022-09-21 2022-10-01 Not sure [facility] SARS-CoV-2 00:00:00 10:42:00 [facility] (event) [place] Alcohol intake 2022-06-23 2022-06-23 Lifetime [facility] 00:00:00 00:00:00 non-drinker (finding) Tobacco use and 2019-07-26 2019-07-[address] [facility] exposure 00:00:00 00:00:00 Medical Center History SDOH 2019-07-26 2019-07-[address] [facility] Alcohol Frequency 00:00:00 00:00:00 [facility] Sex Assigned At [birth year] [facility] 00:00:00 00:00:00 Smoking Status Start Date Stop Date Source Never Smoker [facility] Smoker 2022-03-24 00:00:00 University o f [facility] Medications Ordered Filled Start Stop Current Ordering Indication Dosage Frequency Signature Comments Components Source Medication Medication Date Date Medication? Clinician (SIG) Name Name iopamidol 2021-10- No [id number] 84mL 84 mL, Univers (ISOVUE 12-11 Intravenou ity o f 370-500 mL) 22:00: 21:03 s, ONCE, 1 [place] injection 00 :00 dose, On Medica l 84 mL Tue Branch 10/10/22 at 1600, Routine NaCl 0.9% 2021-10- No 1000mL at 999 Uni vers (NS) bolus - 12-04 mL/hr, ity of infusion 17:45: 18:48 1,000 mL, Jacob as 1,000 mL 00 :00 IV Medical Infusion, Branch ONCE, 1 dose, On 10/01/22 at 1145, VANCE iopamidol 2021-10- No [id number] 74mL 74 mL, Univers (ISOVUE 12-02 Intravenou ity o f 370-500 mL) 17:30: 17:45 s, ONCE, 1 [place] injection 00 :00 dose, On Medica l 74 mL Sun Branch 10/01/22 at 1145, Routine famotidine 2021-10- No 20mg 20 mg, Univ ers (PEPCID 12-02 Slow IV ity of (PF)) 17:30: 17:43 Push, [place] injection 00 :00 ONCE, 1 Medical 20 mg dose, On Branch 10/01/22 at 1130, VANCE propafenone 2021-10 Yes 1{capsu Take 1 U nivers 225 mg 12 2-04 le} capsule by ity of hr capsule 12:56: mouth [place] [address] every 12 Medical (twelve) Branch hours. metoprolol 2021-10 Yes 1{tbl} Take 1 Uni vers succinate 2-04 tablet by ity o f XL 25 mg 24 12:56: mouth [place] hr tablet 26 the Medical morning. Branch omeprazole 2021-10 Yes 40mg Take 40 mg U nivers 10 mg 2-04 by mouth ity of capsule 12:56: in the [place] [address] morning. Medical Branch propafenone 2021-10 Yes 1{capsu Take 1 U nivers 225 mg 12 2-04 le} capsule by ity of hr capsule 12:56: mouth [place] 26 every 12 Medical (twelve) Branch hours. metoprolol 2021-10 Yes 1{tbl} Take 1 Uni vers succinate 2-04 tablet by ity o f XL 25 mg 24 12:56: [place] tablet 26 the Medical morning. Branch omeprazole 2021-10 Yes 40mg Take 40 mg U nivers 10 mg 2-04 by mouth ity of capsule 12:56: in the [place] [address] morning. Medical Branch sucralfate 2021-10 Yes [id number] 1g Take 1 Un cipriano 1 gram 2-04 tablet by ity of tablet 00:00: mouth [place] 00 before Medical meals and Branch at bedtime. traMADoL 50 2021-10 Yes [id number] 50mg Take 1 Univ ers mg tablet 2-04 tablet by ity o f 00:00: mouth [place] 00 every 6 Medical (six) Branch hours as needed (pain). Indication s: acute pain ondansetron 2021-10 Yes [id number] 1-2 Un cipriano 4 mg tablet 2-04 tablets ity o f 00:00: every 8 [place] 00 hours as Medical needed for Branch nausea sucralfate 2021-10 Yes [id number] 1g Take 1 Un cipriano 1 gram 2-04 tablet by ity of tablet 00:00: mouth [place] 00 before Medical meals and Branch at bedtime. traMADoL 50 2021-10 Yes [id number] 50mg Take 1 Univ ers mg tablet 2-04 tablet by ity o f 00:00: mouth [place] 00 every 6 Medical (six) Branch hours as needed (pain). Indication s: acute pain ondansetron 2021-10 Yes [id number] 1-2 Un cipriano 4 mg tablet 2-04 tablets ity o f 00:00: every 8 [place] 00 hours as Medical needed for Branch nausea metoprolol 2021- No 25mg QD Take 1 Meth ramona succinate 06-22 09-25 tablet (25 st XL 00:00: 04:59 mg total) Hospita (TOPROL-XL) 00 :00 by mouth l 25 mg 24 hr daily for tablet 30 days. metoprolol 2021- No 25mg QD Take 1 Meth ramona succinate 8- 09-25 tablet (25 st XL 00:00: 04:59 [...] hr daily for tablet 30 days. metoprolol 2021-2021- No 25mg QD Take 1 Meth ramona succinate 8-25 -25 tablet (25 st XL 00:00: 04:59 mg total) Hospita (TOPROL-XL) 00 :00 by mouth l 25 mg 24 hr daily for tablet 30 days. metoprolol 2021- 202- No 25mg QD Take 1 Meth ramona succinate 8-25 -25 tablet (25 st XL 00:00: 04:59 mg total) Hospita (TOPROL-XL) 00 :00 by mouth l 25 mg 24 hr daily for tablet 30 days. metoprolol 2021-2021- No 25mg QD Take 1 Meth ramona [...] a day for 30 days. ondansetron 2-0 2- No 4mg Q8H Take 1 Met hodi ODT 7-16 08-16 tablet (4 st (ZOFRAN-ODT 00:00: 04:59 mg total) Hospita ) 4 MG 00 :00 by mouth l disintegrat every 8 ing tablet (eight) hours as needed for nausea or vomiting for up to 30 days. dicyclomine 2-0 2- No 20mg Q.5D Take 1 Met hodi [...] times a day for 30 days. amoxicillin 2021-0 2- No [id number] 1{tbl} Take 1 Univers -clavulanat 5-27 06-07 tablet by it y of e 00:00: 04:59 mouth 2 [place] (AUGMENTIN) 00 :00 (two) Medical 875-125 mg [...] as oral route directed. directed. as directed. amoxicillin amoxicillin No amoxicilli [facility] 875 875 n 875 Medical mg-potassiu mg-potassiu mg-potassi m m um clavulanate clavulanate clavulanat 125 mg 125 mg e 125 mg tablet TAKE tablet TAKE tablet 1 TABLET BY 1 TABLET BY TAKE 1 MOUTH EVERY MOUTH EVERY TABLET BY 12 HOURS 12 HOURS MOUTH FOR 10 DAYS FOR 10 DAYS EVERY 12 HOURS FOR 10 DAYS metoprolol metoprolol No metoprolol [facility] succinate succinate [...] Date Status Commen ts Source Name Name COVID-19, mRNA, COVID-19, mRNA, 2021-10-27 Completed [facility] LNP-S, PF, 30 LNP-S, PF, 30 00:00:00 mcg/0.3 mL dose mcg/0.3 mL dose (Pfizer-BioNTech) (Vignani-BioNTLaFourchette) COVID-19, mRNA, COVID-19, mRNA, 2021-10-27 Completed [facility] LNP-S, PF, 30 LNP-S, PF, 30 00:00:00 mcg/0.3 mL dose mcg/0.3 mL dose (Pfizer-BioNTech) (Vignani-BioNTLaFourchette) PFIZER COVID-19 MRNA 2021-10-27 Completed [facility] VACCINATION 00:00:00 Hospital PFIZER COVID-19 MRNA 2021-10-27 Completed Meth odist VACCINATION 00:00:00 [facility] PFIZER COVID-19 MRNA 2021-10-27 Completed Meth odist VACCINATION 00:00:00 [facility] PFIZER COVID-19 MRNA 2021-10-27 Completed Meth odist VACCINATION 00:00:00 [facility] PFIZER COVID-19 MRNA 2021-10-27 Completed Meth odist VACCINATION 00:00:00 [facility] COVID-19 vaccine, COVID-19 vaccine, 2021-02-04 [facility] rS-Ad26, vector-nr, rS-Ad26, 00:00:00 PF, 0.5 mL (Vannessa) PF, 0.5 mL (Vannessa) COVID-19 vaccine, COVID-19 vaccine, 2021-02-04 Completed [facility] Medical vector-nr, rS-Ad26, vector-nr, rS-Ad26, 00:00:00 PF, 0.5 mL (Vannessa) PF, 0.5 mL (Vannessa) VANNESSA COVID-19 2021-02-04 Completed Methodis t AD26 VACCINATION 00:00:00 Hospital [facility] COVID-19 2021-02-04 Completed Methodis t AD26 VACCINATION 00:00:00 [facility] COVID-19 2021-02-04 Completed Methodis t AD26 VACCINATION 00:00:00 [facility] COVID-19 2021-02-04 Completed Methodis t AD26 VACCINATION 00:00:00 Hospital [facility] COVID-19 2021-02-04 Completed Methodis t AD26 VACCINATION 00:00:00 Hospital Vital Signs Vital Name Observation Time Observation Value Comments Source Systolic blood 2022-10-01 18:00:00 96 mm[Hg] [facility]iver [facility] Diastolic blood 2022-10-01 18:00:00 76 mm[Hg] Unive rsity [facility] Heart rate 2022-10-01 18:00:00 66 /min [facility] Respiratory rate 2022-10-01 18:00:00 16 /min [facility] Oxygen saturation in 2022-10-01 18:00:00 98 /min [facility] blood by [facility] Pulse oximetry [place] Body temperature 2022-10-01 16:48:00 36.78 Silvia [facility] Body height 2022-10-01 16:48:00 175.3 cm [facility] Body weight 2022-10-01 16:48:00 75.297 kg [facility] BMI 2022-10-01 16:48:00 24.51 kg/m2 [facility] BP Diastolic 2022-07-20 00:00:00 87 mm[Hg] [facility] Height 2022-07-20 00:00:00 69 [in_i] Mike Santillan ical BMI (Body Mass 2022-07-20 00:00:00 28.1 kg/m2 [facility] Medical Index) BP Systolic 2022-07-20 00:00:00 131 mm[Hg] [facility] Body Weight 2022-07-20 00:00:00 3040 [oz_av] [facility] ical BP Diastolic 2022-07-06 00:00:00 87 mm[Hg] [facility] edical Height 2022-07-06 00:00:00 69 [in_i] Mike Santillan ical BMI (Body Mass 2022-07-06 00:00:00 28.1 kg/m2 [facility] Medical Index) BP Systolic 2022-07-06 00:00:00 131 mm[Hg] Mike Santillan edical Body Weight 2022-07-06 00:00:00 3040 [oz_av] Mike Santillan [facility] Systolic blood 2022-03-24 21:55:00 124 mm[Hg] Univer s[facility] Diastolic blood 2022-03-24 21:55:00 87 mm[Hg] [facility] Heart rate 2022-03-24 21:55:00 86 /min [facility] Oxygen saturation in 2022-03-24 21:55:00 100 /min [facility] Arterial blood by [facility] Pulse oximetry Branch Body height 2022-03-24 21:52:00 175.3 cm [facility] Body weight 2022-03-24 21:52:00 95.165 kg [facility] BMI 2022-03-24 21:52:00 30.98 kg/m2 [facility] Heart rate 2022-06-22 13:00:00 79 /min [facility] Systolic blood 2022-06-22 12:52:32 130 mm[Hg] [facility] pressure Diastolic blood 2022-06-22 12:52:32 87 mm[Hg] [facility] pressure Body temperature 2022-06-22 12:52:32 36.89 Silvia [facility] Respiratory rate 2022-06-22 12:52:32 20 /min [facility] Oxygen saturation in 2022-06-22 12:52:32 99 /min [facility] Arterial blood by Pulse oximetry Body weight 2022-06-22 01:49:34 87.544 kg [facility] BMI 2022-06-22 01:49:34 28.50 kg/m2 [facility] Body height 2022-06-21 15:19:00 175.3 cm [facility] Procedures Procedure Date / Time Performing Clinician Source Performed CT ABDOMEN PELVIS W 2022-10-10 21:02:07 Shanti Gonzalez [facility] CONTRAST [facility] CT ABDOMEN PELVIS W 2022-10-01 17:37:14 Manoj Finn [facility] URINALYSIS 2022-10-01 17:01:00 Manoj Finn [facility] LIPASE 2022-10-01 16:59:00 Manoj Finn [facility] COMP. METABOLIC PANEL 2022-10-01 16:59:00 Manoj Finn [facility] ([id number]) Medical [place] CBC WITH DIFF 2022-10-01 16:59:00 Manoj Finn [facility] NOTICE OF PRIVACY 2022-10-01 16:39:10 Doctor Unassigned, No Univ [facility] PRACTICES Name Medical Branch CONSENT/REFUSAL FOR 2022-10-01 16:36:34 Doctor Unassigned, No [facility] Name Medical Branch HC COMPLETE BLD COUNT 2022-06-22 09:30:00 Wing Anand [facility] W/AUTO DIFF BASIC METABOLIC PANEL 2022-06-22 09:30:00 Wing Anand [facility] ESTIMATED GFR 2022-06-22 09:30:00 Wing Anand spital EP COMPLETE EP STUDY W 2022-06-21 19:16:30 [facility] SV[facility] TYPE AND SCREEN 2022-06-21 14:56:00 Wing Anand spital ECG 12-LEAD 2022-06-21 13:49:16 Wing Anand spital COVID-19 QUALITATIVE 2022-06-20 14:29[facility] WITH 2022-06-20 14:22:00 Wing Anand [facility] INR HC COMPLETE BLD COUNT 2022-06-20 14:22:00 Wing Anand [facility] W/AUTO DIFF COMPREHENSIVE METABOLIC 2022-06-20 14:22:00 Wing Anand [facility] PANEL ESTIMATED GFR 2022-06-20 14:22:00 Wing Anand spital ED REFERRAL TO [place] 2022-05-14 00:33:07 Gaurang Katie [facility] HINDUISM PHYSICIAN ORGANIZATION (PCP) CT ABDOMEN PELVIS W 2022-05-14 00:17:00 [facility] CONTRAST HC COMPLETE BLD COUNT 2022-05-13 21:09:[address] [facility] W/AUTO DIFF COMPREHENSIVE METABOLIC 2022-05-13 21:09:00 [facility] PANEL LIPASE LEVEL 2022-05-13 21:09:00 [facility] ESTIMATED GFR 2022-05-13 21:09:00 [facility] Plan of Care Planned Activity Planned Date Details Comments Source Future Scheduled 2022-11-14 Hepatitis C screening [facility] Test 14:15:22 (procedure) [code = 983408367] Future Scheduled 2022-11-14 COVID-19 VACCINE (3 - [facility] Test 14:15:22 Booster for Vannessa series) [code = COVID-19 VACCINE (3 - Booster for Vannessa series)] Future Scheduled 2022-11-14 INFLUENZA VACCINE [facility] Test 14:15:22 [code = INFLUENZA VACCINE] Future Scheduled 2022-09-04 HEPATITIS B VACCINES Met [facility] Test 08:40:39 (1 of 3 - 3-dose series) [code = HEPATITIS B VACCINES (1 of 3 - 3-dose series)] Future Scheduled 2022-09-04 Hepatitis C screening [facility] Test 08:40:39 (procedure) [code = [id number]] Future Scheduled 2022-09-04 COVID-19 VACCINE (3 - [facility] Test 08:40:39 Booster for Vannessa series) [code = COVID-19 VACCINE (3 - Booster for Vannessa series)] Future Scheduled 2022-09-04 INFLUENZA VACCINE [facility] Test 08:40:39 [code = INFLUENZA VACCINE] Future Scheduled 2022-08-25 HEPATITIS B VACCINES Met [facility] Test 08:18:50 (1 of 3 - 3-dose series) [code = HEPATITIS B VACCINES (1 of 3 - 3-dose series)] Future Scheduled 2022-08-25 Hepatitis C screening [facility] Test 08:18:50 (procedure) [code = [id number]] Future Scheduled 2022-08-25 COVID-19 VACCINE (3 - [facility] Test 08:18:50 Booster for Vannessa series) [code = COVID-19 VACCINE (3 - Booster for Vannessa series)] Future Scheduled 2022-08-25 INFLUENZA VACCINE Method [facility] Test 08:18:50 [code = INFLUENZA VACCINE] Future Scheduled 2022-08-24 HEPATITIS B VACCINES Met [facility] Test 06:18:01 (1 of 3 - 3-dose series) [code = HEPATITIS B VACCINES (1 of 3 - 3-dose series)] Future Scheduled 2022-08-24 Hepatitis C screening [facility] Test 06:18:01 (procedure) [code = [id number]] Future Scheduled 2022-08-24 COVID-19 VACCINE (3 - [facility] Test 06:18:01 Booster for Vannessa series) [code = COVID-19 VACCINE (3 - Booster for Vannessa series)] Future Scheduled 2022-08-24 INFLUENZA VACCINE Method [facility] Test 06:18:01 [code = INFLUENZA VACCINE] Future Scheduled 2022-08-17 HEPATITIS B VACCINES Met [facility] Test 14:15:01 (1 of 3 - 3-dose series) [code = HEPATITIS B VACCINES (1 of 3 - 3-dose series)] Future Scheduled 2022-08-17 Hepatitis C screening [facility] Test 14:15:01 (procedure) [code = [id number]] Future Scheduled 2022-08-17 COVID-19 VACCINE (3 - [facility] Test 14:15:01 Booster for Vannessa series) [code = COVID-19 VACCINE (3 - Booster for Vannessa series)] Future Scheduled 2022-08-17 INFLUENZA VACCINE Method [facility] Test 14:15:01 [code = INFLUENZA VACCINE] Diagnostic Test 2022-07-06 inflammatory bowel [facility] Pending 00:00:00 disease Ab panel, serum [code = inflammatory bowel disease Ab panel, serum] Diagnostic Test 2022-07-06 AURA (antinuclear [facility] Pending 00:00:00 antibodies) screen, serum [code = AURA (antinuclear antibodies) screen, serum] Diagnostic Test 2022-07-06 C reactive protein, [facility] Pending 00:00:00 QN, serum or plasma [code = C reactive protein, QN, serum or plasma] Diagnostic Test 2022-07-06 ESR (erythrocyte [facility] Pending 00:00:00 sedimentation rate), blood [code = ESR (erythrocyte sedimentation rate), blood] Diagnostic Test 2022-07-06 dsDNA Ab, serum [code [facility] Pending 00:00:00 = dsDNA Ab, serum] Diagnostic Test 2022-07-06 rf (rheumatoid [facility] Pending 00:00:00 factor), serum [code = rf (rheumatoid factor), serum] Diagnostic Test 2022-07-06 ccp (cyclic [facility] Pending 00:00:00 citrullinated peptide) iga+igg, serum [code = ccp (cyclic citrullinated peptide) iga+igg, serum] Diagnostic Test 2022-07-06 CBC w/ auto diff [code [facility] Pending 00:00:00 = CBC w/ auto diff] Diagnostic Test 2022-07-06 CMP, serum or plasma [facility] Pending 00:00:00 [code = CMP, serum or plasma] Diagnostic Test 2022-07-06 magnesium, serum or [facility] Pending 00:00:00 plasma [code = magnesium, serum or plasma] Diagnostic Test 2022-07-06 TSH + free T4, serum [facility] Pending 00:00:00 [code = TSH + free T4, serum] Diagnostic Test 2022-07-06 cortisol, am, serum [facility] Pending 00:00:00 [code = cortisol, am, serum] Diagnostic Test 2022-07-06 histamine, serum or [facility] Pending 00:00:00 plasma [code = histamine, serum or plasma] Future Scheduled 2022-07-05 HEPATITIS B VACCINES [facility] Test 17:47:18 (1 of 3 - 3-dose series) [code = HEPATITIS B VACCINES (1 of 3 - 3-dose series)] Future Scheduled 2022-07-05 Hepatitis C screening [facility] Test 17:47:18 (procedure) [code = [id number]] Future Scheduled 2022-07-05 INFLUENZA VACCINE [facility] Test 17:47:18 [code = INFLUENZA VACCINE] Future Scheduled 2022-06-29 INFLUENZA VACCINE (#1[facility]00 [code = INFLUENZA Medical Ce nter VACCINE (#1)] Future Scheduled 2022-06-29 INFLUENZA VACCINE (#1) [facility] Test 00:00:00 [code = INFLUENZA Medical Ce nter VACCINE (#1)] Future Scheduled 2022-06-29 INFLUENZA VACCINE (#1) [facility] Test 00:00:00 [code = INFLUENZA Medical Ce nter VACCINE (#1)] Future Scheduled 2022-06-29 INFLUENZA VACCINE (#1) [facility] Test 00:00:00 [code = INFLUENZA Medical Ce nter VACCINE (#1)] Future Scheduled 2022-06-28 HEPATITIS B VACCINES Met [facility] Test 13:37:55 (1 of 3 - 3-dose series) [code = HEPATITIS B VACCINES (1 of 3 - 3-dose series)] Future Scheduled 2022-06-28 Hepatitis C screening [facility] Test 13:37:55 (procedure) [code = [id number]] Future Scheduled 2022-06-28 INFLUENZA VACCINE [facility] Test 13:37:55 [code = INFLUENZA VACCINE] Future Scheduled 2022-06-26 HEPATITIS B VACCINES [facility] Test 19:57:18 (1 of 3 - 3-dose series) [code = HEPATITIS B VACCINES (1 of 3 - 3-dose series)] Future Scheduled 2022-06-26 Hepatitis C screening [facility] Test 19:57:18 (procedure) [code = [id number]] Future Scheduled 2022-06-26 INFLUENZA VACCINE [facility] Test 19:57:18 [code = INFLUENZA VACCINE] [...] [facility] Test 00:00:00 (procedure) [code = [facility] [id number]] Future Scheduled [address] [facility] Test 00:[facility]:00 (procedure) [code = [facility] [id number]] Future Scheduled [address] [facility] Test 00:00:00 (procedure) [code = [facility] [id number]] Future Scheduled [address] [facility] Test 00:00:00 (procedure) [code = [facility] [id number]] Future Scheduled 1997 DTAP/TDAP/TD VACCINES [facility] Test 00:00:00 (1 - Tdap) [code = Medical C enter DTAP/TDAP/TD VACCINES (1 - Tdap)] Future Scheduled 1997 DTAP/TDAP/TD [facility]ACCINES [facility] Test 00:00:00 (1 - Tdap) [code = Medical C enter DTAP/TDAP/TD VACCINES (1 - Tdap)] Future Scheduled 1997 DTAP/TDAP/TD [facility]ACCINES [facility] Test 00:00:00 (1 - Tdap) [code = Medical C enter DTAP/TDAP/TD VACCINES (1 - Tdap)] Future Scheduled 1997 DTAP/TDAP/TD VACCINES [facility] Test 00:00:00 (1 - Tdap) [code = Medical C enter DTAP/TDAP/TD VACCINES (1 - Tdap)] Future Scheduled 1996-02-12 HEPATITIS C [facility]CRE[facility]ING [facility] 00:00[facility]00 [code = HEPATITIS C Medical Center SCREENING] Future Scheduled 1996-02-12 HEPATITIS C [facility]CRE[facility]ING [facility] 00:00:00 [code = HEPATITIS C Medical Center SCREENING] Future Scheduled 1996-02-12 HEPATITIS C [facility]CRE[facility]ING [facility] 00:00:00 [code = HEPATITIS C Medical Center SCREENING] Future Scheduled 1996-02-12 HEPATITIS C [facility]ING [facility] 00:00:00 [code = HEPATITIS C Medical Center SCREENING] Future Scheduled 1978 COVID-19 VACCINE (#1[facility] Test 00:00:00 [code = COVID-[address] VACCINE (#1)] Future Scheduled 1980 COVID-19 VACCINE (#1) [facility] Test 00:00:00 [code = COVID-[address] VACCINE (#1)] Future Scheduled 1980 COVID-19 VACCINE (#1) [facility] Test 00:00:00 [code = COVID-[address] VACCINE (#1)] Future Scheduled 1980 COVID-19 VACCINE (#1) [facility] Test 00:00:00 [code = COVID-[address] VACCINE (#1)] Encounters Start End Encounter Admission Attending Care Care Encounter Source Date/Time Date/Time Type Type Clinicians Facility Department ID 2022-10-26 2022-10-26 Outpatient RAMON KEMP [facility] [id number] [facility] 00:00:00 00:00:00 [facility] RE[facility] 2022-10-10 2022-10-10 Outpatient R [facility] [id number] Univers 14:14:59 23:59:00 ity [facility] 2022-10-10 2022-10-10 [facility] 1.2.840.114 [id number] Univers 14:14:59 23:59:00 Encounter [facility]686 [facility] [id number] [facility] [address] 2022-10-01 2022-10-01 Emergency X [facility] [id number] Univers 10:51:00 12:56:00 [facility] 2022-10-01 Emergency [facility] 1.2.467.216 [id number] Univers 10:51:00 12:56:00 Manoj PINEDA 350.1.13.10 ity [facility] 4.2.7.2.686 [facility] [id number] [facility] [address] 2022-08-16 2022-08-16 Travel 1.2.840.1 1.2.317.460 [id number] Methodi 00:00:00 00:00:[address] 3.430.2.7 0.2.7.3.698 Ho spita .3.910127 084.8 l .8 2022-08-16 2022-08-16 Travel 1.2.840.1 1.2.067.518 3171 [id number] Methodi 00:00:00 00:00:[address] 3.430.2.7 0.2.7.3.698 Ho spita .3.498897 084.8 l .8 2022-07-20 2022-07-20 Outpatient GC_TPP_Pour PRIV PRIV 247 [id number] [facility] 00:00:00 00:00:00 -Jafari_B [id number] [facility] 2022-07-20 2022-07-20 [facility] 00:00:00 00:00:00 [facility] tata conti MD: 427 GC_TPP_Hous [address] Office* [place], [address] [address] , Ph. [phone] 2022-07-06 2022-07-06 Outpatient GC_TPP_Pour PRIV PRIV 247 [id number] [facility] 00:00:00 00:00:00 -Jafari_B [id number] [facility] 2022-07-06 2022-07-06 [facility] 08 [facility] 00:00:00 00:00:00 [facility] tata conti MD: 427 GC_TPP_[address] [address] , Ph. 2022-07-06 2022-07-06 Outpatient Pour-Iris PRIV PRIV 56f fca20-2 00:00:00 00:00:00 , [facility] [id number]-[id number] 2022-06-29 2022-06-29 Outpatient GC_TPP_Pour PRIV PRIV 247 [id number] [facility] 00:00:00 00:00:00 -Jafari_B [id number] [facility] 2022-06-21 2022-06-22 [facility], 1.2.840.1 [id number] [id number] Methodi 07:33:00 12:53:00 Cuco Dimas [address]36.[address] 3.430.2.7 Hospit a .3.244277 l .8 2022-06-21 2022-06-22 Hospital [facility], 1.2.840.1 [id number] 21001 [id number] Methodi 07:33:00 12:53:00 Encounter Wing [address]148.1.[address] 3.430.2.7 Hospit a .3.695730 l .8 2022-06-21 2022-06-21 Anesthesia Casimiro Dowlingmini V. 1.2.840.1 [id number] Methodi 10:40:00 14:35:00 Event Darshana Joaquin 13987.1.[address] 3.430.2.7 Hospit a .3.355577 l .8 2022-06-21 2022-06-21 Anesthesia Casimiro Dowlingmini V. 1.2.840.1 [id number] Methodi 10:40:00 14:35:00 Event Darshana Joaquin 61725.1.[address] 3.430.2.7 Hospit a .3.569566 l .8 2022-06-21 2022-06-21 Surgery Nazeri, 1.2.840.1 [id number] 4107 Methodi 10:30:00 13:00:[address] 3.430.2.7 Hospit a .3.428394 l .8 2022-06-21 2022-06-21 Surgery Nazeri, 1.2.840.1 [id number] 9539 Methodi 10:30:00 13:00:[address] 3.430.2.7 Hospit a .3.026643 l .8 2022-06-20 2022-06-20 Lab Nazeri, 1.2.840.1 [id number] 5307 Methodi 08:55:00 09:00:[address] 3.430.2.7 Hospit a .3.689545 l .8 2022-06-20 2022-06-20 Lab Nazeri, 1.2.840.1 [id number] 5286 Methodi 08:55:00 09:00:[address] 3.430.2.7 Hospit a .3.632656 l .8 2022-06-20 2022-06-20 Travel 1.2.840.1 1.2.632.069 6379 [id number] Methodi 00:00:00 00:00:[address] 3.430.2.7 0.2.7.3.698 Ho spita .3.140853 084.8 l .8 2022-06-20 2022-06-20 Travel 1.2.840.1 1.2.695.397 5657 [id number] Methodi 00:00:00 00:00:[address] 3.430.2.7 0.2.7.3.698 Ho spita .3.760166 084.8 l .8 2022-06-16 2022-06-16 [facility] Nazeri, 1.2.840.1 [id number] Methodi 00:00:00 00:00:00 Orders Wing [address]9469.1.[address] 3.430.2.7 Hospit a .3.231596 l .8 2022-06-16 2022-06-16 [facility] Nazeri, 1.2.840.1 [id number] [id number] Methodi 00:00:00 00:00:00 Orders Wing 42092.1.[address] 3.430.2.7 Hospit a .3.337067 l .8 2022-05-13 2022-05-13 Emergency Katie Merlos 1.2.840.1 [id number] Methodi 15:34:00 19:53:00 Chul Rey 74975.1.1 363 s t 3.430.2.7 Hospit a .3.839476 l .8 2022-05-13 2022-05-13 Emergency Katie Merlos 1.2.840.1 [id number] 21 [id number] Methodi 15:34:00 19:53:00 Chul Rey 53300.1.1 363 s t 3.430.2.7 Hospit a .3.689943 l .8 2022-03-24 2022-03-24 Outpatient R LOULOU [facility] [id number] [facility] 17:00:00 17:27:59 ORALIA castro o nixon [facility] 2022-03-24 2022-03-24 Urgent Loulou [facility] 1.2.840.114 [id number] Univers 17:00:00 17:27:59 Care [facility] 350.1.13.10 i ty of EDWIN 4.2.7.2.686 Jacob as LOR?BLEA [id number] [address] MEDICAL OFFICE BUILDING 2020-10-14 2020-10-14 Outpatient [facility] [id number] 00:00:00 00:00:[address] 2020-07-18 2020-07-18 [facility] [id number] 00:00:00 00:00:[address] 2020-06-18 2020-06-18 [facility]patient [facility] [id number] 00:00:00 00:00:[address] Results Test Description Test Time Test Comments Results Result Comments Source ECG 12 lead 2022-06-22 12:52:17 Test Item Value Reference Range Interpretation Comme nts Ventricular rate (test code = 253) Atrial rate (test code = 255) DE interval (test code = 266) QRSD interval (test code = 260) QT interval (test code = 264) QTC interval (test code = 265) P axis 1 (test code = 267) QRS axis 1 (test code = 268) T wave axis (test code = 270) EKG impression (test code = 273) Normal sinus rhythm [facility] [id number] 12:52:17 Test Item Value Reference Range Interpretation Comments Ventricular rate (test code = 253) Atrial rate (test code = 255) DE interval (test code = 266) QRSD interval [...] Kinsey MD ([id number]) on 06/22/2022 7:52:[address]2022-08-25 12:52:17 Test Item Value Reference Range Interpretation Comments Ventricular rate (test code = 253) Atrial rate (test code = 255) DE interval (test code = 266) QRSD interval [...] Kinsey MD ([id number]) on 06/22/2022 7:52:[address]2022-08-25 12:52:17 Test Item Value Reference Range Interpretation Comments Ventricular rate (test code = 253) Atrial rate (test code = 255) DE interval (test code = 266) QRSD interval [...] Kinsey MD ([id number]) on 06/22/2022 7:52:[address] AM [address]2022-08-25 12:52:17 Test Item Value Reference Range Interpretation Comments Ventricular rate (test code = 253) Atrial rate (test code = 255) DE interval (test code = 266) QRSD interval [...] Kinsey MD ([id number]) on 06/22/2022 7:52:[address]2022-08-25 12:52:17 Test Item Value Reference Range Interpretation Comments Ventricular rate (test code = 253) Atrial rate (test code = 255) DE interval (test code = 266) QRSD interval [...] Kinsey MD ([id number]) on 06/22/2022 7:52:[address]2022-08-25 12:52:17 Test Item Value Reference Range Interpretation Comments Ventricular rate (test code = 253) Atrial rate (test code = 255) DE interval (test code = 266) QRSD interval [...] Kinsey MD ([id number]) on 06/22/2022 7:52:[address]2022-08-25 12:52:17 Test Item Value Reference Range Interpretation Comments Ventricular rate (test code = 253) Atrial rate (test code = 255) DE interval (test code = 266) QRSD interval [...] on 06/22/2022 7:52:15 AM [facility] [id number] 18:12:38 Test Item Value Reference Interpretation Comments Range Interpretation (test Negative results do not code = 9235628) preclude COVID-19 infection and should not be used asthe sole basis for treatment or other patient management decisions. Negativeresults must be combined with clinical observations, patient history, andepidemiological information. COVID-19 qualitative Not-Detected Not-Detected RT-PCR result (test code = 00748-2) COVID-19 qualitative See link below for PDF Case Number: RT-PCR (test code = Lab Report [id number] 5028 7070) [facility] [id number] 18:12:38 Test Item Value Reference Interpretation Comments Range Interpretation (test Negative results do not code = 7631945) preclude COVID-19 infection and should not be used asthe sole basis for treatment or other patient management decisions. Negativeresults must be combined with clinical observations, patient history, andepidemiological information. COVID-19 qualitative Not-Detected Not-Detected RT-PCR result (test code = 42439-9) COVID-19 qualitative See link below for PDF Case Number: RT-PCR (test code = Lab Report [id number] 5028 7070) [facility] [id number] 18:12:38 Test Item Value Reference Interpretation Comments Range Interpretation (test Negative results do not code = 3863524) preclude COVID-19 infection and should not be used asthe sole basis for treatment or other patient management decisions. Negativeresults must be combined with clinical observations, patient history, andepidemiological information. COVID-19 qualitative Not-Detected Not-Detected RT-PCR result (test code = 63123-1) COVID-19 qualitative See link below for PDF Case Number: RT-PCR (test code = Lab Report [id number] 5028 7070) [facility] [id number] 18:12:38 Test Item Value Reference Interpretation Comments Range Interpretation (test Negative results do not code = 8839262) preclude COVID-19 infection and should not be used asthe sole basis for treatment or other patient management decisions. Negativeresults must be combined with clinical observations, patient history, andepidemiological information. COVID-19 qualitative Not-Detected Not-Detected RT-PCR result (test code = 54450-6) COVID-19 qualitative See link below for PDF Case Number: RT-PCR (test code = Lab Report [id number] 5028 7070) [facility] [id number] 18:12:38 Test Item Value Reference Interpretation Comments Range Interpretation (test Negative results do not code = 9927603) preclude COVID-19 infection and should not be used asthe sole basis for treatment or other patient management decisions. Negativeresults must be combined with clinical observations, patient history, andepidemiological information. COVID-19 qualitative Not-Detected Not-Detected RT-PCR result (test code = 43963-4) COVID-19 qualitative See link below for PDF Case Number: RT-PCR (test code = Lab Report [id number] 5028 7070) [facility] [id number] 18:12:38 Test Item Value Reference Interpretation Comments Range Interpretation (test Negative results do not code = 5068193) preclude COVID-19 infection and should not be used asthe sole basis for treatment or other patient management decisions. Negativeresults must be combined with clinical observations, patient history, andepidemiological information. COVID-19 qualitative Not-Detected Not-Detected RT-PCR result (test code = 89022-8) COVID-19 qualitative See link below for PDF Case Number: RT-PCR (test code = Lab Report [id number] 5028 7070) [facility] [id number] 18:12:38 Test Item Value Reference Interpretation Comments Range Interpretation (test Negative results do not code = 8815092) preclude COVID-19 infection and should not be used asthe sole basis for treatment or other patient management decisions. Negativeresults must be combined with clinical observations, patient history, andepidemiological information. COVID-19 qualitative Not-Detected Not-Detected RT-PCR result (test code = 79836-4) COVID-19 qualitative See link below for PDF Case Number: RT-PCR (test code = Lab Report [id number] 5028 7070) [facility] qualitative [id number] 18:12:38 Test Item Value Reference Interpretation Comments Range Interpretation (test Negative results do not code = 6088410) preclude COVID-19 infection and should not be used asthe sole basis for treatment or other patient management decisions. Negativeresults must be combined with clinical observations, patient history, andepidemiological information. COVID-19 qualitative Not-Detected Not-Detected RT-PCR result (test code = 95816-5) COVID-19 qualitative See link below for PDF Case Number: RT-PCR (test code = Lab Report [id number] 5028 7070) [facility] (COVID-19) RNA [Presence] in Respiratory specimen by DENIS with probe [id number] 13:12:38 Test Item Value Reference Range Interpretation Comments SARS-CoV-2 (COVID-19) RNA Not detected [Presence] in Respiratory specimen by DENIS with probe detection (test code = 54886-1) Whether patient is employed in a Unknown healthcare setting (test code = 93805-3) Whether the patient has symptoms Unknown related to condition of interest (test code = 17530-1) Whether the patient was Unknown hospitalized for condition of interest (test code = 62177-0) Whether the patient was admitted Unknown to intensive care unit (ICU) for condition of interest (test code = 99709-2) Whether patient resides in a Unknown congregate care setting (test code = 44004-3) status (test code = Unknown 23018-1) Date and time of symptom onset Unknown (test code = 93466-5) JOAQUIN CRUMP HZENNBFU-QhR-4 (COVID-19) RNA [Presence] in Respiratory specimen by DENIS with probe [id number] 23:44:02 Test Item Value Reference Range Interpretation Comments SARS-CoV-2 (COVID-19) RNA Not detected Not-Detected [Presence] in Respiratory specimen by DENIS with probe detection (test code = 53221-4) JOAQUIN CRUMP MELISSABLOOD [id number] 08:01:00 Test Item Value Reference Range Interpretation Comments CULTURE (BEAKER) (test No growth in 5 days code = 1095) MISCELLANEOUS LAB [id number] 07:37:00 Test Item Value Reference Range Interpretation Comments SCAN RESULT (test code = 2458329) BLOOD [id number] 08:00:00 Test Item Value Reference Range Interpretation Comments CULTURE (BEAKER) (test No growth in 5 days code = 1095) BLOOD [id number] 08:00:00 Test Item Value Reference Range Interpretation Comments CULTURE (BEAKER) (test No growth in 5 days code = 1095) ANTI-NUCLEAR ANTIBODY (AURA)2019-07-30 09:44:00 Test Item Value Reference Range Interpretation Comments ANTI-NUCLEAR ANTIBODY (AURA) (BEAKER) Positive Negative A (test code = 418) Test performed by IFA method.AURA TITER AND [id number] 09:44:00 Test Item Value Reference Range Interpretation [...] (test code Normal = 486) HEPATIC FUNCTION [id number] 09:58:00 Test Item Value Reference Range Interpretation [...] 347) CBC WITH PLATELET COUNT + MANUAL [id number] 09:29:00 Test Item Value Reference Range Interpretation [...] (BEAKER) (test code = 413) RESPIRATORY PANEL [id number] 15:15:00 Test Item Value Reference Range Interpretation [...] sample was tested at the [facility] using the openPeople Respiratory Panel. It is FDA cleared and has been verified and approved by the [facility] for clinical use on nasopharyngeal swab specimens.The performance of the FilmArrayRP has not been established in individuals who received influenza vaccine. Recent administration of a nasal influenza vaccine may cause false positive results for Influenza A and/orInfluenza B.EBV VIRAL [id number] 13:49:00 Test Item Value Reference Range Interpretation [...] (2) real-time PCR amplification and detection with SMYS-8-josaupzy primers and probes. A well-conserved region of the EBNA-1 gene is targeted, along with an internal control sequence used to confirm PCR amplification. Asymptomatic carriers and viral genetic variation, among other factors, can affect the accuracy of nucleic acidtesting; therefore, results should be interpreted in light of clinical data.This test was developed and its performance characteristics determined by the [facility] Pathology Department,Section of Molecular Pathology. [...] real- time PCR amplification and detection with VTCY-3-iidxpyjp primers and probes. A well-conserved region of the EBNA-1 gene is targeted, along with an internal control sequence used to confirm PCR amplification. Asymptomatic carriers and viral genetic variation, among other factors, can affect the accuracy of nucleic acid testing; therefore, results should be interpreted in light of clinical data.This test was developed and its performance characteristics determined by the [facility] Pathology Department, Section of Molecular Pathology.It has not been cleared or approved by the U.S. Food and Drug Administration (FDA), since FDA approval is not required for clinical use of the test. Validation was done as required by The Clinical Laboratory Improvement Amendments of 1988.CMV PCR, [id number] 13:43:00 Test Item Value Reference Range Interpretation [...] and its performance characteristics determined by the [facility] Pathol ogy Department, Section of Molecular Pathology. It has not been cleared or approved by the U.S. Foodand Drug Administration (FDA), since FDA approval is not required for clinical use of the test. Validation was done as required by The Clinical Laboratory Improvement Amendments of 1988.RHEUMATOID FACTOR AB, REFLEX TO [id number] 13:10:00 Test Item Value Reference Range Interpretation Comments RHEUMATOID FACTOR (BEAKER) (test Negative code = 573) BASIC METABOLIC [id number] 06:42:00 Test Item Value Reference Range Interpretation [...] S NOT APPLICABLE FOR DIALYSIS PATIEN TS. [id number] 12:15:00 Test Item Value Reference Range Interpretation Comments RPR SCREEN (BEAKER) (test code = Nonreactive Nonreactive 420) HIV-1 ANTIGEN WITH HIV-1/2 [id number] 04:56:00 Test Item Value Reference Range Interpretation Comments HIV-1 ANTIGEN WITH HIV 1\T\2 Nonreactive Nonreactive ANTIBODY (2) (BEAKER) (test code = 2586) BASIC METABOLIC [id number] 04:24:00 Test Item Value Reference Range Interpretation [...] DIALYSIS PATIEN TS. URINALYSIS W/ REFLEX URINE [id number] 00:26:00 Test Item Value Reference Range Interpretation [...] = 2795) RAD, CHEST, 1 VIEW, NON [id number] 10:25:00Reason for exam:- >leukocytosis, fever r/o infectionFINAL [...] Watts Verified Date/Time: 07/26/2019 10:25:43 Reading Location: [facility] C013X Ortho Consult Reading Room CBC W/PLT COUNT & AUTO [id number] 10:24:00 Test Item Value Reference Range Interpretation [...] = 3438) Received comment: User comments: Slide comments:[id number] 10:11:00 Test Item Value Reference Range Interpretation [...] pg/mL 0-100 (test code = 700) TROPONIN [id number] 10:00:00 Test Item Value Reference Range Interpretation [...] acute neurological disease, and persistent tachyarrhythmia.BASIC METABOLIC [id number] 09:54:00 Test Item Value Reference Range Interpretation [...] U/L 29-200 code = 380) POCT-LACTIC ACID, [id number] 09:50:00 Test Item Value Reference Range Interpretation Comments POC-LACTIC ACID, 1.3 mmol/L 0.4-1.3 TESTED AT [facility] [address] (BEAKER) [facility] (test code = 2804) [address] [id number] 09:50:00 Test Item Value Reference Range Interpretation Comments POC-HEMOGLOBIN 11.6 g/dL 13.0-16.[address] [facility] 67[address] (BEAKER) (test code [facility] [place] = 1856) 15579CDUZSF AT [facility] [address] [facility] [address] POCT-BLOOD GASES, [id number] 09:49:00 Test Item Value Reference Range Interpretation Comments TEMP, CELSIUS-POC 37.0 (BEAKER) (test code = 1834) FIO2-POC (BEAKER) TESTED AT [place] [address] (test code = 1835) [facility] [address] PH, ARTERIAL-POC 7.370 7.350-7.450 (BEAKER) (test code = 1836) PCO2, ARTERIAL-POC 41.0 mm Hg 35.0-45.0 (BEAKER) (test code = 1837) PO2, ARTERIAL-POC 86.0 mm Hg 80.0-90.0 (BEAKER) (test code = 1838) SO2, ARTERIAL-POC 96.0 % 96.0-97.0 (BEAKER) (test code = 1839) HCO3, ARTERIAL-POC 23.7 meq/L 21.0-29.0 (BEAKER) (test code = 1840) BASE EXCESS, -2.0 meq/L -2.0-3.0 ARTERIAL-POC (BEAKER) (test code = 1841) [id number] 09:49:00 Test Item Value Reference Range Interpretation Comments POC-SODIUM (BEAKER) 137 meq/L 135-148 TESTED A T [place] [address] (test code = 1542) [facility] [address] [id number] 09:49:00 Test Item Value Reference Range Interpretation Comments POC-POTASSIUM 3.3 meq/L 3.6-5.5 L TESTED AT [place] [address] [facility] (test code [facility] [address] = 1540) [id number] 09:49:00 Test Item Value Reference Range Interpretation Comments POC-GLUCOSE (BEAKER) 153 mg/dL 70-110 H TESTED AT [place] [address] (test code = 1855) [facility] [address] POCT-CALCIUM [id number] 09:49:00 Test Item Value Reference Range Interpretation Comments POC-CALCIUM IONIZED 1.22 mmol/L 1.12-1.27 TESTED A [place] [address] ([facility] (test code = [facility] 1536) [address] [id number] 09:49:00 Test Item Value Reference Range Interpretation Comments POC-HEMATOCRIT 34 % 40-[address] [facility] 6720 (BEAKER) (test code = [place] [address] 9297) URINALYSIS WITH MICROSCOPIC IF [id number] 07:55:00 Test Item Value Reference Range Interpretation [...] 463) SOURCE(BEAKER) (test code = 2795) URINALYSIS [id number] 07:55:00 Test Item Value Reference Range Interpretation Comments RBC UA (BEAKER) (test code = 519) 1 /HPF WBC UA (BEAKER) (test code = 520) 9 /HPF MUCUS (BEAKER) (test code = 1574) Rare SQUAMOUS EPITHELIAL (BEAKER) (test < /HPF code = 516) C-REACTIVE [id number] 07:27:00 Test Item Value Reference Range Interpretation Comments C-REACTIVE PROTEIN (BEAKER) (test 15.31 mg/dL 0.00-0.50 H code = 676) CBC W/PLT COUNT & AUTO [id number] 04:17:00 Test Item Value Reference Range Interpretation [...] (BEAKER) (test code = 2801) BASIC METABOLIC [id number] 03:45:00 Test Item Value Reference Range Interpretation [...]
== END 2022-11-14 18:03 | disposition left against medical advice (07) ==
LOC: ER 17:24
DX: Z02.9 Encounter for administrative examinations, unspecified (principal)

== ENCOUNTER 2022-12-27 11:23 | Emergency (ER) | payer BC ==
--- OUTSIDE RECORDS SUMMARY | 2022-12-27 11:57 | XMS REPORT | Continuity of Care Document ---
:1980 Author Organization [facility] t Address [address] [facility] [place] [address] Care Team Providers Name Role Phone JOSH EDILSON Primary Care Physician Unavailable Sola Byrd Attending Clinician Unavailable Wilfredo Serrato MD Attending Clinician Elli Zaidi MA Attending Clinician Unavailable Roselia Hogan MD Attending Clinician Livier Lucero MD Attending Clinician LAYTON PAZ Attending Clinician Unavail able LAKESHA GONZALEZ Attending Clinician Unavailable Lakesha Gonzalez MD Attending Clinician MANOJ FINN Attending Clinician Unavailable Manoj Finn MD Attending Clinician _TPP_Pour-Jafari_B Attending Clinician Unavailable Ashanti Burrell Attending Clinician [phone] Wing Anand MD Attending Clinician Koby Dowling MD, V. Attending Clinician Darshana Joaquin Attending Clinician Katie Merlos MD Attending Clinician DOMI JAMIL Attending Clinician Unavailable Domi Pina Attending Clinician MD WING ANAND Attending Clinician Unavailable CHAGO AMADOR Attending Clinician Unavailable LIVIER LUCERO Admitting Clinician Unavailable LAKESHA GONZALEZ Admitting Clinician Unavailable MANOJ FINN Admitting Clinician Unavailable GC_[email or web address]-Jafari_B Admitting Clinician Unavailable WING ANAND Admitting Clinician Unavailable MD WING ANAND Admitting Clinician Unavailable SOFIA MOLINA Admitting Clinician Unavailable Payers Payer Name Policy Type Policy Number Effective Date Expiration Date S ource OUT OF STATE [id number] 2017 00:00:00 BCBS - PPO - BCBS CVCP-BCBS [id number] [id number] 2020 00:00:00 [place] [id number] 2020 00:00:00 [place] Problems Condition Condition Condition Status Onset Resolution Last Treating Co mments Source Name Details Category Date Date Treatment Clinician Date Generalize Generalize Disease Active M ethodi d d 1-24 st abdominal abdominal 00:00: Hosp evin pain pain 00 l Anxiety Anxiety Problem Active [facility] attack Attack 07-20 Medical 00:00: 00 Generalize Generalize Problem Active [facility] d anxiety d Anxiety 07-07 Medi leon disorder Disorder 00:00: 00 Panic Panic Problem Active [facility] disorder Disorder 07-07 Medica l 00:00: 00 Diverticul Diverticul Problem Active [facility] itis of itis of 07-06 Medical colon Colon 00:00: 00 Painless Painless Problem Active [facility] a rectal Rectal 07-06 Medical bleeding Bleeding 00:00: 00 Chronic Chronic Problem Active [facility] urticaria Urticaria 07-06 Medi leon 00:00: 00 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 Allergies, Adverse Reactions, Alerts Allergy Allergy Status Severity Reaction(s) Onset Inactive Treating Comm ents Source Name Type Date Date Clinician Hydrocod Propensi Active GI Method i one ty to Intolerance 1-24 st adverse 00:00: Hospita reaction 00 l s to drug Morphine Propensi Active Other (See Patient M ethodi ty to Comments) [address] adverse 00:00: and Hospita reaction 00 passed l s to out drug NO KNOWN Allergy Active [facility] St ALLERGIE [facility] NO KNOWN Drug Active [facility] ALLERGIE Class ity of S [facility] Family History Family Member Diagnosis Comments Start Date Stop Date Source Natural father Cancer [facility] Natural mother Cancer [facility] Natural mother Lymphoma [facility] Social History Social Habit Start Date Stop Date Quantity Comments Source History of Smoker University of tobacco use [facility] History SDOH [facility] r Drinks History SDOH [facility] Alcohol Binge Medical Aubrey ter History SDIN [facility] Alcohol Comment Medical C enter Alcohol intake 2022-12-21 2022-12-21 Lifetime [facility] 00:00:00 00:00:00 non-drinker (finding) Exposure to 2022-09-21 2022-10-01 Not sure University of SARS-CoV-2 00:00:00 10:42:00 [facility] (event) Branch Tobacco use and 2019-07-26 2019-07-[address] [facility] exposure 00:00:00 00:00:00 Medical Center History SDOH 2019-07-26 2019-07-[address] [facility] Alcohol Frequency 00:00:00 00:00:00 Medical Center Sex Assigned At [birth year] [facility] 00:00:00 00:00:00 Smoking Status Start Date Stop Date Source Never smoked tobacco [facility] ospital Smoker 2022-03-24 00:00:00 University o [facility] Medications Ordered Filled Start Stop Current Ordering Indication Dosage Frequency Signature Comments Components Source Medication Medication Date Date Medication? Clinician (SIG) Name Name metoprolol Yes 25mg Q2D Take 1 Metho di succinate 2-23 tablet (25 st XL 13:24: mg total) Hospita (TOPROL-XL) 32 by mouth l 25 mg 24 hr every tablet other day. Hold it if sbp<120, hr<60 propafenone Yes 225mg Q.5D Take 1 Met hodi SR (RYTHMOL 2-[address] SR) 225 MG 13:24: (225 mg Hosp evin 12 hr 32 total) by l capsule mouth 2 (two) times a day. sucralfate Yes [facility] (CARAFATE) 220 st 1 gram 00:00: Hospita tablet 00 l Xifaxan 550 Yes Method i mg tablet 208 st 00:00: Hospita 00 l pantoprazol 2021-10 Yes Method i e 2 st (PROTONIX) 00:00: Hospita 40 MG EC 00 l tablet iopamidol 2021-10- No [id number] 84mL 84 mL, Univers (ISOVUE 12-11 Intravenou ity o f 370-500 mL) 22:00: 21:03 s, ONCE, 1 [place] injection 00 :00 dose, On Medica l 84 mL Tue Branch 10/10/22 at 1600, Routine NaCl 0.9% 2021-10- No 1000mL at 999 Uni vers (NS) bolus 12-02 mL/hr, ity of infusion 17:45: 18:48 1,000 mL, Jacob as 1,000 mL 00 :00 IV Medical Infusion, Branch ONCE, 1 dose, On 10/01/22 at 1145, VANCE iopamidol 2021-10- No [id number] 74mL 74 mL, Univers (ISOVUE 12-02 Intravenou ity o f 370-500 mL) 17:30: 17:45 s, ONCE, 1 [place] injection 00 :00 dose, On Medica l 74 mL Sun Branch 10/01/22 at 1145, Routine famotidine 2021-10 20mg 20 mg, Univ ers (PEPCID 2-04 12-04 Slow IV ity of (PF)) 17:30: 17:43 [...] mouth ity of capsule 12:56: in the [place] [address] morning. Medical Branch propafenone 2021-10 Yes 1{capsu [...] mouth ity of capsule 12:56: in the [place] [address] morning. Medical Branch sucralfate 2021-10 Yes [id number] 1g Take 1 Un cipriano 1 gram 2-04 tablet by ity of tablet 00:00: mouth [place] 00 before Medical meals and Branch at bedtime. traMADoL 50 2021-10 Yes [id number] 50mg Take 1 Univ ers mg tablet 2-04 tablet by ity o f 00:00: mouth [place] 00 every 6 Medical (six) Branch hours as needed (pain). Indication s: acute pain ondansetron 2021-10 Yes [id number] 1-2 Un cipriano 4 mg tablet 2-04 tablets ity o f 00:00: every 8 [place] 00 hours as Medical needed for Branch nausea sucralfate 2021-10 Yes [id number] 1g Take 1 Un cipriano 1 gram 2-04 tablet by ity of tablet 00:00: mouth [place] 00 before Medical meals and Branch at bedtime. traMADoL 50 2021-10 Yes [id number] 50mg Take 1 Univ ers mg tablet 2-04 tablet by ity o f 00:00: mouth [place] 00 every 6 Medical (six) Branch hours as needed (pain). Indication s: acute pain ondansetron 2021-10 Yes [id number] 1-2 Un cipriano 4 mg tablet 2-04 [...] 25mg QD Take 1 Meth ramona succinate 8-23 07-25 tablet (25 st XL 00:00: 04:59 mg [...] hr daily for tablet 30 days. ondansetron 2021-2021- No 4mg Q8H Take 1 Met hodi ODT -16 08-16 tablet (4 st (ZOFRAN-ODT 00:00: 04:59 [...] a day for 30 days. ondansetron 2021-0 2- No 4mg Q8H Take 1 Met hodi ODT 7-16 08-16 tablet (4 st (ZOFRAN-ODT 00:00: 04:59 mg total) Hospita ) 4 MG 00 :00 by mouth l disintegrat every 8 ing tablet (eight) hours as needed for nausea or vomiting for up to 30 days. dicyclomine 2021-0 2- No 20mg Q.5D Take 1 Met [...] day for 30 days. amoxicillin 2021- No [id number] 1{tbl} Take 1 Univers -clavulanat 5-27 06-07 [...] 00:00:00 mcg/0.3 mL dose mcg/0.3 mL dose (Ocision) (Ocision) COVID-19, mRNA, COVID-19, mRNA, 2021-10-27 Completed [facility] LNP-S, PF, 30 LNP-S, PF, 30 00:00:00 mcg/0.3 mL dose mcg/0.3 mL dose ([employer]) (Ocision) PFIZER COVID-19 MRNA 2021-10-27 Completed Meth odist VACCINATION 00:00:00 [facility] PFIZER COVID-19 MRNA 2021-10-27 Completed Meth odist VACCINATION 00:00:00 [facility] PFIZER COVID-19 MRNA 2021-10-27 Completed Meth odist VACCINATION 00:00:00 [facility] PFIZER COVID-19 MRNA 2021-10-27 Completed Meth odist VACCINATION 00:00:00 [facility] PFIZER COVID-19 MRNA 2021-10-27 Completed Meth odist VACCINATION 00:00:00 [facility] PFIZER COVID-19 MRNA 2021-10-27 Completed Meth odist VACCINATION 00:00:00 Hospital COVID-19 vaccine, COVID-19 vaccine, 2021-02-04 Completed [facility] vector-nr, rS-Ad26, vector-nr, rS-Ad26, 00:00:00 PF, 0.5 mL (Perez) PF, 0.5 mL (Perez) COVID-19 vaccine, COVID-19 vaccine, 2021-02-04 Completed [facility] vector-nr, rS-Ad26, vector-nr, rS-Ad26, 00:00:00 PF, 0.5 mL ([facility]) PF, 0.5 mL ([facility]) [facility] COVIDKtahryn 2021-02-04 Completed Methodis t AD26 VACCINATION 00:00:00 [facility] COVID19 2021-02-04 Completed Methodis t AD26 VACCINATION 00:00:00 [facility] COVID19 2021-02-04 Completed Methodis t AD26 VACCINATION 00:00:00 [facility] COVID19 2021-02-04 Completed [facility] t AD[facility] t AD26 [facility] 2021-02[facility]04 Completed Method[facility] t AD26 VACCINATION 00:00:00 Hospital Vital Signs Vital Name Observation Time Observation Value Comments Source Systolic blood 2022-10-01 18:00:00 96 mm[Hg] Univer sity of pressure [facility] Diastolic blood 2022-10-01 18:00:00 76 mm[Hg] Unive rsity of [facility] Heart rate 2022-10-01 18:00:00 66 /min [facility] Respiratory rate 2022-10-01 18:00:00 16 /min [facility] Oxygen saturation in 2022-10-01 18:00:00 98 /min [facility] Arterial blood by [facility] Pulse oximetry Branch Body temperature 2022-10-01 16:48:00 36.78 Silvia [facility] Body height 2022-10-01 16:48:00 175.3 cm [facility] Body weight 2022-10-01 16:48:00 75.297 kg [facility] BMI 2022-10-01 16:48:00 24.51 kg/m2 [facility] BP Diastolic 2022-07-20 00:00:00 87 mm[Hg] Mike Santillan edical Height 2022-07-20 00:00:00 69 [in_i] Mike Santillan edical BMI (Body Mass 2022-07-20 00:00:00 28.1 kg/m2 [facility] Index) BP Systolic 2022-07-20 00:00:00 131 mm[Hg] Mike Santillan edchey Body Weight 2022-07-20 00:00:00 3040 [oz_av] Mike Santillan edical BP Diastolic 2022-07-06 00:00:00 87 mm[Hg] Mike Santillan edical Height 2022-07-06 00:00:00 69 [in_i] Mike Santillan edical BMI (Body Mass 2022-07-06 00:00:00 28.1 kg/m2 [facility] Index) BP Systolic 2022-07-06 00:00:00 131 mm[Hg] Mike Santillan edical Body Weight 2022-07-06 00:00:00 3040 [oz_av] [facility] Sy[facility] blood 2022-03-24 21:55:00 124 mm[Hg] Univer sity of [facility] Diastolic blood 2022-03-24 21:55:00 87 mm[Hg] Unive rsity of [facility] Heart rate 2022-03-24 21:55:00 86 /min [facility] Oxygen saturation in 2022-03-24 21:55:00 100 /min [facility] Arterial blood by [facility] Pulse oximetry [place] Body height 2022-03-24 21:52:00 175.3 cm [facility] Body weight 2022-03-24 21:52:00 95.165 kg [facility] BMI 2022-03-24 21:52:00 30.98 kg/m2 [facility] Systolic blood 2022-12-21 19:23:00 108 mm[Hg] Method [facility] pressure Diastolic blood 2022-12-21 19:23:00 73 mm[Hg] [facility] pressure Heart rate 2022-12-21 19:23:00 83 /min [facility] Body height 2022-12-21 19:23:00 175.3 cm [facility] Body weight 2022-12-21 19:23:00 72.576 kg [facility] BMI 2022-12-21 19:23:00 23.63 kg/m2 [facility] Body temperature 2022-11-21 21:08:01 36.72 Silvia [facility] Respiratory rate 2022-11-21 21:08:01 18 /min [facility] Oxygen saturation in 2022-11-21 21:08:01 98 /min [facility] Arterial blood by Pulse oximetry Heart rate 2022-06-22 13:00:00 79 /min [facility] Systolic blood 2022-06-22 12:52:32 130 mm[Hg] Method [facility] pressure Diastolic blood 2022-06-22 12:52:32 87 mm[Hg] [facility] pressure Body temperature 2022-06-22 12:52:32 36.89 Silvia [facility] Respiratory rate 2022-06-22 12:52:32 20 /min [facility] Oxygen saturation in 2022-06-22 12:52:32 99 /min [facility] Arterial blood by Pulse oximetry Body weight 2022-06-22 01:49:34 87.544 kg [facility] BMI 2022-06-22 01:49:34 28.50 kg/m2 [facility] Body height 2022-06-21 15:19:00 175.3 cm [facility] Procedures Procedure Date / Time Performing Clinician Source Performed COVID-19 QUALITATIVE 2022-11-21 10:02:00 Ben Painter [facility] RT-PCR TROPONIN T 2022-11-21 10:02:00 Ben Painter [facility] C-REACTIVE PROTEIN 2022-11-21 10:02:00 PainterBen yanes [facility] SEDIMENTATION RATE 2022-11-21 10:02:00 Ben Painter [facility] FERRITIN LEVEL 2022-11-21 10:02:00 Ben Painter [facility] TOTAL IRON BINDING 2022-11-21 10:02:00 [facility] CAPACITY THYROID STIMULATING 2022-11-21 10:02:00 Ben Painter [facility] HORMONE T4, FREE 2022-11-21 10:02:00 Ben Painter [facility] CT ANGIOGRAM ABDOMEN 2022-11-21 05:40:00 Roselia Hogan [facility] PELVIS W AND OR WO CONTRAST URINE CULTURE 2022-11-21 01:29:00 [facility] URINALYSIS SCREEN AND 2022-11-21 01:29:00 [facility], WITH REFLEX TO CULTURE ECG ED PRELIMINARY 2022-11-21 01:02:55 [facility] TROPONIN T 2022-11-21 01:02:00 Painter Ben Sandra [facility] B NATRIURETIC PEPTIDE 2022-11-21 01:02:00 [facility] CBC WITH PLATELET AND 2022-11-20 21:33:00 [facility] DIFFERENTIAL COMPREHENSIVE METABOLIC 2022-11-20 21:33:00 [facility] LIPASE LEVEL 2022-11-20 21:33:00 [facility] ESTIMATED GFR 2022-11-20 21:33:00 [facility] 12-LEAD 2022-11-20 21:01:47 [facility] ABDOMEN PELVIS W 2022-10-10 21:02:07 Lakesha Gonzalez [facility] CONTRAST Medical Branch CT ABDOMEN PELVIS W 2022-10-01 17:37:[address] [facility] CONTR[address] [facility] URINALYSIS 2022-10-01 17:01:00 Stephanie [facility] LIPASE 2022-10-01 16:59:00 Stephanie Duchesne [facility] COMP. METABOLIC PANEL 2022-10-01 16:59:00 Manoj Finn [facility] ([id number]) Medical Branch CBC WITH DIFF 2022-10-01 16:59:00 Manoj Finn [facility] NOTICE OF PRIVACY 2022-10-01 16:39:10 Doctor Unassigned, [facility] PRACTICES [place] [facility] CONSENT/REFUSAL FOR 2022-10-01 16:36:34 Doctor Unassigned, [facility] DIAGNOSIS AND TREATMENT [place] [facility] [place] CBC WITH PLATELET AND 2022-06-22 09:30:00 Wing Anand [facility] DIFFERENTIAL BASIC METABOLIC PANEL 2022-06-22 09:30:00 Wing Anand [facility] ESTIMATED GFR 2022-06-22 09:30:00 Wing Anand spital EP COMPLETE EP STUDY W 2022-06-21 19:16:30 Wing Anand [facility] ABLATION SVT TYPE AND SCREEN 2022-06-21 14:56:00 Wing Anand spital ECG 12-LEAD 2022-06-21 13:49:16 Wing Anand spital COVID-19 QUALITATIVE 2022-06-20 14:29:00 Wing Anand [facility] RT-PCR PROTHROMBIN TIME WITH INR 2022-06-20 14:22:00 Wing Anand [facility] CBC WITH PLATELET AND 2022-06-20 14:22:00 Wing Anand [facility] DIFFERENTIAL COMPREHENSIVE METABOLIC 2022-06-20 14:22:00 Wing Anand [facility] PANEL ESTIMATED GFR 2022-06-20 14:22:00 Wing Anand spital ED REFERRAL TO [place] 2022-05-14 00:33:07 [facility]IC[facility] ORGANIZATION (PCP) CT ABDOMEN PELVIS W 2022-05-14 00:17:00 [facility] CONTRAST CBC WITH PLATELET AND 2022-05-13 21:09:00 [facility] DIFFERENTIAL COMPREHENSIVE METABOLIC 2022-05-13 21:09:00 [facility] PANEL LIPASE LEVEL 2022-05-13 21:09:00 [facility] ESTIMATED GFR 2022-05-13 21:09:00 [facility] Plan of Care Planned Activity Planned Date Details Comments Source Future Scheduled 2022-12-25 Hepatitis C screening [facility] Test 08:31:51 (procedure) [code = 581225002] Future Scheduled 2022-12-25 COVID-19 VACCINE (3 - [facility] Test 08:31:51 Booster for Perez series) [code = COVID-19 VACCINE (3 - Booster for Perez series)] Future Scheduled 2022-12-25 INFLUENZA VACCINE Method [facility] Test 08:31:51 [code = INFLUENZA VACCINE] Future Scheduled 2022-11-14 Hepatitis C screening [facility] Test 14:15:22 (procedure) [code = 917016355] Future Scheduled 2022-11-14 COVID-19 VACCINE (3 - Me [facility] Hospital Test 14:15:22 Booster for Perez series) [code = COVID-19 VACCINE (3 - Booster for Perez series)] Future Scheduled 2022-11-14 INFLUENZA VACCINE [facility] Test 14:15:22 [code = INFLUENZA VACCINE] Future Scheduled 2022-09-04 HEPATITIS B VACCINES Met [facility] Test 08:40:39 (1 of 3 - 3-dose series) [code = HEPATITIS B VACCINES (1 of 3 - 3-dose series)] Future Scheduled 2022-09-04 Hepatitis C screening [facility] Test 08:40:39 (procedure) [code = 559644301] Future Scheduled 2022-09-04 COVID-19 VACCINE (3 - [facility] Hospital Test 08:40:39 Booster for Perez series) [code = COVID-19 VACCINE (3 - Booster for Perez series)] Future Scheduled 2022-09-04 INFLUENZA VACCINE [facility] Test 08:40:39 [code = INFLUENZA VACCINE] Future Scheduled 2022-08-25 HEPATITIS B VACCINES Met [facility] Test 08:18:50 (1 of 3 - 3-dose series) [code = HEPATITIS B VACCINES (1 of 3 - 3-dose series)] Future Scheduled 2022-08-25 Hepatitis C screening [facility] Test 08:18:50 (procedure) [code = 260427340] Future Scheduled 2022-08-25 COVID-19 VACCINE (3 - [facility] Hospital Test 08:18:50 Booster for Perez series) [code = COVID-19 VACCINE (3 - Booster for Perez series)] Future Scheduled 2022-08-25 INFLUENZA VACCINE [facility] Test 08:18:50 [code = INFLUENZA VACCINE] Future Scheduled 2022-08-24 HEPATITIS B VACCINES Met [facility] Test 06:18:01 (1 of 3 - 3-dose series) [code = HEPATITIS B VACCINES (1 of 3 - 3-dose series)] Future Scheduled 2022-08-24 Hepatitis C screening [facility] Test 06:18:01 (procedure) [code = 625184094] Future Scheduled 2022-08-24 COVID-19 VACCINE (3 - [facility] Test 06:18:01 Booster for Perez series) [code = COVID-19 VACCINE (3 - Booster for Perez series)] Future Scheduled 2022-08-24 INFLUENZA VACCINE Method [facility] Test 06:18:01 [code = INFLUENZA VACCINE] Future Scheduled 2022-08-17 HEPATITIS B VACCINES Met [facility] Test 14:15:01 (1 of 3 - 3-dose series) [code = HEPATITIS B VACCINES (1 of 3 - 3-dose series)] Future Scheduled 2022-08-17 Hepatitis C screening [facility] Test 14:15:01 (procedure) [code = 628420248] Future Scheduled 2022-08-17 COVID-19 VACCINE (3 - [facility] Test 14:15:01 Booster for Perez series) [code = COVID-19 VACCINE (3 - Booster for Perez series)] Future Scheduled 2022-08-17 INFLUENZA VACCINE Method [facility] Test 14:15:01 [code = INFLUENZA VACCINE] Diagnostic [...] plasma] Future Scheduled 2022-07-05 HEPATITIS B VACCINES [facility] Test 17:47:18 (1 of 3 - 3-dose series) [code = HEPATITIS B VACCINES (1 of 3 - 3-dose series)] Future Scheduled 2022-07-05 Hepatitis C screening [facility] Test 17:47:18 (procedure) [code = 045579135] Future Scheduled 2022-07-05 INFLUENZA VACCINE [facility] Test 17:47:18 [code = INFLUENZA VACCINE] [...] Future Scheduled 2022-06-28 HEPATITIS B VACCINES Met [facility] Test 13:37:55 (1 of 3 - 3-dose series) [code = HEPATITIS B VACCINES (1 of 3 - 3-dose series)] Future Scheduled 2022-06-28 Hepatitis C screening [facility] Test 13:37:55 (procedure) [code = 502262461] Future Scheduled 2022-06-28 INFLUENZA VACCINE Method [facility] Test 13:37:55 [code = INFLUENZA VACCINE] Future Scheduled 2022-06-26 HEPATITIS B VACCINES Met [facility] Test 19:57:18 (1 of 3 - 3-dose series) [code = HEPATITIS B VACCINES (1 of 3 - 3-dose series)] Future Scheduled 2022-06-26 Hepatitis C screening [facility] Test 19:57:18 (procedure) [code = 843788207] Future Scheduled 2022-06-26 INFLUENZA VACCINE Method [facility] Test 19:57:18 [code = INFLUENZA VACCINE] [...] [facility] s Test 00:00:00 (procedure) [code = [facility] [id number]] Future Scheduled [address] [facility] Test 00:[facility]:00 (procedure) [code = [facility] 84100527] Future Scheduled [address] [facility] Test 00:00:00 (procedure) [code = [facility] [id number]] Future Scheduled [address] [facility] Test 00:00:00 (procedure) [code = [facility] [id number]] Future Scheduled 1997 DTAP/TDAP/TD VACCINES CH I [...] Date/Time Type Type Clinicians Facility Department ID 2022-12-20 Outpatient JORDYN Byrd [facility] [id number] Common 13:34:01 Sola [id number] Spirit - [facility] 2022-12-21 2022-12-21 Office Serrato, 1.2.840.1 [id number] Methodi 14:00:00 14:29:47 Visit Wilfredo Christopher [id number] 3.430.2.7 Hospit a .3.288847 l .8 2022-12-21 2022-12-21 Outpatient [facility] [id number] Soso 00:00:00 00:00:[address] 2022-12-21 2022-12-21 Travel 1.2.840.1 [id number] Methodi 00:00:00 00:00:[address] 3.430.2.7 0.2.7.3.698 spita .3.712885 084.8 l .8 2022-11-24 2022-11-24 Telephone Dejuan, 1.2.840.1 [id number] Methodi 00:00:00 00:00:[address] 3.430.2.7 Hospit a .3.766192 l .8 2022-11-20 2022-11-21 Emergency Roselia Hogan 1.2.840.1 [id number] Methodi 14:54:00 18:00:00 Livier Lucero [address]38.1.[address] 3.430.2.7 Hospit a .3.225354 l .8 2022-11-20 2022-11-21 Outpatient [place] [id number] Soso 00:00:00 00:00:[address]IV[address] 2022-11-20 2022-11-20 Travel 1.2.840.1 [id number] Methodi 00:00:00 00:00:[address] 3.430.2.7 0.2.7.3.698 Ho spita .3.758262 084.8 l .8 2022-10-26 2022-10-26 Outpatient [facility] ROSA [id number] [facility] 00:00:00 00:00:00 LAYTON REID of Medicin e 2022-10-10 2022-10-10 Outpatient [facility] [id number] Univers 14:14:59 23:59:00 ity of [facility] 2022-10-10 2022-10-10 [facility] 1.2.840.114 [id number] Univers 14:14:59 23:59:00 Encounter Jacque PINEDA 350.1.13.10 ity [facility] 4.2.7.2.686 [facility] [id number] [facility] [address] 2022-10-01 2022-10-01 Emergency X [facility] ERT [id number] Univers 10:51:00 12:56:00 MANOJ itlaurie [facility] 2022-10-01 2022-10-01 Emergency [facility] [id number] Univers 10:51:00 12:56:00 Manoj PINEDA 350.1.13.10 ity [facility] 4.2.7.2.686 [facility] [id number] [facility] [address] 2022-08-16 2022-08-16 Travel 1.2.840.1 [id number] [id number] Methodi 00:00:00 00:00:[address] 3.430.2.7 0.2.7.3.698 Ho spita .3.629907 084.8 l .8 2022-08-16 2022-08-16 Travel 1.2.840.1 1.2.652.114 [id number] Methodi 00:00:00 00:00:[address] 3.430.2.7 0.2.7.3.698 Ho spita .3.896866 084.8 l .8 2022-07-20 2022-07-20 Outpatient GC_TPP_Pour PRIV PRIV 247 [id number] [facility] 00:00:00 00:00:00 -Jafari_B [id number] [facility] 2022-07-20 2022-07-20 [facility] 00:00:00 00:00:00 [facility] tata conti MD: 427 GC_TPP_Hous [address]. 20th ton Office* [place], [address] [address] , Ph. [phone] 2022-07-06 2022-07-06 Outpatient GC_TPP_Pour PRIV PRIV 247 [id number] [facility] 00:00:00 00:00:00 -Jafari_B [id number] [facility] 2022-07-06 2022-07-06 [facility] 00:00:00 00:00:00 [facility] tata conti MD: 427 GC_TPP_Hous W. 20th ton [facility]* [place], [address] [address] , Ph. 2022-07-06 2022-07-06 Outpatient Pour-Iris PRIV PRIV 56f fca20-2 00:00:00 00:00:00 , [facility] [id number]-[id number] 2022-06-29 2022-06-29 Outpatient GC_TPP_Pour PRIV PRIV 247 [id number] [facility] 00:00:00 00:00:00 -Jafari_B [id number] [facility] 2022-06-21 2022-06-22 [place] [address].2.840.1 [id number] Methodi 07:33:00 12:53:00 Encounter Wing [address]3566.1.[address] 3.430.2.7 Hospit a .3.572054 l .8 2022-06-21 2022-06-22 [facility], 1.2.840.1 [id number] Methodi 07:33:00 12:53:00 Encounter Wing 09563.1.[address] 3.430.2.7 Hospit a .3.385336 l .8 2022-06-21 2022-06-21 Anesthesia Roberto Carlos Dowlingchucho V. 1.2.840.1 [id number] Methodi 10:40:00 14:35:00 Event Darshana Joaquin 10654.1.[address] 3.430.2.7 Hospit a .3.308753 l .8 2022-06-21 2022-06-21 Anesthesia Nitesh Roberto Carloschucho V. 1.2.840.1 [id number] Methodi 10:40:00 14:35:00 Event Darshana Joaquin 01914.1.[address] 3.430.2.7 Hospit a .3.164003 l .8 2022-06-21 2022-06-21 Surgery Nazer, 1.2.840.1 [id number] Methodi 10:30:00 13:00:[address] 3.430.2.7 Hospit a .3.106933 l .8 2022-06-21 2022-06-21 Surgery Nazeri, 1.2.840.1 [id number] Methodi 10:30:00 13:00:[address] 3.430.2.7 Hospit a .3.735902 l .8 2022-06-20 2022-06-20 Lab Nazeri, 1.2.840.1 [id number] Methodi 08:55:00 09:00:[address] 3.430.2.7 Hospit a .3.849100 l .8 2022-06-20 2022-06-20 Lab Randizeri, 1.2.840.1 [id number] 2774 Methodi 08:55:00 09:00:[address] 3.430.2.7 Hospit a .3.674515 l .8 2022-06-20 2022-06-20 Travel 1.2.840.1 1.2.564.226 [id number] Methodi 00:00:00 00:00:[address] 3.430.2.7 0.2.7.3.698 Ho spita .3.450488 084.8 l .8 2022-06-20 2022-06-20 Travel 1.2.840.1 1.2.562.821 [id number] [id number] Methodi 00:00:00 00:00:[address] 3.430.2.7 0.2.7.3.698 Ho spita .3.599010 084.8 l .8 2022-06-16 2022-06-16 [facility] Nazeri, 1.2.840.1 [id number] Methodi 00:00:00 00:00:00 Orders Wing [address]308.1.[address] 3.430.2.7 Hospit a .3.238893 l .8 2022-06-16 2022-06-16 [facility] Nazeri, 1.2.840.1 [id number] [id number] Methodi 00:00:00 00:00:00 Orders Wing [address]83.1.[address] 3.430.2.7 Hospit a .3.410703 l .8 2022-05-13 2022-05-13 Emergency Katie Merlos 1.2.840.1 [id number] Methodi 15:34:00 19:53:00 Chul Rey 62051.1.1 363 s t 3.430.2.7 Hospit a .3.981168 l .8 2022-05-13 2022-05-13 Emergency Katie Merlos 1.2.840.1 [id number] 21 [id number] Methodi 15:34:00 19:53:00 Chul Rey 40380.1.1 363 s t 3.430.2.7 Hospit a .3.799300 l .8 2022-03-24 2022-03-24 [facility] [id number] [facility] 17:00:00 17:27:59 DOMI castro o nixon [facility] 2022-03-24 2022-03-24 Urgent [facility] 1.2.840.114 [id number] [facility] 17:00:00 17:27:59 Care [facility] 350.1.13.10 i ty of EDWIN 4.2.7.2.686 Jacob as LOR?BLEA [id number] [address] MEDICAL OFFICE BUILDING 2020-10-14 2020-10-14 Outpatient [facility] [id number] [place] 00:00:00 00:00:[address] 2020-07-18 2020-07-18 [facility] [id number] [place] 00:00:00 00:00:00 W[address] 2020-06-18 2020-06-18 [facility] [id number] [place] 00:00:00 00:00:[address] WING [address] Results Test Description Test Time Test Comments Results Result Comments Source ECG 12 lead 2022-11-21 16:36:19 Test Item Value Reference Range Interpretation Comme nts Ventricular rate (test code = 253) 73 Atrial rate (test code = 255) 73 SD interval (test code = 266) 150 QRSD interval (test code = 260) 82 QT interval (test code = 264) 384 QTC interval (test code = 265) 423 P axis 1 (test code = 267) 46 QRS axis 1 (test code = 268) 13 T wave axis (test code = 270) 31 EKG impression (test code = 273) Normal sinus rhythm with sinus arrhythmia-Normal ECG-In automated comparison with ECG of 21-JUN-2022 08:49,-No significant change was found- Juan Diego McintoshARS-CoV-2 (COVID-19) RNA [Presence] in Respiratory specimen by DENIS with probe [id number] 07:30:52 Test Item Value Reference Range Interpretation Comments SARS-CoV-2 (COVID-19) RNA Not detected [Presence] in Respiratory specimen by DENIS with probe detection (test code = 92246-5) Whether patient is employed in a Unknown healthcare setting (test code = 39070-4) Whether the patient has symptoms Unknown related to condition of interest (test code = 93362-3) Whether the patient was Unknown hospitalized for condition of interest (test code = 37915-4) Whether the patient was admitted Unknown to intensive care unit (ICU) for condition of interest (test code = 68731-3) Whether patient resides in a Unknown congregate care setting (test code = 49866-0) status (test code = Unknown 22136-0) Date and time of symptom onset Unknown (test code = 99684-2) NUÑEZ [facility] [id number] 02:57:00 Test Item Value Reference Range Interpretation Comments Urine culture (test SEE COMMENT Bacteriu surya screen code = 2765590) negative. [address]2022-08-25 12:52:17 Test Item Value Reference Range Interpretation Comments Ventricular rate (test code = 253) Atrial rate (test code = 255) SD interval (test code = 266) QRSD interval [...] Kinsey MD ([id number]) on 06/22/2022 7:52:15 AM [place] [address] [id number] 12:52:17 Test Item Value Reference Range Interpretation Comments Ventricular rate (test code = 253) Atrial rate (test code = 255) SD interval (test code = 266) QRSD interval [...] Kinsey MD ([id number]) on 06/22/2022 7:52:15 AM [address]2022-08-25 12:52:17 Test Item Value Reference Range Interpretation Comments Ventricular rate (test code = 253) Atrial rate (test code = 255) SD interval (test code = 266) QRSD interval [...] Kinsey MD ([id number]) on 06/22/2022 7:52:15 AM [address]2022-08-25 12:52:17 Test Item Value Reference Range Interpretation Comments Ventricular rate (test code = 253) Atrial rate (test code = 255) SD interval (test code = 266) QRSD interval [...] Kinsey MD ([id number]) on 06/22/2022 7:52:15 AM [address]2022-08-25 12:52:17 Test Item Value Reference Range Interpretation Comments Ventricular rate (test code = 253) Atrial rate (test code = 255) SD interval (test code = 266) QRSD interval [...] Kinsey MD ([id number]) on 06/22/2022 7:52:15 AM [address]2022-08-25 12:52:17 Test Item Value Reference Range Interpretation Comments Ventricular rate (test code = 253) Atrial rate (test code = 255) SD interval (test code = 266) QRSD interval [...] Kinsey MD ([id number]) on 06/22/2022 7:52:15 AM [address]2022-08-25 12:52:17 Test Item Value Reference Range Interpretation Comments Ventricular rate (test code = 253) Atrial rate (test code = 255) SD interval (test code = 266) QRSD interval [...] Kinsey MD ([id number]) on 06/22/2022 7:52:15 AM [address]2022-08-25 12:52:17 Test Item Value Reference Range Interpretation Comments Ventricular rate (test code = 253) Atrial rate (test code = 255) SD interval (test code = 266) QRSD interval [...] Kinsey MD ([id number]) on 06/22/2022 7:52:15 AM [facility] [id number] 18:12:38 Test Item Value Reference Interpretation Comments Range Interpretation (test Negative results do not code = 2836707) preclude COVID-19 infection and should not be used asthe sole basis for treatment or other patient management decisions. Negativeresults must be combined with clinical observations, patient history, andepidemiological information. COVID-19 qualitative Not-Detected Not-Detected RT-PCR result (test code = 28494-0) COVID-19 qualitative See link below for PDF Case Number: RT-PCR (test code = Lab Report [id number] 5028 7070) [facility] [id number] 18:12:38 Test Item Value Reference Interpretation Comments Range Interpretation (test Negative results do not code = 7830421) preclude COVID-19 infection and should not be used asthe sole basis for treatment or other patient management decisions. Negativeresults must be combined with clinical observations, patient history, andepidemiological information. COVID-19 qualitative Not-Detected Not-Detected RT-PCR result (test code = 43713-5) COVID-19 qualitative See link below for PDF Case Number: RT-PCR (test code = Lab Report [id number] 5028 7070) [facility] [id number] 18:12:38 Test Item Value Reference Interpretation Comments Range Interpretation (test Negative results do not code = 6364448) preclude COVID-19 infection and should not be used asthe sole basis for treatment or other patient management decisions. Negativeresults must be combined with clinical observations, patient history, andepidemiological information. COVID-19 qualitative Not-Detected Not-Detected RT-PCR result (test code = 14848-8) COVID-19 qualitative See link below for PDF Case Number: RT-PCR (test code = Lab Report [id number] 5028 7070) [facility] [id number] 18:12:38 Test Item Value Reference Interpretation Comments Range Interpretation (test Negative results do not code = 1772101) preclude COVID-19 infection and should not be used asthe sole basis for treatment or other patient management decisions. Negativeresults must be combined with clinical observations, patient history, andepidemiological information. COVID-19 qualitative Not-Detected Not-Detected RT-PCR result (test code = 28726-8) COVID-19 qualitative See link below for PDF Case Number: RT-PCR (test code = Lab Report [id number] 5028 7070) [facility] [id number] 18:12:38 Test Item Value Reference Interpretation Comments Range Interpretation (test Negative results do not code = 9885109) preclude COVID-19 infection and should not be used asthe sole basis for treatment or other patient management decisions. Negativeresults must be combined with clinical observations, patient history, andepidemiological information. COVID-19 qualitative Not-Detected Not-Detected RT-PCR result (test code = 57658-3) COVID-19 qualitative See link below for PDF Case Number: RT-PCR (test code = Lab Report [id number] 5028 7070) [facility] [id number] 18:12:38 Test Item Value Reference Interpretation Comments Range Interpretation (test Negative results do not code = 3958971) preclude COVID-19 infection and should not be used asthe sole basis for treatment or other patient management decisions. Negativeresults must be combined with clinical observations, patient history, andepidemiological information. COVID-19 qualitative Not-Detected Not-Detected RT-PCR result (test code = 81639-4) COVID-19 qualitative See link below for PDF Case Number: RT-PCR (test code = Lab Report [id number] 5028 7070) [facility] [id number] 18:12:38 Test Item Value Reference Interpretation Comments Range Interpretation (test Negative results do not code = 5962620) preclude COVID-19 infection and should not be used asthe sole basis for treatment or other patient management decisions. Negativeresults must be combined with clinical observations, patient history, andepidemiological information. COVID-19 qualitative Not-Detected Not-Detected RT-PCR result (test code = 48100-7) COVID-19 qualitative See link below for PDF Case Number: RT-PCR (test code = Lab Report [id number] 5028 7070) [facility] [id number] 18:12:38 Test Item Value Reference Interpretation Comments Range Interpretation (test Negative results do not code = 9998002) preclude COVID-19 infection and should not be used asthe sole basis for treatment or other patient management decisions. Negativeresults must be combined with clinical observations, patient history, andepidemiological information. COVID-19 qualitative Not-Detected Not-Detected RT-PCR result (test code = 39979-7) COVID-19 qualitative See link below for PDF Case Number: RT-PCR (test code = Lab Report [id number] 5028 7070) Cheondoismmateo McintoshQtfxqszxJLFO-JmQ-1 (COVID-19) RNA [Presence] in Respiratory specimen by DENIS with probe [id number] 13:12:38 Test Item Value Reference Range Interpretation Comments SARS-CoV-2 (COVID-19) RNA Not detected [Presence] in Respiratory specimen by DENIS with probe detection (test code = 54809-9) Whether patient is employed in a Unknown healthcare setting (test code = 92387-3) Whether the patient has symptoms Unknown related to condition of interest (test code = 23748-3) Whether the patient was Unknown hospitalized for condition of interest (test code = 60572-4) Whether the patient was admitted Unknown to intensive care unit (ICU) for condition of interest (test code = 88172-5) Whether patient resides in a Unknown congregate care setting (test code = 74717-2) status (test code = Unknown 73955-1) Date and time of symptom onset Unknown (test code = 17048-2) JOAQUIN TORRESSARS-CoV-2 (COVID-19) RNA [Presence] in Respiratory specimen by DENIS with probe [id number] 23:44:02 Test Item Value Reference Range Interpretation Comments SARS-CoV-2 (COVID-19) RNA Not detected Not-Detected [Presence] in Respiratory specimen by DENIS with probe detection (test code = 63316-8) JOAQUIN CRUMP MELISSABLOOD [id number] 08:01:00 Test Item Value Reference Range Interpretation Comments CULTURE (BEAKER) (test No growth in 5 days code = 1095) MISCELLANEOUS LAB [id number] 07:37:00 Test Item Value Reference Range Interpretation Comments SCAN RESULT (test code = 1862267) BLOOD [id number] 08:00:00 Test Item Value Reference Range Interpretation Comments CULTURE (BEAKER) (test No growth in 5 days code = 1095) BLOOD [id number] 08:00:00 Test Item Value Reference Range Interpretation Comments CULTURE (BEAKER) (test No growth in 5 days code = 1095) ANTI-NUCLEAR ANTIBODY (AURA)2019-07-30 09:44:00 Test Item Value Reference Range Interpretation Comments ANTI-NUCLEAR ANTIBODY (AURA) (BEAKER) Positive Negative A (test code = 418) Test performed by IFA method.AURA TITER AND [id number] 09:44:00 Test Item Value Reference Range Interpretation [...] (test code Normal = 486) HEPATIC FUNCTION [id number] 09:58:00 Test Item Value Reference Range Interpretation [...] 347) CBC WITH PLATELET COUNT + MANUAL [id number] 09:29:00 Test Item Value Reference Range Interpretation [...] (BEAKER) (test code = 413) RESPIRATORY PANEL [id number] 15:15:00 Test Item Value Reference Range Interpretation [...] decisions. This sample was tested at the [facility] using the Pit My PetArray Respiratory Panel. It is FDA cleared and has been verified and approved by the [facility] for clinical use on nasopharyngeal swab specimens.The performance of the FilmArrayRP has not been established in individuals who received influenza vaccine. Recent administration of a nasal influenza vaccine may cause false positive results for Influenza A and/orInfluenza B.EBV VIRAL [id number] 13:49:00 Test Item Value Reference Range Interpretation [...] (2) real-time PCR amplification and detection with ETET-9-xdnjgdkj primers and probes. A well-conserved region of the EBNA-1 gene is targeted, along with an internal control sequence used to confirm PCR amplification. Asymptomatic carriers and viral genetic variation, among other factors, can affect the accuracy of nucleic acidtesting; therefore, results should be interpreted in light of clinical data.This test was developed and its performance characteristics determined by the [facility] Pathology Department,Section of Molecular Pathology. It [...] real- time PCR amplification and detection with FUKE-6-qzlkcxct primers and probes. A well-conserved region of the EBNA-1 gene is targeted, along with an internal control sequence used to confirm PCR amplification. Asymptomatic carriers and viral genetic variation, among other factors, can affect the accuracy of nucleic acid testing; therefore, results should be interpreted in light of clinical data.This test was developed and its performance characteristics determined by the [facility] Pathology Department, Section of Molecular Pathology.It has not been cleared or approved by the U.S. Food and Drug Administration (FDA), since FDA approval is not required for clinical use of the test. Validation was done as required by The Clinical Laboratory Improvement Amendments of 1988.CMV PCR, [id number] 13:43:00 Test Item Value Reference Range Interpretation [...] and its performance characteristics determined by the [facility] Pathol ogy Department, Section of Molecular Pathology. It has not been cleared or approved by the U.S. Foodand Drug Administration (FDA), since FDA approval is not required for clinical use of the test. Validation was done as required by The Clinical Laboratory Improvement Amendments of 1988.RHEUMATOID FACTOR AB, REFLEX TO [id number] 13:10:00 Test Item Value Reference Range Interpretation Comments RHEUMATOID FACTOR (BEAKER) (test Negative code = 573) BASIC METABOLIC [id number] 06:42:00 Test Item Value Reference Range Interpretation [...] S NOT APPLICABLE FOR DIALYSIS PATIEN TS. [id number] 12:15:00 Test Item Value Reference Range Interpretation Comments RPR SCREEN (BEAKER) (test code = Nonreactive Nonreactive 420) HIV-1 ANTIGEN WITH HIV-1/2 [id number] 04:56:00 Test Item Value Reference Range Interpretation Comments HIV-1 ANTIGEN WITH HIV 1\T\2 Nonreactive Nonreactive ANTIBODY (2) (BEAKER) (test code = 2586) BASIC METABOLIC [id number] 04:24:00 Test Item Value Reference Range Interpretation [...] DIALYSIS PATIEN TS. URINALYSIS W/ REFLEX URINE [id number] 00:26:00 Test Item Value Reference Range Interpretation [...] = 2795) RAD, CHEST, 1 VIEW, NON [id number] 10:25:00Reason for exam:- >leukocytosis, fever r/o infectionFINAL [...] MDReport Verified Date/Time: 07/26/2019 10:25:43 Reading Location: [address] Ortho Consult Reading Room CBC W/PLT COUNT & AUTO [id number] 10:24:00 Test Item Value Reference Range Interpretation [...] = 3438) Received comment: User comments: Slide comments:[id number] 10:11:00 Test Item Value Reference Range Interpretation [...] pg/mL 0-100 (test code = 700) TROPONIN [id number] 10:00:00 Test Item Value Reference Range Interpretation [...] acute neurological disease, and persistent tachyarrhythmia.BASIC METABOLIC [id number] 09:54:00 Test Item Value Reference Range Interpretation [...] U/L 29-200 code = 380) POCT-LACTIC ACID, [id number] 09:50:00 Test Item Value Reference Range Interpretation Comments POC-LACTIC ACID, 1.3 mmol/L 0.4-1.3 TESTED AT [facility] [address] ARTERIAL (BEAKER) [facility] (test code = 2804) [address] [id number] 09:50:00 Test Item Value Reference Range Interpretation Comments POC-HEMOGLOBIN 11.6 g/dL 13.0-16.8 L TESTED AT [facility] 6720 (BEAKER) (test code [facility] = 1856) 28622HKDNVZ AT [facility] 67[address] [facility] [address] POCT-BLOOD GASES, [id number] 09:49:00 Test Item Value Reference Range Interpretation Comments TEMP, CELSIUS-POC 37.0 (BEAKER) (test code = 1834) FIO2-POC (BEAKER) TESTED AT [place] [address] (test code = 1835) [facility] [address] PH, ARTERIAL-POC 7.370 7.350-7.450 (BEAKER) (test code = 1836) PCO2, ARTERIAL-POC 41.0 mm Hg 35.0-45.0 (BEAKER) (test code = 1837) PO2, ARTERIAL-POC 86.0 mm Hg 80.0-90.0 (BEAKER) (test code = 1838) SO2, ARTERIAL-POC 96.0 % 96.0-97.0 (BEAKER) (test code = 1839) HCO3, ARTERIAL-POC 23.7 meq/L 21.0-29.0 (BEAKER) (test code = 1840) BASE EXCESS, -2.0 meq/L -2.0-3.0 ARTERIAL-POC (BEAKER) (test code = 1841) [id number] 09:49:00 Test Item Value Reference Range Interpretation Comments POC-SODIUM (BEAKER) 137 meq/L 135-148 TESTED A [place] [address] (test code = 1542) [facility] [address] [id number] 09:49:00 Test Item Value Reference Range Interpretation Comments POC-POTASSIUM 3.3 meq/L 3.6-5.5 L TESTED AT [place] [address] ([facility]) (test code [facility] [address] = 1540) [id number] 09:49:00 Test Item Value Reference Range Interpretation Comments POC-GLUCOSE (BEAKER) 153 mg/dL 70-110 H TESTED AT [place] [address] (test code = 1855) [facility] [address] POCT-CALCIUM [id number] 09:49:00 Test Item Value Reference Range Interpretation Comments POC-CALCIUM IONIZED 1.22 mmol/L 1.12-1.27 TESTED [place] [address] [facility] (test code = [facility] 1536) [address] [id number] 09:49:00 Test Item Value Reference Range Interpretation Comments POC-HEMATOCRIT 34 % 40-50 L TESTED AT [place] [address] (BEAKER) (test code = [place] [address] 3787) URINALYSIS WITH MICROSCOPIC IF [id number] 07:55:00 Test Item Value Reference Range Interpretation [...] 463) SOURCE(BEAKER) (test code = 2795) URINALYSIS [id number] 07:55:00 Test Item Value Reference Range Interpretation Comments RBC UA (BEAKER) (test code = 519) 1 /HPF WBC UA (BEAKER) (test code = 520) 9 /HPF MUCUS (BEAKER) (test code = 1574) Rare SQUAMOUS EPITHELIAL (BEAKER) (test < /HPF code = 516) C-REACTIVE [id number] 07:27:00 Test Item Value Reference Range Interpretation Comments C-REACTIVE PROTEIN (BEAKER) (test 15.31 mg/dL 0.00-0.50 H code = 676) CBC W/PLT COUNT & AUTO [id number] 04:17:00 Test Item Value Reference Range Interpretation [...] (BEAKER) (test code = 2801) BASIC METABOLIC [id number] 03:45:00 Test Item Value Reference Range Interpretation [...]
[2022-12-27 13:39] LABS: Absolute Lymphocytes (CBC) 1.7 K/uL (0.7-4.9); Hematocrit 43.7 % (39.6-49.0); MCV 91.9 fL (80-100); MPV 9.4 fL (7.6-11.3); RBC Red Blood Cell Count 4.75 M/uL (4.33-5.43)
[2022-12-27 13:42] LABS: Protime INR 1.04
[2022-12-27 13:42] LABS: Urine Bacteria None Seen /HPF (<20); Urine Mucus Slight /HPF (None Seen); Urine RBC <5 /HPF (None Seen)
[2022-12-27 14:19] LABS: Albumin 4.4 g/dL (3.4-5.0); Bilirubin Total 0.8 mg/dL (0.2-1.0); Ferritin 375.6 ng/mL (26-388); Potassium 3.9 mmol/L (3.5-5.1); Protein, Total 8.7 g/dL (6.4-8.2)
--- NOTE | 2022-12-27 14:33 | ER ---
Nurse's Notes [facility] Name: Uzair Sullivan Age: 42 yrs Sex: Male : 1980 Arrival Date: 12/27/2022 Time: 11:26 Bed 13 Private MD: Juanis Null Diagnosis: Other malaise and fatigue Presentation: 12/27 11:58 Chief complaint: Patient states: Pt reports he has been seeing his GI doctor for abd ss problems for the past 6 months. Pt was sent to ED by his PCP for r/o anemia. Coronavirus screen: Client denies travel out of the [place] in the last 14 days. Ebola Screen: Patient denies exposure to infectious person. Patient denies travel to an Ebola-affected area in the 21 days before illness onset. Initial Sepsis Screen: Does the patient meet any 2 criteria? No. Patient's initial sepsis screen is negative. Does the patient have a suspected source of infection? No. Patient's initial sepsis screen is negative. Risk Assessment: Do you want to hurt yourself or someone else? Patient reports no desire to harm self or others. Onset of symptoms is unknown. 11:58 Method Of Arrival: Ambulatory ss 11:58 Acuity: GLORIA 3 ss Historical: - Allergies: 12:00 Morphine; ss 12:00 hydrocodone; ss - PMHx: 12:00 arrhythmia; Diverticulitis; Lupus erythematosus; ss - PSHx: 12:00 Heart ablation; heart cath; ss - Immunization history:: Client reports receiving the 2nd dose of the Covid vaccine. - Social history:: Smoking status: Patient denies any tobacco usage or history of. Screenin:11 [facility] ED Fall Risk Assessment (Adult) History of falling in the last 3 months, ap3 including since admission No falls in past 3 months (0 pts). Abuse screen: Denies threats or abuse. Nutritional screening: No deficits noted. Tuberculosis screening: No symptoms or risk factors identified. Assessment: 14:09 General: Appears in no apparent distress. comfortable, Behavior is calm, cooperative, ap3 appropriate for age. General:. Pain: Denies pain. Neuro: Level of Consciousness is awake, alert, obeys commands, Oriented to person, place, time, situation, Speech is normal. Neuro: Reports mild weakness. Cardiovascular: Patient's skin is warm and dry. Respiratory: Airway is patent Respiratory effort is even, unlabored, Respiratory pattern is regular, symmetrical. EENT:. 14:11 EENT: pale gums. ap3 Vital Signs: 11:58 Pulse 97; Resp 16; Temp 97.9(TE); Pulse Ox 100% on R/A; Weight 71.21 kg; Height 5 ft. 9 ss in. (175.26 cm); Pain 3/10; 12:00 BP 116 / 89; ss 14:11 BP 122 / 82; Pulse 80; Pulse Ox 100% on R/A; ap3 11:58 Body Mass Index 23.18 (71.21 kg, 175.26 cm) ED Course: 11:26 Patient arrived in ED. mr 11:26 Juanis Null DO is Private Physician. mr 11:36 Laquita Baker FNP is [facility] 11:36 Ethan Bhatia MD is Attending Physician. [facility] 12:00 Triage completed. 12:00 Arm band placed on right wrist. 13:54 Edwina March, RN is Primary Nurse. ap3 14:11 Patient has correct armband on for positive identification. Bed in low position. Call ap3 light in reach. Side rails up X 1. Pulse ox on. NIBP on. Door closed. Noise minimized. 14:32 Juanis Null DO is Referral Physician. [facility] 14:44 No provider procedures requiring assistance completed. ap3 14:55 IV discontinued, intact, bleeding controlled, No redness/swelling at site. Pressure ap3 dressing applied. Administered Medications: No medications were administered Medication: 14:44 VIS not applicable for this client. ap3 Outcome: 14:32 Discharge ordered by . jh7 14:55 Discharged to home ambulatory. ap3 14:55 Condition: good 14:55 Discharge instructions given to patient, Instructed on discharge instructions, follow up and referral plans. Demonstrated understanding of instructions, follow-up care. 14:55 Patient left the ED. ap3 Signatures: Rincon, Petty RazoEstefany, RN RN Edwina March RN RN ap3 Laquita Baker FNP [place] [id number] Corrections: (The following items were deleted from the chart) 12:01 12:00 Allergies: No Known Allergies; ss ss
--- NOTE | 2022-12-27 14:33 | EDPHYS ---
Physician Documentation [facility] Name: Uzair Sullivan Age: 42 yrs Sex: Male : 1980 Arrival Date: 12/27/2022 Time: 11:26 Bed 13 Private MD: Juanis Null ED Physician Ethan Bhatia HPI: 12/27 12:00 This 42 yrs old Male presents to ER via Ambulatory with complaints of Anemia. jh7 12:00 Onset: The symptoms/episode began/occurred acutely. Associated signs and symptoms: jh7 Pertinent positives: pale gums, fatigue, Pertinent negatives: abdominal pain, chest pain, constipation, diarrhea, Hematuria, bloody stool. 42-year-old male states that he saw his PCP today for fatigue and pale gums. She was planning on sending him to [facility] for lab work, but informed him that it would take 2 to 3 days to come back. He stated that he would rather go to the ER to check for anemia. Reports that he sees Dr. Way for chronic abdominal pain but denies any changes and states that he has had multiple normal CTs.. Historical: - Allergies: 12:00 Morphine; ss 12:00 hydrocodone; ss - PMHx: 12:00 arrhythmia; Diverticulitis; Lupus erythematosus; ss - PSHx: 12:00 Heart ablation; heart cath; ss - Immunization history:: Client reports receiving the 2nd dose of the Covid vaccine. - Social history:: Smoking status: Patient denies any tobacco usage or history of. ROS: 12:00 Eyes: Negative for injury, pain, redness, and discharge, Neck: Negative for injury, jh7 pain, and swelling, Cardiovascular: Negative for chest pain, palpitations, and edema, Respiratory: Negative for shortness of breath, cough, wheezing, and pleuritic chest pain, Back: Negative for injury and pain, MS/Extremity: Negative for injury and deformity, Skin: Negative for injury, rash, and discoloration, Neuro: Negative for headache, weakness, numbness, tingling, and seizure. 12:00 Constitutional: Positive for fatigue, Negative for body aches, fever. 12:00 ENT: Positive for Pale mucous membranes, Negative for Nosebleed. 12:00 All other systems are negative. Exam: 12:00 Constitutional: This is a well developed, well nourished patient who is awake, alert, jh7 and in no acute distress. Head/Face: Normocephalic, atraumatic. Eyes: Pupils equal round and reactive to light, extra-ocular motions intact. Lids and lashes normal. Conjunctiva and sclera are non-icteric and not injected. Cornea within normal limits. Periorbital areas with no swelling, redness, or edema. Neck: Trachea midline, no thyromegaly or masses palpated, and no cervical lymphadenopathy. Supple, full range of motion without nuchal rigidity, or vertebral point tenderness. No Meningismus. Cardiovascular: Regular rate and rhythm with a normal S1 and S2. No gallops, murmurs, or rubs. Normal PMI, no JVD. No pulse deficits. Respiratory: Lungs have equal breath sounds bilaterally, clear to auscultation and percussion. No rales, rhonchi or wheezes noted. No increased work of breathing, no retractions or nasal flaring. Abdomen/GI: Soft, non-tender, with normal bowel sounds. No distension or tympany. No guarding or rebound. No evidence of tenderness throughout. Back: No spinal tenderness. No costovertebral tenderness. Full range of motion. Skin: Warm, dry with normal turgor. Normal color with no rashes, no lesions, and no evidence of cellulitis. MS/ Extremity: Pulses equal, no cyanosis. Neurovascular intact. Full, normal range of motion. Neuro: Awake and alert, GCS 15, oriented to person, place, time, and situation. Cranial nerves II-XII grossly intact. Motor strength 5/5 in all extremities. Sensory grossly intact. Cerebellar exam normal. Normal gait. 12:00 ENT: Mouth: Gums: mildly pale. Vital Signs: 11:58 Pulse 97; Resp 16; Temp 97.9(TE); Pulse Ox 100% on R/A; Weight 71.21 kg; Height 5 ft. 9 ss in. (175.26 cm); Pain 3/10; 12:00 BP 116 / 89; ss 14:11 BP 122 / 82; Pulse 80; Pulse Ox 100% on R/A; ap3 11:58 Body Mass Index 23.18 (71.21 kg, 175.26 cm) MDM: 11:36 Patient medically screened. [facility] 14:25 Differential diagnosis: Iron deficiency anemia, macrocytic anemia, GI bleed. Data [facility] reviewed: vital signs, nurses notes, lab test result(s). Test considered but Not performed: CT: CT of the abdomen considered due to chronic abdominal pain. Not done because the patient declined, pain has not changed, and provided recent CT scan.. External Records Reviewed: Outpatient radiology: Outpatient CT abdomen pelvis reviewed. Care significantly affected by the following chronic conditions: Lupus. Counseling: I had a detailed discussion with the patient and/or guardian regarding: the historical points, exam findings, and any diagnostic results supporting the discharge/admit diagnosis, to return to the emergency department if symptoms worsen or persist or if there are any questions or concerns that arise at home. ED course: Labs printed for the patient and he will follow-up with his PCP tomorrow.. 12/27 11:46 Order name: CBC with Diff; Complete Time: 13:59 [facility] 12/27 11:46 Order name: CMP; Complete Time: 14:20 [facility] 12/27 11:46 Order name: Lipase; Complete Time: 14:20 [facility] 12/27 11:46 Order name: Urine Microscopic Only; Complete Time: 13:59 [facility] 12/27 11:46 Order name: IV Saline Lock; Complete Time: 13:30 [facility] 12/27 11:46 Order name: Labs collected and sent; Complete Time: 13:30 [facility] 12/27 11:46 Order name: PT-INR; Complete Time: 13:59 [facility] 12/27 11:46 Order name: Ferritin; Complete Time: 14:20 [facility] 12/27 11:46 Order name: TIBC; Complete Time: 14:20 [facility] 12/27 11:46 Order name: Retic Count; Complete Time: 13:59 [facility] 12/27 11:46 Order name: B12; Complete Time: 14:20 [facility] 12/27 11:46 Order name: Type And Screen; Complete Time: 14:20 [facility] Administered Medications: No medications were administered Disposition Summary: 12/27/22 14:32 Discharge Ordered Location: Home [facility] Problem: new [facility] Symptoms: are unchanged [facility] Condition: Stable [facility] Diagnosis - Other malaise and fatigue [facility] Followup: [facility] - With: Juanis Null, DO - When: 2 - 3 days - Reason: Recheck today's complaints Discharge Instructions: - Discharge Summary Sheet jh7 - Fatigue [facility] Forms: - Medication Reconciliation Form 7 - Thank You Letter 7 Signatures: Dispatcher [employer] Estefany Dong RN RN Laquita Bustillo, TEXTILE ENGINEER TEXTILE ENGINEER [facility] Corrections: (The following items were deleted from the chart) 12:01 12:00 Allergies: No Known Allergies; [facility] 15:27 12:00 Skin: Appearance: Color: pale, Tang [facility]
[2022-12-27 15:00] VITALS: TEMP 97.9; O2SAT 100
[2022-12-27 15:02] VITALS: BP 122/82
[2022-12-27] MEDS ORDERED: HYDROCODONE/APAP 10/325 TAB ONE (16:01)
[2022-12-27] MEDS ORDERED: KETOROLAC 30 MG/ML INJ ONE (16:01)
[2022-12-27] MEDS ORDERED: predniSONE 20 MG TAB ONE (16:01)
== END 2022-12-27 14:55 | disposition home or self-care (01) ==
LOC: ER 11:23
DX: R53.83 Other fatigue (principal); R53.81 Other malaise; Z88.5 Allergy status to narcotic agent
CPT/HCPCS: 85025; 36415; 86900; 86850; 85610; 85044; 86901; 81015; 82728; 82607; 83690; 83540; 80053; 84466; J7512

== ENCOUNTER 2023-01-07 17:38 | Emergency (ER) | payer BC ==
--- OUTSIDE RECORDS SUMMARY | 2023-01-07 17:51 | XMS REPORT | Continuity of Care Document ---
:1980 Author Organization [facility] t Address [address] [place] [address] Care Team Providers Name Role Phone JOSH [...] Attending Clinician Unavailable Ashanti Burrell Attending Clinician [phone] Wing Anand MD Attending Clinician Koby Dowling [...] Expiration Date S ource OUT OF STATE [id number] 2017 00:00:00 BCBS - PPO - BCBS CVCP-BCBS [id number] BCBS OF [id number] 2020 00:00:00 [place] [id number] 2020 00:00:00 [place] ([place] Problems Condition Condition [...] rs active active ity of problems problems [facility] Allergies, Adverse Reactions, Alerts Allergy Allergy Status [...] to out drug NO KNOWN Allergy Active [facility] NO KNOWN Drug Active [facility] ALLERGIE Class ity of S [facility] Family History Family Member Diagnosis Comments Start Date Stop Date Source Natural father [facility] Natural mother [facility] Natural mother Lymphoma [facility] Social History Social Habit Start Date Stop Date Quantity Comments Source History of Smoker University of tobacco use [facility] History SDOH [facility] Drinks History SDOH [facility] Alcohol Binge Medical [facility] History SDCA [facility] Alcohol Comment Medical C enter Alcohol intake 2022-12-21 2022-12-21 Lifetime [facility] 00:00:00 00:00:00 non-drinker (finding) Exposure to 2022-09-21 2022-10-01 Not sure University of SARS-CoV-2 00:00:00 10:42:00 [facility] (event) Branch Tobacco use and 2019-07-26 2019-07-[address] [facility] exposure 00:00[facility]00 [facility]:00 [facility] Center History SDOH 2019-07-26 2019-07-[address] [facility] Alcohol Frequency 00:00:00 00:00:00 Medical Center Sex Ass[birth year] At [birth year] [facility] 00:00:00 00:00:00 Smoking Status Start Date Stop Date Source Never smoked tobacco [facility] Smoker 2022-03-24 00:00:00 [facility] Medications Ordered Filled Start Stop Current Ordering Indication Dosage Frequency Signature Comments Components Source Medication Medication Date Date Medication? Clinician (SIG) Name Name metoprolol 0 Yes 25mg Q2D Take 1 Metho di succinate 2-23 tablet (25 st XL 13:24: mg total) Hospita (TOPROL-XL) 32 by mouth l 25 mg 24 hr every tablet other day. Hold it if sbp<120, hr<60 propafenone 2022-0 Yes 225mg Q.5D Take 1 Met hodi SR (RYTHMOL 2-[address] SR) 225 MG 13:24: (225 mg Hosp evin 12 hr 32 total) by l capsule mouth 2 (two) times a day. metoprolol 0 Yes 25mg Q2D Take 1 Metho di succinate 2-23 tablet (25 st XL 13:24: mg total) Hospita (TOPROL-XL) 32 by mouth l 25 mg 24 hr every tablet other day. Hold it if sbp<120, hr<60 propafenone 2022-0 Yes 225mg Q.5D Take 1 Met hodi SR (RYTHMOL 2-[address] SR) 225 MG 13:24: (225 mg Hosp evin 12 hr 32 total) by l capsule mouth 2 (two) times a day. sucralfate 2022-0 Yes Methodi (CARAFATE) 2- st 1 gram 00:00: Hospita tablet 00 l sucralfate 2022-0 Yes [facility] (CARAFATE) 2- st 1 gram 00:00: Hospita tablet 00 l Xifaxan 550 2022-0 Yes Method i mg tablet 12-06 st 00:00: Hospita 00 l Xifaxan 550 2022-0 Yes Method i mg tablet 12-06 st 00:00: Hospita 00 l pantoprazol 2021-10 Yes Method i e 12-21 st (PROTONIX) 00:00: Hospita 40 MG EC 00 l tablet pantoprazol 2021-10 Yes Method i e 12-21 st (PROTONIX) 00:00: Hospita 40 MG EC 00 l tablet iopamidol 2021-10- No [id number] 84mL 84 mL, Univers (ISOVUE 12-11 Intravenou ity o f 370-500 mL) 22:00: 21:03 s, ONCE, 1 [place] injection 00 :00 dose, On Medica l 84 mL Tue Branch 10/10/22 at 1600, Routine NaCl 0.9% 2021-10- No 1000mL at 999 Uni vers (NS) bolus 12-02 12- mL/hr, ity of infusion 17:45: 18:48 1,000 mL, Jacob as 1,000 mL 00 :00 IV Medical Infusion, Branch ONCE, 1 dose, On [place] 10/01/22 at 1145, VANCE iopamidol 2021-10- No [id number] 74mL 74 mL, Univers (ISOVUE 12-02 Intravenou ity o f 370-500 mL) 17:30: 17:45 s, ONCE, 1 [place] injection 00 :00 dose, On Medica l 74 mL [place] Branch 10/01/22 at 1145, Routine famotidine 2021-10- No 20mg 20 mg, Univ ers (PEPCID 12-02 12-04 Slow IV ity of (PF)) 17:30: 17:43 Push, [place] injection 00 :00 ONCE, 1 Medical 20 mg dose, On Branch [place] 10/01/22 at 1130, VANCE propafenone 2021-10 Yes 1{capsu Take 1 U nivers 225 mg 12 2-04 le} capsule by ity of hr capsule 12:56: mouth [place] [address] every 12 Medical (twelve) Branch hours. metoprolol 2021-10 Yes 1{tbl} Take 1 Uni vers succinate 2-04 tablet by ity o f XL 25 mg 24 12:56: mouth [place] hr tablet 26 the Medical morning. Branch omeprazole 2021-10 Yes 40mg Take 40 mg U nivers 10 mg 2-04 by mouth ity of capsule 12:56: in the [place] morning. Medical Branch propafenone 2021-10 Yes 1{capsu Take 1 U nivers 225 mg 12 2-04 le} capsule by ity of hr capsule 12:56: mouth [place] 26 every 12 Medical (twelve) Branch hours. metoprolol 2021-10 Yes 1{tbl} Take 1 Uni vers succinate 2-04 tablet by ity o f XL 25 mg 24 12:56: [place] hr tablet 26 the Medical morning. Branch omeprazole 2021-10 Yes 40mg Take 40 mg U nivers 10 mg 2-04 by mouth ity of capsule 12:56: in the [place] [address] morning. Medical Branch sucralfate 2021-10 Yes [id number] 1g Take 1 Un cipriano 1 gram 2-04 tablet by ity of tablet 00:00: mouth [place] 00 before Medical meals and Branch at bedtime. traMADoL 50 2021-10 Yes [id number] 50mg Take 1 Univ ers mg tablet 2-04 tablet by ity o f 00:00: mouth [place] 00 every 6 Medical (six) Branch hours as needed (pain). Indication s: acute pain ondansetron 2021-10 Yes [id number] 1-2 Un cipriano 4 mg tablet 2-04 tablets ity o f 00:00: every 8 [place] 00 hours as Medical needed for Branch nausea sucralfate 2021-10 Yes [id number] 1g Take 1 Un cipriano 1 gram 2-04 tablet by ity of tablet 00:00: mouth [place] 00 before Medical meals and Branch at bedtime. traMADoL 50 2021-10 Yes [id number] 50mg Take 1 Univ ers mg tablet 2-04 tablet by ity o f 00:00: mouth [place] 00 every 6 Medical (six) Branch hours as needed (pain). Indication s: acute pain ondansetron 2021-10 Yes [id number] 1-2 Un cipriano 4 mg tablet 2-04 [...] hr daily for tablet 30 days. metoprolol 2022-0 2022- No 25mg QD Take 1 Meth ramona succinate 8-25 09-25 tablet (25 st XL 00:00: 04:59 mg total) Hospita (TOPROL-XL) 00 :00 by mouth l 25 mg 24 hr daily for tablet 30 days. metoprolol 2021-0 2022- No 25mg QD Take 1 Meth ramona succinate 8-25 09-25 tablet (25 st XL 00:00: 04:59 mg total) Hospita (TOPROL-XL) 00 :00 by mouth l 25 mg 24 hr daily for tablet 30 days. metoprolol 2021-0 2022- No 25mg QD Take 1 Meth ramona succinate 8-25 09-25 tablet (25 st XL 00:00: 04:59 mg total) Hospita (TOPROL-XL) 00 :00 by mouth l 25 mg 24 hr daily for tablet 30 days. metoprolol 2021-0 2022- No 25mg QD Take 1 Meth ramona succinate 8-25 09-25 tablet (25 st XL 00:00: 04:59 mg total) Hospita (TOPROL-XL) 00 :00 by mouth l 25 mg 24 hr daily for tablet 30 days. metoprolol 2021-0 2022- No 25mg QD Take 1 Meth ramona succinate 8-25 -25 tablet (25 st XL 00:00: 04:59 mg total) Hospita (TOPROL-XL) 00 :00 by mouth l 25 mg 24 hr daily for tablet 30 days. metoprolol 2021-0 2022- No 25mg QD Take 1 Meth ramona succinate 8-25 -25 tablet (25 st XL 00:00: 04:59 mg total) Hospita (TOPROL-XL) 00 :00 by mouth l 25 mg 24 hr daily for tablet 30 days. metoprolol 2021-0 2022- No 25mg QD Take 1 Meth ramona succinate 8-25 09-25 tablet (25 st XL 00:00: 04:59 mg total) Hospita (TOPROL-XL) 00 :00 by mouth l 25 mg 24 hr daily for tablet 30 days. metoprolol 2021-0 2022- No 25mg QD Take 1 Meth ramona [...] times a day for 30 days. amoxicillin 0 2021- No [id number] 1{tbl} Take 1 Univers -clavulanat 5-27 06-07 [...] 00:00:00 mcg/0.3 mL dose mcg/0.3 mL dose (GiveMeSportBioNTZayante) (IngenyNTZayante) PFIZER COVID-19 MRNA 2021-10-27 Completed Meth odist VACCINATION 00:00:00 [facility] PFIZER COVID-19 MRNA 2021-10-27 Completed Meth odist VACCINATION 00:00:00 [facility] PFIZER COVID-19 MRNA 2021-10-27 Completed Meth odist VACCINATION 00:00:00 [facility] PFIZER COVID-19 MRNA 2021-10-27 Completed Meth odist VACCINATION 00:00:00 [facility] PFIZER COVID-19 MRNA 2021-10-27 Completed Meth odist VACCINATION 00:00:00 [facility] PFIZER COVID-19 MRNA 2021-10-27 Completed Meth odist VACCINATION 00:00:00 [facility] PFIZER COVID-19 MRNA 2021-10-27 Completed Meth odist VACCINATION 00:00:00 [facility] COVID-19, mRNA, COVID-19, mRNA, 2021-10-27 Completed [facility] LNP-S, PF, 30 LNP-S, PF, 30 00:00:00 mcg/0.3 mL dose mcg/0.3 mL dose (ArriveBefore-BioNTech) (IngenyNTZayante) COVID-19 vaccine, COVID-19 vaccine, 2021-02-04 Completed [facility] vector-nr, rS-Ad26, vector-nr, rS-Ad26, 00:00:00 PF, 0.5 mL (Vannessa) PF, 0.5 mL (Vannessa) COVID-19 vaccine, COVID-19 vaccine, 2021-02-04 Completed [facility] vector-nr, rS-Ad26, vector-nr, rS-Ad26, 00:00:00 PF, 0.5 mL (Vannessa) PF, 0.5 mL (Vannessa) VANNESSA COVID-Kahtryn 2021-02-04 Completed Methodis t AD26 VACCINATION 00:00:00 [facility] VANNESSA COVIDKathryn 2021-02-04 Completed [facility] t AD26 VACCINATION 00:00:00 [facility] VANNESSA ALDANAIDKathryn 2021-02-04 Completed Method[facility] t AD26 VACCINATION 00:00:00 [facility] VANNESSA ALDANAIDKathryn 2021-02-04 Completed Methodis t AD26 VACCINATION 00:00:00 [facility] VANNESSA ALDANAIDKathryn 2021-02-04 Completed Methodis t AD26 VACCINATION 00:00:00 [facility] VANNESSA ALDANAIDKathryn 2021-02-04 Completed Methodis t AD26 VACCINATION 00:00:00 [facility] VANNESSA ALDANAIDKathryn 2021-02-04 Completed [facility] t AD26 VACCINATION 00:00:00 Hospital Vital Signs Vital Name Observation Time Observation Value Comments Source Systolic blood 2022-10-01 18:00:00 96 mm[Hg] Univer [facility] of [facility] Diastolic blood 2022-10-01 18:00:00 76 [facility]Hg[facility] 2022-10-01 18:00:00 66 /min [facility] Respiratory rate 2022-10-01 18:00:00 16 /min [facility] Oxygen saturation in 2022-10-01 18:00:00 98 /min [facility] Arterial blood by [facility] Pulse oximetry [facility] [place] Body temperature 2022-10-01 16:48:00 36.78 Silvia [facility] Body height 2022-10-01 16:48:00 175.3 cm [facility] Body weight 2022-10-01 16:48:00 75.297 kg [facility] BMI 2022-10-01 16:48:00 24.51 kg/m2 [facility] BP Diastolic 2022-07-20 00:00:00 87 mm[Hg] Mike Santillan edical Height 2022-07-20 00:00:00 69 [in_i] Mike devi BMI (Body Mass 2022-07-20 00:00:00 28.1 kg/m2 [facility] Index) BP Systolic 2022-07-20 00:00:00 131 mm[Hg] Mike [facility]i Body Weight 2022-07-20 00:00:00 3040 [oz_av] [facility] BP Diastolic 2022-07-06 00:00:00 87 mm[Hg] [facility] Height 2022-07-06 00:00:00 69 [in_i] [facility] Santillan edical BMI (Body Mass 2022-07-06 00:00:00 28.1 kg/m2 [facility] Index) BP Systolic 2022-07-06 00:00:00 131 mm[Hg] Mike devi Body Weight 2022-07-06 00:00:00 3040 [oz_av] Mike Santillan edical Systolic blood 2022-03-24 21:55:00 124 mm[Hg] Univer sity of pressure [facility] Diastolic blood 2022-03-24 21:55:00 87 mm[Hg] Unive rsity of [facility] Heart rate 2022-03-24 21:55:00 86 /min [facility] Oxygen saturation in 2022-03-24 21:55:00 100 /min [facility] Arterial blood by [facility] Pulse oximetry [facility] [place] Body height 2022-03-24 21:52:00 175.3 cm [facility] Body weight 2022-03-24 21:52:00 95.165 kg [facility] BMI 2022-03-24 21:52:00 30.98 kg/m2 [facility] Systolic blood 2022-12-21 19:23:00 108 mm[Hg] [facility] Di[facility] blood 2022-12-21 19:23:00 73 mm[Hg] [facility] pressure Heart rate 2022-12-21 19:23:00 83 /min [facility] Body height 2022-12-21 19:23:00 175.3 cm [facility] Body weight 2022-12-21 19:23:00 72.576 kg [facility] BMI 2022-12-21 19:23:00 23.63 kg/m2 [facility] Body temperature 2022-11-21 21:08:01 36.72 Silvia [facility] Respiratory rate 2022-11-21 21:08:01 18 /min [facility] Oxygen saturation in 2022-11-21 21:08:01 98 /min [facility] Arterial blood by Pulse oximetry Heart rate 2022-06-22 13:00:00 79 /min [facility] Systolic blood 2022-06-22 12:52:32 130 mm[Hg] [facility] pressure Diastolic blood 2022-06-22 12:52:32 87 mm[Hg] [facility] pressure Body temperature 2022-06-22 12:52:32 36.89 Silvia [facility] Respiratory rate 2022-06-22 12:52:32 20 /min [facility] Oxygen saturation in 2022-06-22 12:52:32 99 /min [facility] Arterial blood by Pulse oximetry Body weight 2022-06-22 01:49:34 87.544 kg [facility] BMI 2022-06-22 01:49:34 28.50 kg/m2 [facility] Body height 2022-06-21 15:19:00 175.3 cm [facility] Procedures Procedure Date / Time Performing Clinician Source Performed COVID-19 QUALITATIVE 2022-11-21 10:02:00 Ben Painter [facility] RT-PCR TROPONIN T 2022-11-21 10:02:00 Ben Painter [facility] C-REACTIVE PROTEIN 2022-11-21 10:02:00 PainterBen yanes [facility] SEDIMENTATION RATE 2022-11-21 10:02:00 [facility] FERRITIN LEVEL 2022-11-21 10:02:[address] [facility] TOTAL IRON BINDING 2022-11-21 10:02:00 [facility] CAPACITY THYROID STIMULATING 2022-11-21 10:02:00 [facility], FREE 2022-11-21 10:02:00 Ben Painter Sandra [facility] CT ANGIOGRAM ABDOMEN 2022-11-21 05:40:[address] [facility] PELVIS W AND OR WO CONTRAST URINE CULTURE 2022-11-21 01:29:00 Roselia Hogan [facility] spital URINALYSIS SCREEN AND 2022-11-21 01:29:00 [facility] WITH REFLEX TO CULTURE ECG ED PRELIMINARY 2022-11-21 01:02:55 [place] INTERPRETATION TROPONIN T 2022-11-21 01:02:00 Ben Painter Sandra [facility] B NATRIURETIC PEPTIDE 2022-11-21 01:02:00 [facility] WITH PLATELET AND 2022-11-20 21:33:00 [facility] DIFFERENTIAL COMPREHENSIVE METABOLIC 2022-11-20 21:33:00 [facility] PANEL LIPASE LEVEL 2022-11-20 21:33:00 [facility] ESTIMATED GFR 2022-11-20 21:33:00 HollierKwesi [facility] ECG 12-LEAD 2022-11-20 21:01:47 [facility]ELVIS W 2022-10-10 21:02:[address] [facility] CONTRAST Medical Branch CT ABDOMEN PELVIS W 2022-10-01 17:37:14 Manoj Finn [facility] CONTRAST [facility] URINALYSIS 2022-10-01 17:01:[address] [facility] [place] LIPASE 2022-10-01 16:59:00 [place] [facility] [place] COMP. METABOLIC PANEL 2022-10-01 16:59:00 Manoj Finn [facility] ([id number]) [facility] CBC WITH DIFF 2022-10-01 16:59:[address] [facility] [place] NOTICE OF PRIVACY 2022-10-01 16:39:10 Doctor Unassigned, [facility] PRACTICES [place] [facility] CONSENT/REFUSAL FOR 2022-10-01 16:36:34 Doctor Unassigned, [facility] DIAGNOSIS AND TREATMENT [place] [facility] CBC WITH PLATELET AND 2022-06-22 09:30:00 Wing Anand [facility] DIFFERENTIAL BASIC METABOLIC PANEL 2022-06-22 09:30:00 Wing Anand [facility] ESTIMATED GFR 2022-06-22 09:30:00 Wing Anand spital EP COMPLETE EP STUDY W 2022-06-21 19:16:30 Wing Anand [facility] ABLATION SVT TYPE AND SCREEN 2022-06-21 14:56:00 Wing Anand spital ECG 12-LEAD 2022-06-21 13:49:16 Wing Anand spital COVID-19 QUALITATIVE 2022-06-20 14:29:[address] [facility] RT-PCR PROTHROMBIN TIME WITH INR 2022-06-20 14:22:00 Wing Anand [facility] CBC WITH PLATELET AND 2022-06-20 14:22:00 Wing Anand [facility] DIFFERENTIAL COMPREHENSIVE METABOLIC 2022-06-20 14:22:00 [employer] [facility] [employer] [facility] PANEL ESTIMATED GFR 2022-06-20 14:22:00 Wing Anand spital ED REFERRAL TO [facility]PS 2022-05-14 00:33:07 [facility] WORSHIP PHYSICIAN ORGANIZATION (PCP) CT ABDOMEN PELVIS W 2022-05-14 00:17:00 [facility] CONTRAST CBC WITH PLATELET AND 2022-05-13 21:09:00 [facility] DIFFERENTIAL COMPREHENSIVE METABOLIC 2022-05-13 21:09:00 [facility] PANEL LIPASE LEVEL 2022-05-13 21:09:00 [facility] ESTIMATED GFR 2022-05-13 21:09:00 [facility] Plan of Care Planned Activity Planned Date Details Comments Source Future Scheduled 2022-12-25 Hepatitis C screening [facility] Test 08:31:51 (procedure) [code = 469214319] Future Scheduled 2022-12-25 COVID-19 VACCINE (3 - [facility] Test 08:31:51 Booster for Vannessa series) [code = COVID-19 VACCINE (3 - Booster for Vannessa series)] Future Scheduled 2022-12-25 INFLUENZA VACCINE [facility] Test 08:31:51 [code = INFLUENZA VACCINE] Future Scheduled 2022-12-25 Hepatitis C screening [facility] Test 08:31:51 (procedure) [code = [id number]] Future Scheduled 2022-12-25 COVID-19 VACCINE (3 - [facility] Test 08:31:51 Booster for Vannessa series) [code = COVID-19 VACCINE (3 - Booster for Vannessa series)] Future Scheduled 2022-12-25 INFLUENZA VACCINE [facility] Test 08:31:51 [code = INFLUENZA VACCINE] Future Scheduled 2022-11-14 Hepatitis C screening [facility] Test 14:15:22 (procedure) [code = 194718089] Future Scheduled 2022-11-14 COVID-19 [facility]ACCINE (3 - [facility] Test 14:15:22 Booster for Vannessa series) [code = COVID-19 VACCINE (3 - Booster for Vannessa series)] Future Scheduled 2022-11-14 INFLUENZA VACCINE Method [facility] Test 14:15:22 [code = INFLUENZA VACCINE] Future Scheduled 2022-09-04 HEPATITIS B VACCINES Met [facility] Test 08:40:39 (1 of 3 - 3-dose series) [code = HEPATITIS B VACCINES (1 of 3 - 3-dose series)] Future Scheduled 2022-09-04 Hepatitis C screening [facility] Test 08:40:39 (procedure) [code = 434070928] Future Scheduled 2022-09-04 COVID-19 VACCINE (3 - [facility] Test 08:40:39 Booster for Vannessa series) [code = COVID-19 VACCINE (3 - Booster for Vannessa series)] Future Scheduled 2022-09-04 INFLUENZA VACCINE Method [facility] Test 08:40:39 [code = INFLUENZA VACCINE] Future Scheduled 2022-08-25 HEPATITIS B VACCINES Met [facility] Test 08:18:50 (1 of 3 - 3-dose series) [code = HEPATITIS B VACCINES (1 of 3 - 3-dose series)] Future Scheduled 2022-08-25 Hepatitis C screening [facility] Test 08:18:50 (procedure) [code = 105471285] Future Scheduled 2022-08-25 COVID-19 VACCINE (3 - [facility] Test 08:18:50 Booster for Vannessa series) [code = COVID-19 VACCINE (3 - Booster for Vannessa series)] Future Scheduled 2022-08-25 INFLUENZA VACCINE Method [facility] Test 08:18:50 [code = INFLUENZA VACCINE] Future Scheduled 2022-08-24 HEPATITIS B VACCINES [facility] Test 06:18:01 (1 of 3 - 3-dose series) [code = HEPATITIS B VACCINES (1 of 3 - 3-dose series)] Future Scheduled 2022-08-24 Hepatitis C screening [facility] Test 06:18:01 (procedure) [code = 020634967] Future Scheduled 2022-08-24 COVID-19 VACCINE (3 - [facility] Test 06:18:01 Booster for Vannessa series) [code = COVID-19 VACCINE (3 - Booster for Vannessa series)] Future Scheduled 2022-08-24 INFLUENZA VACCINE Method [facility] Test 06:18:01 [code = INFLUENZA VACCINE] Future Scheduled 2022-08-17 HEPATITIS B VACCINES Met [facility] Test 14:15:01 (1 of 3 - 3-dose series) [code = HEPATITIS B VACCINES (1 of 3 - 3-dose series)] Future Scheduled 2022-08-17 Hepatitis C screening [facility] Test 14:15:01 (procedure) [code = 004436766] Future Scheduled 2022-08-17 COVID-19 VACCINE (3 - [facility] Test 14:15:01 Booster for Vannessa series) [code = COVID-19 VACCINE (3 - Booster for Vannessa series)] Future Scheduled 2022-08-17 INFLUENZA VACCINE Method [facility] Test 14:15:01 [code = INFLUENZA VACCINE] [...] plasma] Future Scheduled 2022-07-05 HEPATITIS B VACCINES [facility] Test 17:47:18 (1 of 3 - 3-dose series) [code = HEPATITIS B VACCINES (1 of 3 - 3-dose series)] Future Scheduled 2022-07-05 Hepatitis C screening [facility] Test 17:47:18 (procedure) [code = 799278049] Future Scheduled 2022-07-05 INFLUENZA VACCINE [facility] [...] Future Scheduled 2022-06-28 HEPATITIS B VACCINES Met [facility] Test 13:37:55 (1 of 3 - 3-dose series) [code = HEPATITIS B VACCINES (1 of 3 - 3-dose series)] Future Scheduled 2022-06-28 Hepatitis C screening [facility] Test 13:37:55 (procedure) [code = 507490263] Future Scheduled 2022-06-28 INFLUENZA VACCINE Method [facility] Test 13:37:55 [code = INFLUENZA VACCINE] Future Scheduled 2022-06-26 HEPATITIS B VACCINES [facility] Test 19:57:18 (1 of 3 - 3-dose series) [code = HEPATITIS B VACCINES (1 of 3 - 3-dose series)] Future Scheduled 2022-06-26 Hepatitis C screening [facility] Test 19:57:18 (procedure) [code = 994332793] Future Scheduled 2022-06-26 INFLUENZA VACCINE Method [facility] Hospital Test 19:57:18 [code = INFLUENZA VACCINE] [...] [facility] Test 00:00:00 (procedure) [code = [facility] [id number]] Future Scheduled [address] [facility] Test 00:[facility]:00 (procedure) [code = [facility] [id number]] Future Scheduled [address] [facility] Test 00:00:00 (procedure) [code = [facility] [id number]] Future Scheduled [address] [facility] Test 00:00:00 (procedure) [code = [facility] [id number]] Future Scheduled 1997 DTAP/TDAP/TD VACCINES CH I [...] 1978 COVID-19 VACCINE (#1) [facility] Test 00:00:00 [code = COVID-[address] VACCINE (#1)] Encounters Start End Encounter Admission Attending Care Care Encounter Source Date/Time Date/Time Type Type Clinicians Facility Department ID 2022-12-20 Outpatient JORDYN Byrd [facility] [id number] Common 13:34:01 [place] [id number] Spirit - [facility] 2022-12-21 2022-12-21 Office Serrato, [id number] Methodi 14:00:00 14:29:47 Visit Wilfredo White [id number] [id number] Hospit a .3.336219 l .8 2022-12-21 2022-12-21 Office Serrato, 1.2.840.1 [id number] Methodi 14:00:00 14:29:47 Visit Wilfredo White 16143.1.[address] 3.430.2.7 Hospit a .3.866427 l .8 2022-12-21 2022-12-21 Travel 1.2.840.1 1.2.076.120 5327 [id number] Methodi 00:00:00 00:00:[address] 3.430.2.7 0.2.7.3.698 Ho spita .3.952089 084.8 l .8 2022-12-21 2022-12-21 Travel 1.2.840.1 1.2.162.167 3916 807597 Methodi 00:00:00 00:00:[address] 3.430.2.7 0.2.7.3.698 Ho spita .3.101497 084.8 l .8 2022-11-24 2022-11-24 Telephone Dejuan, 1.2.840.1 [id number] Methodi 00:00:00 00:00:[address] 3.430.2.7 Hospit a .3.617182 l .8 2022-11-24 2022-11-24 Telephone Dejuan, 1.2.840.1 [id number] Methodi 00:00:00 00:00:[address] 3.430.2.7 Hospit a .3.526413 l .8 2022-11-20 2022-11-21 Emergency Roselia Hogan 1.2.840.1 [id number] Methodi 14:54:00 18:00:[address] 3.430.2.7 Hospit a .3.042431 l .8 2022-11-20 2022-11-21 Emergency Roselia Hogan 1.2.840.1 [id number] Methodi 14:54:00 18:00:[address] 3.430.2.7 Hospit a .3.603846 l .8 2022-11-20 2022-11-20 Travel 1.2.840.1 1.2.624.369 5967 [id number] Methodi 00:00:00 00:00:[address] 3.430.2.7 0.2.7.3.698 Ho spita .3.232121 084.8 l .8 2022-11-20 2022-11-20 Travel 1.2.840.1 1.2.030.350 9743 012512 Methodi 00:00:00 00:00:[address] 3.430.2.7 0.2.7.3.698 Ho spita .3.879385 084.8 l .8 2022-10-26 2022-10-26 Outpatient [facility] [id number] [facility] 00:00:00 00:00:00 LAYTON REID cristhianandie of Medicin e 2022-10-10 2022-10-10 [facility] [id number] Univers 14:14:59 23:59:00 ity of [facility] 2022-10-10 2022-10-10 [facility] 1.2.840.114 9 [id number] Univers 14:14:59 23:59:00 Cuco PINEDA 350.1.13.10 ity [facility] 4.2.7.2.686 [facility] [id number] [facility] [address] 2022-10-01 2022-10-01 Emergency X [facility]RT [id number] Univers 10:51:00 12:56:00 MANOJ marisabellaurie [facility] 2022-10-01 2022-10-01 Emergency [facility] 1.2.056.090 3330 0940 Univers 10:51:00 12:56:00 Manoj PINEDA 350.1.13.10 ity [facility] 4.2.7.2.686 [facility] [id number] [facility] [address] 2022-08-16 2022-08-16 Travel 1.2.840.1 1.2.453.901 3071 [id number] Methodi 00:00:00 00:00:[address] 3.430.2.7 0.2.7.3.698 Ho spita .3.652590 084.8 l .8 2022-08-16 2022-08-16 Travel 1.2.840.1 1.2.052.087 2806 014667 Methodi 00:00:00 00:00:[address] 3.430.2.7 0.2.7.3.698 Ho spita .3.838401 084.8 l .8 2022-07-20 2022-07-20 Outpatient GC_TPP_Pour PRIV PRIV 247 86908-7 [facility] 00:00:00 00:00:00 -Jafari_B [id number] [facility] 2022-07-20 2022-07-20 [facility] 00:00:00 00:00:00 [facility] tata conti MD: 427 GC_TPP_[address] Office* [address] [address] , Ph. 2022-07-06 2022-07-06 Outpatient GC_TPP_Pour PRIV PRIV 247 [id number] [facility] 00:00:00 00:00:00 -Jafari_B [id number] [facility] 2022-07-06 2022-07-06 Ash[facility] 08 [facility] 00:00:00 00:00:00 [facility] tata conti MD: 427 GC_TPP_[address] Office* [address] [address] , Ph. 2022-07-06 2022-07-06 Outpatient Pour-Iris PRIV PRIV 56f fca20-2 00:00:00 00:00:00 , [facility]8-11ed-8 [id number] 931e95 2022-06-29 2022-06-29 Outpatient GC_TPP_Pour PRIV PRIV 247 [id number] [facility] 00:00:00 00:00:00 -Jafari_B [id number] [facility] 2022-06-21 2022-06-22 [facility], .2.840.1 [id number] Methodi 07:33:00 12:53:00 Encounter Wing 71340.1.[address] 3.430.2.7 Hospit a .3.169217 l .8 2022-06-21 2022-06-22 [place] [address].2.840.1 [id number] Methodi 07:33:00 12:53:00 Encounter Wing 72684.1.[address] 3.430.2.7 Hospit a .3.549566 l .8 2022-06-212022-06-21 Anesthesia Koby Dowling V. 1.2.840.1 [id number] Methodi 10:40:00 14:35:00 Event Darshana Joaquin 53277.1.[address] 3.430.2.7 Hospit a .3.537027 l .8 2022-06-21 2022-06-21 Anesthesia Koby Dowling V. 1.2.840.1 [id number] Methodi 10:40:00 14:35:00 Event Darshana Joaquin 48328.1.[address] 3.430.2.7 Hospit a .3.415541 l .8 2022-06-21 2022-06-21 Surgery Nazeri, 1.2.840.1 [id number] 5739 Methodi 10:30:00 13:00:[address] 3.430.2.7 Hospit a .3.581998 l .8 2022-06-21 2022-06-21 Surgery Nazeri, 1.2.840.1 [id number] 2423 Methodi 10:30:00 13:00:[address] 3.430.2.7 Hospit a .3.035663 l .8 2022-06-20 2022-06-20 Lab Nazeri, 1.2.840.1 [id number] 9199 Methodi 08:55:00 09:00:[address] 3.430.2.7 Hospit a .3.896609 l .8 2022-06-20 2022-06-20 Lab Nazeri, 1.2.840.1 [id number] 3647 Methodi 08:55:00 09:00:[address] 3.430.2.7 Hospit a .3.355658 l .8 2022-06-20 2022-06-20 Travel 1.2.840.1 1.2.728.230 9179 [id number] Methodi 00:00:00 00:00:[address] 3.430.2.7 0.2.7.3.698 Ho spita .3.124006 084.8 l .8 2022-06-20 2022-06-20 Travel 1.2.840.1 1.2.013.855 2881 343996 Methodi 00:00:00 00:00:[address] 3.430.2.7 0.2.7.3.698 Ho spita .3.727180 084.8 l .8 2022-06-16 2022-06-16 [facility] Nazeri, 1.2.840.1 [id number] Methodi 00:00:00 00:00:00 Orders Wing 81464.1.[address] 3.430.2.7 Hospit a .3.838182 l .8 2022-06-16 2022-06-16 [facility] Nazeri, 1.2.840.1 [id number] Methodi 00:00:00 00:00:00 Orders Wing 60451.1.[address] 3.430.2.7 Hospit a .3.032917 l .8 2022-05-13 2022-05-13 Emergency Jef Merlosun 1.2.840.1 [id number] 21 [id number] Methodi 15:34:00 19:53:00 Chudriss Rey 11111.1.1 363 s t 3.430.2.7 Hospit a .3.834440 l .8 2022-05-13 2022-05-13 Emergency Gaurang, Katie 1.2.840.1 [id number] 21 [id number] Methodi 15:34:00 19:53:00 Chul Rey 11464.1.1 363 s t 3.430.2.7 Hospit a .3.343112 l .8 2022-03-24 2022-03-24 Outpatient [place] [facility] [id number] [facility] 17:00:00 17:27:59 DOMI [facility] 2022-03-24 2022-03-24 Urgent Stalin, [facility] 1.2.840.114 [id number] 103 [facility] 17:00:00 17:27:59 Care [facility] 350.1.13.10 i Emile 4.2.7.2.686 Jacob as LOR?BLEA [id number] [address] MEDICAL OFFICE BUILDING 2020-10-14 2020-10-14 Outpatient NAZERI, [facility] [id number] [place] 00:00:00 00:00:[address] 2020-07-18 2020-07-18 Outpatient NAZERI, [facility] [id number] [place] 00:00:00 00:00:00 WING [address] 2020-06-18 2020-06-18 Outpatient NAZERI, [facility] [id number] [place] 00:00:00 00:00:[address] W[address] Results Test Description Test Time Test Comments Results Result Comments Source ECG 12 lead 2022-11-21 16:36:19 Test Item Value Reference Range Interpretation Comme nts Ventricular rate (test code = 253) 73 Atrial rate (test code = 255) 73 FL interval (test code = 266) 150 QRSD [...] of 21-JUN-2022 08:49,-No significant change was found- [facility] [id number] 16:36:19 Test Item Value Reference Range Interpretation Comments Ventricular rate (test 73 code = 253) Atrial rate (test code 73 = 255) FL interval (test code 150 = 266) QRSD interval (test 82 code = 260) QT interval (test code 384 = 264) QTC interval (test code 423 = 265) P axis 1 (test code = 46 267) QRS axis 1 (test code = 13 268) T wave axis (test code 31 = 270) EKG impression (test Normal sinus rhythm code = 273) with sinus arrhythmia-Normal ECG-In automated comparison with ECG of 21-JUN-2022 08:49,-No significant change was found- [facility] DikhcxwtAOWY-BeH-4 (COVID-19) RNA [Presence] in Respiratory specimen by DENIS with probe [id number] 07:30:52 Test Item Value Reference Range Interpretation Comments SARS-CoV-2 (COVID-19) RNA Not detected [Presence] in Respiratory specimen by DENIS with probe detection (test code = 93183-4) Whether patient is employed in a Unknown healthcare setting (test code = 58509-0) Whether the patient has symptoms Unknown related to condition of interest (test code = 26326-0) Whether the patient was Unknown hospitalized for condition of interest (test code = 36119-4) Whether the patient was admitted Unknown to intensive care unit (ICU) for condition of interest (test code = 62237-0) Whether patient resides in a Unknown congregate care setting (test code = 01113-0) status (test code = Unknown 01017-8) Date and time of symptom onset Unknown (test code = 82568-3) JOAQUIN CRUMP [facility]2023-01-24 02:57:00 Test Item Value Reference Range Interpretation Comments Urine culture (test SEE COMMENT Bacteriu surya screen code = 8019173) negative. [facility] [id number] 02:57:00 Test Item Value Reference Range Interpretation Comments Urine culture (test SEE COMMENT Bacteriu surya screen code = 6212707) negative. [facility] 12 [id number] 12:52:17 Test Item Value Reference Range Interpretation Comments Ventricular rate (test code = 253) Atrial rate (test code = 255) FL interval (test code = 266) QRSD interval [...] Kinsey MD ([id number]) on 06/22/2022 7:52:[address]2022-08-25 12:52:17 Test Item Value Reference Range Interpretation Comments Ventricular rate (test code = 253) Atrial rate (test code = 255) FL interval (test code = 266) QRSD interval [...] Kinsey MD ([id number]) on 06/22/2022 7:52:15 AM [address]2022-08-25 12:52:17 Test Item Value Reference Range Interpretation Comments Ventricular rate (test code = 253) Atrial rate (test code = 255) FL interval (test code = 266) QRSD interval [...] Kinsey MD ([id number]) on 06/22/2022 7:52:15 AM [address]2022-08-25 12:52:17 Test Item Value Reference Range Interpretation Comments Ventricular rate (test code = 253) Atrial rate (test code = 255) FL interval (test code = 266) QRSD interval [...] Kinsey MD ([id number]) on 06/22/2022 7:52:[address]2022-08-25 12:52:17 Test Item Value Reference Range Interpretation Comments Ventricular rate (test code = 253) Atrial rate (test code = 255) FL interval (test code = 266) QRSD interval [...] Kinsey MD ([id number]) on 06/22/2022 7:52:[address]2022-08-25 12:52:17 Test Item Value Reference Range Interpretation Comments Ventricular rate (test code = 253) Atrial rate (test code = 255) FL interval (test code = 266) QRSD interval [...] Kinsey MD ([id number]) on 06/22/2022 7:52:[address]2022-08-25 12:52:17 Test Item Value Reference Range Interpretation Comments Ventricular rate (test code = 253) Atrial rate (test code = 255) FL interval (test code = 266) QRSD interval [...] Kinsey MD ([id number]) on 06/22/2022 7:52:15 AM [address]2022-08-25 12:52:17 Test Item Value Reference Range Interpretation Comments Ventricular rate (test code = 253) Atrial rate (test code = 255) FL interval (test code = 266) QRSD interval [...] Kinsey MD ([id number]) on 06/22/2022 7:52:15 AM [facility] [id number] 18:12:38 Test Item Value Reference Interpretation Comments Range Interpretation (test Negative results do not code = 0947475) preclude COVID-19 infection and should not be used asthe sole basis for treatment or other patient management decisions. Negativeresults must be combined with clinical observations, patient history, andepidemiological information. COVID-19 qualitative Not-Detected Not-Detected RT-PCR result (test code = 83319-9) COVID-19 qualitative See link below for PDF Case Number: RT-PCR (test code = Lab Report [id number] 5028 7070) [facility] [id number] 18:12:38 Test Item Value Reference Interpretation Comments Range Interpretation (test Negative results do not code = 8081986) preclude COVID-19 infection and should not be used asthe sole basis for treatment or other patient management decisions. Negativeresults must be combined with clinical observations, patient history, andepidemiological information. COVID-19 qualitative Not-Detected Not-Detected RT-PCR result (test code = 75026-6) COVID-19 qualitative See link below for PDF Case Number: RT-PCR (test code = Lab Report [id number] 5028 7070) [facility] [id number] 18:12:38 Test Item Value Reference Interpretation Comments Range Interpretation (test Negative results do not code = 7831828) preclude COVID-19 infection and should not be used asthe sole basis for treatment or other patient management decisions. Negativeresults must be combined with clinical observations, patient history, andepidemiological information. COVID-19 qualitative Not-Detected Not-Detected RT-PCR result (test code = 31846-8) COVID-19 qualitative See link below for PDF Case Number: RT-PCR (test code = Lab Report [id number] 5028 7070) [facility] [id number] 18:12:38 Test Item Value Reference Interpretation Comments Range Interpretation (test Negative results do not code = 2574559) preclude COVID-19 infection and should not be used asthe sole basis for treatment or other patient management decisions. Negativeresults must be combined with clinical observations, patient history, andepidemiological information. COVID-19 qualitative Not-Detected Not-Detected RT-PCR result (test code = 96429-4) COVID-19 qualitative See link below for PDF Case Number: RT-PCR (test code = Lab Report [id number] 5028 7070) [facility] [id number] 18:12:38 Test Item Value Reference Interpretation Comments Range Interpretation (test Negative results do not code = 9647435) preclude COVID-19 infection and should not be used asthe sole basis for treatment or other patient management decisions. Negativeresults must be combined with clinical observations, patient history, andepidemiological information. COVID-19 qualitative Not-Detected Not-Detected RT-PCR result (test code = 42702-4) COVID-19 qualitative See link below for PDF Case Number: RT-PCR (test code = Lab Report [id number] 5028 7070) [facility] qualitative [id number] 18:12:38 Test Item Value Reference Interpretation Comments Range Interpretation (test Negative results do not code = 6488454) preclude COVID-19 infection and should not be used asthe sole basis for treatment or other patient management decisions. Negativeresults must be combined with clinical observations, patient history, andepidemiological information. COVID-19 qualitative Not-Detected Not-Detected RT-PCR result (test code = 66021-7) COVID-19 qualitative See link below for PDF Case Number: RT-PCR (test code = Lab Report [id number] 5028 7070) [facility] [id number] 18:12:38 Test Item Value Reference Interpretation Comments Range Interpretation (test Negative results do not code = 5664098) preclude COVID-19 infection and should not be used asthe sole basis for treatment or other patient management decisions. Negativeresults must be combined with clinical observations, patient history, andepidemiological information. COVID-19 qualitative Not-Detected Not-Detected RT-PCR result (test code = 92093-6) COVID-19 qualitative See link below for PDF Case Number: RT-PCR (test code = Lab Report [id number] 5028 7070) [facility] [id number] 18:12:38 Test Item Value Reference Interpretation Comments Range Interpretation (test Negative results do not code = 5483383) preclude COVID-19 infection and should not be used asthe sole basis for treatment or other patient management decisions. Negativeresults must be combined with clinical observations, patient history, andepidemiological information. COVID-19 qualitative Not-Detected Not-Detected RT-PCR result (test code = 23314-1) COVID-19 qualitative See link below for PDF Case Number: RT-PCR (test code = Lab Report [id number] 5028 7070) Juan Diego McintoshARS-CoV-2 (COVID-19) RNA [Presence] in Respiratory specimen by DENIS with probe [id number] 13:12:38 Test Item Value Reference Range Interpretation Comments SARS-CoV-2 (COVID-19) RNA Not detected [Presence] in Respiratory specimen by DENIS with probe detection (test code = 23925-1) Whether patient is employed in a Unknown healthcare setting (test code = 69962-2) Whether the patient has symptoms Unknown related to condition of interest (test code = 23077-1) Whether the patient was Unknown hospitalized for condition of interest (test code = 18928-3) Whether the patient was admitted Unknown to intensive care unit (ICU) for condition of interest (test code = 16747-4) Whether patient resides in a Unknown congregate care setting (test code = 05389-1) status (test code = Unknown 48873-9) Date and time of symptom onset Unknown (test code = 61808-8) JOAQUIN LIRIANORS-CoV-2 (COVID-19) RNA [Presence] in Respiratory specimen by DENIS with probe [id number] 23:44:02 Test Item Value Reference Range Interpretation Comments SARS-CoV-2 (COVID-19) RNA Not detected Not-Detected [Presence] in Respiratory specimen by DENIS with probe detection (test code = 72906-0) JOAQUIN SOLANO2019-10-04 08:01:00 Test Item Value Reference Range Interpretation Comments CULTURE (BEAKER) (test No growth in 5 days code = 1095) MISCELLANEOUS LAB [id number] 07:37:00 Test Item Value Reference Range Interpretation Comments SCAN RESULT (test code = 8306593) BLOOD [id number] 08:00:00 Test Item Value Reference Range Interpretation Comments CULTURE (BEAKER) (test No growth in 5 days code = 1095) BLOOD [id number] 08:00:00 Test Item Value Reference Range Interpretation Comments CULTURE (BEAKER) (test No growth in 5 days code = 1095) ANTI-NUCLEAR ANTIBODY (AURA)2019-07-30 09:44:00 Test Item Value Reference Range Interpretation Comments ANTI-NUCLEAR ANTIBODY (AURA) (BEAKER) Positive Negative A (test code = 418) Test performed by IFA method.ARUA TITER AND [id number] 09:44:00 Test Item Value Reference Range Interpretation Comments AURA TITER (BEAKER) (test code = >=:2560 1541) ARUA PATTERN (BEAKER) (test code = Homogeneous 1781) [...] (test code Normal = 486) HEPATIC FUNCTION [id number] 09:58:00 Test Item Value Reference Range Interpretation [...] 347) CBC WITH PLATELET COUNT + MANUAL [id number] 09:29:00 Test Item Value Reference Range Interpretation [...] (BEAKER) (test code = 413) RESPIRATORY PANEL [id number] 15:15:00 Test Item Value Reference Range Interpretation [...] decisions. This sample was tested at the [facility] using the [employer] SolutionsArray Respiratory Panel. It is FDA cleared and has been verified and approved by the [facility] for clinical use on nasopharyngeal swab specimens.The performance of the FilmArrayRP has not been established in individuals who received influenza vaccine. Recent administration of a nasal influenza vaccine may cause false positive results for Influenza A and/orInfluenza B.EBV VIRAL [id number] 13:49:00 Test Item Value Reference Range Interpretation [...] (2) real-time PCR amplification and detection with AZCY-6-vnxfpdbz primers and probes. A well-conserved region of the EBNA-1 gene is targeted, along with an internal control sequence used to confirm PCR amplification. Asymptomatic carriers and viral genetic variation, among other factors, can affect the accuracy of nucleic acidtesting; therefore, results should be interpreted in light of clinical data.This test was developed and its performance characteristics determined by the [facility] Pathology Department,Section of Molecular Pathology. It [...] real- time PCR amplification and detection with WBOA-1-hbyzzjbc primers and probes. A well-conserved region of the EBNA-1 gene is targeted, along with an internal control sequence used to confirm PCR amplification. Asymptomatic carriers and viral genetic variation, among other factors, can affect the accuracy of nucleic acid testing; therefore, results should be interpreted in light of clinical data.This test was developed and its performance characteristics determined by the [facility] Pathology Department, Section of Molecular Pathology.It has not been cleared or approved by the U.S. Food and Drug Administration (FDA), since FDA approval is not required for clinical use of the test. Validation was done as required by The Clinical Laboratory Improvement Amendments of 1988.CMV PCR, [id number] 13:43:00 Test Item Value Reference Range Interpretation [...] and its performance characteristics determined by the [facility] Pathol ogy Department, Section of Molecular Pathology. It has not been cleared or approved by the U.S. Foodand Drug Administration (FDA), since FDA approval is not required for clinical use of the test. Validation was done as required by The Clinical Laboratory Improvement Amendments of 1988.RHEUMATOID FACTOR AB, REFLEX TO [id number] 13:10:00 Test Item Value Reference Range Interpretation Comments RHEUMATOID FACTOR (BEAKER) (test Negative code = 573) BASIC METABOLIC [id number] 06:42:00 Test Item Value Reference Range Interpretation [...] GFR I S NOT APPLICABLE FOR DIALYSIS PATIPRECIOUS TS. [id number] 12:15:00 Test Item Value Reference Range Interpretation Comments RPR SCREEN (BEAKER) (test code = Nonreactive Nonreactive 420) HIV-1 ANTIGEN WITH HIV-1/2 [id number] 04:56:00 Test Item Value Reference Range Interpretation Comments HIV-1 ANTIGEN WITH HIV 1\T\2 Nonreactive Nonreactive ANTIBODY (2) (BEAKER) (test code = 2586) BASIC METABOLIC [id number] 04:24:00 Test Item Value Reference Range Interpretation Comments SODIUM (BEAKER) 139 meq/L 136-145 (test code = 381) POTASSIUM (BEAKER) 3.8 meq/L 3.5-5.1 (test code = 379) CHLORIDE (BEAKER) 106 meq/L 98-107 (test code = 382) CO2 (BEAKER) (test 26 meq/L -29 code = 355) BLOOD UREA NITROGEN 9 [...] DIALYSIS PATIEN TS. URINALYSIS W/ REFLEX URINE [id number] 00:26:00 Test Item Value Reference Range Interpretation [...] = 2795) RAD, CHEST, 1 VIEW, NON [id number] 10:25:00Reason for exam:- >leukocytosis, fever r/o infectionFINAL [...] MDReport Verified Date/Time: 07/26/2019 10:25:43 Reading Location: [facility] C013X Ortho Consult Reading Room CBC W/PLT COUNT & AUTO [id number] 10:24:00 Test Item Value Reference Range Interpretation [...] = 3438) Received comment: User comments: Slide comments:[id number] 10:11:00 Test Item Value Reference Range Interpretation [...] pg/mL 0-100 (test code = 700) TROPONIN [id number] 10:00:00 Test Item Value Reference Range Interpretation [...] acute neurological disease, and persistent tachyarrhythmia.BASIC METABOLIC [id number] 09:54:00 Test Item Value Reference Range Interpretation [...] U/L 29-200 code = 380) POCT-LACTIC ACID, [id number] 09:50:00 Test Item Value Reference Range Interpretation Comments POC-LACTIC ACID, 1.3 mmol/L 0.4-1.3 TESTED AT [facility] [address] ART[address] (BEAKER) [facility] (test code = 2804) [address] [id number]-[id number] 09:50:00 Test Item Value Reference Range Interpretation Comments POC-HEMOGLOBIN 11.6 g/dL 13.0-16.8 L TESTED AT [facility] 6720 (BEAKER) ([facility]56) 78959ZZQSDV AT [place] [address] [facility] [address] POCT-BLOOD GASES, [id number] 09:49:00 Test Item Value Reference Range Interpretation Comments TEMP, CELSIUS-POC 37.0 (BEAKER) (test code = 1834) FIO2-POC (BEAKER) TESTED AT [place] [address] (test code = 1835) [facility] [address] PH, ARTERIAL-POC 7.370 7.350-7.450 (BEAKER) (test code = 1836) PCO2, ARTERIAL-POC 41.0 mm Hg 35.0-45.0 (BEAKER) (test code = 1837) PO2, ARTERIAL-POC 86.0 mm Hg 80.0-90.0 (BEAKER) (test code = 1838) SO2, ARTERIAL-POC 96.0 % 96.0-97.0 (BEAKER) (test code = 1839) HCO3, ARTERIAL-POC 23.7 meq/L 21.0-29.0 (BEAKER) (test code = 1840) BASE EXCESS, -2.0 meq/L -2.0-3.0 ARTERIAL-POC (BEAKER) (test code = 1841) [id number] 09:49:00 Test Item Value Reference Range Interpretation Comments POC-SODIUM (BEAKER) 137 meq/L 135-148 TESTED A T [place] [address] (test code = 1542) [facility] [address] [id number] 09:49:00 Test Item Value Reference Range Interpretation Comments POC-POTASSIUM 3.3 meq/L 3.6-5.5 L TESTED AT [place] [id number] (BEAKER) ([facility] [address] = 1540) [id number] 09:49:00 Test Item Value Reference Range Interpretation Comments POC-GLUCOSE (BEAKER) 153 mg/dL 70-110 H TESTED AT [facility] 6720 (test code = 1855) [place] [address] POCT-CALCIUM [id number] 09:49:00 Test Item Value Reference Range Interpretation Comments POC-CALCIUM IONIZED 1.22 mmol/L 1.12-1.27 TESTED A T [facility] 67 (BEAKER) (test code = RICHELLE [place] 1536) [address] [id number] 09:49:00 Test Item Value Reference Range Interpretation Comments POC-HEMATOCRIT 34 % 40-50 L TESTED AT [facility] 6720 (BEAKER) (test code = RICHELLE Coleman [facility] [address] 1857) URINALYSIS WITH MICROSCOPIC IF [id number] 07:55:00 Test Item Value Reference Range Interpretation [...] 0.2-1.0 = 463) SOURCE(BEAKER) (test code = 2794) URINALYSIS [id number] 07:55:00 Test Item Value Reference Range Interpretation Comments RBC UA (BEAKER) (test code = 519) 1 /HPF WBC UA (BEAKER) (test code = 520) 9 /HPF MUCUS (BEAKER) (test code = 1574) Rare SQUAMOUS EPITHELIAL (BEAKER) (test < /HPF code = 516) C-REACTIVE [id number] 07:27:00 Test Item Value Reference Range Interpretation Comments C-REACTIVE PROTEIN (BEAKER) (test 15.31 mg/dL 0.00-0.50 H code = 676) CBC W/PLT COUNT & AUTO [id number] 04:17:00 Test Item Value Reference Range Interpretation [...] (BEAKER) (test code = 2801) BASIC METABOLIC [id number] 03:45:00 Test Item Value Reference Range Interpretation [...]
[2023-01-07] MEDS ORDERED: NA CHLORIDE 0.9% 1,000 ML ONE (21:42)
[2023-01-07 21:45] LABS: Urine Blood Negative (Negative); Urine Glucose Negative (Negative); Urine Protein Negative (Negative); Urine pH 7.5 (5.0-7.0)
[2023-01-07 21:54] LABS: Absolute Lymphocytes (CBC) 2.9 K/uL (0.7-4.9); Hematocrit 38.7 % (39.6-49.0); Lymphocytes % 38.5 % (15.3-44.8); MPV 9.7 fL (7.6-11.3); RBC Red Blood Cell Count 4.25 M/uL (4.33-5.43)
[2023-01-07 21:55] LABS: Urine Bacteria None Seen /HPF (<20); Urine Mucus Slight /HPF (None Seen); Urine RBC <5 /HPF (None Seen)
[2023-01-07 22:13] LABS: Albumin 3.9 g/dL (3.4-5.0); Bilirubin Total 0.5 mg/dL (0.2-1.0); Potassium 3.5 mmol/L (3.5-5.1); Protein, Total 7.7 g/dL (6.4-8.2)
[2023-01-07 22:29] LABS: SARS-COV-2 RT PCR NEGATIVE (NEGATIVE)
[2023-01-08 01:07] VITALS: TEMP 97.8
[2023-01-08 01:09] VITALS: BP 103/76; O2SAT 98
--- NOTE | 2023-01-19 16:56 | ER ---
Nurse's Notes [facility] Name: Uzair Sullivan Age: 42 yrs Sex: Male : 1980 Arrival Date: 01/07/2023 Time: 17:41 Bed 5 Private MD: Juanis Null Diagnosis: Abdominal pain, unspecified;Pain in throat Presentation: 01/07 18:10 Chief complaint: Patient states: I have been having issues with my stomach for months, kr3 I have seen a GI specialist and done several test. The only relief I get is when I lay down, it hurts to walk and talk. I feel like my gums are pale and the back of my throat is infected, and I have been getting the chills. Coronavirus screen: Vaccine status: Patient reports receiving the 2nd dose of the covid vaccine. Ebola Screen: Patient denies travel to an Ebola-affected area in the 21 days before illness onset. Initial Sepsis Screen: Does the patient meet any 2 criteria? No. Patient's initial sepsis screen is negative. Does the patient have a suspected source of infection? No. Patient's initial sepsis screen is negative. Risk Assessment: Do you want to hurt yourself or someone else? Patient reports no desire to harm self or others. Onset of symptoms was January 07, 2023. 18:10 Method Of Arrival: Ambulatory kr3 18:10 Acuity: GLORIA 3 kr3 Triage Assessment: 18:15 General: Appears in no apparent distress. comfortable, Behavior is calm, cooperative, kr3 appropriate for age. Pain: Complains of pain in abdomen. EENT: Reports pain in throat. Neuro: Level of Consciousness is awake, alert, obeys commands, Oriented to person, place, time, situation. Cardiovascular: Patient's skin is warm and dry. Respiratory: Airway is patent Respiratory effort is even, unlabored, Respiratory pattern is regular, symmetrical. GI: Reports nausea. : No signs and/or symptoms were reported regarding the genitourinary system. Derm: No signs and/or symptoms reported regarding the dermatologic system. Musculoskeletal: No signs and/or symptoms reported regarding the musculoskeletal system. Historical: - Allergies: 18:14 HYDROCODONE; kr3 18:14 Morphine; kr3 - PMHx: 18:14 Lupus erythematosus; Diverticulitis; arrhythmia; kr3 - PSHx: 18:14 Heart ablation; heart cath; kr3 - Immunization history:: Adult Immunizations not up to date. - Social history:: Smoking status: Patient denies any tobacco usage or history of. Screenin:53 [facility] ED Fall Risk Assessment (Adult) Score/Fall Risk Level 0 - 2 = Low Risk. Abuse as6 screen: Denies threats or abuse. Denies injuries from another. Nutritional screening: No deficits noted. Tuberculosis screening: No symptoms or risk factors identified. Assessment: 21:54 General: Appears in no apparent distress. Behavior is calm, cooperative. Pain: as6 Complains of pain in right lower quadrant and left lower quadrant Quality of pain is described as dull. Neuro: Level of Consciousness is awake, alert, obeys commands, Oriented to person, place, time, situation. Cardiovascular: Capillary refill < 3 seconds Patient's skin is warm and dry. Respiratory: Respiratory effort is even, unlabored. GI: Reports lower abdominal pain, nausea, normal bowel habits. EENT: Reports sore throat . Vital Signs: 18:10 BP 124 / 94; Pulse 76; Resp 18; Temp 97.8; Pulse Ox 97% on R/A; Weight 70.76 kg; Height kr3 5 ft. 9 in. ; Pain 4/10; 21:55 BP 120 / 89; Pulse 66; Resp 18 S; Pulse Ox 100% on R/A; as6 23:10 BP 103 / 76; Pulse 56; Resp 18 S; Pulse Ox 98% on R/A; as6 18:10 Body Mass Index 23.04 (70.76 kg, 175.26 cm) kr3 18:10 Pain Scale: Adult kr3 ED Course: 17:41 Patient arrived in ED. mr 17:42 Juanis Null DO is Private Physician. mr 18:14 Triage completed. kr3 18:16 Arm band placed on right wrist. kr3 19:18 Ethan Bhatia MD is Attending Physician. celeste 21:34 Placed in gown. Bed in low position. Call light in reach. Side rails up X 1. Client mb9 placed on continuous cardiac and pulse oximetry monitoring. NIBP monitoring applied. bus driver/monitor on. Door closed. Noise minimized. Warm blanket given. 21:36 Deep Campos, AVANI is Primary Nurse. as6 21:41 Inserted saline lock: 20 gauge in right antecubital area, using aseptic technique. as6 Blood collected. 21:45 COVID-19/FLU A+B Sent. mb9 21:45 Urine Culture Sent. mb9 21:45 Urine Microscopic Only Sent. mb9 21:45 Strep Sent. mb9 22:56 Juanis Null DO is Referral Physician. celeste 22:[address] MD is Referral Physician. celeste 23:09 No provider procedures requiring assistance completed. IV discontinued, intact, as6 bleeding controlled, No redness/swelling at site. Pressure dressing applied. Administered Medications: 21:48 Drug: NS 0.9% IV 1000 ml Route: IV; Rate: 1 bolus; Site: right antecubital; as6 23:09 Follow up: Response: No adverse reaction; IV Status: Completed infusion; IV Intake: as6 1000ml Medication: 21:34 VIS not applicable for this client. mb9 Intake: 23:09 IV: 1000ml; Total: 1000ml. as6 Outcome: 22:57 Discharge ordered by . [facility] 23:09 Discharged to home ambulatory. as6 23:09 Condition: stable 23:09 Discharge instructions given to patient, Instructed on discharge instructions, follow up and referral plans. medication usage, Demonstrated understanding of instructions, follow-up care, medications, Prescriptions given X 1. 23:11 Patient left the ED. as6 Signatures: Ethan Bhatia MD MD cha Rivera, Mary mr Slawson, Ashby, RN RN as6 Amber Royal RN RN wade3 Petty Newman RN RN mb9
--- NOTE | 2023-01-19 16:57 | EDPHYS ---
Physician Documentation [facility] Name: Uzair Sullivan Age: 42 yrs Sex: Male : 1980 Arrival Date: 01/07/2023 Time: 17:41 Bed 5 Private MD: Juanis Null ED Physician Ethan Bhatia HPI: 01/07 22:08 This 42 yrs old Male presents to ER via Ambulatory with complaints of celeste Abdominal Pain, Sore Throat. 22:08 The patient presents with sore throat. The patient describes throat pain as burning, celeste dry. Onset: The symptoms/episode began/occurred 2 day(s) ago. Severity of symptoms: At their worst the symptoms were very mild, in the emergency department the symptoms are unchanged. Modifying factors: The symptoms are alleviated by nothing, the symptoms are aggravated by nothing. Associated signs and symptoms: Pertinent positives: Sore throat. The patient has not experienced similar symptoms in the past. Historical: - Allergies: 18:14 HYDROCODONE; kr3 18:14 Morphine; kr3 - PMHx: 18:14 Lupus erythematosus; Diverticulitis; arrhythmia; kr3 - PSHx: 18:14 Heart ablation; heart cath; kr3 - Immunization history:: Adult Immunizations not up to date. - Social history:: Smoking status: Patient denies any tobacco usage or history of. ROS: 22:10 Constitutional: Negative for fever, chills, and weight loss, Eyes: Negative for injury, celeste pain, redness, and discharge, Neck: Negative for injury, pain, and swelling, Cardiovascular: Negative for chest pain, palpitations, and edema, Respiratory: Negative for shortness of breath, cough, wheezing, and pleuritic chest pain, Back: Negative for injury and pain, : Negative for injury, bleeding, discharge, and swelling, MS/Extremity: Negative for injury and deformity, Skin: Negative for injury, rash, and discoloration, Neuro: Negative for headache, weakness, numbness, tingling, and seizure, Psych: Negative for depression, anxiety, suicide ideation, homicidal ideation, and hallucinations, Allergy/Immunology: Negative for hives, rash, and allergies, Endocrine: Negative for neck swelling, polydipsia, polyuria, polyphagia, and marked weight changes, Hematologic/Lymphatic: Negative for swollen nodes, abnormal bleeding, and unusual bruising. 22:10 ENT: Positive for sore throat. 22:10 Abdomen/GI: Positive for abdominal pain. Exam: 22:10 Constitutional: This is a well developed, well nourished patient who is awake, alert, celeste and in no acute distress. Head/Face: Normocephalic, atraumatic. Eyes: Pupils equal round and reactive to light, extra-ocular motions intact. Lids and lashes normal. Conjunctiva and sclera are non-icteric and not injected. Cornea within normal limits. Periorbital areas with no swelling, redness, or edema. ENT: Nares patent. No nasal discharge, no septal abnormalities noted. Tympanic membranes are normal and external auditory canals are clear. Oropharynx with no redness, swelling, or masses, exudates, or evidence of obstruction, uvula midline. Mucous membranes moist. Neck: Trachea midline, no thyromegaly or masses palpated, and no cervical lymphadenopathy. Supple, full range of motion without nuchal rigidity, or vertebral point tenderness. No Meningismus. Chest/axilla: Normal chest wall appearance and motion. Nontender with no deformity. No lesions are appreciated. Cardiovascular: Regular rate and rhythm with a normal S1 and S2. No gallops, murmurs, or rubs. Normal PMI, no JVD. No pulse deficits. Respiratory: Lungs have equal breath sounds bilaterally, clear to auscultation and percussion. No rales, rhonchi or wheezes noted. No increased work of breathing, no retractions or nasal flaring. Abdomen/GI: Soft, non-tender, with normal bowel sounds. No distension or tympany. No guarding or rebound. No evidence of tenderness throughout. Back: No spinal tenderness. No costovertebral tenderness. Full range of motion. Male : Normal genitalia with no discharge or lesions. Skin: Warm, dry with normal turgor. Normal color with no rashes, no lesions, and no evidence of cellulitis. MS/ Extremity: Pulses equal, no cyanosis. Neurovascular intact. Full, normal range of motion. Neuro: Awake and alert, GCS 15, oriented to person, place, time, and situation. Cranial nerves II-XII grossly intact. Motor strength 5/5 in all extremities. Sensory grossly intact. Cerebellar exam normal. Normal gait. Psych: Awake, alert, with orientation to person, place and time. Behavior, mood, and affect are within normal limits. Vital Signs: 18:10 BP 124 / 94; Pulse 76; Resp 18; Temp 97.8; Pulse Ox 97% on R/A; Weight 70.76 kg; Height kr3 5 ft. 9 in. ; Pain 4/10; 21:55 BP 120 / 89; Pulse 66; Resp 18 S; Pulse Ox 100% on R/A; as6 23:10 BP 103 / 76; Pulse 56; Resp 18 S; Pulse Ox 98% on R/A; as6 18:10 Body Mass Index 23.04 (70.76 kg, 175.26 cm) kr3 18:10 Pain Scale: Adult kr3 MDM: 19:18 Patient medically screened. [facility] 21:11 Medical screening is not applicable. [facility] 22:11 Data reviewed: vital signs, nurses notes, lab test result(s). Consideration of celeste Admission/Observation Escalation of care including admission/observation considered. Test considered but Not performed: CT: no ct abd and pelvis. Care significantly affected by the following chronic conditions: lupus, diverticulitis, arrythmia. 01/07 17:43 Order name: Strep; Complete Time: 22:56 [facility] 01/07 17:43 Order name: Urine Culture [facility] 01/07 17:43 Order name: Urine Microscopic Only; Complete Time: 22:07 sn 01/07 17:43 Order name: COVID-19/FLU A+B; Complete Time: 22:56 [facility] 01/07 19:18 Order name: CBC with Diff; Complete Time: 22:07 [facility] 01/07 19:18 Order name: CMP; Complete Time: 22:56 [facility] 01/07 19:18 Order name: Lipase; Complete Time: 22:56 [facility] 01/07 21:45 Order name: Urine Dipstick-Ancillary; Complete Time: 22:07 [facility] 01/07 22:42 Order name: Throat Culture [facility] 01/07 17:43 Order name: Urine Dipstick-Ancillary (obtain specimen); Complete Time: 21:45 [facility] 01/07 19:18 Order name: IV Saline Lock; Complete Time: 21:53 [facility] 01/07 19:18 Order name: Labs collected and sent; Complete Time: 21:53 [facility] Administered Medications: 21:48 Drug: NS 0.9% IV 1000 ml Route: IV; Rate: 1 bolus; Site: right antecubital; as6 23:09 Follow up: Response: No adverse reaction; IV Status: Completed infusion; IV Intake: as6 1000ml Disposition Summary: 01/07/23 22:57 Discharge Ordered Location: Home [facility] Problem: new celeste Symptoms: have improved celeste Condition: Stable celeste Diagnosis - Abdominal pain, unspecified celeste - Pain in throat celeste Followup: celeste - With: Juanis Null DO - When: 2 - 3 days - Reason: Recheck today's complaints, Continuance of care, Re-evaluation by your physician Followup: celeste - With: Lakesha Way MD - When: 2 - 3 days - Reason: Recheck today's complaints, Re-evaluation by your physician Discharge Instructions: - Fiber Content in Foods celeste - Abdominal Pain, Adult, Edcr-ka-Loag celeste - Sore Throat celeste - High-Fiber Eating Plan celeste - Abdominal Pain, Adult celeste - Discharge Summary Sheet [facility] Forms: - Prescription Opioid Use celeste - Antibiotic Education celeste - Thank You Letter celeste - Medication Reconciliation Form [facility] Prescriptions: - dicyclomine 20 mg Oral Tablet - take 1 tablet by ORAL route 4 times per day; 28 tablet; Refills: 0, Product celeste Selection Permitted Signatures: Dispatcher [employer] EDEthan Freitas MD MD cha Waters, Shelly, ADMITTING REPRESENTATIVE-C ADMITTING REPRESENTATIVE-Deep Kumari RN RN as6 Amber Royal RN RN kr3 Corrections: (The following items were deleted from the chart) 21:29 21:11 before being seen by provider celeste daley 21:29 21:11 (see nurse's notes) celeste daley
== END 2023-01-07 23:11 | disposition home or self-care (01) ==
LOC: ER 17:38
DX: R07.0 Pain in throat (principal); R10.9 Unspecified abdominal pain; Z20.822 Contact with and (suspected) exposure to COVID-19; Z88.5 Allergy status to narcotic agent
CPT/HCPCS: 87070; 87088; 85025; 87086; 36415; 87081; 83690; 80053; 0240U; 96360; 99284; J7030; 81003; 81015

== ENCOUNTER 2023-01-16 18:03 | Emergency (ER) | payer BC ==
--- OUTSIDE RECORDS SUMMARY | 2023-01-16 18:09 | XMS REPORT | Continuity of Care Document ---
:1980 Author Organization [facility] t Address [address] [facility] [place] [address] Care Team Providers Name Role Phone JOSH EDILSON Primary Care Physician Unavailable Sola Byrd Attending Clinician Unavailable Nahid SÁNCHEZ, Pavithra Shankar Attending Clinician Ama SÁNCHEZ, Wilfredo White Attending Clinician Elli Zaidi MA Attending Clinician Unavailable Roselia Hogan MD Attending Clinician Livier Lucero MD Attending Clinician LAYTON PAZ Attending Clinician Unavail able LAKESHA GONZALEZ Attending Clinician Unavailable Lakesha Gonzalez MD Attending Clinician MANOJ FINN Attending Clinician Unavailable Manoj Finn MD Attending Clinician [email or web address] Attending Clinician Unavailable Ashanti Burrell Attending Clinician [phone] Wing Anand MD Attending Clinician Koby Dowling MD, V. Attending Clinician Darshana Joaquin Attending Clinician Gaurang Katie SÁNCHEZ Attending Clinician DOMI JAMIL Attending Clinician Unavailable Domi Pina Attending Clinician MD WING ANAND Attending Clinician Unavailable CHAGO AMADOR Attending Clinician Unavailable LIVIER LUCERO Admitting Clinician Unavailable LAKESHA GONZALEZ Admitting Clinician Unavailable MANOJ FINN Admitting Clinician Unavailable [email or web address] Admitting Clinician Unavailable WING ANAND Admitting Clinician Unavailable MD WNIG ANAND Admitting Clinician Unavailable SOFIA MOLINA Admitting Clinician Unavailable Payers Payer Name Policy Type Policy Number Effective Date Expiration Date S ource OUT OF STATE [id number] 2017 00:00:00 BCBS - PPO - BCBS CVCP-BCBS [id number] BCBS OF [facility] [id number] 2020 00:00:00 [place] [id number] 2020 [place] Problems Condition Condition Condition Status Onset Resolution Last Treating Co mments Source Name Details Category Date Date Treatment Clinician Date Generalize Generalize Disease Active M ethodi d d 24 st abdominal abdominal 00:00: Hosp evin pain [...] Active P rivia ar factor ar Factor -08 Medi leon positive Positive 00:00: 00 Paroxysmal [...] active ity of problems problems [facility] Allergies, Adverse Reactions, Alerts Allergy Allergy Status Severity Reaction(s) Onset Inactive Treating Comm ents Source Name Type Date Date Clinician Hydrocod Propensi Active GI Method i one ty to Intolerance 1 st adverse 00:00: Hospita reaction 00 l s to drug Morphine Propensi Active Other (See Patient M ethodi ty to Comments) 11-[address] adverse 00:00: and Hospita reaction 00 passed l s to out drug NO KNOWN Drug Active Univers ALLERGIE Class ity of S [facility] NO KNOWN Allergy Active [facility] ALLERGIE [facility] Family History Family Member Diagnosis Comments Start Date Stop Date Source Natural mother Cancer [facility] Natural mother Lymphoma [facility] Natural father Cancer [facility] Social History Social Habit Start Date Stop Date Quantity Comments Source History of Smoker University of tobacco use [facility] History SDOH [facility] Alcohol Comment Medical C enter History SDOH [facility] Alcohol Std Medical Cent[facility] r Drinks History SDMS [facility] Alcohol Binge Medical [facility] ter Alcohol intake 2022-12-21 2022-12-21 Lifetime [facility] 00:00:00 00:00:00 non-drinker Hospital (finding) Exposure to 2022-09-21 2022-10-01 Not sure University of SARS-CoV-2 00:00:00 10:42:00 [facility] (event) Branch Tobacco use and 2022-06-21 2022-06-21 Smokeless tobacco [facility] exposure 00:00:00 00:00:00 non-user Hospital History SDOH 2019-07-26 2019-07-[address] [facility] Alcohol Frequency 00:00:00 00:00:00 [facility] Sex Assigned At [birth year] [facility] 00:00:00 00:00:00 Hospital Smoking Status Start Date Stop Date Source Never smoked tobacco [facility] Smoker 2022-03-24 00:00:00 [facility] Medications Ordered Filled Start Stop Current [...] mouth 2 (two) times a day. metoprolol 2022-0 Yes 25mg Q2D Take 1 Metho di [...] mouth 2 (two) times a day. metoprolol 2022-0 Yes 25mg Q2D Take 1 Metho di succinate 2-23 tablet (25 st XL 13:24: mg total) Hospita (TOPROL-XL) 32 by mouth l 25 mg 24 hr every tablet other day. Hold it if sbp<120, hr<60 propafenone 3-0 Yes 225mg Q.5D Take 1 Met hodi SR (RYTHMOL 2-[address] SR) 225 MG 13:24: (225 mg Hosp evin 12 hr 32 total) by l capsule mouth 2 (two) times a day. sucralfate 0 Yes Methodi (CARAFATE) 2-20 st 1 gram 00:00: Hospita tablet 00 l sucralfate 2022-0 Yes [facility] (CARAFATE) 2- st 1 gram 00:00: Hospita tablet 00 l sucralfate 2022-0 Yes [facility] (CARAFATE) 2 st 1 gram 00:00: Hospita tablet 00 l Xifaxan 550 2022-0 Yes Method i mg tablet 12-06 00:00: Hospita 00 l Xifaxan 550 2022-0 Yes Method i mg tablet 12-06 00:00: Hospita 00 l Xifaxan 550 2022-0 Yes Method i mg tablet 12-06 00:00: Hospita 00 l pantoprazol 2021-10 Yes Method i e 12-21 (PROTONIX) 00:00: Hospita 40 MG EC 00 l tablet pantoprazol 2021-10 Yes Method i e 12-21 (PROTONIX) 00:00: Hospita 40 MG EC 00 l tablet pantoprazol 2021-10 Yes Method i e 12-21 (PROTONIX) 00:00: Hospita 40 MG EC 00 l tablet iopamidol 2021-10- No [id number] 84mL 84 mL, Univers (ISOVUE 12-11 Intravenou [...] 10/01/22 at 1145, VANCE iopamidol 2021-10- No [id number] 74mL 74 mL, Univers (ISOVUE 12-02 Intravenou ity o f 370-500 mL) 17:30: 17:45 s, ONCE, 1 [place] injection 00 :00 dose, On Medica l 74 mL Sun Branch 10/01/22 at 1145, Routine famotidine 2021-10- No 20mg 20 mg, Univ ers (PEPCID 2-04 [...] mouth ity of capsule 12:56: in the [place] morning. Medical Branch sucralfate 2021-10 Yes [id number] 1g Take 1 Un cipriano 1 gram 2-04 tablet by ity of tablet 00:00: mouth [place] 00 before Medical meals and Branch at bedtime. traMADoL 50 2021-10 Yes [id number] 50mg Take 1 Univ ers mg tablet 2-04 tablet by ity o f 00:00: mouth [place] 00 every 6 Medical (six) Branch hours as needed (pain). Indication s: acute pain ondansetron 2021-10 Yes [id number] 1-2 Un cipriano 4 mg tablet 2-04 tablets ity o f 00:00: every 8 [place] 00 hours as Medical needed for Branch nausea sucralfate 2021-10 Yes [id number] 1g Take 1 Un cipriano 1 gram 2-04 tablet by ity of tablet 00:00: mouth [place] 00 before Medical meals and Branch at bedtime. traMADoL 50 2021-10 Yes [id number] 50mg Take 1 Univ ers mg tablet 2-04 tablet by ity o f 00:00: mouth 00 every 6 Medical (six) Branch hours as needed (pain). Indication s: acute pain ondansetron 2021-10 Yes [id number] 1-2 Un cipriano 4 mg tablet 2-04 [...] daily for tablet 30 days. metoprolol 2021- 2022- No 25mg QD Take 1 Meth [...] 4mg Q8H Take 1 Met hodi ODT -13 06-16 tablet (4 st (ZOFRAN-ODT 00:00: 04:59 mg total) Hospita ) 4 MG 00 :00 by mouth l disintegrat every 8 ing tablet (eight) hours as needed for nausea or vomiting for up to 30 days. dicyclomine 2021-2021- No 20mg Q.5D Take 1 Met hodi (BENTYL) 20 -16 -16 tablet (20 s t mg tablet 00:00: [...] for 30 days. amoxicillin 0 2021- No [id number] 1{tbl} Take 1 Univers -clavulanat 5-27 06-07 tablet by it y of e 00:00: 04:59 mouth 2 [place] (AUGMENTIN) 00 :00 (two) Medical 875-125 mg times Branch per tablet daily for 10 days. propafenone propafenone No 1capsul Q12H propafenon [facility] [...] as oral route directed. directed. as directed. alprazolam alprazolam No alprazolam [facility] 0.5 mg [...] release 24 release 24 hr hr hr Immunizations Ordered Immunization Filled Immunization Date Status Commen ts Source Name Name COVID-19, mRNA, COVID-19, mRNA, 2021-10-27 Completed [facility] LNP-S, PF, 30 LNP-S, PF, 30 00:00:00 mcg/0.3 mL dose mcg/0.3 mL dose ([facility]) (Securens) COVID-19, mRNA, COVID-19, mRNA, 2021-10-27 Completed [facility] LNP-S, PF, 30 LNP-S, PF, 30 00:00:00 mcg/0.3 mL dose mcg/0.3 mL dose ([employer]) (Securens) PFIZER COVID-19 MRNA 2021-10-27 Completed Meth odist VACCINATION 00:00:00 [facility] PFIZER COVID-19 MRNA 2021-10-27 Completed Meth odist VACCINATION 00:00:00 [facility] PFIZER COVID-19 MRNA 2021-10-27 Completed Meth odist VACCINATION 00:00:00 [facility] PFIZER COVID-19 MRNA 2021-10-27 Completed Meth odist VACCINATION 00:00:00 [facility] PFIZER COVID-19 MRNA 2021-10-27 Completed Meth odist VACCINATION 00:00:00 [facility] PFIZER COVID-19 MRNA 2021-10-27 Completed Meth odist VACCINATION 00:00:00 [facility] PFIZER COVID-19 MRNA 2021-10-27 Completed Meth odist VACCINATION 00:00:00 [facility] PFIZER COVID-19 MRNA 2021-10-27 Completed Meth odist VACCINATION 00:00:00 [facility] COVID-19 vaccine, COVID-19 vaccine, 2021-02-04 Completed [facility] vector-nr, rS-Ad26, vector-nr, rS-Ad26, 00:00:00 PF, 0.5 mL (Tiempy) PF, 0.5 mL (Tiempy) COVID-19 vaccine, COVID-19 vaccine, 2021-02-04 Completed [facility] vector-nr, rS-Ad26, vector-nr, rS-Ad26, 00:00:00 PF, 0.5 mL (Vannessa) PF, 0.5 mL (Tiempy) VANNESSA COVID-19 2021-02-04 Completed [facility] t AD26 VACCINATION 00:00:00 [place] [id number] 2021-02-04 Completed [facility] AD26 VACCINATION 00:00:00 [facility] Completed [facility] t AD26 VACCINATION 00:00:00 [facility] JAYKathryn 2021-02-04 Completed [facility] AD26 VACCINATION 00:00:00 [facility] 2021-02-04 Completed [facility] t AD26 VACCINATION 00:00:00 [facility] 2021-02-04 Completed [facility] t AD26 VACCINATION 00:00:00 [facility] 2021-02-04 Completed Method[facility] t AD26 VACCINATION 00:00:00 [place] [id number] 2021-02-04 Completed [facility] t AD26 VACCINATION 00:00:00 Hospital Vital Signs Vital Name Observation Time Observation Value Comments Source Systolic blood 2022-10-01 18:00:00 96 mm[Hg] Univer sity of pressure [facility] Diastolic blood 2022-10-01 18:00:00 76 mm[facility]Hg[facility] 2022-10-01 18:00:00 66 /min [facility] Respiratory rate 2022-10-01 18:00:00 16 /min [facility] Oxygen saturation in 2022-10-01 18:00:00 98 /min [facility] Arterial blood by [facility] Pulse oximetry Branch Body temperature 2022-10-01 16:48:00 36.78 Silvia [facility] Body height 2022-10-01 16:48:00 175.3 cm [facility] Body weight 2022-10-01 16:48:00 75.297 kg [facility] BMI 2022-10-01 16:48:00 24.51 kg/m2 [facility] BP Diastolic 2022-07-20 00:00:00 87 mm[Hg] [facility] Height 2022-07-20 00:00:00 69 [in_i] [facility] BMI (Body Mass 2022-07-20 00:00:00 28.1 kg/m2 [facility] Index) BP Systolic 2022-07-20 00:00:00 131 mm[Hg] Mike devi Body Weight 2022-07-20 00:00:00 3040 [oz_av] [facility] BP Diastolic 2022-07-06 00:00:00 87 mm[Hg] [facility] Height 2022-07-06 00:00:00 69 [in_i] [facility] BMI (Body Mass 2022-07-06 00:00:00 28.1 kg/m2 [facility] Medical Index) BP Systolic 2022-07-06 00:00:00 131 mm[Hg] [facility]ill[facility] edical Body Weight 2022-07-06 00:00:00 3040 [oz_av] [facility] edical Systolic blood 2022-03-24 21:55:00 124 mm[Hg] Univer sity of [facility] Diastolic blood 2022-03-24 21:55:00 87 mm[Hg] Unive rsity of [facility] Heart rate 2022-03-24 21:55:00 86 /min [facility] Oxygen saturation in 2022-03-24 21:55:00 100 /min [facility] blood by [facility] Pulse oximetry [place] Body height 2022-03-24 21:52:00 175.3 cm [facility] Body weight 2022-03-24 21:52:00 95.165 kg [facility] BMI 2022-03-24 21:52:00 30.98 kg/m2 [facility] Systolic blood 2022-12-21 19:23:00 108 mm[Hg] Method [facility] pressure Diastolic blood 2022-12-21 19:23:00 73 mm[Hg] [facility] pressure Heart rate 2022-12-21 19:23:00 83 /min [facility] Body height 2022-12-21 19:23:00 175.3 cm [facility] Body weight 2022-12-21 19:23:00 72.576 kg [facility] BMI 2022-12-21 19:23:00 23.63 kg/m2 [facility] Body temperature 2022-11-21 21:08:01 36.72 Silvia [facility] [place] [facility] Respiratory rate 2022-11-21 21:08:01 18 /min [facility] [place] [facility] Oxygen saturation in 2022-11-21 21:08:01 98 /min [facility] Arterial blood by Pulse oximetry Heart rate 2022-06-22 13:00:00 79 /min [facility] Systolic blood 2022-06-22 12:52:32 130 mm[Hg] [facility] pressure Diastolic blood 2022-06-22 12:52:32 87 mm[Hg] [facility] pressure Body temperature 2022-06-22 12:52:32 36.89 Silvia [facility] Respiratory rate 2022-06-22 12:52:32 20 /min [facility] Oxygen saturation in 2022-06-22 12:52:32 99 /min [facility] Arterial blood by Pulse oximetry Body weight 2022-06-22 01:49:34 87.544 kg [facility] BMI 2022-06-22 01:49:34 28.50 kg/m2 [facility] Body height 2022-06-21 15:19:00 175.3 cm [facility] Procedures Procedure Date / Time Performing Clinician Source Performed COVID-19 QUALITATIVE 2022-11-21 10:02:00 Ben Painter [facility] RT-PCR TROPONIN T 2022-11-21 10:02:00 PainterBen yanes Sandra [facility] C-REACTIVE PROTEIN 2022-11-21 10:02:00 [facility] SED[facility]ENT[facility] RATE 2022-11-21 10:02:00 PainterBen yanes [facility] FERRITIN LEVEL 2022-11-21 10:02:00 Ben Painter [facility] TOTAL IRON BINDING 2022-11-21 10:02:00 [facility] CAPACITY THYROID STIMULATING 2022-11-21 10:02:00 [facility]4, FREE 2022-11-21 10:02:00 PainterBen yanes [facility] CT ANGIOGRAM ABDOMEN 2022-11-21 05:40:00 Roselia Hogan [facility] PELVIS W AND OR WO CONTRAST URINE CULTURE 2022-11-21 01:29:00 Roselia Hogan [facility] spital URINALYSIS SCREEN AND 2022-11-21 01:29:00 [facility], WITH REFLEX TO CULTURE ECG ED PRELIMINARY 2022-11-21 01:02:55 [facility] TROPONIN T 2022-11-21 01:02:00 Ben Painter Sandra [facility] B NATRIURETIC PEPTIDE 2022-11-21 01:02:00 [facility]ATELET AND 2022-11-20 21:33:[address] [facility] DIFFERENTIAL COMPREHENSIVE METABOLIC 2022-11-20 21:33:00 [facility] LIPASE LEVEL 2022-11-20 21:33:00 [facility] ESTIM[facility] GFR 2022-11-20 21:33:00 HollierKwesi [facility] ECG 12-LEAD 2022-11-20 21:01:47 [facility] ABDOMEN PELVIS W 2022-10-10 21:02:07 Lakesha Gonzalez [facility] CONTRAST Medical Branch CT ABDOMEN PELVIS W 2022-10-01 17:37:14 Manoj Finn [facility] CONTRAST [facility] URINALYSIS 2022-10-01 17:01:00 Stephanie [facility] LIPASE 2022-10-01 16:59:00 Stephanie [facility] COMP. METABOLIC PANEL 2022-10-01 16:59:00 Manoj Finn [facility] ([id number]) Medical [place] CBC WITH DIFF 2022-10-01 16:59:00 Manoj Finn [facility] NOTICE OF PRIVACY 2022-10-01 16:39:10 Doctor Unassigned, [facility] PRACTICES [place] [facility] CONSENT/REFUSAL FOR 2022-10-01 16:36:34 Doctor Unassigned, [facility] DIAGNOSIS AND TREATMENT [place] [facility] CBC WITH PLATELET AND 2022-06-22 09:30:00 Wing Anand [facility] DIFFERENTIAL BASIC METABOLIC PANEL 2022-06-22 09:30:00 [facility] ESTIMATED GFR 2022-06-22 09:30:00 Wing Anand spital EP COMPLETE EP STUDY W 2022-06-21 19:16:30 Wing Anand [facility] ABLATION SVT TYPE AND SCREEN 2022-06-21 14:56:00 Wing Anand spital ECG 12-LEAD 2022-06-21 13:49:16 Wing Anand spital COVID-19 QUALITATIVE 2022-06-20 14:29:00 Wing Anand [facility] RT-PCR PROTHROMBIN TIME WITH INR 2022-06-20 14:22:00 Wing Anand [facility] CBC WITH PLATELET AND 2022-06-20 14:22:00 Wing Anand [facility] DIFFERENTIAL COMPREHENSIVE METABOLIC 2022-06-20 14:22:00 [facility] PANEL ESTIMATED GFR 2022-06-20 14:22:00 Wing Anand spital ED REFERRAL [facility] 2022-05-14 00:33:07 [facility] HOLINESS PHYSICIAN ORGANIZATION (PCP) CT ABDOMEN PELVIS W 2022-05-14 00:17:00 [facility] CONTRAST CBC WITH PLATELET AND 2022-05-13 21:09:00 [facility] DIFFERENTIAL COMPREHENSIVE METABOLIC 2022-05-13 21:09:00 [facility] PANEL LIPASE LEVEL 2022-05-13 21:09:00 [facility] ESTIMATED GFR 2022-05-13 21:09:00 [facility] Plan of Care Planned Activity Planned Date Details Comments Source Future Scheduled 2023-01-16 Hepatitis C screening [facility] Test 07:43:51 (procedure) [code = 919507311] Future Scheduled 2023-01-16 COVID-19 VACCINE (3 - [facility] Test 07:43:51 Booster for Vannessa series) [code = COVID-19 VACCINE (3 - Booster for Vannessa series)] Future Scheduled 2023-01-16 [facility]FLUENZA VACCINE [facility] Test 07:43:51 [code = INFLUENZA VACCINE] Future Scheduled 2022-12-25 [facility] Test 08:31:51 (procedure) [code = [id number]] Future Scheduled 2022-12-25 COVID-19 VACCINE ([facility] - [facility] Test 08:31:51 Booster for Vannessa series) [code = COVID-19 VACCINE (3 - Booster for Vannessa series)] Future Scheduled 2022-12-25 INFLUENZA VACCINE [facility] Test 08:31:51 [code = INFLUENZA VACCINE] Future Scheduled 2022-12-25 [facility] Test 08:31:51 (procedure) [code = [id number]] Future Scheduled 2022-12-25 COVID-19 VACCINE ([facility] - [facility] Test 08:31:51 Booster for Vannessa series) [code = COVID-19 VACCINE (3 - Booster for Vannessa series)] Future Scheduled 2022-12-25 INFLUENZA VACCINE [facility] Test 08:31:51 [code = INFLUENZA VACCINE] Future Scheduled 2022-11-14 [facility] Test 14:15:22 (procedure) [code = [id number]] Future Scheduled 2022-11-14 COVID-19 VACCINE (3 - [facility] Test 14:15:22 Booster for Vannessa series) [code = COVID-19 VACCINE (3 - Booster for Vannessa series)] Future Scheduled 2022-11-14 INFLUENZA VACCINE Method [facility] Hospital Test 14:15:22 [code = INFLUENZA VACCINE] Future Scheduled 2022-09-04 HEPATITIS B VACCINES Met [facility] Test 08:40:39 (1 of 3 - 3-dose series) [code = HEPATITIS B VACCINES (1 of 3 - 3-dose series)] Future Scheduled 2022-09-04 [facility] Test 08:40:39 (procedure) [code = [id number]] Future Scheduled 2022-09-04 COVID-19 VACCINE (3 - [facility] Test 08:40:39 Booster for Vannessa series) [code = COVID-19 VACCINE (3 - Booster for Vannessa series)] Future Scheduled 2022-09-04 INFLUENZA VACCINE Method [facility] Hospital Test 08:40:39 [code = INFLUENZA VACCINE] Future Scheduled 2022-08-25 HEPATITIS B VACCINES Met [facility] Test 08:18:50 (1 of 3 - 3-dose series) [code = HEPATITIS B VACCINES (1 of 3 - 3-dose series)] Future Scheduled 2022-08-25 Hepatitis C screening [facility] Test 08:18:50 (procedure) [code = 365541709] Future Scheduled 2022-08-25 COVID-19 VACCINE (3 - [facility] Test 08:18:50 Booster for Vannessa series) [code = COVID-19 VACCINE (3 - Booster for Vannessa series)] Future Scheduled 2022-08-25 INFLUENZA VACCINE Method [facility] Test 08:18:50 [code = INFLUENZA VACCINE] Future Scheduled 2022-08-24 HEPATITIS B VACCINES Met [facility] Test 06:18:01 (1 of 3 - 3-dose series) [code = HEPATITIS B VACCINES (1 of 3 - 3-dose series)] Future Scheduled 2022-08-24 Hepatitis C screening [facility] Test 06:18:01 (procedure) [code = [id number]] Future Scheduled 2022-08-24 COVID-19 VACCINE (3 - [facility] Test 06:18:01 Booster for Vannessa series) [code = COVID-19 VACCINE (3 - Booster for Vannessa series)] Future Scheduled 2022-08-24 INFLUENZA VACCINE Method [facility] Test 06:18:01 [code = INFLUENZA VACCINE] Future Scheduled 2022-08-17 HEPATITIS B VACCINES Met [facility] Test 14:15:01 (1 of 3 - 3-dose series) [code = HEPATITIS B VACCINES (1 of 3 - 3-dose series)] Future Scheduled 2022-08-17 Hepatitis C screening [facility] Test 14:15:01 (procedure) [code = [id number]] Future Scheduled 2022-08-17 COVID-19 VACCINE (3 - [facility] Test 14:15:01 Booster for Vannessa series) [code = COVID-19 VACCINE (3 - Booster for Vannessa series)] Future Scheduled 2022-08-17 INFLUENZA VACCINE Method [facility] Test 14:15:01 [code = INFLUENZA VACCINE] Diagnostic Test 2022-07-[address] [facility] Medical Pending 00:00:00 disease Ab panel, serum [...] plasma] Future Scheduled 2022-07-05 HEPATITIS B VACCINES [facility] Test 17:47:18 (1 of 3 - 3-dose series) [code = HEPATITIS B VACCINES (1 of 3 - 3-dose series)] Future Scheduled 2022-07-05 [facility] Test 17:47:18 (procedure) [code = [id number]] Future Scheduled 2022-07-05 INFLUENZA VACCINE Method is [...] Future Scheduled 2022-06-28 HEPATITIS B VACCINES Met [facility] Test 13:37:55 (1 of 3 - 3-dose series) [code = HEPATITIS B VACCINES (1 of 3 - 3-dose series)] Future Scheduled 2022-06-28 Hepatitis C screening [facility] Test 13:37:55 (procedure) [code = [id number]] Future Scheduled 2022-06-28 INFLUENZA VACCINE Method [facility] Test 13:37:55 [code = INFLUENZA VACCINE] Future Scheduled 2022-06-26 HEPATITIS B VACCINES Met [facility] Test 19:57:18 (1 of 3 - 3-dose series) [code = HEPATITIS B VACCINES (1 of 3 - 3-dose series)] Future Scheduled 2022-06-26 Hepatitis C screening [facility] Test 19:57:18 (procedure) [code = 121728745] Future Scheduled 2022-06-26 INFLUENZA VACCINE Method [facility] Test [...] Luke s Test 00:00:00 (procedure) [code = [facility] [id number]] Future Scheduled [address] [facility] Test 00:[facility]:00 (procedure) [code = [facility] [id number]] Future Scheduled [address] [facility] Test 00:00:00 (procedure) [code = [facility] [id number]] Future Scheduled [address] Test 00:00:00 (procedure) [code = [facility] [id number]] Future Scheduled 1997 DTAP/TDAP/TD VACCINES [facility] I [...] [facility] Test 00:00:00 [code = HEPATITIS C [facility] SCREENING] Future Scheduled 1978 COVID-19 VACCINE [...] Type Clinicians Facility Department ID 2022-12-20 Outpatient [place] [facility] [id number] Common 13:34:[id number] [facility] 2023-01-16 2023-01-16 Travel 1.2.840.1 1.2.114.763 [id number] [id number] Methodi 00:00:00 00:00:[address] 3.430.2.7 0.2.7.3.698 Ho spita .3.572396 084.8 l .8 2023-01-12 2023-01-12 Transcribe Abewim, 1.2.840.1 [id number] Methodi 00:00:00 00:00:00 [place]. [address].1.[address] 3.430.2.7 Hospit a .3.764802 l .8 2022-12-21 2022-12-21 Office Serrato, 1.2.840.1 [id number] Methodi 14:00:00 14:29:47 Visit Wilfredo White 40350.1.[address] 3.430.2.7 Hospit a .3.350238 l .8 2022-12-21 2022-12-21 Office Serrato, 1.2.840.1 [id number] 0558 Methodi 14:00:00 14:29:47 Visit Wilfredo White 60474.1.[address] 3.430.2.7 Hospit a .3.255324 l .8 2022-12-21 2022-12-21 Travel 1.2.840.1 1.2.002.144 4437 276631 Methodi 00:00:00 00:00:[address] 3.430.2.7 0.2.7.3.698 Ho spita .3.946967 084.8 l .8 2022-12-21 2022-12-21 Travel 1.2.840.1 1.2.866.948 7692 524117 Methodi 00:00:00 00:00:[address] 3.430.2.7 0.2.7.3.698 Ho spita .3.367862 084.8 l .8 2022-11-24 2022-11-24 Telephone Dejuan, 1.2.840.1 [id number] Methodi 00:00:00 00:00:[address] 3.430.2.7 Hospit a .3.646872 l .8 2022-11-24 2022-11-24 Telephone Dejuan, 1.2.840.1 [id number] Methodi 00:00:00 00:00:[address] 3.430.2.7 Hospit a .3.865579 l .8 2022-11-20 2022-11-21 Emergency Roselia Hogan 1.2.840.1 [id number] Methodi 14:54:00 18:00:[address] 3.430.2.7 Hospit a .3.679043 l .8 2022-11-20 2022-11-21 Emergency AWAR, 1.2.840.1 [id number] 2099 712825 [place] 00:00:00 00:00:00 LIVIER 69176[address]1.[address] .3.117233 .8 2022-11-20 2022-11-20 Travel 1.2.840.1 1.2.248.150 5791 [id number] Methodi 00:00:00 00:00:[address] 3.430.2.7 0.2.7.3.698 Ho spita .3.267373 084.8 l .8 2022-11-20 2022-11-20 Travel 1.2.840.1 1.2.192.240 4483 [id number] Methodi 00:00:00 00:00:[address] 3.430.2.7 0.2.7.3.698 Ho spita .3.765373 084.8 l .8 2022-10-26 2022-10-26 [facility] [id number] [facility] 00:00:00 00:00:00 LAYTON REID of Medicin e 2022-10-10 2022-10-10 Outpatient [facility] [id number] Univers 14:14:59 23:59:00 ity [facility] 2022-10-10 2022-10-10 [facility] 1.2.840.114 9 [id number] Univers 14:14:59 23:59:00 Encounter Jacque KEITHMARIA 350.1.13.[address] [facility] 4.2.7.2.686 [facility] [id number] [address] 2022-10-01 2022-10-01 Emergency X [facility] ERT [id number] Univers 10:51:00 12:56:00 MANOJ itlaurie [facility] 2022-10-01 2022-10-01 [facility] 1.2.472.776 7539 0940 Univers 10:51:00 12:56:00 Manoj PINEDA 350.1.13.10 ity jose LOYOLA 4.2.7.2.686 [facility] [id number] [facility] [address] 2022-08-16 2022-08-16 Travel 1.2.840.1 1.2.584.208 9093 [id number] Methodi 00:00:00 00:00:[address] 3.430.2.7 0.2.7.3.698 Ho spita .3.663235 084.8 l .8 2022-08-16 2022-08-16 Travel 1.2.840.1 1.2.095.693 5311 252989 Methodi 00:00:00 00:00:[address] 3.430.2.7 0.2.7.3.698 Ho spita .3.297136 084.8 l .8 2022-07-20 2022-07-20 Outpatient GC_TPP_Pour PRIV PRIV 247 [id number] [facility] 00:00:00 00:00:00 -Jafari_B [id number] [facility] 2022-07-20 2022-07-20 Ashanti [facility]00 00:00[facility]00 [facility]: 427 GC_TPP_Hous [address] Office* [place], [address] [address] , Ph. [phone] 2022-07-06 2022-07-06 Outpatient GC_TPP_Pour PRIV PRIV 247 [id number] [facility] 00:00:00 00:00:00 -Jafari_B [id number] [facility] 2022-07-06 2022-07-06 Ash[facility] 08 [facility] 00:00:00 00:00:00 [facility] MD: 427 GC_TPP_H[address] Office* [place], [address] [address] , Ph. [phone] 2022-07-06 2022-07-06 Outpatient Pour-Iris PRIV PRIV 56f fca20-2 00:00:00 00:00:00 , Ashanti [id number]-8 [id number] 2022-06-29 2022-06-29 Outpatient GC_TPP_Pour PRIV PRIV 247 [id number] [facility] 00:00:00 00:00:00 -Jafari_B [id number] [facility] 2022-06-21 2022-06-22 [facility], 1.2.840.1 [id number] 32536 Methodi 07:33:00 12:53:00 Encounter Wing [address]5567.1.[address] 3.430.2.7 Hospit a .3.349446 l .8 2022-06-21 2022-06-22 [facility], 1.2.840.1 [id number] Methodi 07:33:00 12:53:00 Encounter Wing 08836.1.[address] 3.430.2.7 Hospit a .3.159035 l .8 2022-06-21 2022-06-21 Anesthesia Koby Dowling V. 1.2.840.1 [id number] Methodi 10:40:00 14:35:00 Event Darshana Joaquin 69861.1.[address] 3.430.2.7 Hospit a .3.962148 l .8 2022-06-21 2022-06-21 Anesthesia Koby Dowling V. 1.2.840.1 [id number] Methodi 10:40:00 14:35:00 Event Darshana Joaquin 45657.1.[address] 3.430.2.7 Hospit a .3.813685 l .8 2022-06-21 2022-06-21 Surgery [facility] 1.2.840.1 [id number] 2711 Methodi 10:30:00 13:00:[address] 3.430.2.7 Hospit a .3.098171 l .8 2022-06-21 2022-06-21 Surgery Nazeri, 1.2.840.1 [id number] 2073 Methodi 10:30:00 13:00:[address] 3.430.2.7 Hospit a .3.545056 l .8 2022-06-20 2022-06-20 Lab Nazeri, 1.2.840.1 [id number] 4283 Methodi 08:55:00 09:00:[address] 3.430.2.7 Hospit a .3.759884 l .8 2022-06-20 2022-06-20 Lab Nazeri, 1.2.840.1 [id number] 4995 Methodi 08:55:00 09:00:[address] 3.430.2.7 Hospit a .3.342962 l .8 2022-06-20 2022-06-20 Travel 1.2.840.1 1.2.305.255 1611 [id number] Methodi 00:00:00 00:00:[address] 3.430.2.7 0.2.7.3.698 Ho spita .3.459852 084.8 l .8 2022-06-20 2022-06-20 Travel 1.2.840.1 1.2.547.060 7105 014338 Methodi 00:00:00 00:00:[address] 3.430.2.7 0.2.7.3.698 Ho spita .3.369596 084.8 l .8 2022-06-16 2022-06-16 Community Nazeri, 1.2.840.1 [id number] Methodi 00:00:00 00:00:00 Orders Wing [address]1677.1.[address] 3.430.2.7 Hospit a .3.490443 l .8 2022-06-16 2022-06-16 Community Cheng, 1.2.840.1 [id number] 2100 [id number] Methodi 00:00:00 00:00:00 Orders Wing 20142.1.[address] 3.430.2.7 Hospit a .3.172274 l .8 2022-05-13 2022-05-13 Emergency Katie Merlos 1.2.840.1 [id number] Methodi 15:34:00 19:53:00 Chul Rey 19831.1.1 363 s t 3.430.2.7 Hospit a .3.706508 l .8 2022-05-13 2022-05-13 Emergency Katie Merlos 1.2.840.1 [id number] Methodi 15:34:00 19:53:00 Chul Rey 30151.1.1 363 s t 3.430.2.7 Hospit a .3.595436 l .8 2022-03-24 2022-03-24 Outpatient [facility] [id number] [facility] 17:00:00 17:27:59 [facility] 2022-03-24 2022-03-[address] [facility] 1.2.840.114 [id number] Univers 17:00:00 17:27:59 Care [facility] 350.1.13.10 i ty of EDWIN 4.2.7.2.686 Jacob as LOR?BLEA [id number] [address] MEDICAL OFFICE BUILDING 2020-10-14 2020-10-14 Outpatient CLAYTONI, [facility] [id number] [place] 00:00:00 00:00:[address] 2020-07-18 2020-07-18 Outpatient CHENG, [facility] [id number] [place] 00:00:00 00:00:[address] W[address] 2020-06-18 2020-06-18 Outpatient CHENG, [facility] [id number] [place] 00:00:00 00:00:[address] W[address] Results Test Description Test Time Test Comments Results Result Comments Source ECG 12 lead 2022-11-21 16:36:19 Test Item Value Reference Range Interpretation Comme nts Ventricular rate (test code = 253) 73 Atrial rate (test code = 255) 73 HI interval (test code = 266) 150 QRSD [...] of 21-JUN-2022 08:49,-No significant change was found- [address]2023-01-24 16:36:19 Test Item Value Reference Range Interpretation Comments Ventricular rate (test 73 code = 253) Atrial rate (test code 73 = 255) HI interval (test code 150 = 266) QRSD [...] of 21-JUN-2022 08:49,-No significant change was found- [address]2023-01-24 16:36:19 Test Item Value Reference Range Interpretation Comments Ventricular rate (test 73 code = 253) Atrial rate (test code 73 = 255) HI interval (test code 150 = 266) QRSD [...] of 21-JUN-2022 08:49,-No significant [facility] found[facility] [Presence] in Respiratory specimen by DENIS with probe [id number] 07:30:52 Test Item Value Reference Range Interpretation Comments SARS-CoV-2 (COVID-19) RNA Not detected [Presence] in Respiratory specimen by DENIS with probe detection (test code = 17147-4) Whether patient is employed in a Unknown healthcare setting (test code = 74104-8) Whether the patient has symptoms Unknown related to condition of interest (test code = 97925-4) Whether the patient was Unknown hospitalized for condition of interest (test code = 29099-3) Whether the patient was admitted Unknown to intensive care unit (ICU) for condition of interest (test code = 77376-5) Whether patient resides in a Unknown congregate care setting (test code = 11182-1) status (test code = Unknown 47985-0) Date and time of symptom onset Unknown (test code = 39320-6) [facility] [id number] 02:57:00 Test Item Value Reference Range Interpretation Comments Urine culture (test SEE COMMENT Bacteriu surya screen code = 3169197) negative. [facility] [id number] 02:57:00 Test Item Value Reference Range Interpretation Comments Urine culture (test SEE COMMENT Bacteriu surya screen code = 3049952) negative. [facility]2023-01-24 02:57:00 Test Item Value Reference Range Interpretation Comments Urine culture (test SEE COMMENT Bacteriu surya screen code = 7829953) negative. [facility] 12 [id number] 12:52:17 Test Item Value Reference Range Interpretation Comments Ventricular rate (test code = 253) Atrial rate (test code = 255) HI interval (test code = 266) QRSD interval [...] Kinsey MD ([id number]) on 06/22/2022 7:52:[address]2022-08-25 12:52:17 Test Item Value Reference Range Interpretation Comments Ventricular rate (test code = 253) Atrial rate (test code = 255) HI interval (test code = 266) QRSD interval [...] Kinsey MD ([id number]) on 06/22/2022 7:52:15 AM [address]2022-08-25 12:52:17 Test Item Value Reference Range Interpretation Comments Ventricular rate (test code = 253) Atrial rate (test code = 255) HI interval (test code = 266) QRSD interval [...] Kinsey MD ([id number]) on 06/22/2022 7:52:15 AM [address]2022-08-25 12:52:17 Test Item Value Reference Range Interpretation Comments Ventricular rate (test code = 253) Atrial rate (test code = 255) HI interval (test code = 266) QRSD interval [...] Kinsey MD ([id number]) on 06/22/2022 7:52:15 AM [address]2022-08-25 12:52:17 Test Item Value Reference Range Interpretation Comments Ventricular rate (test code = 253) Atrial rate (test code = 255) HI interval (test code = 266) QRSD interval [...] Kinsey MD ([id number]) on 06/22/2022 7:52:15 AM [address]2022-08-25 12:52:17 Test Item Value Reference Range Interpretation Comments Ventricular rate (test code = 253) Atrial rate (test code = 255) HI interval (test code = 266) QRSD interval [...] Kinsey MD ([id number]) on 06/22/2022 7:52:15 AM [address]2022-08-25 12:52:17 Test Item Value Reference Range Interpretation Comments Ventricular rate (test code = 253) Atrial rate (test code = 255) HI interval (test code = 266) QRSD interval [...] Kinsey MD ([id number]) on 06/22/2022 7:52:15 AM [address]2022-08-25 12:52:17 Test Item Value Reference Range Interpretation Comments Ventricular rate (test code = 253) Atrial rate (test code = 255) HI interval (test code = 266) QRSD interval (test code = 260) QT interval (test code = 264) QTC interval (test code = 265) P axis 1 (test code = 267) QRS axis 1 (test code = 268) T wave axis (test code = 270) EKG impression (test code Normal sinus rhythm = 273) with sinus arrhythmia-Erumi chana Signed By Minor Kinsey MD ([id number]) on 06/22/2022 7:52:15 [facility] [id number] 18:12:38 Test Item Value Reference Interpretation Comments Range Interpretation (test Negative results do not code = 1640256) preclude COVID-19 infection and should not be used asthe sole basis for treatment or other patient management decisions. Negativeresults must be combined with clinical observations, patient history, andepidemiological information. COVID-19 qualitative Not-Detected Not-Detected RT-PCR result (test code = 18602-4) COVID-19 qualitative See link below for PDF Case Number: RT-PCR (test code = Lab Report [id number] 5028 7070) [facility] [id number] 18:12:38 Test Item Value Reference Interpretation Comments Range Interpretation (test Negative results do not code = 5527208) preclude COVID-19 infection and should not be used asthe sole basis for treatment or other patient management decisions. Negativeresults must be combined with clinical observations, patient history, andepidemiological information. COVID-19 qualitative Not-Detected Not-Detected RT-PCR result (test code = 34423-8) COVID-19 qualitative See link below for PDF Case Number: RT-PCR (test code = Lab Report [id number] 5028 7070) [facility] [id number] 18:12:38 Test Item Value Reference Interpretation Comments Range Interpretation (test Negative results do not code = 3545394) preclude COVID-19 infection and should not be used asthe sole basis for treatment or other patient management decisions. Negativeresults must be combined with clinical observations, patient history, andepidemiological information. COVID-19 qualitative Not-Detected Not-Detected RT-PCR result (test code = 98831-2) COVID-19 qualitative See link below for PDF Case Number: RT-PCR (test code = Lab Report [id number] 5028 7070) [facility] [id number] 18:12:38 Test Item Value Reference Interpretation Comments Range Interpretation (test Negative results do not code = 0852838) preclude COVID-19 infection and should not be used asthe sole basis for treatment or other patient management decisions. Negativeresults must be combined with clinical observations, patient history, andepidemiological information. COVID-19 qualitative Not-Detected Not-Detected RT-PCR result (test code = 21198-4) COVID-19 qualitative See link below for PDF Case Number: RT-PCR (test code = Lab Report [id number] 5028 7070) [facility] [id number] 18:12:38 Test Item Value Reference Interpretation Comments Range Interpretation (test Negative results do not code = 3730723) preclude COVID-19 infection and should not be used asthe sole basis for treatment or other patient management decisions. Negativeresults must be combined with clinical observations, patient history, andepidemiological information. COVID-19 qualitative Not-Detected Not-Detected RT-PCR result (test code = 25594-4) COVID-19 qualitative See link below for PDF Case Number: RT-PCR (test code = Lab Report [id number] 5028 7070) [facility] [id number] 18:12:38 Test Item Value Reference Interpretation Comments Range Interpretation (test Negative results do not code = 3328939) preclude COVID-19 infection and should not be used asthe sole basis for treatment or other patient management decisions. Negativeresults must be combined with clinical observations, patient history, andepidemiological information. COVID-19 qualitative Not-Detected Not-Detected RT-PCR result (test code = 91686-7) COVID-19 qualitative See link below for PDF Case Number: RT-PCR (test code = Lab Report [id number] 5028 7070) [facility] [id number] 18:12:38 Test Item Value Reference Interpretation Comments Range Interpretation (test Negative results do not code = 0578080) preclude COVID-19 infection and should not be used asthe sole basis for treatment or other patient management decisions. Negativeresults must be combined with clinical observations, patient history, andepidemiological information. COVID-19 qualitative Not-Detected Not-Detected RT-PCR result (test code = 58851-9) COVID-19 qualitative See link below for PDF Case Number: RT-PCR (test code = Lab Report [id number] 5028 7070) [facility] [id number] 18:12:38 Test Item Value Reference Interpretation Comments Range Interpretation (test Negative results do not code = 3884332) preclude COVID-19 infection and should not be used asthe sole basis for treatment or other patient management decisions. Negativeresults must be combined with clinical observations, patient history, andepidemiological information. COVID-19 qualitative Not-Detected Not-Detected RT-PCR result (test code = 98210-6) COVID-19 qualitative See link below for PDF Case Number: RT-PCR (test code = Lab Report [id number] 5028 7070) [facility]-CoV-[facility] (COVID-19) RNA [Presence] in Respiratory specimen by DENIS with probe [id number] 13:12:38 Test Item Value Reference Range Interpretation Comments SARS-CoV-2 (COVID-19) RNA Not detected [Presence] in Respiratory specimen by DENIS with probe detection (test code = 95581-7) Whether patient is employed in a Unknown healthcare setting (test code = 26817-5) Whether the patient has symptoms Unknown related to condition of interest (test code = 04561-8) Whether the patient was Unknown hospitalized for condition of interest (test code = 59637-9) Whether the patient was admitted Unknown to intensive care unit (ICU) for condition of interest (test code = 27559-3) Whether patient resides in a Unknown congregate care setting (test code = 34585-4) status (test code = Unknown 43724-3) Date and time of symptom onset Unknown (test code = 94918-9) JOAQUIN LIRIANORS-CoV-2 (COVID-19) RNA [Presence] in Respiratory specimen by DENIS with probe [id number] 23:44:02 Test Item Value Reference Range Interpretation Comments SARS-CoV-2 (COVID-19) RNA Not detected Not-Detected [Presence] in Respiratory specimen by DENIS with probe detection (test code = 83596-6) JOAQUIN DYER [id number] 08:01:00 Test Item Value Reference Range Interpretation Comments CULTURE (BEAKER) (test No growth in 5 days code = 1095) MISCELLANEOUS LAB [id number] 07:37:00 Test Item Value Reference Range Interpretation Comments SCAN RESULT (test code = 1128323) BLOOD [id number] 08:00:00 Test Item Value Reference Range Interpretation Comments CULTURE (BEAKER) (test No growth in 5 days code = 1095) BLOOD [id number] 08:00:00 Test Item Value Reference Range Interpretation Comments CULTURE (BEAKER) (test No growth in 5 days code = 1095) ANTI-NUCLEAR ANTIBODY (AURA)2019-07-30 09:44:00 Test Item Value Reference Range Interpretation Comments ANTI-NUCLEAR ANTIBODY (AURA) (BEAKER) Positive Negative A (test code = 418) Test performed by IFA method.AURA TITER AND [id number] 09:44:00 Test Item Value Reference Range Interpretation [...] (test code Normal = 486) HEPATIC FUNCTION [id number] 09:58:00 Test Item Value Reference Range Interpretation [...] 347) CBC WITH PLATELET COUNT + MANUAL [id number] 09:29:00 Test Item Value Reference Range Interpretation [...] (BEAKER) (test code = 413) RESPIRATORY PANEL [id number] 15:15:00 Test Item Value Reference Range Interpretation [...] [facility] Molecular Diagnostics Laboratory using the [employer] FilmArray Respiratory Panel. It is FDA cleared and has been verified and approved by the [facility] Molecular Diagnostics Laboratory for clinical use on nasopharyngeal swab specimens.The performance of the FilmArrayRP has not been established in individuals who received influenza vaccine. Recent administration of a nasal influenza vaccine may cause false positive results for Influenza A and/orInfluenza B.EBV VIRAL [id number] 13:49:00 Test Item Value Reference Range Interpretation [...] (2) real-time PCR amplification and detection with LTJE-6-akoguruw primers and probes. A well-conserved region of the EBNA-1 gene is targeted, along with an internal control sequence used to confirm PCR amplification. Asymptomatic carriers and viral genetic variation, among other factors, can affect the accuracy of nucleic acidtesting; therefore, results should be interpreted in light of clinical data.This test was developed and its performance characteristics determined by the [facility] Pathology Department,Section of Molecular Pathology. It has [...] real- time PCR amplification and detection with CVHG-1-osyxcyeg primers and probes. A well-conserved region of the EBNA-1 gene is targeted, along with an internal control sequence used to confirm PCR amplification. Asymptomatic carriers and viral genetic variation, among other factors, can affect the accuracy of nucleic acid testing; therefore, results should be interpreted in light of clinical data.This test was developed and its performance characteristics determined by the [facility] Pathology Department, Section of Molecular Pathology.It has not been cleared or approved by the U.S. Food and Drug Administration (FDA), since FDA approval is not required for clinical use of the test. Validation was done as required by The Clinical Laboratory Improvement Amendments of 1988.CMV PCR, [id number] 13:43:00 Test Item Value Reference Range Interpretation [...] and its performance characteristics determined by the [facility] Pathol ogy Department, Section of Molecular Pathology. It has not been cleared or approved by the U.S. Foodand Drug Administration (FDA), since FDA approval is not required for clinical use of the test. Validation was done as required by The Clinical Laboratory Improvement Amendments of 1988.RHEUMATOID FACTOR AB, REFLEX TO [id number] 13:10:00 Test Item Value Reference Range Interpretation Comments RHEUMATOID FACTOR (BEAKER) (test Negative code = 573) BASIC METABOLIC [id number] 06:42:00 Test Item Value Reference Range Interpretation [...] S NOT APPLICABLE FOR DIALYSIS PATIPRECIOUS TS. [id number] 12:15:00 Test Item Value Reference Range Interpretation Comments RPR SCREEN (BEAKER) (test code = Nonreactive Nonreactive 420) HIV-1 ANTIGEN WITH HIV-1/2 [id number] 04:56:00 Test Item Value Reference Range Interpretation Comments HIV-1 ANTIGEN WITH HIV 1\T\2 Nonreactive Nonreactive ANTIBODY (2) (BEAKER) (test code = 2586) BASIC METABOLIC [id number] 04:24:00 Test Item Value Reference Range Interpretation [...] DIALYSIS PATIEN TS. URINALYSIS W/ REFLEX URINE [id number] 00:26:00 Test Item Value Reference Range Interpretation [...] code = 516) SOURCE(BEAKER) (test code = 279) RAD, CHEST, 1 VIEW, NON [id number] 10:25:00Reason for exam:- >leukocytosis, fever r/o infectionFINAL [...] MDReport Verified Date/Time: 07/26/2019 10:25:43 Reading Location: [facility] C013X Ortho Consult Reading Room CBC W/PLT COUNT & AUTO [id number] 10:24:00 Test Item Value Reference Range Interpretation [...] = 3438) Received comment: User comments: Slide comments:[id number] 10:11:00 Test Item Value Reference Range Interpretation [...] pg/mL 0-100 (test code = 700) TROPONIN [id number] 10:00:00 Test Item Value Reference Range Interpretation [...] acute neurological disease, and persistent tachyarrhythmia.BASIC METABOLIC [id number] 09:54:00 Test Item Value Reference Range Interpretation [...] U/L 29-200 code = 380) POCT-LACTIC ACID, [id number] 09:50:00 Test Item Value Reference Range Interpretation Comments POC-LACTIC ACID, 1.3 mmol/L 0.4-1.3 TESTED AT [facility] [address] (BEAKER) [facility] (test code = 2804) 18021 [id number] 09:50:00 Test Item Value Reference Range Interpretation Comments POC-HEMOGLOBIN 11.6 g/dL 13.0-16.8 L TESTED AT [facility] 6720 (BEAKER) (test code [facility] = 1856) [id number] [address] [facility] [address] POCT-BLOOD GASES, [id number] 09:49:00 Test Item Value Reference Range Interpretation Comments TEMP, CELSIUS-POC 37.0 (BEAKER) (test code = 1834) FIO2-POC (BEAKER) TESTED AT [place] [address] (test code = 1835) [facility] [address] PH, ARTERIAL-POC 7.370 7.350-7.450 (BEAKER) (test code = 1836) PCO2, ARTERIAL-POC 41.0 mm Hg 35.0-45.0 (BEAKER) (test code = 1837) PO2, ARTERIAL-POC 86.0 mm Hg 80.0-90.0 (BEAKER) (test code = 1838) SO2, ARTERIAL-POC 96.0 % 96.0-97.0 (BEAKER) (test code = 1839) HCO3, ARTERIAL-POC 23.7 meq/L 21.0-29.0 (BEAKER) (test code = 1840) BASE EXCESS, -2.0 meq/L -2.0-3.0 ARTERIAL-POC (BEAKER) (test code = 1841) [id number] 09:49:00 Test Item Value Reference Range Interpretation Comments POC-SODIUM (BEAKER) 137 meq/L 135-148 TESTED A T [place] [address] (test code = 1542) DELL Conway [facility] [address] [id number] 09:49:00 Test Item Value Reference Range Interpretation Comments POC-POTASSIUM 3.3 meq/L 3.6-5.5 L TESTED AT [place] [id number] (BEAKER) (test code [facility] [address] = 1540) [id number] 09:49:00 Test Item Value Reference Range Interpretation Comments POC-GLUCOSE (BEAKER) 153 mg/dL 70-110 H TESTED AT [facility] 6720 (test code = 1855) [place] [address] POCT-CALCIUM [id number] 09:49:00 Test Item Value Reference Range Interpretation Comments POC-CALCIUM IONIZED 1.22 mmol/L 1.12-1.27 TESTED A T [facility] 67 (BEAKER) (test code = [place] 1536) [address] [id number] 09:49:00 Test Item Value Reference Range Interpretation Comments POC-HEMATOCRIT 34 % 40-50 L TESTED AT [facility] 6720 (BEAKER) (test code = [place] [address] 1857) URINALYSIS WITH MICROSCOPIC IF [id number] 07:55:00 Test Item Value Reference Range Interpretation [...] 0.2-1.0 = 463) SOURCE(BEAKER) (test code = 279) URINALYSIS [id number] 07:55:00 Test Item Value Reference Range Interpretation Comments RBC UA (BEAKER) (test code = 519) 1 /HPF WBC UA (BEAKER) (test code = 520) 9 /HPF MUCUS (BEAKER) (test code = 1574) Rare SQUAMOUS EPITHELIAL (BEAKER) (test < /HPF code = 516) C-REACTIVE [id number] 07:27:00 Test Item Value Reference Range Interpretation Comments C-REACTIVE PROTEIN (BEAKER) (test 15.31 mg/dL 0.00-0.50 H code = 676) CBC W/PLT COUNT & AUTO [id number] 04:17:00 Test Item Value Reference Range Interpretation [...] (BEAKER) (test code = 2801) BASIC METABOLIC [id number] 03:45:00 Test Item Value Reference Range Interpretation [...]
[2023-01-16 20:51] LABS: Absolute Lymphocytes (CBC) 2.3 K/uL (0.7-4.9); Lymphocytes % 23.3 % (15.3-44.8); MCV 92.2 fL (80-100); MPV 9.6 fL (7.6-11.3); RBC Red Blood Cell Count 4.45 M/uL (4.33-5.43)
--- NOTE | 2023-01-16 21:04 | RAD REPORT ---
EXAM DESCRIPTION: CT - Abdomen Pelvis Wo Contrast - 01/16/2023 8:40 pm CLINICAL HISTORY: Abdominal pain. ABD PAIN COMPARISON: Abdomen Pelvis W Contrast dated 09/06/2022 TECHNIQUE: CT imaging of the abdomen and pelvis was performed without contrast. Solid organ, bowel a nd vascular assessment is limited due to lack of IV and oral contrast. All CT scans are performed using dose optimization technique as appropriate and may include automated exposure control or mA/KV adjustment according to patient size. FINDINGS: The lower lung chatman are clear. The liver, spleen, pancreas, adrenal glands and kidneys are within normal limits for a limited non-co ntrast examination. No bowel obstruction, free air, free fluid or abscess. Mild sigmoid diverticulosis coli without diver ticulitis. The appendix is normal. The osseous structures are within normal limits. IMPRESSION: No acute intra-abdominal or pelvic findings. A limited non-contrast examination was performed as detailed.
[2023-01-16 21:05] LABS: Specific Gravity 1.016 (1.005-1.030); Urine Bacteria None Seen /HPF (<20); Urine Bilirubin NEGATIVE (Negative); Urine Blood Negative (Negative); Urine Clarity Clear (Clear); Urine Color Light-Yellow (Yellow); Urine Crystals Unidentified Few /HPF (None Seen); Urine Glucose NEGATIVE (Negative); Urine Protein NEGATIVE (Negative); Urine RBC <5 /HPF (None Seen); Urine Urobilinogen Normal (Normal); Urine pH 6.5 (5.0-7.0)
[2023-01-16 21:17] LABS: Potassium 3.5 mEq/L (3.5-5.1)
[2023-01-16 21:18] LABS: Albumin 4.1 g/dL (3.4-5.0); Bilirubin Total 0.5 mg/dL (0.2-1.0); Protein, Total 8.1 g/dL (6.4-8.2)
--- NOTE | 2023-01-16 21:22 | ER ---
Nurse's Notes [facility] Name: Uzair Sullivan Age: 42 yrs Sex: Male : 1980 Arrival Date: 01/16/2023 Time: 18:04 Bed 7 Private MD: Diagnosis: Abdominal pain, unspecified Presentation: 01/16 19:00 Chief complaint: Patient states: ABD pain "for months" with N/V that began today, vg1 stated burning sensation. Also stated SOB and blurred vision that began today. Coronavirus screen: Vaccine status: Patient reports receiving the 2nd dose of the covid vaccine. Client denies travel out of the [place] in the last 14 days. Ebola Screen: Patient negative for fever greater than or equal to 101.5 degrees Fahrenheit, and additional compatible Ebola Virus Disease symptoms Patient denies exposure to infectious person. Patient denies travel to an Ebola-affected area in the 21 days before illness onset. Initial Sepsis Screen: Does the patient meet any 2 criteria? No. Patient's initial sepsis screen is negative. Does the patient have a suspected source of infection? No. Patient's initial sepsis screen is negative. Risk Assessment: Do you want to hurt yourself or someone else? Patient reports no desire to harm self or others. Onset of symptoms was May 2022. 19:00 Method Of Arrival: Ambulatory vg1 19:00 Acuity: GLORIA 3 vg1 Triage Assessment: 19:02 General: Appears uncomfortable, Behavior is calm, cooperative. Pain: Complains of pain vg1 in abdomen Pain currently is 5 out of 10 on a pain scale. Pain began May 2022, that has not subsided. GI: Abdomen is round non-distended, Abdomen is tender to palpation X 4 quads. Reports nausea, vomiting, since today. Historical: - Allergies: 19:02 HYDROCODONE; vg1 19:02 Morphine; vg1 - Home Meds: 19:04 Metoprolol Tartrate Oral [Active]; vg1 - PMHx: 19:02 arrhythmia; Diverticulitis; vg1 - PSHx: 19:02 Heart ablation; heart cath; vg1 - Immunization history:: Client reports receiving the 2nd dose of the Covid vaccine. - Social history:: Smoking status: Patient denies any tobacco usage or history of. Screenin:26 [place] ED Fall Risk Assessment (Adult) History of falling in the last 3 months, lg3 including since admission No falls in past 3 months (0 pts). Abuse screen: Denies threats or abuse. Denies injuries from another. Nutritional screening: No deficits noted. Tuberculosis screening: No symptoms or risk factors identified. Assessment: 20:26 General: Appears in no apparent distress. comfortable, Behavior is calm, cooperative. lg3 Pain: Complains of pain in abdomen Pain does not radiate. Pain currently is 6 out of 10 on a pain scale. Neuro: No deficits noted. Adams Agitation-Sedation Scale (RASS): 0 - Alert and Calm Level of Consciousness is awake, alert, obeys commands, Oriented to person, place, time, situation. Cardiovascular: No deficits noted. Denies chest pain, shortness of breath, Capillary refill < 3 seconds Clubbing of nail beds is absent JVD is absent Patient's skin is warm and dry. Respiratory: No deficits noted. Airway is patent Respiratory effort is even, unlabored, Respiratory pattern is regular, symmetrical. GI: No deficits noted. Abdomen is flat, non-distended, Bowel sounds present X 4 quads. Abd is soft X 4 quads Abdomen is tender to palpation Reports lower abdominal pain, upper abdominal pain, bloating, cramping, intolerance of fluids, intolerance of food, nausea. : No deficits noted. No signs and/or symptoms were reported regarding the genitourinary system. EENT: No deficits noted. No signs and/or symptoms were reported regarding the EENT system. Derm: No deficits noted. No signs and/or symptoms reported regarding the dermatologic system. Skin is intact, is healthy with good turgor, Skin is dry, Skin is normal, Skin temperature is warm. Musculoskeletal: No deficits noted. No signs and/or symptoms reported regarding the musculoskeletal system. Circulation, motion, and sensation intact. Range of motion: intact in all extremities. 21:56 Reassessment: Patient appears in no apparent distress at this time. No changes from lg3 previously documented assessment. Patient and/or family updated on plan of care and expected duration. Pain level reassessed. Patient is alert, oriented x 3, equal unlabored respirations, skin warm/dry/pink. Vital Signs: 19:00 BP 114 / 86; Pulse 80; Resp 16; Temp 98.2(O); Pulse Ox 100% on R/A; Weight 70.76 kg; vg1 Height 5 ft. 9 in. ; Pain 5/10; 20:26 BP 116 / 80; Pulse 70; Resp 17 S; Pulse Ox 99% on R/A; lg3 21:56 BP 119 / 84; Pulse 81; Resp 19 S; Pulse Ox 100% on R/A; lg3 19:00 Body Mass Index 23.04 (70.76 kg, 175.26 cm) vg1 19:00 Pain Scale: Adult vg1 ED Course: 18:04 Patient arrived in ED. rg4 19:02 Triage completed. vg1 19:02 Arm band placed on. vg1 19:12 Marietta Centeno MD is Attending Physician. sp3 20:26 Patient has correct armband on for positive identification. Placed in gown. Bed in low lg3 position. Call light in reach. Side rails up X 1. Client placed on continuous cardiac and pulse oximetry monitoring. NIBP monitoring applied. clinical research monitor on. Door closed. Noise minimized. Warm blanket given. 20:26 Urinalysis W/Microscopic Sent. lg3 20:26 CBC with Diff Sent. lg3 20:26 CMP Sent. lg3 20:26 Lipase Sent. lg3 20:26 Inserted saline lock: 20 gauge in left antecubital area, using aseptic technique. Blood lg3 collected. 20:42 CT Abd/Pelvis - Without Contrast In Process Unspecified. EDMS 20:54 Anjali Maldonado, RN is Primary Nurse. lg3 21:56 No provider procedures requiring assistance completed. IV discontinued, intact, lg3 bleeding controlled, No redness/swelling at site. Pressure dressing applied. Administered Medications: No medications were administered Medication: 21:57 VIS not applicable for this client. lg3 Outcome: 21:21 Discharge ordered by . sp3 21:56 Discharged to home ambulatory. lg3 21:56 Condition: stable 21:56 Discharge instructions given to patient, Instructed on discharge instructions, follow up and referral plans. Demonstrated understanding of instructions, follow-up care. 21:57 Patient left the ED. lg3 Signatures: Dispatcher [employer] EDMS Hiral Stevenson 4 Anjali Maldonado, AVANI VARMA lg3 Janie Stevenson RN RN vg1 Marietta Centeno MD MD sp3 Corrections: (The following items were deleted from the chart) 19:05 19:02 PMHx: Lupus erythematosus; vg1 vg1
--- NOTE | 2023-01-16 21:22 | EDPHYS ---
Physician Documentation [facility] Name: Uzair Sullivan Age: 42 yrs Sex: Male : 1980 Arrival Date: 01/16/2023 Time: 18:04 Bed 7 Private MD: ED Physician Marietta Centeno HPI: 01/16 20:05 This 42 yrs old Male presents to ER via Ambulatory with complaints of Nausea, sp3 Blurred Vision, Abdominal Pain. 20:05 42-year-old male with a history of multiple episodes of diverticulitis, chronic sp3 abdominal pain now presents to the ED for repeat abdominal pain several days now. Patient has had upper endoscopy, colonoscopy, small intestinal camera follow-through, and has an MRI of his abdomen with contrast scheduled for tomorrow as well as surgical consultation for Sunday for possible exploratory laparoscopy. He states that over the last 24 hours his pain is acutely gotten worse and he is "worried about one of his diverticula perforating". He denies any headache, neck pain, chest pain, shortness of breath, back pain, nausea, vomiting, diarrhea, fever, change in bowel habits, rash, syncope, near syncope, dark stools/melena, bleeding, or any other aspect of ROS at this time.. Historical: - Allergies: 19:02 HYDROCODONE; vg1 19:02 Morphine; vg1 - Home Meds: 19:04 Metoprolol Tartrate Oral [Active]; vg1 - PMHx: 19:02 arrhythmia; Diverticulitis; vg1 - PSHx: 19:02 Heart ablation; heart cath; vg1 - Immunization history:: Client reports receiving the 2nd dose of the Covid vaccine. - Social history:: Smoking status: Patient denies any tobacco usage or history of. ROS: 20:09 Constitutional: Negative for fever, chills, and weight loss, Eyes: Negative for injury, sp3 pain, redness, and discharge, ENT: Negative for injury, pain, and discharge, Neck: Negative for injury, pain, and swelling, Cardiovascular: Negative for chest pain, palpitations, and edema, Respiratory: Negative for shortness of breath, cough, wheezing, and pleuritic chest pain, Back: Negative for injury and pain, MS/Extremity: Negative for injury and deformity, Skin: Negative for injury, rash, and discoloration, Neuro: Negative for headache, weakness, numbness, tingling, and seizure, Psych: Negative for depression, anxiety, suicide ideation, homicidal ideation, and hallucinations, Allergy/Immunology: Negative for hives, rash, and allergies, Endocrine: Negative for neck swelling, polydipsia, polyuria, polyphagia, and marked weight changes. 20:09 All other systems are negative. Exam: 20:09 Constitutional: This is a well developed, well nourished patient who is awake, alert, sp3 and in no acute distress. Head/Face: Normocephalic, atraumatic. Eyes: Pupils equal round and reactive to light, extra-ocular motions intact. Lids and lashes normal. Conjunctiva and sclera are non-icteric and not injected. Cornea within normal limits. Periorbital areas with no swelling, redness, or edema. Neck: Trachea midline, no thyromegaly or masses palpated, and no cervical lymphadenopathy. Supple, full range of motion without nuchal rigidity, or vertebral point tenderness. No Meningismus. Chest/axilla: Normal chest wall appearance and motion. Nontender with no deformity. No lesions are appreciated. Cardiovascular: Regular rate and rhythm with a normal S1 and S2. No gallops, murmurs, or rubs. Normal PMI, no JVD. No pulse deficits. Respiratory: Lungs have equal breath sounds bilaterally, clear to auscultation and percussion. No rales, rhonchi or wheezes noted. No increased work of breathing, no retractions or nasal flaring. Back: No spinal tenderness. No costovertebral tenderness. Full range of motion. Skin: Warm, dry with normal turgor. Normal color with no rashes, no lesions, and no evidence of cellulitis. MS/ Extremity: Pulses equal, no cyanosis. Neurovascular intact. Full, normal range of motion. Neuro: Awake and alert, GCS 15, oriented to person, place, time, and situation. Cranial nerves II-XII grossly intact. Motor strength 5/5 in all extremities. Sensory grossly intact. Cerebellar exam normal. Normal gait. Psych: Awake, alert, with orientation to person, place and time. Behavior, mood, and affect are within normal limits. 20:09 Abdomen/GI: Soft abdomen with mild pain to palpation in lower bilateral quadrants. No peritoneal signs including rebound or guarding. Bowel sounds are normal.. Vital Signs: 19:00 BP 114 / 86; Pulse 80; Resp 16; Temp 98.2(O); Pulse Ox 100% on R/A; Weight 70.76 kg; vg1 Height 5 ft. 9 in. ; Pain 5/10; 20:26 BP 116 / 80; Pulse 70; Resp 17 S; Pulse Ox 99% on R/A; lg3 21:56 BP 119 / 84; Pulse 81; Resp 19 S; Pulse Ox 100% on R/A; lg3 19:00 Body Mass Index 23.04 (70.76 kg, 175.26 cm) vg1 19:00 Pain Scale: Adult vg1 MDM: 19:46 Patient medically screened. sp3 20:09 Data reviewed: vital signs, nurses notes, lab test result(s), radiologic studies. ED sp3 course: 42-year-old male with acute on chronic abdominal pain with extensive work-up in progress. Differential diagnosis includes functional/chronic abdominal pain, diverticulitis, viral syndrome, constipation, among others. Not highly suspicious for surgical abdomen, sepsis, shock, mesenteric ischemia, appendicitis, biliary pathology, bowel obstruction, aortic pathology, pathology, kidney stone, or any other critical or concerning findings at this time. Work-up will include laboratory values and CT scan noncontrast of the abdomen pelvis (patient is due to get contrast tomorrow for his MRI so we will not give him contrast here today). Patient is in no acute distress and does not need any medicinal intervention at this time. She will likely be discharged if work-up is negative with continued outpatient work-up as already scheduled.. 21:21 ED course: Work-up is entirely negative including labs and CT scan. Will discharge sp3 patient home at this time. No pain medication is indicated currently.. 01/16 19:40 Order name: CBC with Diff; Complete Time: 21:04 sp3 01/16 19:40 Order name: CMP; Complete Time: : sp3 01/16 19:40 Order name: Lipase; Complete Time: : sp3 01/16 19:40 Order name: Urinalysis W/Microscopic; Complete Time: 21:08 sp3 01/16 20:02 Order name: CT Abd/Pelvis - Without Contrast; Complete Time: 21: sp3 01/16 19:40 Order name: IV Saline Lock; Complete Time: 20:26 sp3 01/16 19:40 Order name: Labs collected and sent; Complete Time: 20: sp3 01/16 19:40 Order name: NPO; Complete Time: 20:29 sp3 Administered Medications: No medications were administered Disposition Summary: 01/16/23 21:21 Discharge Ordered Location: Home sp3 Condition: Stable sp3 Diagnosis - Abdominal pain, unspecified sp3 Followup: sp3 - With: Private Physician - When: Upon discharge from the Emergency Department - Reason: Continuance of care Discharge Instructions: - Discharge Summary Sheet sp3 - Pain Without a Known Cause sp3 Forms: - Medication Reconciliation Form sp3 - Thank You Letter sp3 - Antibiotic Education sp3 - Prescription Opioid Use sp3 Signatures: Dispatcher [employer] Janie Cartagena RN RN vg1 Marietta Centeno MD MD sp3 Corrections: (The following items were deleted from the chart) 19:05 19:02 PMHx: Lupus erythematosus; vg1 vg1 20:09 20:05 42-year-old male with a history of multiple episodes of diverticulitis, chronic sp3 abdominal pain now presents to the ED for repeat abdominal pain. sp3
[2023-01-16 22:09] VITALS: TEMP 98.2
[2023-01-16 22:12] VITALS: BP 119/84; O2SAT 100
== END 2023-01-16 21:57 | disposition home or self-care (01) ==
LOC: ER 18:03
DX: R10.30 Lower abdominal pain, unspecified (principal); R11.0 Nausea; Z88.5 Allergy status to narcotic agent
CPT/HCPCS: 36415; 74176; 80053; 81001; 83690; 85025